=== PATIENT | female | born 1965 | race Caucasian/White ===

== ENCOUNTER 2016-10-24 18:24 | Emergency (ER) | payer SELFPAY ==
[~2016-10-24] VITALS: Ht 175.3 cm; Wt 90.0 kg
[2016-10-24 18:26] VITALS: BP 123/60; PULSE 106; RESP 24; TEMP 98.1; O2SAT 100
[2016-10-24 18:50] VITALS: BP 113/62; PULSE 101; RESP 16
[2016-10-24] MEDS ORDERED: SODIUM CHLORIDE 0.9% FLUSH 5 ML FLUSH IVF PRN (19:15)
--- NOTE | 2016-10-24 19:18 | PD ---
HPI Chief Complaint: Abdominal Pain Time Seen by Provider: 18:58 Travel History International Travel<30 days: No Contact w/Intl Traveler<30days: No Traveled to known affect area: No History of Present Illness HPI The patient is a 51-year-old female who presents to the emergency department for swelling, abdominal distention and pain, and shortness of breath. The patient has a history of "fatty liver", secondary to [place] according to her report. The patient does note a history of intermittent alcohol use, but denies any direct alcohol abuse. Patient states she was advised she would need a liver transplant in [place], [place], and subsequently moved to [place]. The patient states she was seen by another primary physician and field mechanic/site lead who told her she would not need a liver transplant. The patient does note her last couple weeks she's had increasing swelling to lower extremity, right greater then the left. She does have a history of previous DVT in the right lower extremity which was treated on Lovenox, however, is not currently anticoagulated. She also notes increasing abdominal distention and difficulty taking a deep breath secondary to abdominal distention. She also notes a history congestive heart failure. The patient states she does not currently have a primary physician. Symptoms are moderate, there are no alleviating factors, possibly exacerbated by history of liver disease. PFSH Past Medical History Narrative Medical Fatty liver, PTSD Anxiety: Yes Depression: Yes Hiatal Hernia: Yes Influenza Vaccination: No ?: Not Past Surgical History Narrative Surgical Gastric bypass Abdominal Surgery: Yes (HERNIA REPAIR) Oral Surgery: Yes Social History Alcohol Use: Yes (OCCASIONALLY) Tobacco Use: Yes Substance Use: No Allergies-Medications (Allergen,Severity, Reaction): Coded Allergies: No Known Allergies (Unverified , 10/24/16) Reported Meds & Prescriptions Reported Meds & Active Scripts Active No Active Prescriptions or Reported Medications Review of Systems Except as stated in HPI: all other systems reviewed are Neg General / Constitutional: No: Fever Cardiovascular: No: Chest Pain or Discomfort Respiratory: Positive: Shortness of Breath Gastrointestinal: Positive: Nausea, Abdominal Pain, No: Vomiting, Diarrhea Genitourinary: Positive: Incontinence (occasional incontinence) Musculoskeletal: Positive: Edema Skin: Positive Rash, Positive Itching Psychiatric: Positive: Other (history of PTSD) Physical Exam Narrative GENERAL: Awake, alert, 51-year-old female appears her stated age and is in no acute respiratory distress. SKIN: Mild jaundice. Telangiectasias noted over the chest wall. HEAD: Atraumatic. Normocephalic. EYES: Pupils equal and round. Mild icterus. ENT: No nasal bleeding or discharge. Mucous membranes pink and moist. NECK: Trachea midline. No JVD. CARDIOVASCULAR: Regular, tachycardic with a heart rate of 100. RESPIRATORY: No accessory muscle use. Diminished breath sounds in the bases. GASTROINTESTINAL: Abdomen distended with caput medusa. Well-healed midline surgical scar. Back: Scar noted over the mid right thoracic region that is circular in shape. MUSCULOSKELETAL: Lower extremity pitting edema right greater than left. NEUROLOGICAL: Awake and alert. No obvious cranial nerve deficits. Motor grossly within normal limits. Normal speech. PSYCHIATRIC: Appropriate mood and affect; insight and judgment normal. Data Data Last Documented VS Vital Signs Date Time Temp Pulse Resp B/P Pulse Ox O2 Delivery O2 Flow Rate FiO2 10/24/16 19:28 16 98 Room Air 10/24/16 18:50 101 113/62 10/24/16 18:26 98.1 Orders Complete Blood Count With Diff (10/24/16 19:09) Comprehensive Metabolic Panel (10/24/16 19:09) Lipase (10/24/16 19:09) Prothrombin Time / Inr (Pt) (10/24/16 19:09) Act Partial Throm Time (Ptt) (10/24/16 19:09) Urinalysis - C+S If Indicated (10/24/16 19:09) Iv Access Insert/Monitor (10/24/16 19:09) Ecg Monitoring (10/24/16 19:09) Oximetry (10/24/16 19:09) Sodium Chloride 0.9% Flush (Ns Flush) (10/24/16 19:15) Electrocardiogram (10/24/16 19:09) Chest, Single Ap (10/24/16 19:09) Us Leg Venous Doppler (10/24/16 ) Alcohol (Ethanol) (10/24/16 19:09) Ammonia (10/24/16 19:09) Us Abdomen Gallbladder (10/24/16 ) ^ Instruction (10/24/16 ) Labs Laboratory Tests Test 10/24/16 19:35 White Blood Count 11.9 TH/MM3 Red Blood Count 2.54 MIL/MM3 Hemoglobin 9.5 GM/DL Hematocrit 27.8 % Mean Corpuscular Volume 109.5 FL Mean Corpuscular Hemoglobin 37.6 PG Mean Corpuscular Hemoglobin 34.3 % Concent Red Cell Distribution Width 18.7 % Platelet Count 196 TH/MM3 Mean Platelet Volume 9.0 FL Neutrophils (%) (Auto) 69.8 % Lymphocytes (%) (Auto) 21.6 % Monocytes (%) (Auto) 7.4 % Eosinophils (%) (Auto) 0.7 % Basophils (%) (Auto) 0.5 % Neutrophils # (Auto) 8.3 TH/MM3 Lymphocytes # (Auto) 2.6 TH/MM3 Monocytes # (Auto) 0.9 TH/MM3 Eosinophils # (Auto) 0.1 TH/MM3 Basophils # (Auto) 0.1 TH/MM3 CBC Comment DIFF FINAL Differential Comment Prothrombin Time 14.0 SEC Prothromb Time International 1.3 RATIO Ratio Activated Partial 26.4 SEC Thromboplast Time Urine Color YELLOW Urine Turbidity HAZY Urine pH 5.0 Urine Specific [place] 1.010 Urine Protein NEG mg/dL Urine Glucose (UA) NEG mg/dL Urine Ketones NEG mg/dL Urine Occult Blood NEG Urine Nitrite NEG Urine Bilirubin NEG Urine Urobilinogen 2.0 MG/DL Urine Leukocyte Esterase NEG Urine RBC 1 /hpf Urine WBC 1 /hpf Urine Squamous Epithelial 1 /hpf Cells Urine Bacteria OCC /hpf Urine Mucus FEW /lpf Microscopic Urinalysis Comment CULT NOT INDICATED Sodium Level 137 MEQ/L Potassium Level 4.2 MEQ/L Chloride Level 104 MEQ/L Carbon Dioxide Level 23.9 MEQ/L Anion Gap 9 MEQ/L Blood Urea Nitrogen 6 MG/DL Creatinine 0.85 MG/DL Estimat Glomerular Filtration 71 ML/MIN Rate Random Glucose 84 MG/DL Calcium Level 7.5 MG/DL Total Bilirubin 2.9 MG/DL Aspartate Amino Transf 70 U/L (AST/SGOT) Alanine Aminotransferase 9 U/L (ALT/SGPT) Alkaline Phosphatase 191 U/L Ammonia 51 MCMOL/L Total Protein 6.7 GM/DL Albumin 2.2 GM/DL Lipase 90 U/L Ethyl Alcohol Level 193 MG/DL [facility] Medical Decision Making Medical Screen Exam Complete: Yes Emergency Medical Condition: Yes Medical Record Reviewed: Yes Interpretation(s) Chest x-ray reveals scarring left midlung. No infiltrate. Plates and screws along the right clavicle, right shoulder and right humerus. Laboratory Tests Test 3/8/17 19:35 White Blood Count 11.9 TH/MM3 Red Blood Count 2.54 MIL/MM3 Hemoglobin 9.5 GM/DL Hematocrit 27.8 % Mean Corpuscular Volume 109.5 FL Mean Corpuscular Hemoglobin 37.6 PG Mean Corpuscular Hemoglobin 34.3 % Concent Red Cell Distribution Width 18.7 % Platelet Count 196 TH/MM3 Mean Platelet Volume 9.0 FL Neutrophils (%) (Auto) 69.8 % Lymphocytes (%) (Auto) 21.6 % Monocytes (%) (Auto) 7.4 % Eosinophils (%) (Auto) 0.7 % Basophils (%) (Auto) 0.5 % Neutrophils # (Auto) 8.3 TH/MM3 Lymphocytes # (Auto) 2.6 TH/MM3 Monocytes # (Auto) 0.9 TH/MM3 Eosinophils # (Auto) 0.1 TH/MM3 Basophils # (Auto) 0.1 TH/MM3 CBC Comment DIFF FINAL Differential Comment Prothrombin Time 14.0 SEC Prothromb Time International 1.3 RATIO Ratio Activated Partial 26.4 SEC Thromboplast Time Urine Color YELLOW Urine Turbidity HAZY Urine pH 5.0 Urine Specific [place] 1.010 Urine Protein NEG mg/dL Urine Glucose (UA) NEG mg/dL Urine Ketones NEG mg/dL Urine Occult Blood NEG Urine Nitrite NEG Urine Bilirubin NEG Urine Urobilinogen 2.0 MG/DL Urine Leukocyte Esterase NEG Urine RBC 1 /hpf Urine WBC 1 /hpf Urine Squamous Epithelial 1 /hpf Cells Urine Bacteria OCC /hpf Urine Mucus FEW /lpf Microscopic Urinalysis Comment CULT NOT INDICATED Sodium Level 137 MEQ/L Potassium Level 4.2 MEQ/L Chloride Level 104 MEQ/L Carbon Dioxide Level 23.9 MEQ/L Anion Gap 9 MEQ/L Blood Urea Nitrogen 6 MG/DL Creatinine 0.85 MG/DL Estimat Glomerular Filtration 71 ML/MIN Rate Random Glucose 84 MG/DL Calcium Level 7.5 MG/DL Total Bilirubin 2.9 MG/DL Aspartate Amino Transf 70 U/L (AST/SGOT) Alanine Aminotransferase 9 U/L (ALT/SGPT) Alkaline Phosphatase 191 U/L Ammonia 51 MCMOL/L Total Protein 6.7 GM/DL Albumin 2.2 GM/DL Lipase 90 U/L Ethyl Alcohol Level 193 MG/DL EKG reveals normal sinus rhythm with a rate in 97. Nonspecific ST-T wave changes. Inverted T-wave noted in lead 3 with Q waves in lead 3. Last Impressions Chest X-Ray 10/24/[id number] Signed Impressions: Service Date/Time: Monday, October 24, 2016 19:19 - CONCLUSION: Scarring left midlung. No infiltrate. Perez Burrell MD Lower Extremity Ultrasound 10/24/16 0000 Signed Impressions: Service Date/Time: Monday, October 24, 2016 21:42 - CONCLUSION: No DVT right leg. Perez Burrell MD Gall Bladder Ultrasound 10/24/16 0000 Signed Impressions: Service Date/Time: Monday, October 24, 2016 21:25 - CONCLUSION: 1. Cirrhotic appearing liver with small amount of abdominal ascites. 2. Cholelithiasis. Perez Burrell MD Differential Diagnosis Differential diagnosis includes nonalcoholic steatohepatitis, alcohol hepatitis , cholecystitis, ascites, anasarca, hypoalbuminemia, pleural effusion, congestive heart failure. Narrative Course IV was established, labs were drawn and sent, and the patient was placed on cardiac telemetry monitoring and continuous pulse oximetry monitoring. EKG was ordered and interpreted. Chest x-ray was ordered. Ultrasound of the abdomen and right lower extremity were obtained. Alcohol level was elevated at 193. Albumin is low at 2.2. The patient is mildly anemic with a hemoglobin of 9.5. AST is much higher than ALT, may be secondary to alcohol hepatitis. Chest x- ray was negative, no significant pleural effusions. Alcohol was elevated at 193. Albumin was low, LFTs reveal a bili of 2.9. Chest x-rays clear. Ultrasound of the right lower extremity is negative. Ultrasound the abdomen reveals a small amount of abdominal ascites and cirrhosis with cholelithiasis. Patient has a history of liver disease and is advised to follow-up with a field mechanic/site lead. Diagnosis Primary Impression: Cirrhosis Qualified Code: K74.60 - Cirrhosis of liver with ascites, unspecified hepatic cirrhosis type Additional Impression: Hypoalbuminemia Referrals: Costa Higgins MD call for appointment Patient Instructions: General Instructions Additional Instructions: Please provide a patient a copy of her lab results and ultrasound results at discharge. No more alcohol use. Avoid Tylenol. Follow-up with a field mechanic/site lead in regards to your chronic liver disease. GEORGIE hose and/or Shravan wraps to lower extremities for edema. Scripts No Active Prescriptions or Reported Meds Disposition: 01 DISCHARGE HOME Condition: Stable Owen Gill MD Oct 24, 2016 19:18
[2016-10-24 19:28] VITALS: RESP 16; O2SAT 98
--- NOTE | 2016-10-24 19:30 | RADRPT ---
EXAM DATE/TIME: 10/24/2016 19:19 [facility] COMPARISON: No previous studies available for comparison. INDICATIONS : Short of breath, edema. MEDICAL HISTORY : Congestive heart failure. Hx of fatty liver. SURGICAL HISTORY : Gastric bypass. Hiatal hernia repair. ENCOUNTER: Initial ACUITY: 1 day PAIN SCORE: 7/10 LOCATION: Right anterior chest/abdomen FINDINGS: A single view of the chest demonstrates minimal scarring left midlung without evidence of mass, infil trate or effusion. The cardiomediastinal contours are unremarkable. Plates and screws along the rig ht clavicle, right shoulder and right humerus. CONCLUSION: Scarring left midlung. No infiltrate. Perez Burrell MD on October 24, 2016 at 19:27 Board Certified Radiologist. This report was verified electronically.
[2016-10-24 20:02] LABS: AUTOMATED NEUTROPHIL # 8.3 TH/MM3 (1.8-7.7); BASOPHIL # 0.1 TH/MM3 (0-0.2); BASOPHIL % 0.5 % (0.0-2.0); EOSINOPHIL # 0.1 TH/MM3 (0-0.4); EOSINOPHIL % 0.7 % (0.0-4.0); HEMATOCRIT 27.8 % (35.0-46.0); HEMO FLAGS DIFF FINAL; LYMPH % 21.6 % (9.0-44.0); LYMPHOCYTE # 2.6 TH/MM3 (1.0-4.8); MEAN CELL VOLUME 109.5 FL (80.0-100.0); MEAN CORPUSCULAR HEMOGLOBIN 37.6 PG (27.0-34.0); MEAN CORPUSCULAR HGB CONC 34.3 % (32.0-36.0); MONO % 7.4 % (0.0-8.0); NEUT % 69.8 % (16.0-70.0); PLATELET COUNT 196 TH/MM3 (150-450); RED BLOOD COUNT 2.54 MIL/MM3 (4.00-5.30); RED CELL DISTRIBUTION WIDTH 18.7 % (11.6-17.2); WHITE BLOOD COUNT 11.9 TH/MM3 (4.0-11.0)
[2016-10-24 20:03] LABS: BACTERIA, URINE OCC /hpf; BLOOD, URINE NEG (NEG); COMMENT (UR) CULT NOT INDICATED; CULTURE IF INDICATED CULT NOT INDICATED; GLUCOSE,URINE NEG (NEG); KETONE, URINE NEG (NEG); MUCUS URINE FEW /lpf (OCC); NITRITE,URINE NEG (NEG); SQUAMOUS EPITHELIAL CELL URINE 1 /hpf (0-5); URINE COLOR YELLOW (YELLW/STRAW)
[2016-10-24 20:16] LABS: APTT (PATIENT) 26.4 SEC (24.3-30.1); INTERNATIONAL NORMALIZED RATIO 1.3 RATIO
[2016-10-24 20:47] LABS: ANION GAP 9 MEQ/L (5-15)
[2016-10-24 20:50] LABS: ALKALINE PHOSPHATASE 191 U/L (45-117); ALT (GPT) 9 U/L (10-53); AST (GOT) 70 U/L (15-37); BICARBONATE 23.9 MEQ/L (21.0-32.0); BLOOD UREA NITROGEN 6 MG/DL (7-18); CHLORIDE 104 MEQ/L (98-107); GLOMERULAR FILTRATION RATE 71 ML/MIN (>89); POTASSIUM 4.2 MEQ/L (3.5-5.1); SODIUM (NA) 137 MEQ/L (136-145); TOTAL BILIRUBIN ADULT 2.9 MG/DL (0.2-1.0)
--- NOTE | 2016-10-24 22:27 | RADRPT ---
EXAM DATE/TIME: 10/24/2016 21:25 [facility] COMPARISON: No previous studies available for comparison. INDICATIONS : Right upper quadrant pain. Evaluate liver and ascites due to history of [place]. MEDICAL HISTORY : Hernia, hiatal. SURGICAL HISTORY : Hiatal hernia repair. Right arm surgery. ENCOUNTER: Initial ACUITY: 2 weeks PAIN SCORE: 7/10 LOCATION: Abdomen. MEASUREMENTS: LIVER: 20.9 cm length COMMON DUCT: 5 mm RIGHT KIDNEY: 10.5 x 5.2 x 4.4 cm FINDINGS: LIVER: Increase in echogenicity with nodularity. No focal lesion or ductal dilatation. Hepatopedal flow. Sma ll abdominal ascites. COMMON DUCT: No intraluminal mass or stone visualized. GALLBLADDER: Contains multiple stones, demonstrates no wall thickening or pericholecystic fluid. PANCREAS: The visualized portions are within normal limits. RIGHT KIDNEY: No evidence of hydronephrosis, stone, or mass. CONCLUSION: 1. Cirrhotic appearing liver with small amount of abdominal ascites. 2. Cholelithiasis. Perez Burrell MD on October 24, 2016 at 22:24 Board Certified Radiologist. This report was verified electronically.
--- NOTE | 2016-10-24 22:28 | RADRPT ---
EXAM DATE/TIME: 10/24/2016 21:42 [facility] COMPARISON: No previous studies available for comparison. INDICATIONS : Right leg pain and swelling. MEDICAL HISTORY : Hernia, hiatal. SURGICAL HISTORY : Hiatal hernia repair. Right arm surgery. ENCOUNTER: Initial ACUITY: 2 weeks PAIN SCORE: 7/10 LOCATION: Right leg. TECHNIQUE: Venous ultrasound of the leg was performed from the inguinal ligament to the proximal calf. Real-cherry e, color Doppler and spectral tracing, compression and augmentation techniques were used. FINDINGS: There is normal compressibility of the deep venous system from the inguinal region to the proximal ca lf. No echogenic clot is seen in the lumen of the common femoral, femoral, popliteal, and posterior tibial veins. There is a normal response of the venous system to proximal and distal augmentation an d respiration. CONCLUSION: No DVT right leg. Perez Burrell MD on October 24, 2016 at 22:26 Board Certified Radiologist. This report was verified electronically.
--- NOTE | 2016-10-25 10:10 | EKG ---
Date Performed: 10/24/2016 Time Performed: 21:15:35 PTAGE: 51 years EKG: Sinus rhythm NONSPECIFIC ST & T-WAVE ABNORMALITY BORDERLINE ECG NO PREVIOUS TRACING DOCTOR: Ben Neal Interpretating Date/Time 10/25/2016 10:08:20
== END 2016-10-25 00:38 | disposition home or self-care (01) ==
LOC: NEPE 18:24
DX: K74.60 Unspecified cirrhosis of liver (principal); R18.8 Other ascites; E88.09 Other disorders of plasma-protein metabolism, not elsewhere classified; D64.9 Anemia, unspecified; R94.31 Abnormal electrocardiogram [ECG] [EKG]; R10.9 Unspecified abdominal pain; R06.02 Shortness of breath; Z72.0 Tobacco use; Z86.718 Personal history of other venous thrombosis and embolism; Z86.79 Personal history of other diseases of the circulatory system; Z87.19 Personal history of other diseases of the digestive system; Z86.59 Personal history of other mental and behavioral disorders
CPT/HCPCS: 71010; 76705; 80053; 80307; 81001; 82140; 83690; 85025; 85610; 85730; 93005; 93971

== ENCOUNTER 2017-07-09 11:41 | Inpatient (IN) | payer MEDICARE, OTHER ==
[2017-07-09] VITALS (8 sets, daily range): BP systolic 102–121; BP diastolic 59–75; PULSE 75–90; RESP 16–18; TEMP 98.1–98.5; O2SAT 97–100
[~2017-07-09] VITALS: Ht 170.2 cm; Wt 75.6 kg
[2017-07-09] MEDS ORDERED: IOHEXOL 350 MG/ML 10 ML VIAL (for RAD DIAG) IVCONTRAST ONE (11:42)
[2017-07-09] MEDS ORDERED: SODIUM CHLORID 0.9% 500 ML INJ 500 ML IV ONE (12:00)
[2017-07-09] MEDS ORDERED: SODIUM CHLORIDE 0.9% FLUSH 5 ML FLUSH IV FLUSH PRN (12:00)
--- NOTE | 2017-07-09 12:09 | PD ---
HPI Chief Complaint: Altered Mental Status Time Seen by Provider: 11:56 Travel History International Travel<30 days: No Contact w/Intl Traveler<30days: No Traveled to known affect area: No History of Present Illness HPI 52-year-old female with history of alcoholic liver cirrhosis presents to the emergency department via [facility] from [facility] for evaluation of altered mental status. Apparently, she is having increased ammonia level with her liver cirrhosis. She also apparently is being treated for a urinary tract infection with meropenem him 500 mg every 8 that was just started. Patient is alert. She is oriented to person and place, but does not know the year. She does know the month and the president. She complains of "allover pain". Patient states that she has had intermittent fevers and chills. She denies any chest pain or shortness of breath. She reports abdominal pain. Chest reports nausea, but no vomiting. She states she has had diarrhea, but no constipation. Severity is moderate. No exacerbating or alleviating factors. PFSH Past Medical History Anxiety: Yes Depression: Yes Hiatal Hernia: Yes ?: Not Past Surgical History Abdominal Surgery: Yes (HERNIA REPAIR) Oral Surgery: Yes Social History Alcohol Use: Yes (OCCASIONALLY) Tobacco Use: Yes Substance Use: No Allergies-Medications (Allergen,Severity, Reaction): Coded Allergies: No Known Allergies (Unverified Adverse Reaction, Unknown, 07/09/17) Reported Meds & Prescriptions Reported Meds & Active Scripts Active Reported Oxycodone (Oxycodone HCl) 5 Mg Cap 5 Mg PO DAILY PRN Alprazolam 0.25 Mg Tab 0.25 Mg PO Q8H Lactulose Liq (Lactulose) 10 Gm/15 Ml Soln 45 Ml PO TID Pro-Stat Awc (Amino Acids-Protein Hydrolysat) 17 Gram-100 Kcal/30 Ml Liq Unknown Dose PO TID Gabapentin 100 Mg Cap 100 Mg PO TID Ferrous Sulfate 325 Mg (65 Mg Iron) Tablet 325 Mg PO TIDPC [Calcium Tablet] 600 Mg PO TD Acidophilus (Probiotic Product) 175 Mg Cap 1 Unit PO TID Xifaxan (Rifaximin) 550 Mg Tab 550 Mg PO Q12HR Vitamin C (Ascorbic Acid) 250 Mg Tab 500 Mg PO BID Spironolactone 100 Mg Tab 100 Mg PO BID Furosemide 40 Mg Tab 40 Mg PO BID Fluticasone Nasal [place] 50 Mcg/Act Naspr 50 Mcg EACH NARE BID 50 mcg/spray Famotidine 20 Mg Tab 20 Mg PO BID Vitamin B-Complex (B-Complex Vitamins) 1 Tab Unknown Dose PO DAILY Senna-Tabs (Sennosides) 8.6 Mg Tab 8.6 Mg PO DAILY Potassium Chloride ER (Potassium Chloride) 10 Meq Cap 10 Meq PO DAILY Effexor XR 24 HR (Venlafaxine HCl) 75 Mg Cap 75 Mg PO DAILY Review of Systems Except as stated in HPI: all other systems reviewed are Neg Physical Exam Narrative GENERAL: Well-nourished, well-developed female patient, He looks older than 52. She is afebrile. Patient is alert. She is oriented to person, place. She is unaware of the year, but knows the month and the president. SKIN: Focused skin assessment warm/dry. Patient has a stage 4 decubitus ulcer that with saturated gauze in place and foul odor. HEAD: Normocephalic. Atraumatic. ENT: Mucosa is dry. No erythema or exudates. No uvular edema. No uvular, palatal , or tonsillar deviation. Airway patent. Nasal turbinates appear normal without nasal blood, purulent drainage or septal hematoma. Bilateral tympanic membranes are clear without erythema or perforation. EYES: No scleral icterus. No injection or drainage. NECK: Supple, trachea midline. No JVD or lymphadenopathy. CARDIOVASCULAR: Regular rate and rhythm without murmurs, gallops, or rubs. Bilateral radial and pedal pulses are 2+. RESPIRATORY: Breath sounds equal bilaterally. No accessory muscle use. Lungs sounds are clear to auscultation. GASTROINTESTINAL: Abdomen is distended with moaning upon palpation throughout the abdomen. MUSCULOSKELETAL: No cyanosis, or edema. BACK: Nontender without obvious deformity. No CVA tenderness. Data Data Last Documented VS Vital Signs Date Time Temp Pulse Resp B/P (MAP) Pulse Ox O2 Delivery O2 Flow Rate FiO2 07/09/17 15:29 86 16 110/59 (76) Room Air 07/09/17 13:35 100 07/09/17 11:49 98.1 Orders Orders Electrocardiogram (07/09/17 11:58) Ammonia (07/09/17 11:58) Complete Blood Count With Diff (07/09/17 11:58) Comprehensive Metabolic Panel (07/09/17 11:58) Creatine Kinase (Cpk) (07/09/17 11:58) Prothrombin Time / Inr (Pt) (07/09/17 11:58) Act Partial Throm Time (Ptt) (07/09/17 11:58) Troponin I (07/09/17 11:58) Urinalysis - C+S If Indicated (07/09/17 11:58) Lactic Acid Sepsis Protocol (07/09/17 11:58) Blood Culture (07/09/17 11:58) Chest, Single Ap (07/09/17 11:58) Ct Brain W/O Iv Contrast(Rout) (07/09/17 11:58) Blood Glucose (07/09/17 11:58) Ecg Monitoring (07/09/17 11:58) Iv Access Insert/Monitor (07/09/17 11:58) Cath For Specimen (07/09/17 11:58) Oximetry (07/09/17 11:58) Sodium Chloride 0.9% Flush (Ns Flush) (07/09/17 12:00) Sodium Chlorid 0.9% 500 Ml Inj (Ns 500 M (07/09/17 12:00) Ct Abd/Pel W Iv Contrast(Rout) (07/09/17 ) Wound Culture And Gram Stain (07/09/17 12:14) Urine Culture (07/09/17 12:00) Iohexol 350 Inj (Omnipaque 350 Inj) (07/09/17 11:42) (Hub Use Only)Inp Phy Cons/Ref (07/09/17 ) Vancomycin Inj (Vancomycin Inj) (07/09/17 15:15) Piperacil-Tazo 3.375 Gm Premix (Zosyn 3. (07/09/17 15:15) Labs Laboratory Tests Test 07/09/17 12:00 White Blood Count 15.6 TH/MM3 Red Blood Count 3.38 MIL/MM3 Hemoglobin 11.1 GM/DL Hematocrit 33.3 % Mean Corpuscular Volume 98.7 FL Mean Corpuscular Hemoglobin 32.9 PG Mean Corpuscular Hemoglobin Concent 33.4 % Red Cell Distribution Width 15.6 % Platelet Count 125 TH/MM3 Mean Platelet Volume 8.0 FL Neutrophils (%) (Auto) 84.4 % Lymphocytes (%) (Auto) 10.8 % Monocytes (%) (Auto) 4.6 % Eosinophils (%) (Auto) 0.1 % Basophils (%) (Auto) 0.1 % Neutrophils # (Auto) 13.2 TH/MM3 Lymphocytes # (Auto) 1.7 TH/MM3 Monocytes # (Auto) 0.7 TH/MM3 Eosinophils # (Auto) 0.0 TH/MM3 Basophils # (Auto) 0.0 TH/MM3 CBC Comment AUTO DIFF Differential Comment AUTO DIFF CONFIRMED Prothrombin Time 14.4 SEC Prothromb Time International Ratio 1.3 RATIO Activated Partial Thromboplast Time 35.0 SEC Urine Color YELLOW Urine Turbidity CLEAR Urine pH 6.0 Urine Specific [place] 1.008 Urine Protein NEG mg/dL Urine Glucose (UA) NEG mg/dL Urine Ketones NEG mg/dL Urine Occult Blood NEG Urine Nitrite NEG Urine Bilirubin NEG Urine Urobilinogen LESS THAN 2.0 MG/DL Urine Leukocyte Esterase TRACE Urine RBC 1 /hpf Urine WBC 6 /hpf Urine Squamous Epithelial Cells 1 /hpf Urine Bacteria RARE /hpf Urine Mucus FEW /lpf Microscopic Urinalysis Comment CATH-CULTURE IND Blood Urea Nitrogen 14 MG/DL Creatinine 0.73 MG/DL Random Glucose 72 MG/DL Total Protein 7.5 GM/DL Albumin 1.6 GM/DL Calcium Level 8.1 MG/DL Alkaline Phosphatase 109 U/L Aspartate Amino Transf (AST/SGOT) 38 U/L Alanine Aminotransferase (ALT/SGPT) LESS THAN 6 U/L Total Bilirubin 1.7 MG/DL Sodium Level 130 MEQ/L Potassium Level 4.3 MEQ/L Chloride Level 99 MEQ/L Carbon Dioxide Level 23.8 MEQ/L Anion Gap 7 MEQ/L Estimat Glomerular Filtration Rate 84 ML/MIN Lactic Acid Level 1.1 mmol/L Ammonia 20 MCMOL/L Total Creatine Kinase 43 U/L Troponin I LESS THAN 0.02 NG/ML [facility] Medical Decision Making Medical Screen Exam Complete: Yes Emergency Medical Condition: Yes Medical Record Reviewed: No Interpretation(s) chest x-ray - CONCLUSION: No acute disease. CT abdomen/pelvis - CONCLUSION: Gallstones. Mildly cirrhotic liver with some surrounding fluid. Bilateral lower lobe atelectasis. CT brain - no acute disease Differential Diagnosis Hepatic encephalopathy versus UTI versus sepsis versus the left side abnormality versus dehydration versus pneumonia Narrative Course 52-year-old female presents to the emergency department from [facility] for evaluation of increased confusion with elevated ammonia level and is currently being treated for UTI. EKG, CBC, CMP, CK, troponin, ammonia level , lactic acid, PTT, PT/INR, UA, blood cultures 2 are ordered and pending. Chest x-ray, CT of the brain, CT abdomen/pelvis with IV contrast are ordered and pending. Patient is given normal saline 500 mL bolus. EKG shows SR, HR 80, no acute ST changes. CBC shows leukocytosis 15.6, hemoglobin 11.1, hematocrit 33.3, platelets 125. CMP shows hyponatremia of 130 , glucose 72, bilirubin 1.7. CK is 43. Troponin is less than 0.02. Ammonia is 20. Lactic acid is 1.1. PT is 14.4, INR 1.3, PTT 35.0. UA shows trace leukocyte esterase, 6 WBC, rare bacteria. Chest x-ray shows no acute disease. CT of the brain shows no acute disease. CT abdomen/pelvis shows gallstones. Mildly cirrhotic liver with some surrounding fluid. Bilateral lower lobe atelectasis. Patient is started on Vancomycin 1 gm IV, Zosyn 3.375 gm IV for UTI, decubitus ulcer. I reviewed sensitivity. The patient from nursing facility which shows the bacteria is sensitive to Zosyn. Dr. Dos Santos accepted admission. Diagnosis Primary Impression: Altered mental status Qualified Codes: R41.82 - Altered mental status, unspecified Additional Impressions: Decubitus ulcer, stage 4 with infection UTI (urinary tract infection) Qualified Codes: N30.00 - Acute cystitis without hematuria Cirrhosis Qualified Codes: K74.60 - Unspecified cirrhosis of liver Admitting Information Admitting Physician Requests: Tran Britt Jul 09, 2017 12:09
[2017-07-09 12:35] LABS: AUTOMATED NEUTROPHIL # 13.2 TH/MM3 (1.8-7.7); BASOPHIL % 0.1 % (0.0-2.0); EOSINOPHIL % 0.1 % (0.0-4.0); HEMATOCRIT 33.3 % (35.0-46.0); LYMPH % 10.8 % (9.0-44.0); LYMPHOCYTE # 1.7 TH/MM3 (1.0-4.8); MEAN CELL VOLUME 98.7 FL (80.0-100.0); MEAN CORPUSCULAR HEMOGLOBIN 32.9 PG (27.0-34.0); MEAN CORPUSCULAR HGB CONC 33.4 % (32.0-36.0); MONO % 4.6 % (0.0-8.0); NEUT % 84.4 % (16.0-70.0); PLATELET COUNT 125 TH/MM3 (150-450); RED BLOOD COUNT 3.38 MIL/MM3 (4.00-5.30); RED CELL DISTRIBUTION WIDTH 15.6 % (11.6-17.2); WHITE BLOOD COUNT 15.6 TH/MM3 (4.0-11.0)
[2017-07-09 12:38] LABS: HEMO FLAGS AUTO DIFF
[2017-07-09 12:41] LABS: BACTERIA, URINE RARE /hpf; BLOOD, URINE NEG (NEG); COMMENT (UR) CATH-CULTURE IND; CULTURE IF INDICATED CATH CULTURE IND; GLUCOSE,URINE NEG (NEG); KETONE, URINE NEG (NEG); MUCUS URINE FEW /lpf (OCC); NITRITE,URINE NEG (NEG); SQUAMOUS EPITHELIAL CELL URINE 1 /hpf (0-5); URINE COLOR YELLOW (YELLW/STRAW)
[2017-07-09] MEDS ORDERED: SENN8.6T36 PO (12:41)
[2017-07-09] MEDS ORDERED: POTA10CA PO (12:41)
[2017-07-09] MEDS ORDERED: VENL75XR PO (12:41)
[2017-07-09] MEDS ORDERED: FAMO20TA2 PO (12:41)
[2017-07-09] MEDS ORDERED: FLUT50SP EACH NARE (12:41)
[2017-07-09] MEDS ORDERED: SPIR100T PO (12:41)
[2017-07-09] MEDS ORDERED: B-COTAB41 PO (12:41)
[2017-07-09] MEDS ORDERED: FURO40TA PO (12:41)
[2017-07-09 12:45] LABS: INTERNATIONAL NORMALIZED RATIO 1.3 RATIO; PROTHROMBIN TIME - PATIENT 14.4 SEC (9.8-11.6)
[2017-07-09] MEDS ORDERED: OXYC1CAP PO (12:50)
[2017-07-09] MEDS ORDERED: CALCIUM TABLET PO (12:50)
[2017-07-09] MEDS ORDERED: [UNRECOGNIZED DRUG - CODE] PO (12:50)
[2017-07-09] MEDS ORDERED: VITA250T3 PO (12:50)
[2017-07-09] MEDS ORDERED: LACT10SO PO (12:50)
[2017-07-09] MEDS ORDERED: FERR325T18 PO (12:50)
[2017-07-09] MEDS ORDERED: XIFA550T4 PO (12:50)
[2017-07-09] MEDS ORDERED: ALPR0.25 PO (12:50)
[2017-07-09] MEDS ORDERED: PROB1CAP12 PO (12:50)
[2017-07-09] MEDS ORDERED: GABA100C4 PO (12:50)
--- NOTE | 2017-07-09 12:56 | RADRPT ---
EXAM DATE/TIME: 07/09/2017 11:11 [facility] COMPARISON: CHEST SINGLE AP, October 24, 2016, 19:19. INDICATIONS : Altered mental status, short of breath MEDICAL HISTORY : Congestive heart failure. fatty liver SURGICAL HISTORY : gastric bypass, hiatal hernia repair, arm and shoulder surgery ENCOUNTER: Initial ACUITY: 1 day PAIN SCORE: Non-responsive. LOCATION: Bilateral chest FINDINGS: A single portable supine view of the chest shows linear atelectasis versus scarring within the left b ase. Right lung is clear. No infiltrates or effusions. Heart is normal in size. Orthopedic hardware i nvolving the right clavicle and proximal right humerus. CONCLUSION: No acute disease. Howard Vigil Jr., MD on July 09, 2017 at 12:54 Board Certified Radiologist. This report was verified electronically.
[2017-07-09 13:04] LABS: ALKALINE PHOSPHATASE 109 U/L (45-117); ALT (GPT) LESS THAN 6 U/L (10-53); ANION GAP 7 MEQ/L (5-15); AST (GOT) 38 U/L (15-37); BICARBONATE 23.8 MEQ/L (21.0-32.0); BLOOD UREA NITROGEN 14 MG/DL (7-18); CHLORIDE 99 MEQ/L (98-107); GLOMERULAR FILTRATION RATE 84 ML/MIN (>89); POTASSIUM 4.3 MEQ/L (3.5-5.1); SODIUM (NA) 130 MEQ/L (136-145); TOTAL BILIRUBIN ADULT 1.7 MG/DL (0.2-1.0)
[2017-07-09 13:05] LABS: CREATINE KINASE 43 U/L (26-192)
[2017-07-09 13:14] LABS: SCAN/DIFF AUTO DIFF CONFIRMED
--- NOTE | 2017-07-09 14:07 | RADRPT ---
EXAM DATE/TIME: 07/09/2017 13:55 [facility] COMPARISON: No previous studies available for comparison. INDICATIONS : Altered mental status. RADIATION DOSE: 44.60 CTDIvol (mGy) MEDICAL HISTORY : Hernia, hiatal. Cirrhosis. Chronic obstructive pulmonary disease. SURGICAL HISTORY : hiatal hernia repair ENCOUNTER: Initial ACUITY: 1 day PAIN SCALE: 0/10 LOCATION: cranial TECHNIQUE: Multiple contiguous axial images were obtained of the head. Using automated exposure control and adj ustment of the mA and/or kV according to patient size, radiation dose was kept as low as reasonably a chievable to obtain optimal diagnostic quality images. DICOM format image data is available electro nically for review and comparison. FINDINGS: CEREBRUM: The ventricles are normal for age. No evidence of midline shift, mass lesion, hemorrhage or acute in farction. No extra-axial fluid collections are seen. POSTERIOR FOSSA: The cerebellum and brainstem are intact. The 4th ventricle is midline. The cerebellopontine angle i s unremarkable. EXTRACRANIAL: The visualized portion of the orbits is intact. SKULL: The calvaria is intact. No evidence of skull fracture. CONCLUSION: No acute disease. Howard Vigil Jr., MD on July 09, 2017 at 14:03 Board Certified Radiologist. This report was verified electronically.
--- NOTE | 2017-07-09 14:54 | RADRPT ---
EXAM DATE/TIME: 07/09/2017 14:03 [facility] COMPARISON: No previous studies available for comparison. INDICATIONS : Patient complains of abdominal pain. IV CONTRAST: 71 cc Omnipaque 350 (iohexol) IV ORAL CONTRAST: No oral contrast ingested. RADIATION DOSE: 8.94 CTDIvol (mGy) MEDICAL HISTORY : Hernia, hiatal. Chronic obstructive pulmonary disease. Cirrhosis. SURGICAL HISTORY : hiatal hernia repair ENCOUNTER: Initial ACUITY: 1 day PAIN SCALE: 9/10 LOCATION: abdomen TECHNIQUE: Volumetric scanning of the abdomen and pelvis was performed. Using automated exposure control and ad justment of the mA and/or kV according to patient size, radiation dose was kept as low as reasonably achievable to obtain optimal diagnostic quality images. DICOM format image data is available electro nically for review and comparison. FINDINGS: LOWER LUNGS: Bilateral lower lobe atelectasis. LIVER: Homogeneous density without lesion, with a mildly cirrhotic appearance. There is no dilation of the biliary tree. Numerous calcified gallstones. SPLEEN: homogeneous density without lesion, slightly enlarged. PANCREAS: Within normal limits. KIDNEYS: Normal in size and shape. There is no mass, stone or hydronephrosis. ADRENAL GLANDS: Within normal limits. VASCULAR: There is no aortic aneurysm. BOWEL/MESENTERY: The stomach, small bowel, and colon demonstrate no acute abnormality. There is no free intraperitone al air or fluid. ABDOMINAL WALL: Within normal limits. RETROPERITONEUM: There is no lymphadenopathy. BLADDER: No wall thickening or mass. REPRODUCTIVE: Within normal limits. INGUINAL: There is no lymphadenopathy or hernia. MUSCULOSKELETAL: Within normal limits for patient age. CONCLUSION: Gallstones. Mildly cirrhotic liver with some surrounding fluid. Bilateral lower lobe atelectasis. Neil Roblero MD on July 09, 2017 at 14:47 Board Certified Radiologist. This report was verified electronically.
[2017-07-09] MEDS ORDERED: PIPERACIL-TAZO 3.375 GM PREMIX 50 ML IV ONE (15:15)
[2017-07-09] MEDS ORDERED: VANCOMYCIN INJ 1,000 MG in SODIUM CHLOR 0.9% 250 ML INJ 250 ML IV ONE (15:15)
[2017-07-09] MEDS ORDERED: PROCHLORPERAZINE 25 MG SUPP RECTAL PRN (16:00)
[2017-07-09] MEDS ORDERED: SODIUM CHLORIDE 0.9% FLUSH 10 ML FLUSH IV FLUSH PRN (16:00)
[2017-07-09] MEDS ORDERED: VANCOMYCIN INJ 1,000 MG in SODIUM CHLOR 0.9% 250 ML INJ 250 ML IV SCH (16:00)
[2017-07-09] MEDS: ALPRAZolam 0.25 MG TAB PO SCH ×2 (16:00→23:43)
[2017-07-09] MEDS ORDERED: MAGNESIUM HYDROXIDE SUSP 30 ML CUP PO PRN (16:00)
[2017-07-09] MEDS ORDERED: SENNOSIDES 8.6 MG TAB PO PRN (16:00)
[2017-07-09] MEDS ORDERED: ACETAMINOPHEN 325 MG TAB PO PRN (16:00)
[2017-07-09] MEDS ORDERED: BISACODYL 10 MG SUPP RECTAL PRN (16:00)
[2017-07-09] MEDS ORDERED: ONDANSETRON HCL 4 MG/2 ML VIAL IVP PRN (16:00)
[2017-07-09] MEDS ORDERED: NALOXONE HCL 0.4 MG/ML AMP IV PUSH PRN (16:00)
[2017-07-09] MEDS ORDERED: LACTULOSE SYRUP 20 GM/30 ML CUP PO PRN (16:00)
[2017-07-09] MEDS: ENOXAPARIN SODIUM 40 MG/0.4 ML SYRINGE SQ SCH (16:00)
[2017-07-09] MEDS: PIPERACIL-TAZO 4.5 GM PREMIX 100 ML IV SCH ×2 (16:00→23:43)
[2017-07-09] MEDS ORDERED: Vancomycin Consult Pharmacy 1 EA OTHER SCH (16:00)
[2017-07-09] MEDS ORDERED: TEMAZEPAM 15 MG CAP PO PRN (16:00)
--- NOTE | 2017-07-09 16:50 | HHI.HP ---
HPI Service [facility] Primary Care Physician Bradley Corey MD Admission Diagnosis AMS; stage 4 decubitus ulcer with infection; UTI Diagnoses: Chief Complaint: Altered mental status, multiple decubitus ulcers stage IV, UTI Travel History International Travel<30 Days: No Contact w/Intl Traveler <30 Da: No Traveled to Known Affected Are: No History of Present Illness 52-year-old female with history of alcoholic liver cirrhosis, COPD presents to the emergency department via [facility] from [facility] for evaluation of altered mental status. Apparently, she is having increased ammonia level with her liver cirrhosis per reports. However ammonia is found to be normal here on arrival. She also apparently is being treated for a urinary tract infection with meropenem IV 500 mg every 8 that was just started. Patient is alert however anxious/agitated. She is oriented to person and place , but does not know the year. She does know the month and the president. She complains of "allover pain". Patient states that she has had intermittent fevers and chills. She denies any chest pain or shortness of breath. She reports abdominal pain. Reports nausea, but no vomiting. She states she has had diarrhea, but no constipation. Severity is moderate. No exacerbating or alleviating factors. Says she has COPD however she is not using at this time. She is satting well on room air. Review of Systems ROS Limitations: Clinical Condition, Psychotic, Poor Historian Except as stated in HPI: all other systems reviewed are Neg Past Family Social History Past Medical History Essentially for disease cirrhosis, encephalopathy, UTI, COPD Past Surgical History Bariatric surgery a younger age. Hernia repair Reported Medications Reported Meds & Active Scripts Active Reported Oxycodone (Oxycodone HCl) 5 Mg Cap 5 Mg PO DAILY PRN Alprazolam 0.25 Mg Tab 0.25 Mg PO Q8H Lactulose Liq (Lactulose) 10 Gm/15 Ml Soln 45 Ml PO TID Pro-Stat Awc (Amino Acids-Protein Hydrolysat) 17 Gram-100 Kcal/30 Ml Liq Unknown Dose PO TID Gabapentin 100 Mg Cap 100 Mg PO TID Ferrous Sulfate 325 Mg (65 Mg Iron) Tablet 325 Mg PO TIDPC [Calcium Tablet] 600 Mg PO TD Acidophilus (Probiotic Product) 175 Mg Cap 1 Unit PO TID Xifaxan (Rifaximin) 550 Mg Tab 550 Mg PO Q12HR Vitamin C (Ascorbic Acid) 250 Mg Tab 500 Mg PO BID Spironolactone 100 Mg Tab 100 Mg PO BID Furosemide 40 Mg Tab 40 Mg PO BID Fluticasone Nasal [place] 50 Mcg/Act Naspr 50 Mcg EACH NARE BID 50 mcg/spray Famotidine 20 Mg Tab 20 Mg PO BID Vitamin B-Complex (B-Complex Vitamins) 1 Tab Unknown Dose PO DAILY Senna-Tabs (Sennosides) 8.6 Mg Tab 8.6 Mg PO DAILY Potassium Chloride ER (Potassium Chloride) 10 Meq Cap 10 Meq PO DAILY Effexor XR 24 HR (Venlafaxine HCl) 75 Mg Cap 75 Mg PO DAILY Allergies: Coded Allergies: No Known Allergies (Unverified Allergy, Unknown, 07/09/17) Family History Father had colon cancer at age 52. Patient says she is following with the GI and had colonoscopies and is cancer free.. Social History History of heavy alcohol use but she doesn't specify, says she quit alcohol. Denies illicit drug use or alcohol use. Physical Exam Vital Signs Vital Signs Date Time Temp Pulse Resp B/P (MAP) Pulse Ox O2 Delivery O2 Flow Rate FiO2 07/09/17 16:43 99 21 07/09/17 15:29 86 16 110/59 (76) Room Air 07/09/17 13:35 81 16 102/60 (74) 100 Room Air 07/09/17 12:14 75 16 118/75 (89) 99 Room Air 07/09/17 11:49 98.1 90 18 118/75 (89) 100 Physical Exam GENERAL: This is a skinny 52-year-old female, appearing older than the stated age, well-nourished, well-developed patient, appears anxious with hallucinations at this time. SKIN: Stage IV decubitus ulcers. Cool and dry. HEAD: Atraumatic. Normocephalic. No temporal or scalp tenderness. EYES: Pupils equal round and reactive. Extraocular motions intact. No scleral icterus. No injection or drainage. ENT: Nose without bleeding, purulent drainage or septal hematoma. Throat without erythema, tonsillar hypertrophy or exudate. Uvula midline. Airway patent. NECK: Trachea midline. No JVD or lymphadenopathy. Supple, nontender, no meningeal signs. CARDIOVASCULAR: Regular rate and rhythm without murmurs, gallops, or rubs. RESPIRATORY: Clear to auscultation. Breath sounds equal bilaterally. No wheezes , rales, or rhonchi. GASTROINTESTINAL: Abdomen soft, non-tender, nondistended. No hepato-splenomegaly , or palpable masses. No guarding. MUSCULOSKELETAL: Extremities without clubbing, cyanosis, or edema. No joint tenderness, effusion, or edema noted. No calf tenderness. Negative Homans sign bilaterally. NEUROLOGICAL: Awake and alert. Has hallucinations at times and is agitated. Cranial nerves II through XII intact. Motor and sensory grossly within normal limits. Five out of 5 muscle strength in all muscle groups. Normal speech. Laboratory Laboratory Tests Test 07/09/17 12:00 White Blood Count 15.6 Red Blood Count 3.38 Hemoglobin 11.1 Hematocrit 33.3 Mean Corpuscular Volume 98.7 Mean Corpuscular Hemoglobin 32.9 Mean Corpuscular Hemoglobin Concent 33.4 Red Cell Distribution Width 15.6 Platelet Count 125 Mean Platelet Volume 8.0 Neutrophils (%) (Auto) 84.4 Lymphocytes (%) (Auto) 10.8 Monocytes (%) (Auto) 4.6 Eosinophils (%) (Auto) 0.1 Basophils (%) (Auto) 0.1 Neutrophils # (Auto) 13.2 Lymphocytes # (Auto) 1.7 Monocytes # (Auto) 0.7 Eosinophils # (Auto) 0.0 Basophils # (Auto) 0.0 CBC Comment AUTO DIFF Differential Comment AUTO DIFF CONFIRMED Prothrombin Time 14.4 Prothromb Time International Ratio 1.3 Activated Partial Thromboplast Time 35.0 Urine Color YELLOW Urine Turbidity CLEAR Urine pH 6.0 Urine Specific [place] 1.008 Urine Protein NEG Urine Glucose (UA) NEG Urine Ketones NEG Urine Occult Blood NEG Urine Nitrite NEG Urine Bilirubin NEG Urine Urobilinogen LESS THAN 2.0 Urine Leukocyte Esterase TRACE Urine RBC 1 Urine WBC 6 Urine Squamous Epithelial Cells 1 Urine Bacteria RARE Urine Mucus FEW Microscopic Urinalysis Comment CATH-CULTURE IND Blood Urea Nitrogen 14 Creatinine 0.73 Random Glucose 72 Total Protein 7.5 Albumin 1.6 Calcium Level 8.1 Alkaline Phosphatase 109 Aspartate Amino Transf (AST/SGOT) 38 Alanine Aminotransferase (ALT/SGPT) LESS THAN 6 Total Bilirubin 1.7 Sodium Level 130 Potassium Level 4.3 Chloride Level 99 Carbon Dioxide Level 23.8 Anion Gap 7 Estimat Glomerular Filtration Rate 84 Lactic Acid Level 1.1 Ammonia 20 Total Creatine Kinase 43 Troponin I LESS THAN 0.02 Date/Time Source Procedure Growth Status 07/09/17 12:05 Blood Peripheral Aerobic Blood Culture Pending Received 07/09/17 12:05 Blood Peripheral Anaerobic Blood Culture Pending Received 07/09/17 12:00 Urine Catheterized Urine Urine Culture Pending Received 07/09/17 12:32 Wound Buttock Gram Stain - Final Resulted 07/09/17 12:32 Wound Buttock Wound Culture Pending Resulted Result Diagram: 07/09/17 1200 07/09/17 1200 Imaging Last Impressions Head CT 07/09/17 1158 Signed Impressions: Service Date/Time: Sunday, July 09, 2017 13:55 - CONCLUSION: No acute disease. Howard Vigil Jr., MD Chest X-Ray 07/09/17 1158 Signed Impressions: Service Date/Time: Sunday, July 09, 2017 11:11 - CONCLUSION: No acute disease. Howard Vigil Jr., MD Abdomen/Pelvis CT 07/09/17 0000 Signed Impressions: Service Date/Time: Sunday, July 09, 2017 14:03 - CONCLUSION: Gallstones. Mildly cirrhotic liver with some surrounding fluid. Bilateral lower lobe atelectasis. MD Raquel Jha VTE Risk Assessment Caprini VTE Risk Assessment: Mod/High Risk (score >= 2) Caprini Risk Assessment Model Point Value = 1 Point Value = 2 Point Value = 3 Point Value = 5 Age 41-60 Minor surgery BMI > 25 kg/m2 Swollen legs Varicose veins or History of unexplained or recurrent spontaneous Oral contraceptives or hormone replacement Sepsis (< 1 month) Serious lung disease, including pneumonia (< 1 month) Abnormal pulmonary function Acute myocardial infarction Congestive heart failure (< 1 month) History of inflammatory bowel disease Medical patient at bed rest Age 61-74 Arthroscopic surgery Major open surgery (> 45 min) Laparoscopic surgery (> 45 min) Malignancy Confined to bed (> 72 hours) Immobilizing plaster cast Central venous access Age >= 75 History of VTE Family history of VTE Factor V Leiden Prothrombin [id number] Lupus anticoagulant Anticardiolipin antibodies Elevated serum homocysteine Heparin-induced thrombocytopenia Other congenital or acquired thrombophilia Stroke (< 1 month) Elective arthroplasty Hip, pelvis, or leg fracture Acute spinal cord injury (< 1 month) Prophylaxis Regimen Total Risk Factor Score Risk Level Prophylaxis Regimen 0-1 Low Early ambulation 2 Moderate Order ONE of the following: *Sequential Compression Device (SCD) *Heparin 5000 units SQ BID 3-4 Higher Order ONE of the following medications: *Heparin 5000 units SQ TID *Enoxaparin/Lovenox 40 mg SQ daily (WT < 150 kg, CrCl > 30 mL/min) *Enoxaparin/Lovenox 30 mg SQ daily (WT < 150 kg, CrCl > 10-29 mL/min) *Enoxaparin/Lovenox 30 mg SQ BID (WT < 150 kg, CrCl > 30 mL/min) AND/OR *Sequential Compression Device (SCD) 5 or more Highest Order ONE of the following medications: *Heparin 5000 units SQ TID (Preferred with Epidurals) *Enoxaparin/Lovenox 40 mg SQ daily (WT < 150 kg, CrCl > 30 mL/min) *Enoxaparin/Lovenox 30 mg SQ daily (WT < 150 kg, CrCl > 10-29 mL/min) *Enoxaparin/Lovenox 30 mg SQ BID (WT < 150 kg, CrCl > 30 mL/min) AND *Sequential Compression Device (SCD) Assessment and Plan Assessment and Plan 52-year-old female presents to the emergency department from [facility] for evaluation of increased confusion with elevated ammonia level and is currently being treated for UTI. EKG, CBC, CMP, CK, troponin, ammonia level , lactic acid, PTT, PT/INR, UA, blood cultures 2 are ordered and pending. Chest x-ray, CT of the brain, CT abdomen/pelvis with IV contrast reviewed without significant findings. Patient is given normal saline 500 mL bolus in the ED. Will hold IVF as patient is with liver cirrhosis. Hepatic encephalopathy Leukocytosis without signs of sepsis at this time. ESBL UTI treated with meropenem at [facility] Gallstones on CT abd Mild ascites Liver cirrhosis Hyponatremia Coagulopathy with INR 1.3, PTT 35.0 2/2 liver failure due to cirrhosis Elevated bilirubin Transaminitis Anxiety and depression. Psychosis at this time. Consult psychiatry COPD stable monitor him oxygen to keep saturation more than 92%. Restart home medications Restart home medications as appropriate EKG shows SR, HR 80, no acute ST changes. CBC shows leukocytosis 15.6 Hyponatremia with Na of 130 Ammonia is 20. Lactic acid is 1.1. Coagulopathy with INR 1.3, PTT 35.0. UA reviewed shows trace leukocyte esterase, 6 WBC, rare bacteria. Chest x-ray reviewed shows no acute disease. CT of the brain reviewed shows no acute disease. CT abdomen/pelvis shows gallstones. Mildly cirrhotic liver with some surrounding fluid. Bilateral lower lobe atelectasis. Blood cultures obtained Patient with decubitus ulcers, order wound cultures History started vancomycin and Zosyn IV antibiotics Consult infectious disease for further recommendations Monitor CBC, CMP Consult PT Consult case management for discharge plan DVT prophylaxis with SCD/teds, hold chemical prophylaxis at this time the patient with coagulopathy and risk of bleeding. Code Status Full code Discussed Condition With Patient, nurse, ER physician Megan Dos Santos MD Jul 09, 2017 16:50
[2017-07-09] MEDS ORDERED: LORazepam 2 MG/ML VIAL IV PUSH ONE (17:00)
[2017-07-09] MEDS ORDERED: HALOPERIDOL LACTATE 5 MG/ML AMP IM PRN (17:00)
[2017-07-09] MEDS ORDERED: LORazepam 2 MG/ML VIAL IV PUSH PRN (17:00)
[2017-07-09] MEDS ORDERED: HALOPERIDOL LACTATE 5 MG/ML AMP IV PUSH ONE (17:00)
[2017-07-09] MEDS: FUROSEMIDE 40 MG TAB PO SCH (17:37)
[2017-07-09] MEDS: GABAPENTIN 100 MG CAP PO SCH (17:37)
[2017-07-09] MEDS: FERROUS SULFATE 325 MG (65 MG ELEMENTAL IRON) TAB PO SCH (17:37)
[2017-07-09] MEDS: LACTULOSE SYRUP 20 GM/30 ML CUP PO SCH (17:37)
[2017-07-09] MEDS: SODIUM CHLOR 0.9% 1000 ML INJ 1,000 ML IV SCH (17:38)
[2017-07-09] MEDS: ASCORBIC ACID 500 MG TAB PO SCH (21:43)
[2017-07-09] MEDS: RIFAXIMIN 550 MG TAB PO SCH (21:43)
[2017-07-09] MEDS: FAMOTIDINE 20 MG TAB PO SCH (21:43)
[2017-07-09] MEDS: DOCUSATE SODIUM 50 MG/SENNA 8.6 MG TAB PO SCH (21:43)
[2017-07-09] MEDS: SODIUM CHLORIDE 0.9% FLUSH 10 ML FLUSH IV FLUSH SCH (21:44)
[2017-07-09] MEDS: LACTOBACILLUS ACIDOPHILUS TAB PO SCH (21:44)
[2017-07-09] MEDS: SPIRONOLACTONE 100 MG TAB PO SCH (21:44)
[2017-07-09] MEDS: FLUTICASONE PROPIONATE 50 MCG/ACT 16 GM NASAL SPRAY EACH NARE SCH (22:24)
[2017-07-10] MEDS: VANCOMYCIN 1,500 MG/NS 500 ML IV SCH ×6 (00:21→23:46)
[2017-07-10] MEDS: SODIUM CHLOR 0.9% 1000 ML INJ 1,000 ML IV SCH ×2 (02:00→21:19)
[2017-07-10 03:34] VITALS: BP 95/57; PULSE 92; RESP 18; TEMP 98.4; O2SAT 95
[2017-07-10 06:54] LABS: BASOPHIL % 0.3 % (0.0-2.0); EOSINOPHIL % 0.2 % (0.0-4.0); HEMATOCRIT 28.5 % (35.0-46.0); LYMPH % 19.5 % (9.0-44.0); LYMPHOCYTE # 2.1 TH/MM3 (1.0-4.8); MEAN CELL VOLUME 99.2 FL (80.0-100.0); MEAN CORPUSCULAR HEMOGLOBIN 33.5 PG (27.0-34.0); MEAN CORPUSCULAR HGB CONC 33.7 % (32.0-36.0); MONO % 7.3 % (0.0-8.0); NEUT % 72.7 % (16.0-70.0); PLATELET COUNT 97 TH/MM3 (150-450); RED BLOOD COUNT 2.87 MIL/MM3 (4.00-5.30); RED CELL DISTRIBUTION WIDTH 15.3 % (11.6-17.2)
[2017-07-10 07:14] LABS: HEMO FLAGS AUTO DIFF
[2017-07-10 07:24] LABS: ALKALINE PHOSPHATASE 93 U/L (45-117); ALT (GPT) 7 U/L (10-53); ANION GAP 11 MEQ/L (5-15); AST (GOT) 21 U/L (15-37); BICARBONATE 25.4 MEQ/L (21.0-32.0); BLOOD UREA NITROGEN 10 MG/DL (7-18); CHLORIDE 101 MEQ/L (98-107); GLOMERULAR FILTRATION RATE 105 ML/MIN (>89); POTASSIUM 3.4 MEQ/L (3.5-5.1); SODIUM (NA) 137 MEQ/L (136-145); TOTAL BILIRUBIN ADULT 1.7 MG/DL (0.2-1.0)
[2017-07-10 07:35] VITALS: BP 95/53; PULSE 88; RESP 18; TEMP 99; O2SAT 98
[2017-07-10] MEDS ORDERED: POTASSIUM CHLORIDE 20 MEQ CONTROLLED RELEASE TAB PO ONE (08:30)
[2017-07-10] MEDS: DOCUSATE SODIUM 50 MG/SENNA 8.6 MG TAB PO SCH ×2 (09:00→21:18)
[2017-07-10] MEDS: SPIRONOLACTONE 100 MG TAB PO SCH ×2 (09:00→21:18)
[2017-07-10] MEDS: FUROSEMIDE 40 MG TAB PO SCH ×2 (09:00→17:34)
[2017-07-10] MEDS ORDERED: SENNOSIDES 8.6 MG TAB PO SCH (09:00)
[2017-07-10] MEDS: LACTULOSE SYRUP 20 GM/30 ML CUP PO SCH ×3 (09:00→17:54)
[2017-07-10 09:21] LABS: PLATELET ESTIMATE SMEAR LOW (NORMAL); PLATELET MORPHOLOGY NORMAL (NORMAL); SCAN/DIFF AUTO DIFF CONFIRMED
[2017-07-10] MEDS: PIPERACIL-TAZO 4.5 GM PREMIX 100 ML IV SCH (10:07)
[2017-07-10] MEDS: ASCORBIC ACID 500 MG TAB PO SCH ×2 (10:12→21:18)
[2017-07-10] MEDS: GABAPENTIN 100 MG CAP PO SCH ×3 (10:12→17:54)
[2017-07-10] MEDS: LACTOBACILLUS ACIDOPHILUS TAB PO SCH ×2 (10:12→21:18)
[2017-07-10] MEDS: RIFAXIMIN 550 MG TAB PO SCH ×2 (10:12→21:18)
[2017-07-10] MEDS: FERROUS SULFATE 325 MG (65 MG ELEMENTAL IRON) TAB PO SCH ×3 (10:12→17:54)
[2017-07-10] MEDS: POTASSIUM CHLORIDE 10 MEQ CAP PO SCH (10:13)
[2017-07-10] MEDS: FAMOTIDINE 20 MG TAB PO SCH ×2 (10:13→21:18)
[2017-07-10] MEDS: ALPRAZolam 0.25 MG TAB PO SCH ×3 (10:14→23:47)
[2017-07-10] MEDS: SODIUM CHLORIDE 0.9% FLUSH 10 ML FLUSH IV FLUSH SCH ×2 (10:14→21:00)
[2017-07-10] MEDS: VENLAFAXINE HCL XR 75 MG CAP PO SCH (10:14)
[2017-07-10] MEDS: FLUTICASONE PROPIONATE 50 MCG/ACT 16 GM NASAL SPRAY EACH NARE SCH ×2 (10:36→21:19)
--- NOTE | 2017-07-10 10:37 | EKG ---
Date Performed: 07/09/2017 Time Performed: 12:28:37 PTAGE: 52 years EKG: Sinus rhythm NORMAL ECG PREVIOUS TRACING : 10/24/2016 21.15 DOCTOR: Neil Elmore Interpretating Date/Time 07/10/2017 10:36:01
[2017-07-10 11:54] VITALS: BP 98/51; PULSE 86; RESP 16; TEMP 98.8; O2SAT 100
--- NOTE | 2017-07-10 13:06 | PD.PSY.CON ---
Provisional Diagnosis Admission Date Jul 10, 2017 at 10:39 [place] I. Delirium due to underlie medical conditions [place] II. deferred History of Present Illness Service Psychiatry Consult Requested By Dr. Dos Santos Reason for Consult Delirium Primary Care Physician Bradley Corey MD [facility] The patient is a 52-year-old woman, domiciled at [facility], with history documented psychiatric history of depression, she is on Effexor 75 mg, medical history of alcoholic liver cirrhosis, COPD presents to the emergency department via med one from [facility] for evaluation of altered mental status. Apparently, she is having increased ammonia level with her liver cirrhosis per reports. However ammonia is found to be normal here on arrival. She also apparently is being treated for a urinary tract infection with meropenem IV 500 mg every 8 that was just started. Patient is alert however anxious/agitated. She is oriented to person and place , but does not know the year. She does know the month and the president. She complains of "allover pain". Patient states that she has had intermittent fevers and chills. She denies any chest pain or shortness of breath. She reports abdominal pain. Reports nausea, but no vomiting. She states she has had diarrhea, but no constipation. Severity is moderate. No exacerbating or alleviating factors. Says she has COPD however she is not using at this time. She is satting well on room air. Consulted to psychiatry due to psychosis and agitation. On psychiatric evaluation today the patient is distant, hypoactive, poorly cooperative, patient is disoriented and confused. She doesn't know the reason of her hospitalization. He says that she is here at home. She says that she is not very sure was going on. She knows her name, but is disoriented in time and place. Patient is a speech reticent, seems to be confused, internally preoccupied, Gallito deficit in attention, able to provide any meaningful information for the psychiatric assessment. I try to get collateral information from her daughter, Letha Schreiber, but she did not pick up operator the phone , also to the other telephone listed in the electronic medical record, Yaima Colvin, , but she claims that she doesn't know this person. Review of Systems Except as stated in HPI: all other systems reviewed are Neg Past Family Social History Coded Allergies: No Known Allergies (Unverified Allergy, Unknown, 07/09/17) Reported Medications Oxycodone (Oxycodone) 5 Mg Cap, 5 MG PO DAILY Y for PAIN, CAP 0 Refills 07/09/17 Alprazolam (Alprazolam) 0.25 Mg Tab, 0.25 MG PO Q8H, TAB 0 Refills 07/09/17 Lactulose Liq (Lactulose Liq) 10 Gm/15 Ml Soln, 45 ML PO TID, ML 0 Refills 07/09/17 Amino Acids-Protein Hydrolysat (Pro-Stat Awc) 17 Gram-100 Kcal/30 Ml Liq, PO TID 07/09/17 Gabapentin (Gabapentin) 100 Mg Cap, 100 MG PO TID, #90 CAP 0 Refills 07/09/17 Ferrous Sulfate (Ferrous Sulfate) 325 Mg (65 Mg Iron) Tablet, 325 MG PO TIDPC for Nutritional Supplement, #90 TAB 0 Refills 07/09/17 [Calcium Tablet] No Conflict Check, 600 MG PO TD 07/09/17 Probiotic Product (Acidophilus) 175 Mg Cap, 1 UNIT PO TID 07/09/17 Rifaximin (Xifaxan) 550 Mg Tab, 550 MG PO Q12HR for Hepatic encephalopathy, #60 TAB 0 Refills 07/09/17 Ascorbic Acid (Vitamin C) 250 Mg Tab, 500 MG PO BID for Nutritional Supplement, TAB 0 Refills 07/09/17 Spironolactone (Spironolactone) 100 Mg Tab, 100 MG PO BID, #30 TAB 0 Refills 07/09/17 Furosemide (Furosemide) 40 Mg Tab, 40 MG PO BID, #60 TAB 0 Refills 07/09/17 Fluticasone Nasal Barton (Fluticasone Nasal Barton) 50 Mcg/Act Naspr, 50 MCG EACH NARE BID for Allergy Management, #1 BOTTLE 0 Refills 50 mcg/spray 07/09/17 Famotidine (Famotidine) 20 Mg Tab, 20 MG PO BID, #60 TAB 0 Refills 07/09/17 B-Complex Vitamins (Vitamin B-Complex) 1 Tab, PO DAILY 07/09/17 Sennosides (Senna-Tabs) 8.6 Mg Tab, 8.6 MG PO DAILY for Constipation, #30 TAB 0 Refills 07/09/17 Potassium Chloride ER (Potassium Chloride ER) 10 Meq Cap, 10 MEQ PO DAILY for Electrolyte Replacement, #30 CAP 0 Refills 07/09/17 Venlafaxine ER 24 HR (Effexor XR 24 HR) 75 Mg Cap, 75 MG PO DAILY, #30 CAP 0 Refills 07/09/17 Current Medications Medications (Trade) Dose Ordered Sig/Rudy Route Start Time Stop Time Status Last Admin Sodium Chloride 1,000 ml @ 100 mls/hr Q10H IV 07/09/17 16:00 (NS Flush) 2 ml UNSCH PRN IV FLUSH 07/09/17 16:00 (NS Flush) 2 ml BID IV FLUSH 07/09/17 21:00 07/10/17 10:14 (Tylenol) 650 mg Q4H PRN PO 07/09/17 16:00 (Zofran Inj) 4 mg Q6H PRN IVP 07/09/17 16:00 (Compazine Supp) 25 mg Q12H PRN RECTAL 07/09/17 16:00 (Restoril) 15 mg HS PRN PO 07/09/17 16:00 (Lovenox Inj) 40 mg Q24H SQ 07/09/17 16:00 (Narcan Inj) 0.4 mg UNSCH PRN IV PUSH 07/09/17 16:00 (Meggan-Colace) 1 tab BID PO 07/09/17 21:00 07/10/17 09:00 (Milk Of Magnesia Liq) 30 ml Q12H PRN PO 07/09/17 16:00 (Senokot) 17.2 mg Q12H PRN PO 07/09/17 16:00 (Dulcolax Supp) 10 mg DAILY PRN RECTAL 07/09/17 16:00 (Lactulose Liq) 30 ml DAILY PRN PO 07/09/17 16:00 Pharmacy Profile Note 0 ml @ 0 mls/hr UNSCH OTHER 07/09/17 16:00 Piperacillin Sod/ Tazobactam Sod 100 ml @ 200 mls/hr Q8H IV 07/09/17 16:00 07/10/17 10:07 (Xanax) 0.25 mg Q8H PO 07/09/17 16:00 07/10/17 10:14 (Pepcid) 20 mg BID PO 07/09/17 21:00 07/10/17 10:13 (Ferrous Sulfate) 325 mg TIDPC PO 07/09/17 18:30 07/10/17 10:12 (Flonase Norberto Spr) 2 spray BID EACH NARE 07/09/17 21:00 07/10/17 10:36 (Lasix) 40 mg BID@0900,1800 PO 07/09/17 18:00 07/10/17 09:00 (Neurontin) 100 mg TID PO 07/09/17 18:00 07/10/17 10:12 (Lactulose Liq) 45 ml TID PO 07/09/17 18:00 07/10/17 09:00 (Roxicodone) 5 mg DAILY PRN PO 07/09/17 16:00 07/09/17 17:52 (KCl) 10 meq DAILY PO 07/10/17 09:00 07/10/17 10:13 (Xifaxan) 550 mg Q12HR PO 07/09/17 21:00 07/10/17 10:12 (Aldactone) 100 mg BID PO 07/09/17 21:00 07/09/17 21:44 (Effexor Xr) 75 mg DAILY PO 07/10/17 09:00 07/10/17 10:14 (Vitamin C) 500 mg BID PO 07/09/17 21:00 07/10/17 10:12 (Lactinex) 3 tab BID PO 07/09/17 21:00 07/10/17 10:12 Vancomycin HCl 1500 mg/Sodium Chloride 515 ml @ 257.5 mls/ hr Q12H IV 07/10/17 00:00 07/10/17 00:21 Miscellaneous Information SPECIFIC LAB TO BE MIRACLE... ONCE ONCE .XX 07/10/17 23:45 07/10/17 23:46 (Haldol Inj) 2 mg Q4H PRN IM 07/09/17 17:00 (Ativan Inj) 0.5 mg Q6H PRN IV PUSH 07/09/17 17:00 Physical Exam Vital Signs Vital Signs Date Time Temp Pulse Resp B/P (MAP) Pulse Ox O2 Delivery O2 Flow Rate FiO2 07/10/17 12:46 100 Room Air 07/10/17 11:54 98.8 86 16 98/51 (67) 07/09/17 22:30 21 I/O 07/10/17 07/10/17 07/11/17 08:00 16:00 00:00 Intake Total 480 ml Balance 480 ml Lab Results Test 07/10/17 06:13 White Blood Count 11.0 TH/MM3 Red Blood Count 2.87 MIL/MM3 Hemoglobin 9.6 GM/DL Hematocrit 28.5 % Mean Corpuscular Volume 99.2 FL Mean Corpuscular Hemoglobin 33.5 PG Mean Corpuscular Hemoglobin Concent 33.7 % Red Cell Distribution Width 15.3 % Platelet Count 97 TH/MM3 Mean Platelet Volume 8.1 FL Neutrophils (%) (Auto) 72.7 % Lymphocytes (%) (Auto) 19.5 % Monocytes (%) (Auto) 7.3 % Eosinophils (%) (Auto) 0.2 % Basophils (%) (Auto) 0.3 % Neutrophils # (Auto) 8.0 TH/MM3 Lymphocytes # (Auto) 2.1 TH/MM3 Monocytes # (Auto) 0.8 TH/MM3 Eosinophils # (Auto) 0.0 TH/MM3 Basophils # (Auto) 0.0 TH/MM3 CBC Comment AUTO DIFF Differential Comment AUTO DIFF CONFIRMED Platelet Estimate LOW Platelet Morphology Comment NORMAL Blood Urea Nitrogen 10 MG/DL Creatinine 0.60 MG/DL Random Glucose 66 MG/DL Total Protein 6.0 GM/DL Albumin 1.4 GM/DL Calcium Level 7.7 MG/DL Alkaline Phosphatase 93 U/L Aspartate Amino Transf (AST/SGOT) 21 U/L Alanine Aminotransferase (ALT/SGPT) 7 U/L Total Bilirubin 1.7 MG/DL Sodium Level 137 MEQ/L Potassium Level 3.4 MEQ/L Chloride Level 101 MEQ/L Carbon Dioxide Level 25.4 MEQ/L Anion Gap 11 MEQ/L Estimat Glomerular Filtration Rate 105 ML/MIN Date/Time Source Procedure Growth Status 07/09/17 12:05 Blood Peripheral Aerobic Blood Culture - Preliminary NO GROWTH IN 1 DAY Resulted 07/09/17 12:05 Blood Peripheral Anaerobic Blood Culture - Preliminary NO GROWTH IN 1 DAY Resulted 07/09/17 12:00 Urine Catheterized Urine Urine Culture - Preliminary NO GROWTH IN 24 HOURS. Resulted 07/09/17 12:32 Wound Buttock Gram Stain - Final Resulted 07/09/17 12:32 Wound Culture - Preliminary Gram Negative Eduard Resulted Mental Status Examination Appearance: Disheveled, Well dressed/well groomed Consciousness: Clouded Orientation: Person Motor Activity: Abnormal gait Speech: Hesitant, Slow Language: Adequate Fund of Knowledge: Inadequate Attention and Concentration: Inadequate Memory: Impaired Mood: Oppositional Affect: Irritable Thought Process & Associations: Loose associations Suicidal Ideation: No Suicidal Plan: No Suicidal Intention: No Homicidal Ideation: No Homicidal Plan: No Homicidal Intention: No Insight: Poor Judgment: Poor Assessment & Plan Problem List: (1) Delirium due to general medical condition ICD Codes: F05 - Delirium due to known physiological condition Assessment & Plan: On psychiatric evaluation the patient presents confused, disoriented, with marked blocking thought and marked poverty of speech. Patient does not provide any meaningful information for the psychiatric assessment at this moment. Her fluctuation of consciousness, attention deficit , confusion or just delirium related with underlying medical conditions, such as hyper ammonemia, hyponatremia, and others. I tried to get collateral information from family members and other people listed in the electronic medical record, I was not successful. My impression is that the patient improved medically she will return to her baseline mental status. Can start low -dose of antipsychotics, such as Abilify 2 mg twice a day or Seroquel 25 mg twice a day. QTC is 421. Avoid benzodiazepines, anticholinergics, narcotics as much as possible since these medications can impair cognition. We will follow-up. Assessment & Plan Estimated LOS: Kelton Barney MD Jul 10, 2017 13:06
[2017-07-10 15:00] VITALS: BP 106/57; PULSE 88; RESP 20; TEMP 99; O2SAT 98
--- NOTE | 2017-07-10 15:03 | HHI.PR ---
Subjective Remarks patient resting in bed about to be moved to [facility] floor She is lethargic not answering question Physical exam revealed tenderness in her abdomen Objective Vitals Vital Signs Date Time Temp Pulse Resp B/P (MAP) Pulse Ox O2 Delivery O2 Flow Rate FiO2 07/10/17 12:46 100 Room Air 07/10/17 11:54 98.8 86 16 98/51 (67) 100 07/10/17 07:35 99.0 88 18 95/53 (67) 98 07/10/17 03:34 98.4 92 18 95/57 (70) 95 07/09/17 22:30 Room Air 21 07/09/17 19:45 98.5 81 18 121/66 (84) 98 07/09/17 19:36 97 07/09/17 17:44 100 Room Air 07/09/17 17:38 98.3 87 18 113/61 (78) 100 07/09/17 17:15 07/09/17 16:43 99 21 07/09/17 15:29 86 16 110/59 (76) Room Air I/O 07/09/17 07/09/17 07/09/17 07/10/17 07/10/17 07/10/17 07:00 15:00 23:00 07:00 15:00 23:00 Intake Total 500 ml 300 ml 480 ml Balance 500 ml 300 ml 480 ml Intake Oral 480 ml IV Total 500 ml 300 ml # Voids 2 # Bowel Movements 2 Result Diagram: 07/10/1761207/10/17612 Objective Remarks GENERAL: This is a 62 years old female who is lethargic CARDIOVASCULAR: Regular rate and rhythm without murmurs, gallops, or rubs. RESPIRATORY: Fair air entry bilaterally. No wheezes, rales, or rhonchi. GASTROINTESTINAL: Abdomen soft," patient, nondistended. Normal active bowel sounds MUSCULOSKELETAL: Extremities without clubbing, cyanosis, or edema. NEURO: Lethargic. Moves all ext x4 A/P Assessment and Plan 52-year-old female presents to the emergency department from [facility] for evaluation of increased confusion with elevated ammonia level and is currently being treated for UTI. EKG, CBC, CMP, CK, troponin, ammonia level , lactic acid, PTT, PT/INR, UA, blood cultures 2 are ordered and pending. Chest x-ray, CT of the brain, CT abdomen/pelvis with IV contrast reviewed without significant findings. Patient is given normal saline 500 mL bolus in the ED. Will hold IVF as patient is with liver cirrhosis. Hepatic encephalopathy Leukocytosis without signs of sepsis at this time. ESBL UTI treated with meropenem at [facility] Gallstones on CT abd Mild ascites Liver cirrhosis Hyponatremia Coagulopathy with INR 1.3, PTT 35.0 2/2 liver failure due to cirrhosis Elevated bilirubin Transaminitis Anxiety and depression. Psychosis at this time. Consult psychiatry COPD stable monitor him oxygen to keep saturation more than 92%. Restart home medications Restart home medications as appropriate WBC trending down continue on antibiotic, awaiting ID consultation EKG shows SR, HR 80, no acute ST changes. CBC shows leukocytosis 15.6 Hyponatremia with Na of 130 Ammonia is 20. Lactic acid is 1.1. Coagulopathy with INR 1.3, PTT 35.0. UA reviewed shows trace leukocyte esterase, 6 WBC, rare bacteria. Chest x-ray reviewed shows no acute disease. CT of the brain reviewed shows no acute disease. CT abdomen/pelvis shows gallstones. Mildly cirrhotic liver with some surrounding fluid. Bilateral lower lobe atelectasis. Blood cultures obtained Patient with decubitus ulcers, order wound cultures History started vancomycin and Zosyn IV antibiotics Consult infectious disease for further recommendations Monitor CBC, CMP Consult PT Consult case management for discharge plan DVT prophylaxis with SCD/teds, hold chemical prophylaxis at this time the patient with coagulopathy and risk of bleeding. Denice Shirley MD Jul 10, 2017 15:03
--- NOTE | 2017-07-10 17:16 | PD.WCN.NOT ---
Wound Consult Description: Received consult for decub ulcers management from Doctor Dos Santos Communicated with: DARIUS irby and Doctor Dos Santos for orders Recommendation: 1.Please cleanse wound to sacrum with normal saline before applying rock thick coverage of Santyl ointment to wound bed and packing wound with 0.125% dakin's moistened gauze. Please apply Calazime barrier cream to periwound and cover wound with ABD pad secured with tape. Please apply skin prep before applying tape on skin. Change dressing daily. 2.Please order WAVE bed from [facility]. 3. Turn patient every 2 hours and PRN for comfort and for offloading of pressure from eugene prominences Additional Information: Patient seen on [address] [place] [address] for evaluation of wound management for decub ulcers. Patient was turned to R side with the assistance of Em irby and technical publications writer. Removed dressing in place to reveal stage 4 pressure injury. Wound margins are even and wound presents with round shape. Wound margins are not attached from 7 to 5 o'clock Wound measures 4.3cm x 5cm x ~2cm with slough. Undermining is present from 7 to 3 o'clock deepest at 12 o'clock measuring 2.5cm. Wound bed is noted with ~50% red granulated tissue, ~40% yellow loosely adherent slough and ~20% bone. Wound drainage is minimal and sero-sanguinous with foul odor. Periwound presents with erythema and heat.Cleansed wound with normal saline and applied saline moistened gauze packed in to wound bed. Applied skin prep to periwound before covering wound with bordered gauze. Per DARIUS Strickland, Doctor Will ordered wound culture. Culture was obtained after cleaning wound with normal saline. Patient was positioned off bottom to R side to offload pressure from eugene prominences.Wound care recommendations noted above. Jacquelin Seals [facility] Jul 10, 2017 17:16
[2017-07-10] MEDS: ENOXAPARIN SODIUM 40 MG/0.4 ML SYRINGE SQ SCH (17:17)
[2017-07-10] MEDS ORDERED: MISCELLANEOUS PHARMACY INFORMATION XX PRN (17:45)
[2017-07-10] MEDS ORDERED: ASP: Documented ESBL, MDR A baumannii or P. aeruginosa PRN (17:45)
--- NOTE | 2017-07-10 17:53 | PD.ID.CON ---
History of Present Illness Service ID Consult Requested By Dr Dos Santos Reason for Consult Infected decubitus Primary Care Physician Bradley Corey MD Diagnoses: History of Present Illness Pt is very confused andf unable to provide any meaningfull history Essentially oriented x 1 only history obtained from the chart 52 yo female resides in jail with h/o alcoholic liver cirrhosis, COPD presents to the emergency department from [facility] for evaluation of altered mental status. She reportedly has being treated for a urinary tract infection with meropenem IV 500 mg every 8 that was just started. On admission pt is afebrile, but with leukocytosis of 15 K , Lactic acid is normal She was found to have a large decubitus ulcer Urine looks fairly good Review of Systems ROS Limitations: Clinical Condition, Altered Mental Status Past Family Social History Allergies: Coded Allergies: No Known Allergies (Unverified Allergy, Unknown, 07/09/17) Past Medical History Essentially for disease cirrhosis, encephalopathy, UTI, COPD Past Surgical History Bariatric surgery a younger age. Hernia repair Active Ordered Medications Medications where reviewed in EMR Antibiotics Include: dyan whitaker Family History Father had colon cancer at age 52. Social History History of heavy alcohol use , quit. No illicit drug use No tobacco Physical Exam Vital Signs Vital Signs Date Time Temp Pulse Resp B/P (MAP) Pulse Ox O2 Delivery O2 Flow Rate FiO2 07/10/17 12:46 100 Room Air 07/10/17 11:54 98.8 86 16 98/51 (67) 100 07/10/17 07:35 99.0 88 18 95/53 (67) 98 07/10/17 03:34 98.4 92 18 95/57 (70) 95 07/09/17 22:30 Room Air 21 07/09/17 19:45 98.5 81 18 121/66 (84) 98 07/09/17 19:36 97 07/09/17 17:44 100 Room Air 07/09/17 17:38 98.3 87 18 113/61 (78) 100 Physical Exam CONSTITUTIONAL/GENERAL: This is an adequately nourished patient, in no apparent distress. TUBES/LINES/DRAINS: SKIN: No jaundice, rashes, Large undermined, necrotic stage IV decubitus ulcer with rough palpable bone about 10 cm diameter Skin temperature appropriate. Not diaphoretic. EYES: Pupils equal and round and reactive. Extraocular motions intact. No scleral icterus. No injection or drainage. Fundi not examined. ENT: Hearing grossly normal. Nose without bleeding or purulent drainage. Throat without visible erythema, exudates, masses, or lesions. NECK: Trachea midline. Supple, nontender. No palpable thyroid enlargement or nodularity. CARDIOVASCULAR: Regular rate and rhythm without murmurs, gallops, or rubs. No JVD. Peripheral pulses symmetric. RESPIRATORY/CHEST: Symmetric, unlabored respirations. Clear to auscultation. Breath sounds equal bilaterally. No wheezes, rales, or rhonchi. GASTROINTESTINAL: Abdomen soft, non-tender, nondistended. No hepato-splenomegaly , or palpable masses. No guarding. Bowel sounds present. GENITOURINARY: Without palpable bladder distension. Incontinent of urine MUSCULOSKELETAL: Extremities without clubbing, cyanosis, or edema. No joint tenderness or effusion noted. No calf tenderness. No mottling or clubbing. LYMPHATICS: No palpable cervical or supraclavicular adenopathy. NEUROLOGICAL: Awake and alert. Confused. Oriented x 1 only Follows commands. Clear speech . Moves all extremities. PSYCHIATRIC: calm cooperative Laboratory Laboratory Tests Test 07/10/17 06:13 White Blood Count 11.0 Red Blood Count 2.87 Hemoglobin 9.6 Hematocrit 28.5 Mean Corpuscular Volume 99.2 Mean Corpuscular Hemoglobin 33.5 Mean Corpuscular Hemoglobin Concent 33.7 Red Cell Distribution Width 15.3 Platelet Count 97 Mean Platelet Volume 8.1 Neutrophils (%) (Auto) 72.7 Lymphocytes (%) (Auto) 19.5 Monocytes (%) (Auto) 7.3 Eosinophils (%) (Auto) 0.2 Basophils (%) (Auto) 0.3 Neutrophils # (Auto) 8.0 Lymphocytes # (Auto) 2.1 Monocytes # (Auto) 0.8 Eosinophils # (Auto) 0.0 Basophils # (Auto) 0.0 CBC Comment AUTO DIFF Differential Comment AUTO DIFF CONFIRMED Platelet Estimate LOW Platelet Morphology Comment NORMAL Blood Urea Nitrogen 10 Creatinine 0.60 Random Glucose 66 Total Protein 6.0 Albumin 1.4 Calcium Level 7.7 Alkaline Phosphatase 93 Aspartate Amino Transf (AST/SGOT) 21 Alanine Aminotransferase (ALT/SGPT) 7 Total Bilirubin 1.7 Sodium Level 137 Potassium Level 3.4 Chloride Level 101 Carbon Dioxide Level 25.4 Anion Gap 11 Estimat Glomerular Filtration Rate 105 Date/Time Source Procedure Growth Status 07/09/17 12:05 Blood Peripheral Aerobic Blood Culture - Preliminary NO GROWTH IN 1 DAY Resulted 07/09/17 12:05 Blood Peripheral Anaerobic Blood Culture - Preliminary NO GROWTH IN 1 DAY Resulted 07/09/17 12:00 Urine Catheterized Urine Urine Culture - Preliminary NO GROWTH IN 24 HOURS. Resulted 07/10/17 16:00 Wound Buttock Gram Stain Pending Received 07/10/17 16:00 Wound Buttock Wound Culture Pending Received Result Diagram: 07/10/17 0613 07/10/17 0613 Imaging Last Impressions Head CT 07/09/17 1158 Signed Impressions: Service Date/Time: Sunday, July 09, 2017 13:55 - CONCLUSION: No acute disease. Howard Vigil Jr., MD Chest X-Ray 07/09/17 1158 Signed Impressions: Service Date/Time: Sunday, July 09, 2017 11:11 - CONCLUSION: No acute disease. Howard Vigil Jr., MD Abdomen/Pelvis CT 07/09/17 0000 Signed Impressions: Service Date/Time: Sunday, July 09, 2017 14:03 - CONCLUSION: Gallstones. Mildly cirrhotic liver with some surrounding fluid. Bilateral lower lobe atelectasis. Neil Roblero MD Assessment and Plan Assessment and Plan Infected stage IV decubitus ulcer Per report h/o recent ESBL Multiple med problems Recent UTI, ESBL , was on tx change zosyn to meropenem in the view of recent ESBL will follow wound and blood clx cont vanco for now will adjust abx per clx Leticia Will MD Jul 10, 2017 17:53
[2017-07-10 20:00] VITALS: BP 93/53; PULSE 90; PULSE 94; RESP 18; TEMP 98.4; O2SAT 100
[2017-07-10] MEDS ORDERED: SODIUM CHLORIDE 0.9% IRRIGATION PRN (20:15)
[2017-07-10] MEDS: MEROPENEM INJ 1,000 MG in SODIUM CHLORIDE 0.9% INJ 100 ML IV SCH (21:17)
[2017-07-10] MEDS ORDERED: PHARMACY ORDERED LAB ONE (23:45)
[2017-07-11] VITALS (10 sets, daily range): BP systolic 95–104; BP diastolic 54–59; PULSE 78–97; RESP 16–20; TEMP 97.4–98.8; O2SAT 96–100
[2017-07-11] MEDS: MEROPENEM INJ 1,000 MG in SODIUM CHLORIDE 0.9% INJ 100 ML IV SCH ×3 (03:50→20:34)
[2017-07-11] MEDS: COLLAGENASE OINT 30 GM TUBE TOPICAL SCH (08:39)
[2017-07-11] MEDS: FLUTICASONE PROPIONATE 50 MCG/ACT 16 GM NASAL SPRAY EACH NARE SCH ×2 (08:40→20:54)
[2017-07-11] MEDS: LACTULOSE SYRUP 20 GM/30 ML CUP PO SCH ×3 (08:40→17:01)
[2017-07-11] MEDS: ZINC OXIDE 20% OINT 30 GM TUBE TOPICAL SCH (08:40)
[2017-07-11] MEDS: FERROUS SULFATE 325 MG (65 MG ELEMENTAL IRON) TAB PO SCH ×3 (08:41→16:14)
[2017-07-11] MEDS: ASCORBIC ACID 500 MG TAB PO SCH ×2 (08:41→20:35)
[2017-07-11] MEDS: SPIRONOLACTONE 100 MG TAB PO SCH ×2 (08:41→20:35)
[2017-07-11] MEDS: RIFAXIMIN 550 MG TAB PO SCH ×2 (08:41→20:35)
[2017-07-11] MEDS: POTASSIUM CHLORIDE 10 MEQ CAP PO SCH (08:41)
[2017-07-11] MEDS: VENLAFAXINE HCL XR 75 MG CAP PO SCH (08:41)
[2017-07-11] MEDS: LACTOBACILLUS ACIDOPHILUS TAB PO SCH ×2 (08:41→20:35)
[2017-07-11] MEDS: ALPRAZolam 0.25 MG TAB PO SCH ×2 (08:41→16:14)
[2017-07-11] MEDS: GABAPENTIN 100 MG CAP PO SCH ×3 (08:41→17:02)
[2017-07-11] MEDS: FAMOTIDINE 20 MG TAB PO SCH ×2 (08:41→20:35)
[2017-07-11] MEDS: DOCUSATE SODIUM 50 MG/SENNA 8.6 MG TAB PO SCH ×2 (08:41→20:36)
[2017-07-11] MEDS: SODIUM CHLOR 0.9% 1000 ML INJ 1,000 ML IV SCH (08:42)
[2017-07-11] MEDS: SODIUM CHLORIDE 0.9% FLUSH 10 ML FLUSH IV FLUSH SCH ×2 (08:42→20:36)
[2017-07-11] MEDS: SODIUM HYPOCHLORITE 0.125% 500 ML BTL TOPICAL SCH (08:43)
[2017-07-11] MEDS: FUROSEMIDE 40 MG TAB PO SCH ×2 (11:25→17:00)
--- NOTE | 2017-07-11 11:31 | HHI.PYPN ---
Subjective Remarks Patient was seen today for psychiatric reevaluation, documentation reviewed, case discussed with nurse in charge. Patient was found calm, cooperative and pleasant. She is fully alert, able to cooperate with evaluation. Patient says that she feels okay, describes his mood as fine, she denies anhedonia, denies hopelessness, denies helplessness, she denies suicidal and homicidal ideation, she denies visual and auditory hallucinations. Patient is oriented in person, partially oriented in time and disoriented in place. No agitation, no aggressive behavior has been reported. She has been compliant with his medications, no significant side effects or complaints at this moment. Review of Systems Except as stated in HPI: all other systems reviewed are Neg Mental Status Examination Appearance: Appropriate Consciousness: Alert, Clouded Orientation: Person Motor Activity: Abnormal gait Speech: Hesitant, Slow Language: Adequate Fund of Knowledge: Inadequate Attention and Concentration: Inadequate Memory: Impaired Mood: Oppositional Affect: Irritable Thought Process & Associations: Loose associations Suicidal Ideation: No Suicidal Plan: No Suicidal Intention: No Homicidal Ideation: No Homicidal Plan: No Homicidal Intention: No Insight: Fair Judgment: Adequate Results Labs Test 07/10/17 23:40 Vancomycin Level Trough 35.0 MCG/ML Date/Time Source Procedure Growth Status 07/09/17 12:05 Blood Peripheral Aerobic Blood Culture - Preliminary NO GROWTH IN 2 DAYS Resulted 07/09/17 12:05 Blood Peripheral Anaerobic Blood Culture - Preliminary NO GROWTH IN 2 DAYS Resulted 07/09/17 12:00 Urine Catheterized Urine Urine Culture - Final NO GROWTH IN 48 HOURS. Complete 07/10/17 16:00 Wound Buttock Gram Stain - Final Resulted 07/10/17 16:00 Wound Buttock Wound Culture Pending Resulted Vitals/IOs Vital Signs Date Time Temp Pulse Resp B/P (MAP) Pulse Ox O2 Delivery O2 Flow Rate FiO2 07/11/17 09:04 96 21 07/11/17 08:00 98.8 88 16 103/55 (71) 07/11/17 00:00 Room Air Intake and Output 07/11/17 07/11/17 07/12/17 08:00 16:00 00:00 Intake Total 728 ml Balance 728 ml Assessment & Plan Problem List: (1) Delirium due to general medical condition ICD Codes: F05 - Delirium due to known physiological condition Assessment & Plan: Patient calm, cooperative, pleasantly confused. No agitation, no aggressive behavior reported. Continue current psychotropics. Assessment & Plan Estimated LOS: days Justification for Cont. Inpt. She does not meet criteria for involuntary psychiatric admission at this moment. Kelton Contreras MD Jul 11, 2017 11:31
--- NOTE | 2017-07-11 13:30 | HHI.PR ---
Subjective Remarks The patient said that she has been having some confusion. She said the pain was made worse by the uncomfortable bed. She said she has not been eating that much. Discussed with nursing. Objective Vitals Vital Signs Date Time Temp Pulse Resp B/P (MAP) Pulse Ox O2 Delivery O2 Flow Rate FiO2 07/11/17 12:00 97.7 85 16 95/55 (68) 99 07/11/17 09:04 96 21 07/11/17 09:00 97 Room Air 07/11/17 08:00 98.8 88 16 103/55 (71) 96 07/11/17 04:00 97.9 80 16 104/59 (74) 98 07/11/17 01:57 97 07/11/17 00:00 Room Air 07/11/17 00:00 97.4 78 18 103/56 (72) 100 07/10/17 21:20 Room Air 07/10/17 20:00 98.4 94 18 93/53 (66) 100 07/10/17 20:00 90 07/10/17 15:00 99.0 88 20 106/57 (73) 98 I/O 07/10/17 07/10/17 07/10/17 07/11/17 07/11/17 07/11/17 07:00 15:00 23:00 07:00 15:00 23:00 Intake Total 480 ml 728 ml Balance 480 ml 728 ml Intake Oral 480 ml 240 ml IV Total 488 ml # Voids 2 4 # Bowel Movements 2 0 Result Diagram: 07/10/17 0613 07/10/17 0613 Imaging Last Impressions Head CT 07/09/17 1158 Signed Impressions: Service Date/Time: Sunday, July 09, 2017 13:55 - CONCLUSION: No acute disease. Howard Vigil Jr., MD Chest X-Ray 07/09/17 1158 Signed Impressions: Service Date/Time: Sunday, July 09, 2017 11:11 - CONCLUSION: No acute disease. Howard Vigil Jr., MD Abdomen/Pelvis CT 07/09/17 0000 Signed Impressions: Service Date/Time: Sunday, July 09, 2017 14:03 - CONCLUSION: Gallstones. Mildly cirrhotic liver with some surrounding fluid. Bilateral lower lobe atelectasis. Neil Roblero MD Objective Remarks GENERAL: Resting comfortably. HEENT: NC, AT. CARDIOVASCULAR: Regular rate and rhythm without murmurs, gallops, or rubs. RESPIRATORY: Mild wheezing, crackles at the left base. GASTROINTESTINAL: Abdomen soft, nontender, nondistended. Normal active bowel sounds. MUSCULOSKELETAL: TR edema in the lower extremities. NEURO: Awake and alert. Moves all ext x4 PSYCH: Calm. Medications and IVs Current Medications Medications (Trade) Dose Ordered Sig/Rudy Route Start Time Stop Time Status Last Admin Sodium Chloride 1,000 ml @ 100 mls/hr Q10H IV 07/09/17 16:00 07/11/17 08:42 (NS Flush) 2 ml UNSCH PRN IV FLUSH 07/09/17 16:00 (NS Flush) 2 ml BID IV FLUSH 07/09/17 21:00 07/10/17 10:14 (Tylenol) 650 mg Q4H PRN PO 07/09/17 16:00 (Zofran Inj) 4 mg Q6H PRN IVP 07/09/17 16:00 (Compazine Supp) 25 mg Q12H PRN RECTAL 07/09/17 16:00 (Restoril) 15 mg HS PRN PO 07/09/17 16:00 (Lovenox Inj) 40 mg Q24H SQ 07/09/17 16:00 07/10/17 17:17 (Narcan Inj) 0.4 mg UNSCH PRN IV PUSH 07/09/17 16:00 (Meggan-Colace) 1 tab BID PO 07/09/17 21:00 07/11/17 08:41 (Milk Of Magnesia Liq) 30 ml Q12H PRN PO 07/09/17 16:00 (Senokot) 17.2 mg Q12H PRN PO 07/09/17 16:00 (Dulcolax Supp) 10 mg DAILY PRN RECTAL 07/09/17 16:00 (Lactulose Liq) 30 ml DAILY PRN PO 07/09/17 16:00 Pharmacy Profile Note 0 ml @ 0 mls/hr UNSCH OTHER 07/09/17 16:00 (Xanax) 0.25 mg Q8H PO 07/09/17 16:00 07/11/17 08:41 (Pepcid) 20 mg BID PO 07/09/17 21:00 07/11/17 08:41 (Ferrous Sulfate) 325 mg TIDPC PO 07/09/17 18:30 07/11/17 11:36 (Flonase Norberto Spr) 2 spray BID EACH NARE 07/09/17 21:00 07/11/17 08:40 (Lasix) 40 mg BID@0900,1800 PO 07/09/17 18:00 07/11/17 11:25 (Neurontin) 100 mg TID PO 07/09/17 18:00 07/11/17 11:36 (Lactulose Liq) 45 ml TID PO 07/09/17 18:00 07/11/17 11:26 (Roxicodone) 5 mg DAILY PRN PO 07/09/17 16:00 07/11/17 11:36 (KCl) 10 meq DAILY PO 07/10/17 09:00 07/11/17 08:41 (Xifaxan) 550 mg Q12HR PO 07/09/17 21:00 07/11/17 08:41 (Aldactone) 100 mg BID PO 07/09/17 21:00 07/11/17 08:41 (Effexor Xr) 75 mg DAILY PO 07/10/17 09:00 07/11/17 08:41 (Vitamin C) 500 mg BID PO 07/09/17 21:00 07/11/17 08:41 (Lactinex) 3 tab BID PO 07/09/17 21:00 07/11/17 08:41 (Haldol Inj) 2 mg Q4H PRN IM 07/09/17 17:00 (Ativan Inj) 0.5 mg Q6H PRN IV PUSH 07/09/17 17:00 07/10/17 21:20 (ASP Crit: Doc ESBL, MDR A baumannii or P aer) 1 UNSCH X1 PRN .XX 07/10/17 17:45 07/11/17 17:44 ([facility] [place] [facility]) 1 UNSCH X1 PRN XX 07/10/17 17:45 07/11/17 17:44 Meropenem 1000 mg/ Sodium Chloride 100 ml @ 200 mls/hr Q8H IV 07/10/17 20:00 07/11/17 11:36 (NS Irr Btl) 60 ml DAILY PRN IRRIGATION 11/22/17 20:15 (Santyl Oint) 1 applic DAILY TOPICAL 07/11/17 09:00 07/11/17 08:39 (Dakin'S 0.125% Soln) 50 ml DAILY TOPICAL 07/11/17 09:00 07/11/17 08:43 (Zinc Oxide 20% Oint) 1 applic DAILY TOPICAL 07/11/17 09:00 07/11/17 08:40 A/P Assessment and Plan Metabolic encephalopathy 52-year-old female presents to the emergency department from [facility] for evaluation of increased confusion with elevated ammonia level. Chest x-ray, CT of the brain, CT abdomen/pelvis with IV contrast reviewed and without significant findings. Ammonia is 20. EKG shows SR, HR 80, no acute ST changes. Psych consult appreciated. - neuro checks. - follow up with psychiatry. - continue lactulose. - antibiotics. - PT/ OT. - d/c sedating meds. Infected sacral decubitus ulcer ID consult appreciated. Had a recent ESBL UTI. - continue vancomycin and meropenem per ID. - follow culture data. Cirrhosis Has a history of liver cirrhosis from alcohol abuse. INR 1.3. She has hyponatremia. CT abdomen/pelvis shows gallstones; mildly cirrhotic liver with some surrounding fluid. - continue lactulose and rifaximin. - follow Is and Os. - d/c fluids. Continue diuretics. - ADAT. DVT prophylaxis with SCD/teds, hold chemical prophylaxis at this time the patient with coagulopathy and risk of bleeding. Salty Lewis DO Jul 11, 2017 13:30
[2017-07-11] MEDS: ENOXAPARIN SODIUM 40 MG/0.4 ML SYRINGE SQ SCH (16:15)
[2017-07-12] VITALS (9 sets, daily range): BP systolic 97–118; BP diastolic 55–68; PULSE 78–96; RESP 16–20; TEMP 97.3–98.9; O2SAT 97–100
[2017-07-12] MEDS: MEROPENEM INJ 1,000 MG in SODIUM CHLORIDE 0.9% INJ 100 ML IV SCH ×3 (04:20→21:47)
[2017-07-12 09:07] LABS: HEMATOCRIT 33.9 % (35.0-46.0); MEAN CELL VOLUME 98.6 FL (80.0-100.0); MEAN CORPUSCULAR HEMOGLOBIN 33.7 PG (27.0-34.0); MEAN CORPUSCULAR HGB CONC 34.2 % (32.0-36.0); PLATELET COUNT 129 TH/MM3 (150-450); RED BLOOD COUNT 3.44 MIL/MM3 (4.00-5.30); RED CELL DISTRIBUTION WIDTH 15.1 % (11.6-17.2); REVIEW FLAG FINAL; WHITE BLOOD COUNT 7.5 TH/MM3 (4.0-11.0)
[2017-07-12] MEDS: LACTOBACILLUS ACIDOPHILUS TAB PO SCH ×2 (09:11→21:47)
[2017-07-12] MEDS: FAMOTIDINE 20 MG TAB PO SCH ×2 (09:11→21:47)
[2017-07-12] MEDS: FERROUS SULFATE 325 MG (65 MG ELEMENTAL IRON) TAB PO SCH ×3 (09:11→19:31)
[2017-07-12] MEDS: RIFAXIMIN 550 MG TAB PO SCH ×2 (09:11→21:47)
[2017-07-12] MEDS: ALPRAZolam 0.25 MG TAB PO SCH ×2 (09:11)
[2017-07-12] MEDS: LACTULOSE SYRUP 20 GM/30 ML CUP PO SCH ×3 (09:11→19:30)
[2017-07-12] MEDS: POTASSIUM CHLORIDE 10 MEQ CAP PO SCH (09:11)
[2017-07-12] MEDS: VENLAFAXINE HCL XR 75 MG CAP PO SCH (09:11)
[2017-07-12] MEDS: SPIRONOLACTONE 100 MG TAB PO SCH ×2 (09:12→21:47)
[2017-07-12] MEDS: GABAPENTIN 100 MG CAP PO SCH ×3 (09:12→19:31)
[2017-07-12] MEDS: DOCUSATE SODIUM 50 MG/SENNA 8.6 MG TAB PO SCH ×2 (09:12→21:48)
[2017-07-12] MEDS: ASCORBIC ACID 500 MG TAB PO SCH ×2 (09:12→21:48)
[2017-07-12 09:17] LABS: INTERNATIONAL NORMALIZED RATIO 1.3 RATIO; PROTHROMBIN TIME - PATIENT 14.4 SEC (9.8-11.6)
[2017-07-12] MEDS: FUROSEMIDE 40 MG TAB PO SCH ×2 (09:18→19:30)
[2017-07-12] MEDS: COLLAGENASE OINT 30 GM TUBE TOPICAL SCH (09:19)
[2017-07-12] MEDS: FLUTICASONE PROPIONATE 50 MCG/ACT 16 GM NASAL SPRAY EACH NARE SCH ×2 (09:19→21:54)
[2017-07-12] MEDS: ZINC OXIDE 20% OINT 30 GM TUBE TOPICAL SCH (09:19)
[2017-07-12] MEDS: SODIUM CHLORIDE 0.9% FLUSH 10 ML FLUSH IV FLUSH SCH ×2 (09:19→21:48)
[2017-07-12] MEDS: SODIUM HYPOCHLORITE 0.125% 500 ML BTL TOPICAL SCH (09:20)
[2017-07-12 09:31] LABS: MAGNESIUM 1.5 MG/DL (1.5-2.5); POTASSIUM 3.1 MEQ/L (3.5-5.1)
[2017-07-12 09:34] LABS: INDIRECT BILIRUBIN 0.5 MG/DL (0.0-0.8); TOTAL BILIRUBIN ADULT 1.3 MG/DL (0.2-1.0)
[2017-07-12 09:41] LABS: CALCIUM-PROTEIN CORRECTED 7.3 MG/DL (8.5-10.1)
[2017-07-12] MEDS ORDERED: CALCIUM GLUCONATE INJ 2 GM in DEXTROSE 5% IN WATER 100ML INJ 100 ML IV ONE ×2 (10:00)
[2017-07-12] MEDS ORDERED: MAGNESIUM SULFATE 1 GM PREMIX 100 ML IV ONE (10:00)
[2017-07-12] MEDS ORDERED: POTASSIUM CHLORIDE 25 MEQ EFFERVESCENT TAB PO ONE ×2 (10:00→15:00)
--- NOTE | 2017-07-12 13:01 | HHI.PR ---
Subjective Remarks The patient stated that she felt odd. She said she has seen psychiatrists in the past for multiple issues including PTSD. She is not sure why she is in the hospital. Discussed with nursing. Objective Vitals Vital Signs Date Time Temp Pulse Resp B/P (MAP) Pulse Ox O2 Delivery O2 Flow Rate FiO2 07/12/17 12:14 97.3 86 18 97/58 (71) 100 07/12/17 10:01 97 21 07/12/17 08:09 97.5 78 19 101/55 (70) 99 07/12/17 05:03 98.9 78 20 110/58 (75) 100 07/12/17 00:41 98.2 96 20 113/68 (83) 98 07/11/17 21:29 97.4 94 20 101/54 (70) 99 07/11/17 20:35 Room Air 07/11/17 20:00 96 07/11/17 17:16 98 21 07/11/17 16:00 97.8 97 16 96/55 (69) 98 I/O 07/11/17 07/11/17 07/11/17 07/12/17 07/12/17 07/12/17 07:00 15:00 23:00 07:00 15:00 23:00 Intake Total 728 ml 1440 ml 360 ml Balance 728 ml 1440 ml 360 ml Intake Oral 240 ml 1440 ml 360 ml IV Total 488 ml # Voids 4 6 6 # Bowel Movements 0 1 1 Result Diagram: 07/12/17 0848 07/12/17 0848 Imaging Last Impressions Head CT 07/09/17 1158 Signed Impressions: Service Date/Time: Sunday, July 09, 2017 13:55 - CONCLUSION: No acute disease. Howard Vigil Jr., MD Chest X-Ray 07/09/17 1158 Signed Impressions: Service Date/Time: Sunday, July 09, 2017 11:11 - CONCLUSION: No acute disease. Howard Vigil Jr., MD Abdomen/Pelvis CT 07/09/17 0000 Signed Impressions: Service Date/Time: Sunday, July 09, 2017 14:03 - CONCLUSION: Gallstones. Mildly cirrhotic liver with some surrounding fluid. Bilateral lower lobe atelectasis. Neil Roblero MD Objective Remarks GENERAL: Resting comfortably. HEENT: NC, AT. CARDIOVASCULAR: Regular rate and rhythm without murmurs, gallops, or rubs. RESPIRATORY: Mild wheezing, crackles at the left base. GASTROINTESTINAL: Abdomen soft, nontender, nondistended. Normal active bowel sounds. MUSCULOSKELETAL: TR edema in the lower extremities. NEURO: Awake and alert. Moves all ext x4. Slow speech. PSYCH: Flat affect. Medications and IVs Current Medications Medications (Trade) Dose Ordered Sig/Rudy Route Start Time Stop Time Status Last Admin (NS Flush) 2 ml UNSCH PRN IV FLUSH 07/09/17 16:00 (NS Flush) 2 ml BID IV FLUSH 07/09/17 21:00 07/12/17 09:19 (Tylenol) 650 mg Q4H PRN PO 07/09/17 16:00 (Zofran Inj) 4 mg Q6H PRN IVP 07/09/17 16:00 (Compazine Supp) 25 mg Q12H PRN RECTAL 07/09/17 16:00 (Lovenox Inj) 40 mg Q24H SQ 07/09/17 16:00 07/11/17 16:15 (Narcan Inj) 0.4 mg UNSCH PRN IV PUSH 07/09/17 16:00 (Meggan-Colace) 1 tab BID PO 07/09/17 21:00 07/12/17 09:12 (Milk Of Magnesia Liq) 30 ml Q12H PRN PO 07/09/17 16:00 (Senokot) 17.2 mg Q12H PRN PO 07/09/17 16:00 (Dulcolax Supp) 10 mg DAILY PRN RECTAL 07/09/17 16:00 Pharmacy Profile Note 0 ml @ 0 mls/hr UNSCH OTHER 07/09/17 16:00 (Xanax) 0.25 mg Q8H PO 07/09/17 16:00 07/12/17 09:11 (Pepcid) 20 mg BID PO 07/09/17 21:00 07/12/17 09:11 (Ferrous Sulfate) 325 mg TIDPC PO 07/09/17 18:30 07/12/17 09:11 (Flonase Norberto Spr) 2 spray BID EACH NARE 07/09/17 21:00 07/12/17 09:19 (Lasix) 40 mg BID@0900,1800 PO 07/09/17 18:00 07/12/17 09:18 (Neurontin) 100 mg TID PO 07/09/17 18:00 07/12/17 09:12 (Lactulose Liq) 45 ml TID PO 07/09/17 18:00 07/12/17 09:11 (Roxicodone) 5 mg DAILY PRN PO 07/09/17 16:00 07/12/17 09:12 (KCl) 10 meq DAILY PO 07/10/17 09:00 07/12/17 09:11 (Xifaxan) 550 mg Q12HR PO 07/09/17 21:00 07/12/17 09:11 (Aldactone) 100 mg BID PO 07/09/17 21:00 07/12/17 09:12 (Effexor Xr) 75 mg DAILY PO 07/10/17 09:00 07/12/17 09:11 (Vitamin C) 500 mg BID PO 07/09/17 21:00 07/12/17 09:12 (Lactinex) 3 tab BID PO 07/09/17 21:00 07/12/17 09:11 (Haldol Inj) 2 mg Q4H PRN IM 07/09/17 17:00 Meropenem 1000 mg/ Sodium Chloride 100 ml @ 200 mls/hr Q8H IV 07/10/17 20:00 07/12/17 04:20 (NS Irr Btl) 60 ml DAILY PRN IRRIGATION 07/10/17 20:15 (Santyl Oint) 1 applic DAILY TOPICAL 07/11/17 09:00 07/12/17 09:19 (Dakin'S 0.125% Soln) 50 ml DAILY TOPICAL 07/11/17 09:00 07/12/17 09:20 (Zinc Oxide 20% Oint) 1 applic DAILY TOPICAL 07/11/17 09:00 07/12/17 09:19 Vancomycin HCl 1250 mg/Sodium Chloride 262.5 ml @ 250 mls/hr Q24H IV 07/12/17 14:00 Miscellaneous Information SPECIFIC LAB TO BE MIRACLE... ONCE ONCE .XX 07/15/17 13:45 07/15/17 13:46 A/P Assessment and Plan Metabolic encephalopathy 52-year-old female presents [facility] the emergency department [facility] for evaluation of increased confusion with elevated ammonia level. Chest x-ray, CT of the brain, CT abdomen/pelvis with IV contrast reviewed and without significant findings. Ammonia is 20. EKG shows SR, HR 80, no acute ST changes. Psych consult appreciated. - neuro checks. - follow up with psychiatry. - continue lactulose. - antibiotics. - PT/ OT/ ST. - try to avoid sedating meds. Infected sacral decubitus ulcer ID consult appreciated. Had a recent ESBL UTI. - continue vancomycin and meropenem per ID. - follow culture data. Cirrhosis Has a history of liver cirrhosis from alcohol abuse. INR 1.3. She has hyponatremia. CT abdomen/pelvis shows gallstones; mildly cirrhotic liver with some surrounding fluid. - continue lactulose and rifaximin. - follow Is and Os. - d/c fluids. Continue diuretics. - ADAT. DVT prophylaxis with SCD/teds, hold chemical prophylaxis at this time the patient with coagulopathy and risk of bleeding. Salty Lewis DO Jul 12, 2017 13:01
[2017-07-12] MEDS: VANCOMYCIN INJ 1,250 MG in SODIUM CHLOR 0.9% 250 ML INJ 250 ML IV SCH (16:00)
[2017-07-12] MEDS: ENOXAPARIN SODIUM 40 MG/0.4 ML SYRINGE SQ SCH (16:16)
[2017-07-13] VITALS (8 sets, daily range): BP systolic 104–122; BP diastolic 57–70; PULSE 74–104; RESP 14–18; TEMP 97.6–98.5; O2SAT 98–100
[2017-07-13] MEDS: MEROPENEM INJ 1,000 MG in SODIUM CHLORIDE 0.9% INJ 100 ML IV SCH (04:17)
[2017-07-13] MEDS: ALPRAZolam 0.25 MG TAB PO PRN ×2 (04:19→16:34)
[2017-07-13 08:36] LABS: BICARBONATE 29.7 MEQ/L (21.0-32.0); MAGNESIUM 1.7 MG/DL (1.5-2.5); POTASSIUM 3.6 MEQ/L (3.5-5.1)
[2017-07-13] MEDS: LACTOBACILLUS ACIDOPHILUS TAB PO SCH ×2 (09:40→20:52)
[2017-07-13] MEDS: DOCUSATE SODIUM 50 MG/SENNA 8.6 MG TAB PO SCH ×2 (09:40→20:52)
[2017-07-13] MEDS: ASCORBIC ACID 500 MG TAB PO SCH ×2 (09:40→20:52)
[2017-07-13] MEDS: LACTULOSE SYRUP 20 GM/30 ML CUP PO SCH ×3 (09:41→18:00)
[2017-07-13] MEDS: FERROUS SULFATE 325 MG (65 MG ELEMENTAL IRON) TAB PO SCH ×3 (09:41→18:07)
[2017-07-13] MEDS: POTASSIUM CHLORIDE 10 MEQ CAP PO SCH (09:41)
[2017-07-13] MEDS: FAMOTIDINE 20 MG TAB PO SCH ×2 (09:41→20:52)
[2017-07-13] MEDS: GABAPENTIN 100 MG CAP PO SCH ×3 (09:41→18:07)
[2017-07-13] MEDS: FLUTICASONE PROPIONATE 50 MCG/ACT 16 GM NASAL SPRAY EACH NARE SCH ×2 (09:42→21:00)
[2017-07-13] MEDS: COLLAGENASE OINT 30 GM TUBE TOPICAL SCH (09:42)
[2017-07-13] MEDS: SODIUM HYPOCHLORITE 0.125% 500 ML BTL TOPICAL SCH (09:42)
[2017-07-13] MEDS: SPIRONOLACTONE 100 MG TAB PO SCH ×2 (09:47→20:52)
[2017-07-13] MEDS: VENLAFAXINE HCL XR 75 MG CAP PO SCH (09:47)
[2017-07-13] MEDS: RIFAXIMIN 550 MG TAB PO SCH ×2 (09:47→20:52)
[2017-07-13] MEDS: SODIUM CHLORIDE 0.9% FLUSH 10 ML FLUSH IV FLUSH SCH ×2 (09:47→20:51)
[2017-07-13] MEDS: FUROSEMIDE 40 MG TAB PO SCH ×2 (09:47→18:14)
[2017-07-13] MEDS: ZINC OXIDE 20% OINT 30 GM TUBE TOPICAL SCH (09:49)
--- NOTE | 2017-07-13 11:25 | HHI.IDPN ---
Subjective Subjective Remarks pt is awake, conversant no fever clx positive, polimicrobial including MMSA and ESBL + E.coli Antibiotics vanc meropenem Allergies: Coded Allergies: No Known Allergies (Unverified Allergy, Unknown, 07/09/17) Objective . Vital Signs Date Time Temp Pulse Resp B/P (MAP) Pulse Ox O2 Delivery O2 Flow Rate FiO2 07/13/17 08:29 98.1 78 18 105/58 (74) 98 07/13/17 08:05 21 07/13/17 07:00 Room Air 07/13/17 04:00 98.5 80 14 104/59 (74) 100 07/13/17 00:00 Room Air 07/13/17 00:00 97.9 81 14 122/70 (87) 98 07/12/17 21:00 Room Air 07/12/17 20:00 93 07/12/17 20:00 97.5 93 16 118/64 (82) 100 07/12/17 19:03 100 07/12/17 16:00 97.7 80 18 105/59 (74) 100 07/12/17 12:14 97.3 86 18 97/58 (71) 100 . Laboratory Tests Test 07/12/17 08:48 White Blood Count 7.5 TH/MM3 Red Blood Count 3.44 MIL/MM3 Hemoglobin 11.6 GM/DL Hematocrit 33.9 % Mean Corpuscular Volume 98.6 FL Mean Corpuscular Hemoglobin 33.7 PG Mean Corpuscular Hemoglobin Concent 34.2 % Red Cell Distribution Width 15.1 % Platelet Count 129 TH/MM3 Mean Platelet Volume 8.1 FL Laboratory Tests Test 07/12/17 08:48 07/13/17 07:35 Blood Urea Nitrogen 5 MG/DL 3 MG/DL Creatinine 0.57 MG/DL 0.44 MG/DL Random Glucose 92 MG/DL 79 MG/DL Total Protein 7.1 GM/DL Albumin 1.6 GM/DL Calcium Level 7.3 MG/DL 7.7 MG/DL Magnesium Level 1.5 MG/DL 1.7 MG/DL Alkaline Phosphatase 117 U/L Aspartate Amino Transf (AST/SGOT) 31 U/L Alanine Aminotransferase (ALT/SGPT) 9 U/L Total Bilirubin 1.3 MG/DL Direct Bilirubin 0.8 MG/DL Sodium Level 133 MEQ/L 136 MEQ/L Potassium Level 3.1 MEQ/L 3.6 MEQ/L Chloride Level 97 MEQ/L 100 MEQ/L Carbon Dioxide Level 28.0 MEQ/L 29.7 MEQ/L Anion Gap 8 MEQ/L 6 MEQ/L Estimat Glomerular Filtration Rate 111 ML/MIN 150 ML/MIN Protein Corrected Calcium 7.3 MG/DL Indirect Bilirubin 0.5 MG/DL Microbiology Date/Time Source Procedure Growth Status 07/10/17 16:00 Wound Buttock Gram Stain - Final Complete 07/10/17 16:00 Wound Culture - Final Escherichia Coli Esbl Positive Proteus Mirabilis Complete Imaging Last Impressions Head CT 07/09/17 1158 Signed Impressions: Service Date/Time: Sunday, July 09, 2017 13:55 - CONCLUSION: No acute disease. Howard Vigil Jr., MD Chest X-Ray 07/09/17 1158 Signed Impressions: Service Date/Time: Sunday, July 09, 2017 11:11 - CONCLUSION: No acute disease. Howard Vigil Jr., MD Abdomen/Pelvis CT 07/09/17 0000 Signed Impressions: Service Date/Time: Sunday, July 09, 2017 14:03 - CONCLUSION: Gallstones. Mildly cirrhotic liver with some surrounding fluid. Bilateral lower lobe atelectasis. Neil Roblero MD Physical Exam CONSTITUTIONAL/GENERAL: This is an adequately nourished patient, in no apparent distress. TUBES/LINES/DRAINS: SKIN: No jaundice, rashes, CARDIOVASCULAR: Regular rate and rhythm without murmurs, gallops, or rubs. No JVD. Peripheral pulses symmetric. RESPIRATORY/CHEST: Symmetric, unlabored respirations. Clear to auscultation. Breath sounds equal bilaterally. No wheezes, rales, or rhonchi. GASTROINTESTINAL: Abdomen soft, non-tender, nondistended. No hepato-splenomegaly , or palpable masses. No guarding. Bowel sounds present. GENITOURINARY: Without palpable bladder distension. MUSCULOSKELETAL: Extremities without clubbing, cyanosis, or edema. No joint tenderness or effusion noted. No calf tenderness. No mottling or clubbing. NEUROLOGICAL: Awake and alert. Confused. Follows commands. Clear speech . Moves all extremities. PSYCHIATRIC: calm cooperative pleasant Assessment & Plan Remarks Infected stage IV decubitus ulcer Per report h/o recent ESBL Multiple med problems Recent UTI, ESBL , was on tx change meropenem to Ertapenem cont vanco for now Leticia Will MD Jul 13, 2017 11:25
[2017-07-13] MEDS ORDERED: MISCELLANEOUS PHARMACY INFORMATION XX PRN (11:30)
[2017-07-13] MEDS ORDERED: ASP: Documented ESBL, MDR A baumannii or P. aeruginosa PRN (11:30)
[2017-07-13] MEDS ORDERED: POTASSIUM CHLORIDE 25 MEQ EFFERVESCENT TAB PO ONE ×2 (12:45)
--- NOTE | 2017-07-13 13:11 | HHI.PR ---
Subjective Remarks The patient said that she was feeling emotional. She said she wanted to see her daughter and her son. She said that she would like her anxiety medication and more pain medications. No other acute complaints. Discussed with nursing. Objective Vitals Vital Signs Date Time Temp Pulse Resp B/P (MAP) Pulse Ox O2 Delivery O2 Flow Rate FiO2 07/13/17 12:12 97.9 104 18 111/63 (79) 100 07/13/17 08:29 98.1 78 18 105/58 (74) 98 07/13/17 08:05 21 07/13/17 07:00 Room Air 07/13/17 04:00 98.5 80 14 104/59 (74) 100 07/13/17 00:00 Room Air 07/13/17 00:00 97.9 81 14 122/70 (87) 98 07/12/17 21:00 Room Air 07/12/17 20:00 93 07/12/17 20:00 97.5 93 16 118/64 (82) 100 07/12/17 19:03 100 07/12/17 16:00 97.7 80 18 105/59 (74) 100 I/O 07/12/17 07/12/17 07/12/17 07/13/17 07/13/17 07/13/17 07:00 15:00 23:00 07:00 15:00 23:00 Intake Total 360 ml 220 ml 940 ml Balance 360 ml 220 ml 940 ml Intake Oral 360 ml IV Total 220 ml 940 ml # Voids 6 4 # Bowel Movements 1 3 Result Diagram: 07/12/17 0848 07/13/17 0735 Imaging Last Impressions Head CT 07/09/17 1158 Signed Impressions: Service Date/Time: Sunday, July 09, 2017 13:55 - CONCLUSION: No acute disease. Howard Vigil Jr., MD Chest X-Ray 07/09/17 1158 Signed Impressions: Service Date/Time: Sunday, July 09, 2017 11:11 - CONCLUSION: No acute disease. Howard Vigil Jr., MD Abdomen/Pelvis CT 07/09/17 0000 Signed Impressions: Service Date/Time: Sunday, July 09, 2017 14:03 - CONCLUSION: Gallstones. Mildly cirrhotic liver with some surrounding fluid. Bilateral lower lobe atelectasis. Neil Roblero MD Objective Remarks GENERAL: Resting comfortably. HEENT: NC, AT. CARDIOVASCULAR: Regular rate and rhythm without murmurs, gallops, or rubs. RESPIRATORY: Mild wheezing, crackles at the left base. GASTROINTESTINAL: Abdomen soft, nontender, nondistended. Normal active bowel sounds. MUSCULOSKELETAL: TR edema in the lower extremities. NEURO: Awake and alert. Moves all ext x4. Slow speech. PSYCH: Flat affect. Medications and IVs Current Medications Medications (Trade) Dose Ordered Sig/Rudy Route Start Time Stop Time Status Last Admin (NS Flush) 2 ml UNSCH PRN IV FLUSH 07/09/17 16:00 (NS Flush) 2 ml BID IV FLUSH 07/09/17 21:00 07/13/17 09:47 (Tylenol) 650 mg Q4H PRN PO 07/09/17 16:00 (Zofran Inj) 4 mg Q6H PRN IVP 07/09/17 16:00 (Compazine Supp) 25 mg Q12H PRN RECTAL 07/09/17 16:00 (Lovenox Inj) 40 mg Q24H SQ 07/09/17 16:00 07/12/17 16:16 (Narcan Inj) 0.4 mg UNSCH PRN IV PUSH 07/09/17 16:00 (Meggan-Colace) 1 tab BID PO 07/09/17 21:00 07/13/17 09:40 (Milk Of Magnesia Liq) 30 ml Q12H PRN PO 07/09/17 16:00 (Senokot) 17.2 mg Q12H PRN PO 07/09/17 16:00 (Dulcolax Supp) 10 mg DAILY PRN RECTAL 07/09/17 16:00 Pharmacy Profile Note 0 ml @ 0 mls/hr UNSCH OTHER 07/09/17 16:00 (Pepcid) 20 mg BID PO 07/09/17 21:00 07/13/17 09:41 (Ferrous Sulfate) 325 mg TIDPC PO 07/09/17 18:30 07/13/17 12:31 (Flonase Norberto Spr) 2 spray BID EACH NARE 07/09/17 21:00 07/13/17 09:42 (Lasix) 40 mg BID@0900,1800 PO 07/09/17 18:00 07/13/17 09:47 (Neurontin) 100 mg TID PO 07/09/17 18:00 07/13/17 12:31 (Lactulose Liq) 45 ml TID PO 07/09/17 18:00 07/13/17 12:31 (Roxicodone) 5 mg DAILY PRN PO 07/09/17 16:00 07/13/17 09:40 (KCl) 10 meq DAILY PO 07/10/17 09:00 07/13/17 09:41 (Xifaxan) 550 mg Q12HR PO 07/09/17 21:00 07/13/17 09:47 (Aldactone) 100 mg BID PO 07/09/17 21:00 07/13/17 09:47 (Effexor Xr) 75 mg DAILY PO 07/10/17 09:00 07/13/17 09:47 (Vitamin C) 500 mg BID PO 07/09/17 21:00 07/13/17 09:40 (Lactinex) 3 tab BID PO 07/09/17 21:00 07/13/17 09:40 (Haldol Inj) 2 mg Q4H PRN IM 07/09/17 17:00 (NS Irr Btl) 60 ml DAILY PRN IRRIGATION 07/10/17 20:15 (Santyl Oint) 1 applic DAILY TOPICAL 07/11/17 09:00 07/13/17 09:42 (Dakin'S 0.125% Soln) 50 ml DAILY TOPICAL 07/11/17 09:00 07/13/17 09:42 (Zinc Oxide 20% Oint) 1 applic DAILY TOPICAL 07/11/17 09:00 07/13/17 09:49 Vancomycin HCl 1250 mg/Sodium Chloride 262.5 ml @ 250 mls/hr Q24H IV 07/12/17 14:00 07/12/17 16:00 Miscellaneous Information SPECIFIC LAB TO BE MIRACLE... ONCE ONCE .XX 07/15/17 13:45 07/15/17 13:46 (Xanax) 0.25 mg Q8H PRN PO 07/12/17 16:00 07/13/17 04:19 (ASP Crit: Doc ESBL, MDR A baumannii or P aer) 1 UNSCH X1 PRN .XX 07/13/17 11:30 07/14/17 11:29 ([facility] [place] [facility]) 1 UNSCH X1 PRN XX 07/13/17 11:30 07/14/17 11:29 Ertapenem 1000 mg/ Sodium Chloride 100 ml @ 200 mls/hr Q24H IV 07/13/17 13:00 A/P Assessment and Plan Metabolic encephalopathy 52-year-old female presents to the emergency department from [facility] for evaluation of increased confusion with elevated ammonia level. Chest x-ray, CT of the brain, CT abdomen/pelvis with IV contrast reviewed and without significant findings. Ammonia is 20. EKG shows SR, HR 80, no acute ST changes. Psych consult appreciated. - neuro checks. - follow up with psychiatry. - continue lactulose. - antibiotics. - PT/ OT/ ST. - try to avoid sedating meds. Frequent reorientation. Infected sacral decubitus ulcer ID consult appreciated. Had a recent ESBL UTI. Wound culture growing proteus, Enterobacter species, staph aureus and ESBL E coli. - continue vancomycin and switch meropenem to ertapenem per ID. Cirrhosis Has a history of liver cirrhosis from alcohol abuse. INR 1.3. She has hyponatremia. CT abdomen/pelvis shows gallstones; mildly cirrhotic liver with some surrounding fluid. - continue lactulose and rifaximin. - follow Is and Os. - d/c fluids. Continue diuretics. - ADAT. DVT prophylaxis with SCD/teds, hold chemical prophylaxis at this time the patient with coagulopathy and risk of bleeding. Discharge Planning Awaiting ID clearance Salty Lewis DO Jul 13, 2017 13:11
[2017-07-13] MEDS: ERTAPENEM INJ 1,000 MG in SODIUM CHLORIDE 0.9% INJ 100 ML IV SCH (13:14)
[2017-07-13] MEDS: VANCOMYCIN INJ 1,250 MG in SODIUM CHLOR 0.9% 250 ML INJ 250 ML IV SCH (15:16)
[2017-07-13] MEDS: ENOXAPARIN SODIUM 40 MG/0.4 ML SYRINGE SQ SCH (16:33)
[2017-07-14] VITALS (9 sets, daily range): BP systolic 94–107; BP diastolic 54–59; PULSE 71–91; RESP 16–18; TEMP 97.4–98; O2SAT 98–100
[2017-07-14] MEDS: ALPRAZolam 0.25 MG TAB PO PRN ×3 (06:22→22:45)
[2017-07-14] MEDS: FERROUS SULFATE 325 MG (65 MG ELEMENTAL IRON) TAB PO SCH ×3 (08:49→17:48)
[2017-07-14] MEDS: FLUTICASONE PROPIONATE 50 MCG/ACT 16 GM NASAL SPRAY EACH NARE SCH ×2 (08:49→21:00)
[2017-07-14] MEDS: RIFAXIMIN 550 MG TAB PO SCH ×2 (08:49→22:32)
[2017-07-14] MEDS: POTASSIUM CHLORIDE 10 MEQ CAP PO SCH (08:50)
[2017-07-14] MEDS: DOCUSATE SODIUM 50 MG/SENNA 8.6 MG TAB PO SCH ×2 (08:50→21:00)
[2017-07-14] MEDS: SPIRONOLACTONE 100 MG TAB PO SCH ×2 (08:50→22:32)
[2017-07-14] MEDS: LACTULOSE SYRUP 20 GM/30 ML CUP PO SCH ×4 (08:50→22:33)
[2017-07-14] MEDS: VENLAFAXINE HCL XR 75 MG CAP PO SCH (08:50)
[2017-07-14] MEDS: ASCORBIC ACID 500 MG TAB PO SCH ×2 (08:50→22:33)
[2017-07-14] MEDS: FUROSEMIDE 40 MG TAB PO SCH ×2 (08:50→17:48)
[2017-07-14] MEDS: GABAPENTIN 100 MG CAP PO SCH ×3 (08:50→17:48)
[2017-07-14] MEDS: LACTOBACILLUS ACIDOPHILUS TAB PO SCH ×2 (08:50→22:32)
[2017-07-14] MEDS: FAMOTIDINE 20 MG TAB PO SCH ×2 (08:50→22:33)
[2017-07-14] MEDS: COLLAGENASE OINT 30 GM TUBE TOPICAL SCH (08:51)
[2017-07-14] MEDS: SODIUM CHLORIDE 0.9% FLUSH 10 ML FLUSH IV FLUSH SCH ×2 (08:51→22:34)
[2017-07-14] MEDS: SODIUM HYPOCHLORITE 0.125% 500 ML BTL TOPICAL SCH (08:51)
[2017-07-14] MEDS: ZINC OXIDE 20% OINT 30 GM TUBE TOPICAL SCH (08:52)
[2017-07-14 09:36] LABS: BICARBONATE 27.9 MEQ/L (21.0-32.0)
[2017-07-14 09:38] LABS: POTASSIUM 5.2 MEQ/L (3.5-5.1)
[2017-07-14] MEDS: ERTAPENEM INJ 1,000 MG in SODIUM CHLORIDE 0.9% INJ 100 ML IV SCH (12:35)
[2017-07-14] MEDS: VANCOMYCIN INJ 1,250 MG in SODIUM CHLOR 0.9% 250 ML INJ 250 ML IV SCH (13:29)
--- NOTE | 2017-07-14 15:24 | HHI.PR ---
Subjective Remarks The patient says that she was feeling better the past few days in the hospital than she did at where she came from. [facility] No other acute concerns. Discussed with nursing. Objective Vitals Vital Signs Date Time Temp Pulse Resp B/P (MAP) Pulse Ox O2 Delivery O2 Flow Rate FiO2 07/14/17 12:21 97.5 73 18 107/59 (75) 100 07/14/17 08:17 97.9 80 18 105/58 (74) 100 07/14/17 07:00 Room Air 07/14/17 04:00 97.4 83 16 100/55 (70) 100 07/14/17 00:00 97.6 89 18 107/54 (71) 98 07/13/17 20:00 97.6 87 16 112/57 (75) 100 07/13/17 20:00 74 07/13/17 19:45 Room Air 07/13/17 17:39 99 21 07/13/17 16:07 98.0 82 18 111/63 (79) 100 I/O 07/13/17 07/13/17 07/13/17 07/14/17 07/14/17 07/14/17 07:00 15:00 23:00 07:00 15:00 23:00 Intake Total 100 ml 1104 ml Balance 100 ml 1104 ml Intake Oral 480 ml IV Total 100 ml 624 ml # Voids 4 2 4 # Bowel Movements 3 3 3 Result Diagram: 07/12/17 0848 07/14/17 0812 Imaging Last Impressions Head CT 07/09/17 1158 Signed Impressions: Service Date/Time: Sunday, July 09, 2017 13:55 - CONCLUSION: No acute disease. Howard Vigil Jr., MD Chest X-Ray 07/09/17 1158 Signed Impressions: Service Date/Time: Sunday, July 09, 2017 11:11 - CONCLUSION: No acute disease. Howard Vigil Jr., MD Abdomen/Pelvis CT 07/09/17 0000 Signed Impressions: Service Date/Time: Sunday, July 09, 2017 14:03 - CONCLUSION: Gallstones. Mildly cirrhotic liver with some surrounding fluid. Bilateral lower lobe atelectasis. Neil Roblero MD Objective Remarks GENERAL: Resting comfortably. HEENT: NC, AT. CARDIOVASCULAR: Regular rate and rhythm without murmurs, gallops, or rubs. RESPIRATORY: Mild wheezing, crackles at the left base. GASTROINTESTINAL: Abdomen soft, nontender, nondistended. Normal active bowel sounds. MUSCULOSKELETAL: TR edema in the lower extremities. NEURO: Awake and alert. Moves all ext x4. Slow speech. PSYCH: Flat affect. Medications and IVs Current Medications Medications (Trade) Dose Ordered Sig/Rudy Route Start Time Stop Time Status Last Admin (NS Flush) 2 ml UNSCH PRN IV FLUSH 07/09/17 16:00 (NS Flush) 2 ml BID IV FLUSH 07/09/17 21:00 07/14/17 08:51 (Tylenol) 650 mg Q4H PRN PO 07/09/17 16:00 (Zofran Inj) 4 mg Q6H PRN IVP 07/09/17 16:00 (Compazine Supp) 25 mg Q12H PRN RECTAL 07/09/17 16:00 (Lovenox Inj) 40 mg Q24H SQ 07/09/17 16:00 07/13/17 16:33 (Narcan Inj) 0.4 mg UNSCH PRN IV PUSH 07/09/17 16:00 (Meggan-Colace) 1 tab BID PO 07/09/17 21:00 07/14/17 08:50 (Milk Of Magnesia Liq) 30 ml Q12H PRN PO 07/09/17 16:00 (Senokot) 17.2 mg Q12H PRN PO 07/09/17 16:00 (Dulcolax Supp) 10 mg DAILY PRN RECTAL 07/09/17 16:00 Pharmacy Profile Note 0 ml @ 0 mls/hr UNSCH OTHER 07/09/17 16:00 (Pepcid) 20 mg BID PO 07/09/17 21:00 07/14/17 08:50 (Ferrous Sulfate) 325 mg TIDPC PO 07/09/17 18:30 07/14/17 12:34 (Flonase Norberto Spr) 2 spray BID EACH NARE 07/09/17 21:00 07/13/17 21:00 (Lasix) 40 mg BID@0900,1800 PO 07/09/17 18:00 07/14/17 08:50 (Neurontin) 100 mg TID PO 07/09/17 18:00 07/14/17 12:34 (Lactulose Liq) 45 ml TID PO 07/09/17 18:00 07/14/17 08:50 (Xifaxan) 550 mg Q12HR PO 07/09/17 21:00 07/14/17 08:49 (Aldactone) 100 mg BID PO 07/09/17 21:00 07/14/17 08:50 (Effexor Xr) 75 mg DAILY PO 07/10/17 09:00 07/14/17 08:50 (Vitamin C) 500 mg BID PO 07/09/17 21:00 07/14/17 08:50 (Lactinex) 3 tab BID PO 07/09/17 21:00 07/14/17 08:50 (Haldol Inj) 2 mg Q4H PRN IM 07/09/17 17:00 (NS Irr Btl) 60 ml DAILY PRN IRRIGATION 07/10/17 20:15 (Santyl Oint) 1 applic DAILY TOPICAL 07/11/17 09:00 07/14/17 08:51 (Dakin'S 0.125% Soln) 50 ml DAILY TOPICAL 07/11/17 09:00 07/14/17 08:51 (Zinc Oxide 20% Oint) 1 applic DAILY TOPICAL 07/11/17 09:00 07/14/17 08:52 Vancomycin HCl 1250 mg/Sodium Chloride 262.5 ml @ 250 mls/hr Q24H IV 07/12/17 14:00 07/14/17 13:29 Miscellaneous Information SPECIFIC LAB TO BE MIRACLE... ONCE ONCE .XX 07/15/17 13:45 07/15/17 13:46 (Xanax) 0.25 mg Q8H PRN PO 07/12/17 16:00 07/14/17 14:46 Ertapenem 1000 mg/ Sodium Chloride 100 ml @ 200 mls/hr Q24H IV 07/13/17 13:00 07/14/17 12:35 (Roxicodone) 5 mg BID PRN PO 07/13/17 13:15 07/14/17 04:55 A/P Assessment and Plan Metabolic encephalopathy 52-year-old female presents to the emergency department from [facility] for evaluation of increased confusion with elevated ammonia level. Chest x-ray, CT of the brain, CT abdomen/pelvis with IV contrast reviewed and without significant findings. Ammonia is 20. EKG shows SR, HR 80, no acute ST changes. Psych consult appreciated. - neuro checks. - follow up with psychiatry. - continue lactulose. - antibiotics. - PT/ OT/ ST. - try to avoid sedating meds. Frequent reorientation. Infected sacral decubitus ulcer ID consult appreciated. Had a recent ESBL UTI. Wound culture growing proteus, Enterobacter species, staph aureus and ESBL E coli. - continue vancomycin and switch meropenem to ertapenem per ID. Cirrhosis Has a history of liver cirrhosis from alcohol abuse. INR 1.3. She has hyponatremia. CT abdomen/pelvis shows gallstones; mildly cirrhotic liver with some surrounding fluid. - continue lactulose and rifaximin. - follow Is and Os. - d/c fluids. Continue diuretics. - ADAT. Hyperkalemia Slight hemolysis noted. - repeat BMP. - hold PO KCl supplementation. Hypoglycemia Likely secondary to decreased by mouth intake. - Advance to regular diet with Ensure supplementation. - Start D5 normal saline. DVT prophylaxis with SCD/teds, hold chemical prophylaxis at this time the patient with coagulopathy and risk of bleeding. Discharge Planning Awaiting ID clearance Salty Lewis DO Jul 14, 2017 15:24
[2017-07-14] MEDS: ENOXAPARIN SODIUM 40 MG/0.4 ML SYRINGE SQ SCH (17:48)
[2017-07-14] MEDS: DEXT 5%-NACL 0.9% 1000 ML INJ 1,000 ML IV SCH (17:49)
[2017-07-14 20:55] LABS: BICARBONATE 26.2 MEQ/L (21.0-32.0); POTASSIUM 3.2 MEQ/L (3.5-5.1)
[2017-07-14 21:23] LABS: CALCIUM-PROTEIN CORRECTED 7.4 MG/DL (8.5-10.1)
[2017-07-14] MEDS ORDERED: CALCIUM CHLORIDE INJ 1 GM in SODIUM CHLORIDE 0.9% INJ 90 ML IV ONE (22:15)
[2017-07-15] VITALS (7 sets, daily range): BP systolic 97–114; BP diastolic 50–66; PULSE 71–101; RESP 16–20; TEMP 97.3–98.4; O2SAT 93–100
[2017-07-15 08:00] LABS: HEMATOCRIT 30.8 % (35.0-46.0); MEAN CORPUSCULAR HGB CONC 34.3 % (32.0-36.0); PLATELET COUNT 160 TH/MM3 (150-450); RED BLOOD COUNT 3.11 MIL/MM3 (4.00-5.30); RED CELL DISTRIBUTION WIDTH 15.3 % (11.6-17.2); REVIEW FLAG FINAL; WHITE BLOOD COUNT 6.6 TH/MM3 (4.0-11.0)
[2017-07-15 08:27] LABS: BICARBONATE 27.6 MEQ/L (21.0-32.0); MAGNESIUM 1.6 MG/DL (1.5-2.5); POTASSIUM 3.5 MEQ/L (3.5-5.1)
[2017-07-15] MEDS: FLUTICASONE PROPIONATE 50 MCG/ACT 16 GM NASAL SPRAY EACH NARE SCH ×2 (09:00→21:00)
[2017-07-15] MEDS: DOCUSATE SODIUM 50 MG/SENNA 8.6 MG TAB PO SCH ×2 (09:00→22:07)
[2017-07-15] MEDS: LACTOBACILLUS ACIDOPHILUS TAB PO SCH ×2 (10:23→22:07)
[2017-07-15] MEDS: FERROUS SULFATE 325 MG (65 MG ELEMENTAL IRON) TAB PO SCH ×3 (10:24→18:30)
[2017-07-15] MEDS: SODIUM CHLORIDE 0.9% FLUSH 10 ML FLUSH IV FLUSH SCH ×2 (10:24→21:00)
[2017-07-15] MEDS: FAMOTIDINE 20 MG TAB PO SCH ×2 (10:25→22:07)
[2017-07-15] MEDS: SPIRONOLACTONE 100 MG TAB PO SCH ×2 (10:25→22:07)
[2017-07-15] MEDS: VENLAFAXINE HCL XR 75 MG CAP PO SCH (10:25)
[2017-07-15] MEDS: RIFAXIMIN 550 MG TAB PO SCH ×2 (10:25→22:07)
[2017-07-15] MEDS: GABAPENTIN 100 MG CAP PO SCH ×3 (10:26→18:30)
[2017-07-15] MEDS: ASCORBIC ACID 500 MG TAB PO SCH ×2 (10:26→22:07)
[2017-07-15] MEDS: ZINC OXIDE 20% OINT 30 GM TUBE TOPICAL SCH (10:28)
[2017-07-15] MEDS: SODIUM HYPOCHLORITE 0.125% 500 ML BTL TOPICAL SCH (10:29)
[2017-07-15] MEDS: FUROSEMIDE 40 MG TAB PO SCH ×2 (11:02→18:00)
[2017-07-15] MEDS: DEXT 5%-NACL 0.9% 1000 ML INJ 1,000 ML IV SCH ×2 (11:02→18:10)
[2017-07-15] MEDS: LACTULOSE SYRUP 20 GM/30 ML CUP PO SCH ×2 (12:22→18:00)
[2017-07-15] MEDS: ERTAPENEM INJ 1,000 MG in SODIUM CHLORIDE 0.9% INJ 100 ML IV SCH (12:22)
--- NOTE | 2017-07-15 13:14 | HHI.PR ---
Subjective Remarks The pt wanted to know if her memory would go back to normal. She says she gets confused at times. She described increased pain in her right arm where the new IV was. She was eating lunch. Discussed with nursing at the bedside. Objective Vitals Vital Signs Date Time Temp Pulse Resp B/P (MAP) Pulse Ox O2 Delivery O2 Flow Rate FiO2 07/15/17 04:00 97.6 77 20 114/61 (78) 100 07/15/17 00:00 98.4 101 18 98/60 (73) 93 07/14/17 20:45 Room Air 07/14/17 20:12 91 07/14/17 20:00 97.9 86 16 102/59 (73) 100 07/14/17 16:07 98.0 82 17 101/59 (73) 100 07/14/17 15:00 82 I/O 07/14/17 07/14/17 07/14/17 07/15/17 07/15/17 07/15/17 07:00 15:00 23:00 07:00 15:00 23:00 Intake Total 362.5 ml 843 ml 1052 ml Balance 362.5 ml 843 ml 1052 ml Intake Oral 480 ml 120 ml IV Total 362.5 ml 363 ml 932 ml # Voids 4 2 1 # Bowel Movements 3 2 2 Result Diagram: 07/15/17 0745 07/15/17 0745 Imaging Last Impressions Head CT 07/09/17 1158 Signed Impressions: Service Date/Time: Sunday, July 09, 2017 13:55 - CONCLUSION: No acute disease. Howard Vigil Jr., MD Chest X-Ray 07/09/17 1158 Signed Impressions: Service Date/Time: Sunday, July 09, 2017 11:11 - CONCLUSION: No acute disease. Howard Vigil Jr., MD Abdomen/Pelvis CT 07/09/17 0000 Signed Impressions: Service Date/Time: Sunday, July 09, 2017 14:03 - CONCLUSION: Gallstones. Mildly cirrhotic liver with some surrounding fluid. Bilateral lower lobe atelectasis. Neil Roblero MD Objective Remarks GENERAL: Resting comfortably. HEENT: NC, AT. CARDIOVASCULAR: Regular rate and rhythm without murmurs, gallops, or rubs. RESPIRATORY: Mild wheezing, crackles at the left base. GASTROINTESTINAL: Abdomen soft, nontender, nondistended. Normal active bowel sounds. MUSCULOSKELETAL: TR edema in the lower extremities. NEURO: Awake and alert. Moves all ext x4. Slow speech. PSYCH: Calm. Medications and IVs Current Medications Medications (Trade) Dose Ordered Sig/Rudy Route Start Time Stop Time Status Last Admin (NS Flush) 2 ml UNSCH PRN IV FLUSH 07/09/17 16:00 (NS Flush) 2 ml BID IV FLUSH 07/09/17 21:00 07/15/17 10:24 (Tylenol) 650 mg Q4H PRN PO 07/09/17 16:00 (Zofran Inj) 4 mg Q6H PRN IVP 07/09/17 16:00 (Compazine Supp) 25 mg Q12H PRN RECTAL 07/09/17 16:00 (Lovenox Inj) 40 mg Q24H SQ 07/09/17 16:00 07/14/17 17:48 (Narcan Inj) 0.4 mg UNSCH PRN IV PUSH 07/09/17 16:00 (Meggan-Colace) 1 tab BID PO 07/09/17 21:00 07/14/17 08:50 (Milk Of Magnesia Liq) 30 ml Q12H PRN PO 07/09/17 16:00 (Senokot) 17.2 mg Q12H PRN PO 07/09/17 16:00 (Dulcolax Supp) 10 mg DAILY PRN RECTAL 07/09/17 16:00 Pharmacy Profile Note 0 ml @ 0 mls/hr UNSCH OTHER 07/09/17 16:00 (Pepcid) 20 mg BID PO 07/09/17 21:00 07/15/17 10:25 (Ferrous Sulfate) 325 mg TIDPC PO 07/09/17 18:30 07/15/17 12:21 (Flonase Norberto Spr) 2 spray BID EACH NARE 07/09/17 21:00 07/13/17 21:00 (Lasix) 40 mg BID@0900,1800 PO 07/09/17 18:00 07/15/17 11:02 (Neurontin) 100 mg TID PO 07/09/17 18:00 07/15/17 12:22 (Lactulose Liq) 45 ml TID PO 07/09/17 18:00 07/14/17 22:33 (Xifaxan) 550 mg Q12HR PO 07/09/17 21:00 07/15/17 10:25 (Aldactone) 100 mg BID PO 07/09/17 21:00 07/15/17 10:25 (Effexor Xr) 75 mg DAILY PO 07/10/17 09:00 07/15/17 10:25 (Vitamin C) 500 mg BID PO 07/09/17 21:00 07/15/17 10:26 (Lactinex) 3 tab BID PO 07/09/17 21:00 07/15/17 10:23 (Haldol Inj) 2 mg Q4H PRN IM 07/09/17 17:00 (NS Irr Btl) 60 ml DAILY PRN IRRIGATION 07/10/17 20:15 07/15/17 10:27 (Santyl Oint) 1 applic DAILY TOPICAL 07/11/17 09:00 07/14/17 08:51 (Dakin'S 0.125% Soln) 50 ml DAILY TOPICAL 07/11/17 09:00 07/15/17 10:29 (Zinc Oxide 20% Oint) 1 applic DAILY TOPICAL 07/11/17 09:00 07/15/17 10:28 Vancomycin HCl 1250 mg/Sodium Chloride 262.5 ml @ 250 mls/hr Q24H IV 07/12/17 14:00 07/14/17 13:29 Miscellaneous Information SPECIFIC LAB TO BE MIRACLE... ONCE ONCE .XX 07/15/17 13:45 07/15/17 13:46 (Xanax) 0.25 mg Q8H PRN PO 07/12/17 16:00 07/14/17 22:45 Ertapenem 1000 mg/ Sodium Chloride 100 ml @ 200 mls/hr Q24H IV 07/13/17 13:00 07/15/17 12:22 (Roxicodone) 5 mg BID PRN PO 07/13/17 13:15 07/15/17 05:49 Dextrose/Sodium Chloride 1,000 ml @ 75 mls/hr [id number] IV 07/14/17 15:30 07/15/17 18:09 07/15/17 11:02 (KCl) 10 meq DAILY PO 07/15/17 14:00 A/P Assessment and Plan Metabolic encephalopathy 52-year-old female presents to the emergency department from [facility] for evaluation of increased confusion with elevated ammonia level. Chest x-ray, CT of the brain, CT abdomen/pelvis with IV contrast reviewed and without significant findings. Ammonia is 20. EKG shows SR, HR 80, no acute ST changes. Psych consult appreciated. - neuro checks. - follow up with psychiatry. - continue lactulose. - antibiotics. - PT/ OT/ ST. - try to avoid sedating meds. Frequent reorientation. Infected sacral decubitus ulcer ID consult appreciated. Had a recent ESBL UTI. Wound culture growing proteus, Enterobacter species, staph aureus and ESBL E coli. - continue vancomycin and switch meropenem to ertapenem per ID. Cirrhosis Has a history of liver cirrhosis from alcohol abuse. INR 1.3. She has hyponatremia. CT abdomen/pelvis shows gallstones; mildly cirrhotic liver with some surrounding fluid. - continue lactulose and rifaximin. - follow Is and Os. - d/c fluids. Continue diuretics. - ADAT. Hypoglycemia Likely secondary to decreased by mouth intake. - Advance to regular diet with Ensure supplementation. - Start D5 normal saline. Glucose still low 07/15. Continue fluids. DVT prophylaxis with SCD/teds, hold chemical prophylaxis at this time the patient with coagulopathy and risk of bleeding. Discharge Planning Awaiting ID clearance, improvement in hypoglycemia Salty Lewis DO Jul 15, 2017 13:14
[2017-07-15] MEDS ORDERED: PHARMACY ORDERED LAB ONE (13:45)
[2017-07-15] MEDS: COLLAGENASE OINT 30 GM TUBE TOPICAL SCH (13:48)
[2017-07-15] MEDS: POTASSIUM CHLORIDE 10 MEQ CAP PO SCH (13:49)
--- NOTE | 2017-07-15 15:39 | HHI.PR ---
Addendum to Inpatient Note Additional Information pt seen around [address] Lewis full not to follow Leticia Will MD Jul 15, 2017 15:39
[2017-07-15] MEDS: ENOXAPARIN SODIUM 40 MG/0.4 ML SYRINGE SQ SCH (16:21)
[2017-07-15] MEDS: ALPRAZolam 0.25 MG TAB PO PRN (18:43)
[2017-07-15] MEDS: VANCOMYCIN INJ 750 MG in SODIUM CHLOR 0.9% 250 ML INJ 250 ML IV SCH (22:07)
--- NOTE | 2017-07-15 23:31 | HHI.IDPN ---
Subjective Subjective Remarks pt seen around 2 pm delayed entry pt is awake, conversant no fever clx positive, polimicrobial including MRSA and ESBL + E.coli Antibiotics vanco meropenem Allergies: Coded Allergies: No Known Allergies (Unverified Allergy, Unknown, 07/09/17) Objective . Vital Signs Date Time Temp Pulse Resp B/P (MAP) Pulse Ox O2 Delivery O2 Flow Rate FiO2 07/15/17 20:33 Room Air 07/15/17 20:00 98.4 92 16 97/50 (66) 100 07/15/17 16:00 98.1 80 18 102/65 (77) 99 07/15/17 12:00 97.5 71 18 112/54 (73) 99 07/15/17 08:30 Room Air 07/15/17 08:22 83 07/15/17 08:00 97.3 75 16 109/66 (80) 100 07/15/17 04:00 97.6 77 20 114/61 (78) 100 07/15/17 00:00 98.4 101 18 98/60 (73) 93 07/15/17 07/15/17 07/16/17 15:00 23:00 07:00 Intake Total 268 ml 480 ml Balance 268 ml 480 ml Intake Oral 480 ml IV Total 268 ml # Voids 2 . Laboratory Tests Test 07/15/17 07:45 White Blood Count 6.6 TH/MM3 Red Blood Count 3.11 MIL/MM3 Hemoglobin 10.6 GM/DL Hematocrit 30.8 % Mean Corpuscular Volume 99.0 FL Mean Corpuscular Hemoglobin 34.0 PG Mean Corpuscular Hemoglobin Concent 34.3 % Red Cell Distribution Width 15.3 % Platelet Count 160 TH/MM3 Mean Platelet Volume 7.8 FL Laboratory Tests Test 07/14/17 08:12 07/14/17 19:30 07/15/17 07:45 Blood Urea Nitrogen 4 MG/DL 4 MG/DL 4 MG/DL Creatinine 0.55 MG/DL 0.69 MG/DL 0.53 MG/DL Random Glucose 59 MG/DL 129 MG/DL 66 MG/DL Calcium Level 7.6 MG/DL 7.1 MG/DL 8.1 MG/DL Sodium Level 132 MEQ/L 132 MEQ/L 135 MEQ/L Potassium Level 5.2 MEQ/L 3.2 MEQ/L 3.5 MEQ/L Chloride Level 99 MEQ/L 98 MEQ/L 101 MEQ/L Carbon Dioxide Level 27.9 MEQ/L 26.2 MEQ/L 27.6 MEQ/L Anion Gap 5 MEQ/L 8 MEQ/L 6 MEQ/L Estimat Glomerular Filtration Rate 116 ML/MIN 89 ML/MIN 121 ML/MIN Total Protein 6.6 GM/DL Protein Corrected Calcium 7.4 MG/DL Magnesium Level 1.6 MG/DL Imaging Last Impressions Head CT 07/09/17 1158 Signed Impressions: Service Date/Time: Sunday, July 09, 2017 13:55 - CONCLUSION: No acute disease. Howard Vigil Jr., MD Chest X-Ray 07/09/17 1158 Signed Impressions: Service Date/Time: Sunday, July 09, 2017 11:11 - CONCLUSION: No acute disease. Howard Vigil Jr., MD Abdomen/Pelvis CT 07/09/17 0000 Signed Impressions: Service Date/Time: Sunday, July 09, 2017 14:03 - CONCLUSION: Gallstones. Mildly cirrhotic liver with some surrounding fluid. Bilateral lower lobe atelectasis. Neil Roblero MD Physical Exam CONSTITUTIONAL/GENERAL: This is an adequately nourished patient, in no apparent distress. TUBES/LINES/DRAINS: PICC in place LUE SKIN: No jaundice, rashes, CARDIOVASCULAR: Regular rate and rhythm without murmurs, gallops, or rubs. No JVD. Peripheral pulses symmetric. RESPIRATORY/CHEST: Symmetric, unlabored respirations. Clear to auscultation. Breath sounds equal bilaterally. No wheezes, rales, or rhonchi. GASTROINTESTINAL: Abdomen soft, non-tender, nondistended. No hepato-splenomegaly , or palpable masses. No guarding. Bowel sounds present. GENITOURINARY: Without palpable bladder distension. MUSCULOSKELETAL: Extremities without clubbing, cyanosis, or edema. No joint tenderness or effusion noted. No calf tenderness. No mottling or clubbing. NEUROLOGICAL: Awake and alert. Confused. Follows commands. Clear speech . Moves all extremities. PSYCHIATRIC: calm cooperative pleasant Assessment & Plan Remarks Infected stage IV decubitus ulcer - probable underlying osteo Per report h/o recent ESBL Multiple med problems Recent UTI, ESBL , was on tx cont Ertapenem x 4 weeks dc vanco Pt will need to be evaluated by plastic surgery, needs debridment, probably VAC t heal dw Dr Debbie Will,Leticia Montemayor MD Jul 15, 2017 23:31
[2017-07-16] VITALS (11 sets, daily range): BP systolic 105–115; BP diastolic 55–63; PULSE 64–114; RESP 18–20; TEMP 97–98.3; O2SAT 97–100
[2017-07-16] MEDS: ALPRAZolam 0.25 MG TAB PO PRN ×3 (04:30→21:59)
[2017-07-16] MEDS: DEXT 5%-NACL 0.9% 1000 ML INJ 1,000 ML IV SCH ×2 (05:31→19:18)
[2017-07-16] MEDS: DOCUSATE SODIUM 50 MG/SENNA 8.6 MG TAB PO SCH ×2 (08:38→21:58)
[2017-07-16] MEDS: POTASSIUM CHLORIDE 10 MEQ CAP PO SCH (08:38)
[2017-07-16] MEDS: FERROUS SULFATE 325 MG (65 MG ELEMENTAL IRON) TAB PO SCH ×3 (08:38→17:05)
[2017-07-16] MEDS: RIFAXIMIN 550 MG TAB PO SCH ×2 (08:38→21:59)
[2017-07-16] MEDS: LACTULOSE SYRUP 20 GM/30 ML CUP PO SCH ×4 (08:39→17:09)
[2017-07-16] MEDS: VENLAFAXINE HCL XR 75 MG CAP PO SCH (08:39)
[2017-07-16] MEDS: SPIRONOLACTONE 100 MG TAB PO SCH ×2 (08:39→21:59)
[2017-07-16] MEDS: ASCORBIC ACID 500 MG TAB PO SCH ×2 (08:39→21:59)
[2017-07-16] MEDS: GABAPENTIN 100 MG CAP PO SCH ×3 (08:39→17:05)
[2017-07-16] MEDS: LACTOBACILLUS ACIDOPHILUS TAB PO SCH ×2 (08:39→21:59)
[2017-07-16] MEDS: FUROSEMIDE 40 MG TAB PO SCH ×2 (08:39→17:05)
[2017-07-16] MEDS: ZINC OXIDE 20% OINT 30 GM TUBE TOPICAL SCH (08:40)
[2017-07-16] MEDS: SODIUM CHLORIDE 0.9% FLUSH 10 ML FLUSH IV FLUSH SCH ×2 (08:40→21:00)
[2017-07-16] MEDS: FAMOTIDINE 20 MG TAB PO SCH ×2 (08:40→21:59)
[2017-07-16] MEDS: COLLAGENASE OINT 30 GM TUBE TOPICAL SCH (08:40)
[2017-07-16] MEDS: FLUTICASONE PROPIONATE 50 MCG/ACT 16 GM NASAL SPRAY EACH NARE SCH ×2 (08:41→21:00)
[2017-07-16] MEDS: SODIUM HYPOCHLORITE 0.125% 500 ML BTL TOPICAL SCH (08:47)
[2017-07-16] MEDS: ERTAPENEM INJ 1,000 MG in SODIUM CHLORIDE 0.9% INJ 100 ML IV SCH (12:59)
[2017-07-16] MEDS: ENOXAPARIN SODIUM 40 MG/0.4 ML SYRINGE SQ SCH (17:04)
[2017-07-16 17:45] LABS: BICARBONATE 26.8 MEQ/L (21.0-32.0); MAGNESIUM 1.6 MG/DL (1.5-2.5)
[2017-07-16 17:53] LABS: POTASSIUM 4.5 MEQ/L (3.5-5.1)
[2017-07-16 18:48] LABS: CALCIUM-PROTEIN CORRECTED 7.3 MG/DL (8.5-10.1)
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
[2017-07-16 19:26] LABS: FERRITIN 514 NG/ML (8-252); TRANSFERRIN IRON PROFILE 65 MG/DL (200-360)
[2017-07-16] MEDS ORDERED: CALCIUM CHLORIDE INJ 2 GM in SODIUM CHLORIDE 0.9% INJ 100 ML IV ONE (20:00)
[2017-07-16] MEDS: VANCOMYCIN INJ 750 MG in SODIUM CHLOR 0.9% 250 ML INJ 250 ML IV SCH (21:59)
[2017-07-17] VITALS (7 sets, daily range): BP systolic 94–130; BP diastolic 54–75; PULSE 75–104; RESP 17–20; TEMP 97.1–98.1; O2SAT 90–99
[2017-07-17 07:46] LABS: HEMATOCRIT 30.4 % (35.0-46.0); MEAN CELL VOLUME 99.6 FL (80.0-100.0); MEAN CORPUSCULAR HEMOGLOBIN 34.4 PG (27.0-34.0); MEAN CORPUSCULAR HGB CONC 34.6 % (32.0-36.0); PLATELET COUNT 135 TH/MM3 (150-450); RED BLOOD COUNT 3.05 MIL/MM3 (4.00-5.30); RED CELL DISTRIBUTION WIDTH 15.7 % (11.6-17.2); REVIEW FLAG FINAL; WHITE BLOOD COUNT 7.3 TH/MM3 (4.0-11.0)
[2017-07-17 08:20] LABS: BICARBONATE 27.3 MEQ/L (21.0-32.0); MAGNESIUM 1.6 MG/DL (1.5-2.5); POTASSIUM 3.4 MEQ/L (3.5-5.1)
[2017-07-17] MEDS: SODIUM CHLORIDE 0.9% FLUSH 10 ML FLUSH IV FLUSH SCH ×2 (08:40→21:08)
[2017-07-17] MEDS: FLUTICASONE PROPIONATE 50 MCG/ACT 16 GM NASAL SPRAY EACH NARE SCH ×2 (08:40→21:00)
[2017-07-17] MEDS: LACTOBACILLUS ACIDOPHILUS TAB PO SCH ×2 (08:41→21:08)
[2017-07-17] MEDS: ASCORBIC ACID 500 MG TAB PO SCH ×2 (08:41→21:08)
[2017-07-17] MEDS: VENLAFAXINE HCL XR 75 MG CAP PO SCH (08:41)
[2017-07-17] MEDS: FUROSEMIDE 40 MG TAB PO SCH ×2 (08:41→17:30)
[2017-07-17] MEDS: FAMOTIDINE 20 MG TAB PO SCH ×2 (08:41→21:08)
[2017-07-17] MEDS: FERROUS SULFATE 325 MG (65 MG ELEMENTAL IRON) TAB PO SCH ×3 (08:41→17:30)
[2017-07-17] MEDS: DOCUSATE SODIUM 50 MG/SENNA 8.6 MG TAB PO SCH ×2 (08:41→21:08)
[2017-07-17] MEDS: RIFAXIMIN 550 MG TAB PO SCH ×2 (08:41→21:08)
[2017-07-17] MEDS: LACTULOSE SYRUP 20 GM/30 ML CUP PO SCH ×3 (08:42→17:30)
[2017-07-17] MEDS: SPIRONOLACTONE 100 MG TAB PO SCH ×2 (08:42→21:08)
[2017-07-17] MEDS: GABAPENTIN 100 MG CAP PO SCH ×3 (08:42→17:30)
[2017-07-17] MEDS: POTASSIUM CHLORIDE 10 MEQ CAP PO SCH (08:42)
[2017-07-17] MEDS ORDERED: POTASSIUM CHLORIDE 10 MEQ CONTROLLED RELEASE TAB PO ONE (11:00)
[2017-07-17] MEDS: SODIUM HYPOCHLORITE 0.125% 500 ML BTL TOPICAL SCH (11:01)
[2017-07-17] MEDS: COLLAGENASE OINT 30 GM TUBE TOPICAL SCH (11:01)
[2017-07-17] MEDS: ZINC OXIDE 20% OINT 30 GM TUBE TOPICAL SCH (11:01)
[2017-07-17] MEDS: ERTAPENEM INJ 1,000 MG in SODIUM CHLORIDE 0.9% INJ 100 ML IV SCH (12:04)
[2017-07-17] MEDS: D5-NS + KCL 20 MEQ INJ 1,000 ML IV SCH ×2 (12:04→21:09)
[2017-07-17] MEDS: ENOXAPARIN SODIUM 40 MG/0.4 ML SYRINGE SQ SCH (17:30)
[2017-07-17] MEDS: ALPRAZolam 0.25 MG TAB PO PRN (17:30)
--- NOTE | 2017-07-17 18:31 | HHI.PR ---
Subjective Remarks k low Patient seems more awake. c/o pain in sacral region afebrile BP low with sbp in the 90's systolic Objective Vitals Vital Signs Date Time Temp Pulse Resp B/P (MAP) Pulse Ox O2 Delivery O2 Flow Rate FiO2 07/17/17 16:05 98.1 89 18 94/54 (67) 97 07/17/17 13:32 Room Air 07/17/17 12:00 97.1 104 17 130/63 (85) 97 07/17/17 12:00 77 07/17/17 08:50 Room Air 07/17/17 08:00 85 07/17/17 08:00 97.4 79 18 121/75 (90) 99 07/17/17 04:00 97.3 80 20 115/71 (86) 99 07/17/17 00:00 98.0 75 20 120/67 (84) 99 07/16/17 23:49 78 07/16/17 20:16 Room Air 07/16/17 20:00 97.4 94 20 105/63 (77) 97 07/16/17 19:56 90 I/O 07/16/17 07/16/17 07/16/17 07/17/17 07/17/17 07/17/17 07:00 15:00 23:00 07:00 15:00 23:00 Intake Total 1149.7 ml 1556 ml 962.5 ml Balance 1149.7 ml 1556 ml 962.5 ml Intake Oral 120 ml 480 ml IV Total 1029.7 ml 1076 ml 962.5 ml # Voids 2 2 # Bowel Movements 2 1 Result Diagram: 07/17/1715 07/17/17 0615 Imaging Last Impressions Head CT 07/09/17 1158 Signed Impressions: Service Date/Time: Sunday, July 09, 2017 13:55 - CONCLUSION: No acute disease. Howard Vigil Jr., MD Chest X-Ray 07/09/17 1158 Signed Impressions: Service Date/Time: Sunday, July 09, 2017 11:11 - CONCLUSION: No acute disease. Howard Vigil Jr., MD Abdomen/Pelvis CT 07/09/17 0000 Signed Impressions: Service Date/Time: Sunday, July 09, 2017 14:03 - CONCLUSION: Gallstones. Mildly cirrhotic liver with some surrounding fluid. Bilateral lower lobe atelectasis. Neil Roblero MD Objective Remarks GENERAL: Resting comfortably. HEENT: NC, AT. CARDIOVASCULAR: Regular rate and rhythm without murmurs, gallops, or rubs. RESPIRATORY: Mild wheezing, crackles at the left base. GASTROINTESTINAL: Abdomen soft, nontender, nondistended. Normal active bowel sounds. MUSCULOSKELETAL: TR edema in the lower extremities. Significant left upper extremity edema. NEURO: Awake and alert. Moves all ext x4. Slow speech. PSYCH: Calm. Medications and IVs Current Medications Medications (Trade) Dose Ordered Sig/Rudy Route Start Time Stop Time Status Last Admin (NS Flush) 2 ml UNSCH PRN IV FLUSH 07/09/17 16:00 (NS Flush) 2 ml BID IV FLUSH 07/09/17 21:00 07/15/17 21:00 (Tylenol) 650 mg Q4H PRN PO 07/09/17 16:00 (Zofran Inj) 4 mg Q6H PRN IVP 07/09/17 16:00 (Compazine Supp) 25 mg Q12H PRN RECTAL 07/09/17 16:00 (Lovenox Inj) 40 mg Q24H SQ 07/09/17 16:00 07/17/17 17:30 (Narcan Inj) 0.4 mg UNSCH PRN IV PUSH 07/09/17 16:00 (Meggan-Colace) 1 tab BID PO 07/09/17 21:00 07/17/17 08:41 (Milk Of Magnesia Liq) 30 ml Q12H PRN PO 07/09/17 16:00 (Senokot) 17.2 mg Q12H PRN PO 07/09/17 16:00 (Dulcolax Supp) 10 mg DAILY PRN RECTAL 07/09/17 16:00 Pharmacy Profile Note 0 ml @ 0 mls/hr UNSCH OTHER 07/09/17 16:00 (Pepcid) 20 mg BID PO 07/09/17 21:00 07/17/17 08:41 (Ferrous Sulfate) 325 mg TIDPC PO 07/09/17 18:30 07/17/17 17:30 (Flonase Norberto Spr) 2 spray BID EACH NARE 07/09/17 21:00 07/16/17 21:00 (Lasix) 40 mg BID@0900,1800 PO 07/09/17 18:00 07/17/17 17:30 (Neurontin) 100 mg TID PO 07/09/17 18:00 07/17/17 17:30 (Lactulose Liq) 45 ml TID PO 07/09/17 18:00 07/14/17 22:33 (Xifaxan) 550 mg Q12HR PO 07/09/17 21:00 07/17/17 08:41 (Aldactone) 100 mg BID PO 07/09/17 21:00 07/17/17 08:42 (Effexor Xr) 75 mg DAILY PO 07/10/17 09:00 07/17/17 08:41 (Vitamin C) 500 mg BID PO 07/09/17 21:00 07/17/17 08:41 (Lactinex) 3 tab BID PO 07/09/17 21:00 07/17/17 08:41 (Haldol Inj) 2 mg Q4H PRN IM 07/09/17 17:00 07/16/17 12:58 (NS Irr Btl) 60 ml DAILY PRN IRRIGATION 07/10/17 20:15 07/15/17 10:27 (Santyl Oint) 1 applic DAILY TOPICAL 07/11/17 09:00 07/17/17 11:01 (Dakin'S 0.125% Soln) 50 ml DAILY TOPICAL 07/11/17 09:00 07/17/17 11:01 (Zinc Oxide 20% Oint) 1 applic DAILY TOPICAL 07/11/17 09:00 07/17/17 11:01 (Xanax) 0.25 mg Q8H PRN PO 07/12/17 16:00 07/17/17 17:30 Ertapenem 1000 mg/ Sodium Chloride 100 ml @ 200 mls/hr Q24H IV 07/13/17 13:00 07/17/17 12:04 (KCl) 10 meq DAILY PO 07/15/17 14:00 07/17/17 08:42 (Roxicodone) 5 mg TID PRN PO 07/15/17 13:15 07/17/17 17:30 Vancomycin HCl 750 mg/Sodium Chloride 257.5 ml @ 250 mls/hr Q24H IV 07/15/17 21:00 07/16/17 21:59 Miscellaneous Information SPECIFIC LAB TO BE ... ONCE ONCE .XX 07/18/17 20:45 07/18/17 20:46 Potassium Chloride/Dextrose/ Sod Cl 1,000 ml @ 100 mls/hr Q10H IV 07/17/17 11:45 07/17/17 12:04 A/P Assessment and Plan Metabolic encephalopathy 52-year-old female presents to the emergency department from [facility] for evaluation of increased confusion with elevated ammonia level. Chest x-ray, CT of the brain, CT abdomen/pelvis with IV contrast reviewed and without significant findings. Ammonia is 20. EKG shows SR, HR 80, no acute ST changes. Psych consult appreciated. - neuro checks. - follow up with psychiatry. - continue lactulose. - antibiotics. - PT/ OT/ ST. - try to avoid sedating meds. Frequent reorientation. 07/17 Patient awake today, more coherent and not exhibiting confusion. Encephalopathy improving. Infected sacral decubitus ulcer ID consult appreciated. Had a recent ESBL UTI. Wound culture growing proteus, Enterobacter species, staph aureus and ESBL E coli. - continue vancomycin and switch meropenem to ertapenem per ID. 07/17 Plastic surgery consulted as per ID recommendations. Wound needs debridement and possibly a wound vac to heal. Evaluation by plastic surgeru pending. Cirrhosis Has a history of liver cirrhosis from alcohol abuse. INR 1.3. She has hyponatremia. CT abdomen/pelvis shows gallstones; mildly cirrhotic liver with some surrounding fluid. - continue lactulose and rifaximin. - follow Is and Os. - d/c fluids. Continue diuretics. - ADAT. Hypoglycemia Likely secondary to decreased by mouth intake. - Advance to regular diet with Ensure supplementation. - Continue D5NS. Continue to monitor accuchecks. DVT prophylaxis with SCD/teds, hold chemical prophylaxis at this time the patient with coagulopathy and risk of bleeding. Wiliam Sebastian MD Jul 17, 2017 18:31
[2017-07-17] MEDS: VANCOMYCIN INJ 750 MG in SODIUM CHLOR 0.9% 250 ML INJ 250 ML IV SCH (21:08)
[2017-07-18] VITALS (9 sets, daily range): BP systolic 99–125; BP diastolic 51–75; PULSE 82–108; RESP 16–20; TEMP 97.8–98.7; O2SAT 94–100
[2017-07-18] MEDS: ALPRAZolam 0.25 MG TAB PO PRN (03:29)
[2017-07-18] MEDS: D5-NS + KCL 20 MEQ INJ 1,000 ML IV SCH ×3 (07:45→22:15)
[2017-07-18] MEDS: COLLAGENASE OINT 30 GM TUBE TOPICAL SCH (09:00)
[2017-07-18] MEDS: SODIUM HYPOCHLORITE 0.125% 500 ML BTL TOPICAL SCH (09:00)
[2017-07-18] MEDS: SODIUM CHLORIDE 0.9% FLUSH 10 ML FLUSH IV FLUSH SCH ×2 (09:00→22:17)
[2017-07-18] MEDS: FUROSEMIDE 40 MG TAB PO SCH ×3 (09:00→17:23)
[2017-07-18] MEDS: ZINC OXIDE 20% OINT 30 GM TUBE TOPICAL SCH (09:00)
[2017-07-18] MEDS: FLUTICASONE PROPIONATE 50 MCG/ACT 16 GM NASAL SPRAY EACH NARE SCH ×2 (09:14→21:00)
[2017-07-18] MEDS: GABAPENTIN 100 MG CAP PO SCH ×4 (09:15→17:24)
[2017-07-18] MEDS: ASCORBIC ACID 500 MG TAB PO SCH ×2 (09:15→22:17)
[2017-07-18] MEDS: FAMOTIDINE 20 MG TAB PO SCH ×2 (09:15→22:17)
[2017-07-18] MEDS: SPIRONOLACTONE 100 MG TAB PO SCH ×2 (09:15→22:17)
[2017-07-18] MEDS: POTASSIUM CHLORIDE 10 MEQ CAP PO SCH (09:15)
[2017-07-18] MEDS: FERROUS SULFATE 325 MG (65 MG ELEMENTAL IRON) TAB PO SCH ×4 (09:15→17:24)
[2017-07-18] MEDS: RIFAXIMIN 550 MG TAB PO SCH ×2 (09:15→22:17)
[2017-07-18] MEDS: VENLAFAXINE HCL XR 75 MG CAP PO SCH (09:15)
[2017-07-18] MEDS: DOCUSATE SODIUM 50 MG/SENNA 8.6 MG TAB PO SCH ×2 (09:16→22:17)
[2017-07-18] MEDS: LACTOBACILLUS ACIDOPHILUS TAB PO SCH ×2 (09:16→22:16)
[2017-07-18] MEDS: LACTULOSE SYRUP 20 GM/30 ML CUP PO SCH ×3 (09:16→17:18)
[2017-07-18] MEDS: ERTAPENEM INJ 1,000 MG in SODIUM CHLORIDE 0.9% INJ 100 ML IV SCH (13:04)
[2017-07-18] MEDS: ENOXAPARIN SODIUM 40 MG/0.4 ML SYRINGE SQ SCH ×2 (16:00→17:19)
[2017-07-18 19:08] LABS: BICARBONATE 26.2 MEQ/L (21.0-32.0); POTASSIUM 4.1 MEQ/L (3.5-5.1)
--- NOTE | 2017-07-18 19:21 | HHI.PR ---
Subjective Remarks patient more awake. Patient more lucid with intermittent confusion. Denies cp/sob Denies fevers/chills Objective Vitals Vital Signs Date Time Temp Pulse Resp B/P (MAP) Pulse Ox O2 Delivery O2 Flow Rate FiO2 07/18/17 18:12 86 07/18/17 16:00 98.1 82 18 119/69 (86) 98 07/18/17 15:27 90 07/18/17 12:00 98.1 94 18 115/61 (79) 100 07/18/17 11:02 94 07/18/17 09:05 Room Air 07/18/17 08:00 98.1 100 16 106/54 (71) 100 07/18/17 04:00 97.8 88 20 125/62 (83) 100 07/18/17 04:00 96 07/18/17 00:00 98.3 102 20 99/51 (67) 94 07/18/17 00:00 108 07/17/17 20:00 96 07/17/17 20:00 97.5 100 18 124/60 (81) 92 07/17/17 20:00 Room Air I/O 07/17/17 07/17/17 07/17/17 07/18/17 07/18/17 07/18/17 07:00 15:00 23:00 07:00 15:00 23:00 Intake Total 962.5 ml 1720 ml 240 ml 540 ml Output Total 4 ml Balance 962.5 ml 1720 ml 240 ml 536 ml Intake Oral 720 ml 240 ml 540 ml IV Total 962.5 ml 1000 ml Output Urine Total 4 ml # Voids 5 3 # Bowel Movements 0 2 Result Diagram: 07/17/17 0615 07/18/17 1805 Imaging Last Impressions Head CT 07/09/17 1158 Signed Impressions: Service Date/Time: Sunday, July 09, 2017 13:55 - CONCLUSION: No acute disease. Howard Vigil Jr., MD Chest X-Ray 07/09/17 1158 Signed Impressions: Service Date/Time: Sunday, July 09, 2017 11:11 - CONCLUSION: No acute disease. Howard Vigil Jr., MD Abdomen/Pelvis CT 07/09/17 0000 Signed Impressions: Service Date/Time: Sunday, July 09, 2017 14:03 - CONCLUSION: Gallstones. Mildly cirrhotic liver with some surrounding fluid. Bilateral lower lobe atelectasis. Neil Roblero MD Objective Remarks GENERAL: Resting comfortably. HEENT: NC, AT. CARDIOVASCULAR: Regular rate and rhythm without murmurs, gallops, or rubs. RESPIRATORY: Mild wheezing, crackles at the left base. GASTROINTESTINAL: Abdomen soft, nontender, nondistended. Normal active bowel sounds. MUSCULOSKELETAL: TR edema in the lower extremities. Significant left upper extremity edema. NEURO: Awake and alert. Moves all ext x4. Slow speech. PSYCH: Calm. Medications and IVs Current Medications Medications (Trade) Dose Ordered Sig/Rudy Route Start Time Stop Time Status Last Admin (NS Flush) 2 ml UNSCH PRN IV FLUSH 07/09/17 16:00 (NS Flush) 2 ml BID IV FLUSH 07/09/17 21:00 07/17/17 21:08 (Tylenol) 650 mg Q4H PRN PO 07/09/17 16:00 (Zofran Inj) 4 mg Q6H PRN IVP 07/09/17 16:00 (Compazine Supp) 25 mg Q12H PRN RECTAL 07/09/17 16:00 (Lovenox Inj) 40 mg Q24H SQ 07/09/17 16:00 07/17/17 17:30 (Narcan Inj) 0.4 mg UNSCH PRN IV PUSH 07/09/17 16:00 (Meggan-Colace) 1 tab BID PO 07/09/17 21:00 07/18/17 09:16 (Milk Of Magnesia Liq) 30 ml Q12H PRN PO 07/09/17 16:00 (Senokot) 17.2 mg Q12H PRN PO 07/09/17 16:00 (Dulcolax Supp) 10 mg DAILY PRN RECTAL 07/09/17 16:00 (Pepcid) 20 mg BID PO 07/09/17 21:00 07/18/17 09:15 (Ferrous Sulfate) 325 mg TIDPC PO 07/09/17 18:30 07/18/17 13:04 (Flonase Norberto Spr) 2 spray BID EACH NARE 07/09/17 21:00 07/18/17 09:14 (Lasix) 40 mg BID@0900,1800 PO 07/09/17 18:00 07/18/17 09:00 (Neurontin) 100 mg TID PO 07/09/17 18:00 07/18/17 13:04 (Lactulose Liq) 45 ml TID PO 07/09/17 18:00 07/18/17 13:04 (Xifaxan) 550 mg Q12HR PO 07/09/17 21:00 07/18/17 09:15 (Aldactone) 100 mg BID PO 07/09/17 21:00 07/18/17 09:15 (Effexor Xr) 75 mg DAILY PO 07/10/17 09:00 07/18/17 09:15 (Vitamin C) 500 mg BID PO 07/09/17 21:00 07/18/17 09:15 (Lactinex) 3 tab BID PO 07/09/17 21:00 07/18/17 09:16 (Haldol Inj) 2 mg Q4H PRN IM 07/09/17 17:00 07/16/17 12:58 (NS Irr Btl) 60 ml DAILY PRN IRRIGATION 07/10/17 20:15 07/15/17 10:27 (Santyl Oint) 1 applic DAILY TOPICAL 07/11/17 09:00 07/18/17 09:00 (Dakin'S 0.125% Soln) 50 ml DAILY TOPICAL 07/11/17 09:00 07/18/17 09:00 (Zinc Oxide 20% Oint) 1 applic DAILY TOPICAL 07/11/17 09:00 07/18/17 09:00 (Xanax) 0.25 mg Q8H PRN PO 07/12/17 16:00 07/18/17 03:29 Ertapenem 1000 mg/ Sodium Chloride 100 ml @ 200 mls/hr Q24H IV 07/13/17 13:00 07/18/17 13:04 (KCl) 10 meq DAILY PO 07/15/17 14:00 07/18/17 09:15 (Roxicodone) 5 mg TID PRN PO 07/15/17 13:15 07/18/17 09:34 Potassium Chloride/Dextrose/ Sod Cl 1,000 ml @ 100 mls/hr Q10H IV 07/17/17 11:45 07/18/17 17:20 A/P Assessment and Plan Metabolic encephalopathy 52-year-old female presents to the emergency department from [facility] for evaluation of increased confusion with elevated ammonia level. Chest x-ray, CT of the brain, CT abdomen/pelvis with IV contrast reviewed and without significant findings. Ammonia is 20. EKG shows SR, HR 80, no acute ST changes. Psych consult appreciated. - neuro checks. - follow up with psychiatry. - continue lactulose. - antibiotics. - PT/ OT/ ST. - try to avoid sedating meds. Frequent reorientation. 07/18 Patient awake today, more coherent and not exhibiting confusion. Encephalopathy improving. Infected sacral decubitus ulcer ID consult appreciated. Had a recent ESBL UTI. Wound culture growing proteus, Enterobacter species, staph aureus and ESBL E coli. - continue vancomycin and switch meropenem to ertapenem per ID. 07/18 Plastic surgery consulted as per ID recommendations. Wound needs debridement and possibly a wound vac to heal. Evaluation by plastic surgery pending. NO plastic surgery available for call today. Will reconsult when one available on the schedule. Cirrhosis Has a history of liver cirrhosis from alcohol abuse. INR 1.3. She has hyponatremia. CT abdomen/pelvis shows gallstones; mildly cirrhotic liver with some surrounding fluid. - continue lactulose and rifaximin. - follow Is and Os. - d/c fluids. Continue diuretics. - ADAT. Hypoglycemia Likely secondary to decreased by mouth intake. - Advance to regular diet with Ensure supplementation. - Continue D5NS. Continue to monitor accuchecks - patient still not eating well. DVT prophylaxis with SCD/teds, hold chemical prophylaxis at this time the patient with coagulopathy and risk of bleeding. Wiliam Sebastian MD Jul 18, 2017 19:21
[2017-07-18] MEDS: MULTIVITAMIN TAB PO SCH (19:30)
[2017-07-18] MEDS ORDERED: MEGESTROL ACETATE SUSP 400 MG/10 ML CUP PO ONE (19:30)
[2017-07-18] MEDS ORDERED: PHARMACY ORDERED LAB ONE (20:45)
[2017-07-19] VITALS (10 sets, daily range): BP systolic 104–123; BP diastolic 56–71; PULSE 76–90; RESP 18–20; TEMP 97.7–99.1; O2SAT 100
[2017-07-19] MEDS: ALPRAZolam 0.25 MG TAB PO PRN ×2 (04:16→16:57)
[2017-07-19] MEDS: LACTULOSE SYRUP 20 GM/30 ML CUP PO SCH ×3 (09:00→16:50)
[2017-07-19] MEDS: SODIUM CHLORIDE 0.9% FLUSH 10 ML FLUSH IV FLUSH SCH ×2 (09:00→21:00)
[2017-07-19] MEDS: GABAPENTIN 100 MG CAP PO SCH ×3 (09:21→16:48)
[2017-07-19] MEDS: RIFAXIMIN 550 MG TAB PO SCH ×2 (09:22→22:34)
[2017-07-19] MEDS: FAMOTIDINE 20 MG TAB PO SCH ×2 (09:22→22:35)
[2017-07-19] MEDS: FERROUS SULFATE 325 MG (65 MG ELEMENTAL IRON) TAB PO SCH ×3 (09:22→16:49)
[2017-07-19] MEDS: DOCUSATE SODIUM 50 MG/SENNA 8.6 MG TAB PO SCH ×2 (09:22→22:34)
[2017-07-19] MEDS: MEGESTROL ACETATE SUSP 400 MG/10 ML CUP PO SCH (09:22)
[2017-07-19] MEDS: LACTOBACILLUS ACIDOPHILUS TAB PO SCH ×2 (09:22→22:35)
[2017-07-19] MEDS: FUROSEMIDE 40 MG TAB PO SCH ×2 (09:22→16:49)
[2017-07-19] MEDS: ASCORBIC ACID 500 MG TAB PO SCH ×2 (09:22→22:34)
[2017-07-19] MEDS: POTASSIUM CHLORIDE 10 MEQ CAP PO SCH (09:23)
[2017-07-19] MEDS: SPIRONOLACTONE 100 MG TAB PO SCH ×2 (09:23→22:35)
[2017-07-19] MEDS: FLUTICASONE PROPIONATE 50 MCG/ACT 16 GM NASAL SPRAY EACH NARE SCH ×2 (09:23→22:36)
[2017-07-19] MEDS: MULTIVITAMIN TAB PO SCH (09:23)
[2017-07-19] MEDS: VENLAFAXINE HCL XR 75 MG CAP PO SCH (09:23)
[2017-07-19] MEDS: SODIUM HYPOCHLORITE 0.125% 500 ML BTL TOPICAL SCH (09:24)
[2017-07-19] MEDS: COLLAGENASE OINT 30 GM TUBE TOPICAL SCH (09:24)
[2017-07-19] MEDS: ZINC OXIDE 20% OINT 30 GM TUBE TOPICAL SCH (09:25)
[2017-07-19] MEDS: ERTAPENEM INJ 1,000 MG in SODIUM CHLORIDE 0.9% INJ 100 ML IV SCH (12:21)
[2017-07-19] MEDS: D5-NS + KCL 20 MEQ INJ 1,000 ML IV SCH (13:34)
--- NOTE | 2017-07-19 15:13 | HHI.PR ---
Subjective Remarks As per RN, the patient is having more frequent periods of confusion at psychosis than before. The patient denies any chest pain or shortness of breath. Looks calm and occasionally goes tangential when questioned. The patient is afebrile Objective Vitals Vital Signs Date Time Temp Pulse Resp B/P (MAP) Pulse Ox O2 Delivery O2 Flow Rate FiO2 07/19/17 13:21 77 07/19/17 12:07 99.1 81 18 123/68 (86) 100 07/19/17 09:01 77 07/19/17 08:03 98.1 84 18 111/56 (74) 100 07/19/17 07:26 Room Air 07/19/17 04:00 80 07/19/17 00:09 98.2 90 18 117/68 (84) 100 07/19/17 00:00 86 07/18/17 20:00 98.7 84 18 104/75 (85) 100 07/18/17 20:00 Room Air 07/18/17 18:12 86 07/18/17 16:00 98.1 82 18 119/69 (86) 98 07/18/17 15:27 90 I/O 07/18/17 07/18/17 07/18/17 07/19/17 07/19/17 07/19/17 07:00 15:00 23:00 07:00 15:00 23:00 Intake Total 240 ml 100 ml 1540 ml 1000 ml Output Total 4 ml Balance 240 ml 100 ml 1536 ml 1000 ml Intake Oral 240 ml 540 ml IV Total 100 ml 1000 ml 1000 ml Output Urine Total 4 ml # Voids 3 2 # Bowel Movements 0 2 4 Result Diagram: 07/17/17 0615 07/18/17 1805 Imaging Last Impressions Head CT 07/09/17 1158 Signed Impressions: Service Date/Time: Sunday, July 09, 2017 13:55 - CONCLUSION: No acute disease. Howard Vigil Jr., MD Chest X-Ray 07/09/17 1158 Signed Impressions: Service Date/Time: Sunday, July 09, 2017 11:11 - CONCLUSION: No acute disease. Howard Vigil Jr., MD Abdomen/Pelvis CT 07/09/17 0000 Signed Impressions: Service Date/Time: Sunday, July 09, 2017 14:03 - CONCLUSION: Gallstones. Mildly cirrhotic liver with some surrounding fluid. Bilateral lower lobe atelectasis. Neil Roblero MD Objective Remarks GENERAL: Resting comfortably. HEENT: NC, AT. CARDIOVASCULAR: Regular rate and rhythm without murmurs, gallops, or rubs. RESPIRATORY: Mild wheezing, crackles at the left base. GASTROINTESTINAL: Abdomen soft, nontender, nondistended. Normal active bowel sounds. MUSCULOSKELETAL: TR edema in the lower extremities. Significant left upper extremity edema. NEURO: Awake and alert. Moves all ext x4. Slow speech. PSYCH: Calm. Medications and IVs Current Medications Medications (Trade) Dose Ordered Sig/Rudy Route Start Time Stop Time Status Last Admin (NS Flush) 2 ml UNSCH PRN IV FLUSH 07/09/17 16:00 (NS Flush) 2 ml BID IV FLUSH 07/09/17 21:00 07/18/17 22:17 (Tylenol) 650 mg Q4H PRN PO 07/09/17 16:00 (Zofran Inj) 4 mg Q6H PRN IVP 07/09/17 16:00 (Compazine Supp) 25 mg Q12H PRN RECTAL 07/09/17 16:00 (Lovenox Inj) 40 mg Q24H SQ 07/09/17 16:00 07/17/17 17:30 (Narcan Inj) 0.4 mg UNSCH PRN IV PUSH 07/09/17 16:00 (Meggan-Colace) 1 tab BID PO 07/09/17 21:00 07/19/17 09:22 (Milk Of Magnesia Liq) 30 ml Q12H PRN PO 07/09/17 16:00 (Senokot) 17.2 mg Q12H PRN PO 07/09/17 16:00 (Dulcolax Supp) 10 mg DAILY PRN RECTAL 07/09/17 16:00 (Pepcid) 20 mg BID PO 07/09/17 21:00 07/19/17 09:22 (Ferrous Sulfate) 325 mg TIDPC PO 07/09/17 18:30 07/19/17 16:49 (Flonase Norberto Spr) 2 spray BID EACH NARE 07/09/17 21:00 07/19/17 09:23 (Lasix) 40 mg BID@0900,1800 PO 07/09/17 18:00 07/19/17 16:49 (Neurontin) 100 mg TID PO 07/09/17 18:00 07/19/17 16:48 (Lactulose Liq) 45 ml TID PO 07/09/17 18:00 07/18/17 13:04 (Xifaxan) 550 mg Q12HR PO 07/09/17 21:00 07/19/17 09:22 (Aldactone) 100 mg BID PO 07/09/17 21:00 07/19/17 09:23 (Effexor Xr) 75 mg DAILY PO 07/10/17 09:00 07/19/17 09:23 (Vitamin C) 500 mg BID PO 07/09/17 21:00 07/19/17 09:22 (Lactinex) 3 tab BID PO 07/09/17 21:00 07/19/17 09:22 (Haldol Inj) 2 mg Q4H PRN IM 07/09/17 17:00 07/16/17 12:58 (NS Irr Btl) 60 ml DAILY PRN IRRIGATION 07/10/17 20:15 07/15/17 10:27 (Santyl Oint) 1 applic DAILY TOPICAL 07/11/17 09:00 07/19/17 09:24 (Dakin'S 0.125% Soln) 50 ml DAILY TOPICAL 07/11/17 09:00 07/19/17 09:24 (Zinc Oxide 20% Oint) 1 applic DAILY TOPICAL 07/11/17 09:00 07/19/17 09:25 (Xanax) 0.25 mg Q8H PRN PO 07/12/17 16:00 07/19/17 16:57 Ertapenem 1000 mg/ Sodium Chloride 100 ml @ 200 mls/hr Q24H IV 07/13/17 13:00 07/19/17 12:21 (KCl) 10 meq DAILY PO 07/15/17 14:00 07/19/17 09:23 (Roxicodone) 5 mg TID PRN PO 07/15/17 13:15 07/19/17 16:57 Potassium Chloride/Dextrose/ Sod Cl 1,000 ml @ 100 mls/hr Q10H IV 07/17/17 11:45 07/19/17 13:34 (Theragran) 1 tab DAILY PO 07/18/17 19:30 07/19/17 09:23 (Megace Liq) 400 mg DAILY PO 07/19/17 09:00 07/19/17 09:22 A/P Problem List: (1) Hypoglycemia ICD Code: E16.2 - Hypoglycemia, unspecified Status: Resolved (2) Psychosis ICD Code: F29 - Unspecified psychosis not due to a substance or known physiological condition Status: Acute (3) Metabolic encephalopathy ICD Code: G93.41 - Metabolic encephalopathy Status: Acute (4) Decubitus ulcer, stage 4 with infection ICD Code: L89.94 - Pressure ulcer of unspecified site, stage 4; L08.9 - Local infection of the skin and subcutaneous tissue, unspecified Status: Acute (5) Cirrhosis ICD Code: K74.60 - Unspecified cirrhosis of liver Status: Chronic (6) Hypocalcemia ICD Code: E83.51 - Hypocalcemia Status: Resolved Assessment and Plan Metabolic encephalopathy 52-year-old female presents to the emergency department from [facility] for evaluation of increased confusion with elevated ammonia level. Chest x-ray, CT of the brain, CT abdomen/pelvis with IV contrast reviewed and without significant findings. Ammonia is 20. EKG shows SR, HR 80, no acute ST changes. Psych consult appreciated. - neuro checks. - follow up with psychiatry. - antibiotics. - PT/ OT/ ST. - try to avoid sedating meds. Frequent reorientation. 07/18 Patient awake today, more coherent and not exhibiting confusion. Encephalopathy improving. 07/19 As per RN patient having episodes of confusion. Will reconsult psychiatry. Infected sacral decubitus ulcer ID consult appreciated. Had a recent ESBL UTI. Wound culture growing proteus, Enterobacter species, staph aureus and ESBL E coli. - continue vancomycin and switch meropenem to ertapenem per ID. 07/18 Plastic surgery consulted as per ID recommendations. Wound needs debridement and possibly a wound vac to heal. Evaluation by plastic surgery pending. NO plastic surgery available for call today. Will reconsult when one available on the schedule. Cirrhosis Has a history of liver cirrhosis from alcohol abuse. INR 1.3. She has hyponatremia. CT abdomen/pelvis shows gallstones; mildly cirrhotic liver with some surrounding fluid. - continue lactulose and rifaximin. - follow Is and Os. - d/c fluids. Continue diuretics. - ADAT. Hypoglycemia Likely secondary to decreased by mouth intake. - Advance to regular diet with Ensure supplementation. - Continue D5NS. Continue to monitor accuchecks - patient still not eating well. 07/19 Patient still requiring D5NS, Will decrease rate of IV fluids to 90 ml/hr. will check Insulin, pro insulin, c peptide, beta hydroxybutyrate. I will also start the patient on Megace as an appetite stimulant. Hypocalcemia Likely due to poor oral intake. Status post replacement with a because of chloride and improvement of calcium levels. DVT prophylaxis with SCD/teds, hold chemical prophylaxis at this time the patient with coagulopathy and risk of bleeding. Discharge Planning Continue to monitor in the medical floor. Patient still requiring D5NS to maintain blood sugars, patient with psychosis, psychiatry reconsult pending. Problem Qualifiers (1) Psychosis: Qualified Codes: F29 - Unspecified psychosis not due to a substance or known physiological condition (2) Cirrhosis: Qualified Codes: K74.60 - Unspecified cirrhosis of liver Wiliam Sebastian MD Jul 19, 2017 15:13
[2017-07-19] MEDS: ENOXAPARIN SODIUM 40 MG/0.4 ML SYRINGE SQ SCH (16:00)
[2017-07-19 19:56] LABS: BETA-HYDROXYBUTYRATE 0.15 MMOL/L (0.00-0.39)
[2017-07-20] VITALS (7 sets, daily range): BP systolic 100–120; BP diastolic 58–72; PULSE 82–105; RESP 18–20; TEMP 98.2–98.7; O2SAT 100
[2017-07-20] MEDS: D5-NS + KCL 20 MEQ INJ 1,000 ML IV SCH ×2 (00:57→13:20)
--- NOTE | 2017-07-20 08:49 | RADRPT ---
EXAM DATE/TIME: 07/20/2017 08:03 [facility] COMPARISON: CT BRAIN W/O CONTRAST, July 09, 2017, 13:55. INDICATIONS : Confusion. MEDICAL HISTORY : Cirrhosis. SURGICAL HISTORY : Gastric bypass. Right shoulder replacement. ENCOUNTER: Subsequent ACUITY: 2 weeks PAIN SCORE: 0/10 LOCATION: cranial TECHNIQUE: Multiplanar, multisequence MRI of the brain was performed without contrast. FINDINGS: CEREBRUM: The ventricles are normal for age. No evidence of midline shift, mass lesion, hemorrhage or acute in farction. No extraaxial fluid collections are seen. The pituitary gland and suprasellar cistern are normal in configuration. WHITE MATTER: Scattered foci of bright T2 signal abnormalities are seen in the white matter. POSTERIOR FOSSA: The cerebellum and brainstem are intact. The 4th ventricle is midline. The cerebellopontine angle is unremarkable. The cerebellar tonsils are normal in position. DIFFUSION IMAGING: No focal areas of restricted diffusion are seen. No evidence of acute infarction. EXTRACRANIAL: The visualized portions of the orbits and paranasal sinuses are unremarkable. CONCLUSION: No acute intracranial abnormality. 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 Perez Burrell MD on July 20, 2017 at 8:45 Board Certified Radiologist. This report was verified electronically.
[2017-07-20] MEDS: SODIUM CHLORIDE 0.9% FLUSH 10 ML FLUSH IV FLUSH SCH ×2 (09:00→20:11)
[2017-07-20] MEDS: LACTULOSE SYRUP 20 GM/30 ML CUP PO SCH ×3 (09:54→18:13)
[2017-07-20] MEDS: GABAPENTIN 100 MG CAP PO SCH ×3 (09:55→18:13)
[2017-07-20] MEDS: RIFAXIMIN 550 MG TAB PO SCH ×2 (09:55→20:12)
[2017-07-20] MEDS: SPIRONOLACTONE 100 MG TAB PO SCH ×2 (09:55→20:12)
[2017-07-20] MEDS: VENLAFAXINE HCL XR 75 MG CAP PO SCH (09:55)
[2017-07-20] MEDS: FAMOTIDINE 20 MG TAB PO SCH ×2 (09:55→20:12)
[2017-07-20] MEDS: DOCUSATE SODIUM 50 MG/SENNA 8.6 MG TAB PO SCH ×2 (09:55→20:12)
[2017-07-20] MEDS: ASCORBIC ACID 500 MG TAB PO SCH ×2 (09:56→20:12)
[2017-07-20] MEDS: MULTIVITAMIN TAB PO SCH (09:56)
[2017-07-20] MEDS: FERROUS SULFATE 325 MG (65 MG ELEMENTAL IRON) TAB PO SCH ×3 (09:56→18:13)
[2017-07-20] MEDS: POTASSIUM CHLORIDE 10 MEQ CAP PO SCH (09:56)
[2017-07-20] MEDS: LACTOBACILLUS ACIDOPHILUS TAB PO SCH ×2 (09:57→20:11)
[2017-07-20] MEDS: FUROSEMIDE 40 MG TAB PO SCH ×2 (10:02→18:45)
[2017-07-20] MEDS: COLLAGENASE OINT 30 GM TUBE TOPICAL SCH (10:02)
[2017-07-20] MEDS: FLUTICASONE PROPIONATE 50 MCG/ACT 16 GM NASAL SPRAY EACH NARE SCH ×2 (10:03→20:11)
[2017-07-20] MEDS: ZINC OXIDE 20% OINT 30 GM TUBE TOPICAL SCH (10:04)
[2017-07-20] MEDS: SODIUM HYPOCHLORITE 0.125% 500 ML BTL TOPICAL SCH (10:07)
[2017-07-20] MEDS: MEGESTROL ACETATE SUSP 400 MG/10 ML CUP PO SCH (13:10)
[2017-07-20] MEDS: ERTAPENEM INJ 1,000 MG in SODIUM CHLORIDE 0.9% INJ 100 ML IV SCH (13:19)
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
--- NOTE | 2017-07-20 14:57 | MB ---
cc: SHERRI SANTO M.D. DATE OF CONSULTATION 07/20/17 The patient is being seen at the request of Uzair William. REASON FOR CONSULTATION Infected decubitus ulcer. HISTORY OF PRESENT ILLNESS The patient is a 52-year-old female with a history of alcoholic liver cirrhosis, COPD and altered mental status. The patient was admitted on 07/09 with those diagnoses. During the workup it was noted that the patient has a sacral decubitus ulcer which she has had the diagnosis of infected decubitus ulcer was made. The patient has been followed by wound care. A consultation is requested regarding evaluation and treatment of an infected decubitus ulcer. REVIEW OF SYSTEMS The patient's review of systems is unable to be done as she is a poor historian and is apparently diagnosed as being psychotic at this point. PAST MEDICAL HISTORY The past medical history is significant for cirrhosis encephalopathy, urinary tract infection, COPD. PAST SURGICAL HISTORY Bariatric surgery at a younger age and a hernia repair. MEDICATIONS Listed on the chart. ALLERGIES She has no known food or drug allergies. FAMILY HISTORY Significant for colon cancer in her father. SOCIAL HISTORY The patient has a history of heavy alcohol abuse. PHYSICAL EXAMINATION GENERAL: On examination she is lying comfortably in bed. She appears older than her stated age. HEAD: Examination of her head, neck, her extraocular muscles are intact. Pupils equal, round, reactive to light. LUNGS: Lungs are presently clear. HEART: Her heart is regular. EXTREMITIES: Examination of her extremities there is some evidence of bruising and ecchymosis but otherwise grossly normal. DIRECTED EXAMINATION: Examination of her sacral area reveals a sacral decubitus ulcer measuring 4.5 cm in greatest dimension. There is undermining on all areas but greater between 9 o'clock and 3 o'clock for approximately 2 cm. There is bone exposed and approximately 20% of slough. The base is granulating nicely. There is no evidence of any surrounding cellulitis at this time. LABORATORY DATA Her laboratory data her white count on the was 7.3, hemoglobin 10.5, hematocrit 30.4. A sacral ulcer was performed which grew out many organisms. IMPRESSION The patient has a sacral decubitus ulcer which is chronic. It is not infected at this time. There is certainly colonization present. PLAN Topical treatment should be sufficient. I would recommend at this point wound VAC with limited debridement intermittently as necessary by the wound care team. I would also go along with the recommendations of Jacquelin Seals, the wound care nurse presently. I do not anticipate the need for operative debridement, although it could be entertained at some point in order to rongeur and smooth out the bone but if the wound VAC is successful in reducing the size of the wound that would not be necessary. MD EMILY Vieyra/VERONICA /2:13 PM /2:41 PM
--- NOTE | 2017-07-20 15:15 | HHI.PR ---
Subjective Remarks Patient denies cp/sob. Denies fevers and chills. still confused with delusive thoughts calcium low as per RN confabulating Objective Vitals Vital Signs Date Time Temp Pulse Resp B/P (MAP) Pulse Ox O2 Delivery O2 Flow Rate FiO2 07/20/17 08:00 98.5 90 18 108/58 (75) 100 07/20/17 07:34 Room Air 21 07/20/17 04:00 98.3 89 18 100/58 (72) 100 07/20/17 04:00 84 07/20/17 00:00 98.7 82 20 106/60 (75) 100 07/20/17 00:00 86 07/19/17 20:00 97.9 87 20 104/56 (72) 100 07/19/17 20:00 76 07/19/17 19:00 100 Room Air 07/19/17 16:14 89 07/19/17 16:04 97.7 81 19 122/71 (88) 100 I/O 07/19/17 07/19/17 07/19/17 07/20/17 07/20/17 07/20/17 07:00 15:00 23:00 07:00 15:00 23:00 Intake Total 1000 ml 360 ml Balance 1000 ml 360 ml Intake Oral 360 ml IV Total 1000 ml # Voids 2 3 3 # Bowel Movements 4 0 1 Result Diagram: 07/17/17 0615 07/18/17 1805 Imaging Last Impressions Brain MRI 07/20/17 0000 Signed Impressions: Service Date/Time: Thursday, July 20, 2017 08:03 - CONCLUSION: No acute intracranial abnormality. Nonspecific white matter changes likely chronic ischemic small vessel vasculopathy. Perez Burrell MD Head CT 07/09/17 1158 Signed Impressions: Service Date/Time: Sunday, July 09, 2017 13:55 - CONCLUSION: No acute disease. Howard Vigil Jr., MD Chest X-Ray 07/09/17 1158 Signed Impressions: Service Date/Time: Sunday, July 09, 2017 11:11 - CONCLUSION: No acute disease. Howard Vigil Jr., MD Abdomen/Pelvis CT 07/09/17 0000 Signed Impressions: Service Date/Time: Sunday, July 09, 2017 14:03 - CONCLUSION: Gallstones. Mildly cirrhotic liver with some surrounding fluid. Bilateral lower lobe atelectasis. Neil Roblero MD Objective Remarks GENERAL: Resting comfortably. HEENT: NC, AT. CARDIOVASCULAR: Regular rate and rhythm without murmurs, gallops, or rubs. RESPIRATORY: Mild wheezing, crackles at the left base. GASTROINTESTINAL: Abdomen soft, nontender, nondistended. Normal active bowel sounds. MUSCULOSKELETAL: TR edema in the lower extremities. Significant left upper extremity edema. NEURO: Awake and alert. Moves all ext x4. Slow speech. PSYCH: Calm. Medications and IVs Current Medications Medications (Trade) Dose Ordered Sig/Rudy Route Start Time Stop Time Status Last Admin (NS Flush) 2 ml UNSCH PRN IV FLUSH 07/09/17 16:00 (NS Flush) 2 ml BID IV FLUSH 07/09/17 21:00 07/20/17 20:11 (Tylenol) 650 mg Q4H PRN PO 07/09/17 16:00 (Zofran Inj) 4 mg Q6H PRN IVP 07/09/17 16:00 (Compazine Supp) 25 mg Q12H PRN RECTAL 07/09/17 16:00 (Lovenox Inj) 40 mg Q24H SQ 07/09/17 16:00 07/20/17 18:45 (Narcan Inj) 0.4 mg UNSCH PRN IV PUSH 07/09/17 16:00 (Meggan-Colace) 1 tab BID PO 07/09/17 21:00 07/20/17 20:12 (Milk Of Magnesia Liq) 30 ml Q12H PRN PO 07/09/17 16:00 (Senokot) 17.2 mg Q12H PRN PO 07/09/17 16:00 (Dulcolax Supp) 10 mg DAILY PRN RECTAL 07/09/17 16:00 (Pepcid) 20 mg BID PO 07/09/17 21:00 07/20/17 20:12 (Ferrous Sulfate) 325 mg TIDPC PO 07/09/17 18:30 07/20/17 18:13 (Flonase Norberto Spr) 2 spray BID EACH NARE 07/09/17 21:00 07/20/17 20:11 (Lasix) 40 mg BID@0900,1800 PO 07/09/17 18:00 07/20/17 18:45 (Neurontin) 100 mg TID PO 07/09/17 18:00 07/20/17 18:13 (Lactulose Liq) 45 ml TID PO 07/09/17 18:00 07/20/17 18:13 (Xifaxan) 550 mg Q12HR PO 07/09/17 21:00 07/20/17 20:12 (Aldactone) 100 mg BID PO 07/09/17 21:00 07/20/17 20:12 (Effexor Xr) 75 mg DAILY PO 07/10/17 09:00 07/20/17 09:55 (Vitamin C) 500 mg BID PO 07/09/17 21:00 07/20/17 20:12 (Lactinex) 3 tab BID PO 07/09/17 21:00 07/20/17 20:11 (Haldol Inj) 2 mg Q4H PRN IM 07/09/17 17:00 07/16/17 12:58 (NS Irr Btl) 60 ml DAILY PRN IRRIGATION 07/10/17 20:15 07/15/17 10:27 (Santyl Oint) 1 applic DAILY TOPICAL 07/11/17 09:00 07/20/17 10:02 (Dakin'S 0.125% Soln) 50 ml DAILY TOPICAL 07/11/17 09:00 07/20/17 10:07 (Zinc Oxide 20% Oint) 1 applic DAILY TOPICAL 07/11/17 09:00 07/20/17 10:04 (Xanax) 0.25 mg Q8H PRN PO 07/12/17 16:00 07/20/17 18:54 Ertapenem 1000 mg/ Sodium Chloride 100 ml @ 200 mls/hr Q24H IV 07/13/17 13:00 07/20/17 13:19 (KCl) 10 meq DAILY PO 07/15/17 14:00 07/20/17 09:56 (Roxicodone) 5 mg TID PRN PO 07/15/17 13:15 07/21/17 00:13 Potassium Chloride/Dextrose/ Sod Cl 1,000 ml @ 50 mls/hr Q20H IV 07/17/17 11:45 07/20/17 13:20 (Theragran) 1 tab DAILY PO 07/18/17 19:30 07/20/17 09:56 (Megace Liq) 400 mg DAILY PO 07/19/17 09:00 07/20/17 13:10 Thiamine HCl 100 mg/Sodium Chloride 101 ml @ 101 mls/hr DAILY IV 07/21/17 09:00 A/P Problem List: (1) Hypoglycemia ICD Code: E16.2 - Hypoglycemia, unspecified Status: Resolved (2) Psychosis ICD Code: F29 - Unspecified psychosis not due to a substance or known physiological condition Status: Acute (3) Metabolic encephalopathy ICD Code: G93.41 - Metabolic encephalopathy Status: Acute (4) Decubitus ulcer, stage 4 with infection ICD Code: L89.94 - Pressure ulcer of unspecified site, stage 4; L08.9 - Local infection of the skin and subcutaneous tissue, unspecified Status: Acute (5) Cirrhosis ICD Code: K74.60 - Unspecified cirrhosis of liver Status: Chronic (6) Hypocalcemia ICD Code: E83.51 - Hypocalcemia Status: Resolved Assessment and Plan Metabolic encephalopathy Psychosis 52-year-old female presents to the emergency department from [facility] for evaluation of increased confusion with elevated ammonia level. Chest x-ray, CT of the brain, CT abdomen/pelvis with IV contrast reviewed and without significant findings. Ammonia is 20. EKG shows SR, HR 80, no acute ST changes. Psych consult appreciated. - neuro checks. - follow up with psychiatry. - antibiotics. - PT/ OT/ ST. - try to avoid sedating meds. Frequent reorientation. 07/18 Patient awake today, more coherent and not exhibiting confusion. Encephalopathy improving. 07/19 As per RN patient having episodes of confusion. Will reconsult psychiatry. 07/[address] Salazar - the patient will need inpatient psychiatry admission. Patient with psychosis and confabulation. Will check Thiamine level and start treatment with IB thiamine since patient has history of heavy alcohol use. ? Wernicke/korsakoff syndrome. MRI negative, TSH elevated - check free t4. RPR has been ordered and pending. Infected sacral decubitus ulcer ID consult appreciated. Had a recent ESBL UTI. Wound culture growing proteus, Enterobacter species, staph aureus and ESBL E coli. - continue vancomycin and switch meropenem to ertapenem per ID. 07/18 Plastic surgery consulted as per ID recommendations. Wound needs debridement and possibly a wound vac to heal. Evaluation by plastic surgery pending. NO plastic surgery available for call today. Will reconsult when one available on the schedule. 07/20 Plastic surgery consulted ----> as per plastic surgery wound vac and wound care should be enough. Cirrhosis Has a history of liver cirrhosis from alcohol abuse. INR 1.3. She has hyponatremia. CT abdomen/pelvis shows gallstones; mildly cirrhotic liver with some surrounding fluid. - continue lactulose and rifaximin. - follow Is and Os. - d/c fluids. Continue diuretics. - ADAT. Hypoglycemia Likely secondary to decreased by mouth intake. - Advance to regular diet with Ensure supplementation. - Continue D5NS. Continue to monitor accuchecks - patient still not eating well. 07/20 Patient still requiring D5NS. will check Insulin, pro insulin, c peptide, beta hydroxybutyrate ----> ordered and pending. Hypocalcemia Likely due to poor oral intake. Status post replacement with a because of chloride and improvement of calcium levels. 07/20 Replace with Calcium Chloride IV. Monitor Calcium levels and replace as needed. DVT prophylaxis with SCD/teds, hold chemical prophylaxis at this time the patient with coagulopathy and risk of bleeding. Discharge Planning Continue to monitor in the medical floor. Patient still requiring D5NS to maintain blood sugars, patient with psychosis, psychiatry reconsult pending. Problem Qualifiers (1) Psychosis: Qualified Codes: F29 - Unspecified psychosis not due to a substance or known physiological condition (2) Cirrhosis: Qualified Codes: K74.60 - Unspecified cirrhosis of liver Wiliam Sebastian MD Jul 20, 2017 15:15
[2017-07-20] MEDS ORDERED: THIAMINE INJ 100 MG in SODIUM CHLORIDE 0.9% INJ 100 ML IV ONE (17:00)
[2017-07-20] MEDS: ENOXAPARIN SODIUM 40 MG/0.4 ML SYRINGE SQ SCH ×2 (18:13→18:45)
[2017-07-20] MEDS: ALPRAZolam 0.25 MG TAB PO PRN (18:54)
[2017-07-20 19:00] LABS: HEMATOCRIT 30.6 % (35.0-46.0); MEAN CELL VOLUME 99.8 FL (80.0-100.0); MEAN CORPUSCULAR HEMOGLOBIN 33.7 PG (27.0-34.0); MEAN CORPUSCULAR HGB CONC 33.7 % (32.0-36.0); PLATELET COUNT 141 TH/MM3 (150-450); RED BLOOD COUNT 3.06 MIL/MM3 (4.00-5.30); RED CELL DISTRIBUTION WIDTH 15.4 % (11.6-17.2); REVIEW FLAG FINAL; WHITE BLOOD COUNT 10.1 TH/MM3 (4.0-11.0)
[2017-07-20 19:16] LABS: BICARBONATE 24.1 MEQ/L (21.0-32.0); FREE T4 1.44 NG/DL (0.76-1.46); MAGNESIUM 1.6 MG/DL (1.5-2.5)
[2017-07-20 19:38] LABS: CALCIUM-PROTEIN CORRECTED 7.4 MG/DL (8.5-10.1)
[2017-07-21] VITALS (9 sets, daily range): BP systolic 111–120; BP diastolic 56–73; PULSE 83–114; RESP 17–20; TEMP 97.8–98.4; O2SAT 96–100
[2017-07-21] MEDS ORDERED: CALCIUM CHLORIDE INJ 2 GM in SODIUM CHLORIDE 0.9% INJ 100 ML IV ONE (02:00)
[2017-07-21] MEDS: ALPRAZolam 0.25 MG TAB PO PRN ×2 (06:29→17:23)
[2017-07-21] MEDS: ZINC OXIDE 20% OINT 30 GM TUBE TOPICAL SCH (09:00)
[2017-07-21] MEDS: SODIUM CHLORIDE 0.9% FLUSH 10 ML FLUSH IV FLUSH SCH ×2 (09:00→22:09)
[2017-07-21] MEDS: SPIRONOLACTONE 100 MG TAB PO SCH ×2 (09:00→22:06)
[2017-07-21] MEDS: SODIUM HYPOCHLORITE 0.125% 500 ML BTL TOPICAL SCH (09:00)
[2017-07-21] MEDS: COLLAGENASE OINT 30 GM TUBE TOPICAL SCH (09:00)
[2017-07-21] MEDS: FLUTICASONE PROPIONATE 50 MCG/ACT 16 GM NASAL SPRAY EACH NARE SCH ×2 (09:00→22:09)
[2017-07-21] MEDS: D5-NS + KCL 20 MEQ INJ 1,000 ML IV SCH (09:33)
[2017-07-21] MEDS: THIAMINE INJ 100 MG in SODIUM CHLORIDE 0.9% INJ 100 ML IV SCH (09:36)
[2017-07-21] MEDS: MEGESTROL ACETATE SUSP 400 MG/10 ML CUP PO SCH (09:37)
[2017-07-21] MEDS: LACTULOSE SYRUP 20 GM/30 ML CUP PO SCH ×4 (09:37→17:25)
[2017-07-21] MEDS: RIFAXIMIN 550 MG TAB PO SCH ×2 (09:39→22:07)
[2017-07-21] MEDS: LACTOBACILLUS ACIDOPHILUS TAB PO SCH ×2 (09:39→22:06)
[2017-07-21] MEDS: MULTIVITAMIN TAB PO SCH (09:40)
[2017-07-21] MEDS: DOCUSATE SODIUM 50 MG/SENNA 8.6 MG TAB PO SCH ×2 (09:40→22:07)
[2017-07-21] MEDS: POTASSIUM CHLORIDE 10 MEQ CAP PO SCH (09:41)
[2017-07-21] MEDS: VENLAFAXINE HCL XR 75 MG CAP PO SCH (09:41)
[2017-07-21] MEDS: FUROSEMIDE 40 MG TAB PO SCH ×2 (09:42→17:23)
[2017-07-21] MEDS: FERROUS SULFATE 325 MG (65 MG ELEMENTAL IRON) TAB PO SCH ×3 (09:42→17:25)
[2017-07-21] MEDS: GABAPENTIN 100 MG CAP PO SCH ×3 (09:42→17:26)
[2017-07-21] MEDS: FAMOTIDINE 20 MG TAB PO SCH ×2 (09:42→22:06)
[2017-07-21] MEDS: ASCORBIC ACID 500 MG TAB PO SCH ×2 (09:42→22:06)
[2017-07-21] MEDS: ERTAPENEM INJ 1,000 MG in SODIUM CHLORIDE 0.9% INJ 100 ML IV SCH (12:44)
[2017-07-21] MEDS: ENOXAPARIN SODIUM 40 MG/0.4 ML SYRINGE SQ SCH (17:25)
--- NOTE | 2017-07-21 18:21 | HHI.PR ---
Subjective Remarks As per RN patient's mentation is slightly better. Patient denies cp/sob Objective Vitals Vital Signs Date Time Temp Pulse Resp B/P (MAP) Pulse Ox O2 Delivery O2 Flow Rate FiO2 07/21/17 09:55 Room Air 07/21/17 05:00 98.2 99 20 111/56 (74) 100 07/21/17 04:13 89 07/21/17 04:00 Room Air 07/21/17 00:04 93 07/21/17 00:00 Room Air 07/20/17 20:00 Room Air 07/20/17 20:00 98.2 100 20 112/63 (79) 100 07/20/17 19:59 89 I/O 07/20/17 07/20/17 07/20/17 07/21/17 07/21/17 07/21/17 07:00 15:00 23:00 07:00 15:00 23:00 Intake Total 360 ml 720 ml 200 ml Balance 360 ml 720 ml 200 ml Intake Oral 360 ml IV Total 720 ml 200 ml # Voids 3 0 2 # Bowel Movements 1 0 4 Result Diagram: 07/20/17 1836 07/20/17 1836 Imaging Last Impressions Brain MRI 07/20/17 0000 Signed Impressions: Service Date/Time: Thursday, July 20, 2017 08:03 - CONCLUSION: No acute intracranial abnormality. Nonspecific white matter changes likely chronic ischemic small vessel vasculopathy. Perez Burrell MD Head CT 07/09/17 1158 Signed Impressions: Service Date/Time: Sunday, July 09, 2017 13:55 - CONCLUSION: No acute disease. Howard Vigil Jr., MD Chest X-Ray 07/09/17 1158 Signed Impressions: Service Date/Time: Sunday, July 09, 2017 11:11 - CONCLUSION: No acute disease. Howard Vigil Jr., MD Abdomen/Pelvis CT 07/09/17 0000 Signed Impressions: Service Date/Time: Sunday, July 09, 2017 14:03 - CONCLUSION: Gallstones. Mildly cirrhotic liver with some surrounding fluid. Bilateral lower lobe atelectasis. Neil Roblero MD Objective Remarks GENERAL: Resting comfortably. HEENT: NC, AT. CARDIOVASCULAR: Regular rate and rhythm without murmurs, gallops, or rubs. RESPIRATORY: Mild wheezing, crackles at the left base. GASTROINTESTINAL: Abdomen soft, nontender, nondistended. Normal active bowel sounds. MUSCULOSKELETAL: TR edema in the lower extremities. Significant left upper extremity edema. NEURO: Awake and alert. Moves all ext x4. Slow speech. PSYCH: Patient with psychosis which seems to be slightly improved. Medications and IVs Current Medications Medications (Trade) Dose Ordered Sig/Rudy Route Start Time Stop Time Status Last Admin (NS Flush) 2 ml UNSCH PRN IV FLUSH 07/09/17 16:00 (NS Flush) 2 ml BID IV FLUSH 07/09/17 21:00 07/21/17 09:00 (Tylenol) 650 mg Q4H PRN PO 07/09/17 16:00 (Zofran Inj) 4 mg Q6H PRN IVP 07/09/17 16:00 (Compazine Supp) 25 mg Q12H PRN RECTAL 07/09/17 16:00 (Lovenox Inj) 40 mg Q24H SQ 07/09/17 16:00 07/21/17 17:25 (Narcan Inj) 0.4 mg UNSCH PRN IV PUSH 07/09/17 16:00 (Meggan-Colace) 1 tab BID PO 07/09/17 21:00 07/21/17 09:40 (Milk Of Magnesia Liq) 30 ml Q12H PRN PO 07/09/17 16:00 (Senokot) 17.2 mg Q12H PRN PO 07/09/17 16:00 (Dulcolax Supp) 10 mg DAILY PRN RECTAL 07/09/17 16:00 (Pepcid) 20 mg BID PO 07/09/17 21:00 07/21/17 09:42 (Ferrous Sulfate) 325 mg TIDPC PO 07/09/17 18:30 07/21/17 17:25 (Flonase Norberto Spr) 2 spray BID EACH NARE 07/09/17 21:00 07/21/17 09:00 (Lasix) 40 mg BID@0900,1800 PO 07/09/17 18:00 07/21/17 17:23 (Neurontin) 100 mg TID PO 07/09/17 18:00 07/21/17 17:26 (Lactulose Liq) 45 ml TID PO 07/09/17 18:00 07/21/17 17:25 (Xifaxan) 550 mg Q12HR PO 07/09/17 21:00 07/21/17 09:39 (Aldactone) 100 mg BID PO 07/09/17 21:00 07/21/17 09:00 (Effexor Xr) 75 mg DAILY PO 07/10/17 09:00 07/21/17 09:41 (Vitamin C) 500 mg BID PO 07/09/17 21:00 07/21/17 09:42 (Lactinex) 3 tab BID PO 07/09/17 21:00 07/21/17 09:39 (Haldol Inj) 2 mg Q4H PRN IM 07/09/17 17:00 07/16/17 12:58 (NS Irr Btl) 60 ml DAILY PRN IRRIGATION 07/10/17 20:15 07/15/17 10:27 (Santyl Oint) 1 applic DAILY TOPICAL 07/11/17 09:00 07/21/17 09:00 (Dakin'S 0.125% Soln) 50 ml DAILY TOPICAL 07/11/17 09:00 07/21/17 09:00 (Zinc Oxide 20% Oint) 1 applic DAILY TOPICAL 07/11/17 09:00 07/21/17 09:00 (Xanax) 0.25 mg Q8H PRN PO 07/12/17 16:00 07/21/17 17:23 Ertapenem 1000 mg/ Sodium Chloride 100 ml @ 200 mls/hr Q24H IV 07/13/17 13:00 07/21/17 12:44 (KCl) 10 meq DAILY PO 07/15/17 14:00 07/21/17 09:41 (Roxicodone) 5 mg TID PRN PO 07/15/17 13:15 07/21/17 17:24 (Theragran) 1 tab DAILY PO 07/18/17 19:30 07/21/17 09:40 (Megace Liq) 400 mg DAILY PO 07/19/17 09:00 07/21/17 09:37 Thiamine HCl 100 mg/Sodium Chloride 101 ml @ 101 mls/hr DAILY IV 07/21/17 09:00 07/21/17 09:36 A/P Problem List: (1) Hypoglycemia ICD Code: E16.2 - Hypoglycemia, unspecified Status: Resolved (2) Psychosis ICD Code: F29 - Unspecified psychosis not due to a substance or known physiological condition Status: Acute (3) Metabolic encephalopathy ICD Code: G93.41 - Metabolic encephalopathy Status: Acute (4) Decubitus ulcer, stage 4 with infection ICD Code: L89.94 - Pressure ulcer of unspecified site, stage 4; L08.9 - Local infection of the skin and subcutaneous tissue, unspecified Status: Acute (5) Cirrhosis ICD Code: K74.60 - Unspecified cirrhosis of liver Status: Chronic (6) Hypocalcemia ICD Code: E83.51 - Hypocalcemia Status: Resolved Assessment and Plan Metabolic encephalopathy Psychosis 52-year-old female presents to the emergency department from [facility] for evaluation of increased confusion with elevated ammonia level. Chest x-ray, CT of the brain, CT abdomen/pelvis with IV contrast reviewed and without significant findings. Ammonia is 20. EKG shows SR, HR 80, no acute ST changes. Psych consult appreciated. - neuro checks. - follow up with psychiatry. - antibiotics. - PT/ OT/ ST. - try to avoid sedating meds. Frequent reorientation. 07/18 Patient awake today, more coherent and not exhibiting confusion. Encephalopathy improving. 07/19 As per RN patient having episodes of confusion. Will reconsult psychiatry. 07/[address] Salazar - the patient will need inpatient psychiatry admission. Patient with psychosis and confabulation. Will check Thiamine level and start treatment with IB thiamine since patient has history of heavy alcohol use. ? Wernicke/korsakoff syndrome. MRI negative, TSH elevated - check free t4. RPR has been ordered and pending. 07/21 Continue IV thiamine. thiamine level pending. Infected sacral decubitus ulcer ID consult appreciated. Had a recent ESBL UTI. Wound culture growing proteus, Enterobacter species, staph aureus and ESBL E coli. - continue vancomycin and switch meropenem to ertapenem per ID. 07/18 Plastic surgery consulted as per ID recommendations. Wound needs debridement and possibly a wound vac to heal. Evaluation by plastic surgery pending. NO plastic surgery available for call today. Will reconsult when one available on the schedule. 07/20 Plastic surgery consulted ----> as per plastic surgery wound vac and wound care should be enough. Cirrhosis Has a history of liver cirrhosis from alcohol abuse. INR 1.3. She has hyponatremia. CT abdomen/pelvis shows gallstones; mildly cirrhotic liver with some surrounding fluid. - continue lactulose and rifaximin. - follow Is and Os. - d/c fluids. Continue diuretics. - ADAT. Hypoglycemia Likely secondary to decreased by mouth intake. - Advance to regular diet with Ensure supplementation. - Continue D5NS. Continue to monitor accuchecks - patient still not eating well. 07/20 Patient still requiring D5NS. will check Insulin, pro insulin, c peptide, beta hydroxybutyrate ----> ordered and pending. 07/21 Blood sugars stable. DC D5NS and monitor blood sugars. Hypocalcemia Likely due to poor oral intake. Status post replacement with a because of chloride and improvement of calcium levels. 07/20 Replace with Calcium Chloride IV. Monitor Calcium levels and replace as needed. DVT prophylaxis with SCD/teds, hold chemical prophylaxis at this time the patient with coagulopathy and risk of bleeding. Discharge Planning Continue to monitor in the medical floor. Patient will need inpatient psychiatry treatment. Problem Qualifiers (1) Psychosis: Qualified Codes: F29 - Unspecified psychosis not due to a substance or known physiological condition (2) Cirrhosis: Qualified Codes: K74.60 - Unspecified cirrhosis of liver Wiliam Sebastian MD Jul 21, 2017 18:21
[2017-07-22] VITALS (7 sets, daily range): BP systolic 100–113; BP diastolic 51–66; PULSE 82–111; RESP 17–21; TEMP 98–98.5; O2SAT 99–100
[2017-07-22] MEDS: ALPRAZolam 0.25 MG TAB PO PRN ×3 (02:45→19:58)
[2017-07-22] MEDS: FERROUS SULFATE 325 MG (65 MG ELEMENTAL IRON) TAB PO SCH ×3 (08:10→17:51)
[2017-07-22] MEDS: FAMOTIDINE 20 MG TAB PO SCH ×2 (08:10→19:58)
[2017-07-22] MEDS: MULTIVITAMIN TAB PO SCH (08:10)
[2017-07-22] MEDS: SPIRONOLACTONE 100 MG TAB PO SCH ×2 (08:10→19:59)
[2017-07-22] MEDS: ASCORBIC ACID 500 MG TAB PO SCH ×2 (08:10→19:58)
[2017-07-22] MEDS: RIFAXIMIN 550 MG TAB PO SCH ×2 (08:11→19:58)
[2017-07-22] MEDS: LACTOBACILLUS ACIDOPHILUS TAB PO SCH ×2 (08:11→19:58)
[2017-07-22] MEDS: GABAPENTIN 100 MG CAP PO SCH ×3 (08:11→17:51)
[2017-07-22] MEDS: VENLAFAXINE HCL XR 75 MG CAP PO SCH (08:11)
[2017-07-22] MEDS: MEGESTROL ACETATE SUSP 400 MG/10 ML CUP PO SCH (08:11)
[2017-07-22] MEDS: DOCUSATE SODIUM 50 MG/SENNA 8.6 MG TAB PO SCH ×2 (08:11→20:00)
[2017-07-22] MEDS: POTASSIUM CHLORIDE 10 MEQ CAP PO SCH (08:11)
[2017-07-22] MEDS: FLUTICASONE PROPIONATE 50 MCG/ACT 16 GM NASAL SPRAY EACH NARE SCH ×2 (08:12→19:59)
[2017-07-22] MEDS: SODIUM CHLORIDE 0.9% FLUSH 10 ML FLUSH IV FLUSH SCH ×2 (08:12→19:59)
[2017-07-22] MEDS: SODIUM HYPOCHLORITE 0.125% 500 ML BTL TOPICAL SCH (08:13)
[2017-07-22] MEDS: ZINC OXIDE 20% OINT 30 GM TUBE TOPICAL SCH (08:13)
[2017-07-22] MEDS: COLLAGENASE OINT 30 GM TUBE TOPICAL SCH (08:13)
[2017-07-22] MEDS: FUROSEMIDE 40 MG TAB PO SCH ×2 (08:38→17:51)
[2017-07-22] MEDS: THIAMINE INJ 100 MG in SODIUM CHLORIDE 0.9% INJ 100 ML IV SCH (08:39)
[2017-07-22 09:20] LABS: ALKALINE PHOSPHATASE 100 U/L (45-117); ALT (GPT) 8 U/L (10-53); ANION GAP 9 MEQ/L (5-15); AST (GOT) 24 U/L (15-37); BICARBONATE 25.8 MEQ/L (21.0-32.0); BLOOD UREA NITROGEN 5 MG/DL (7-18); CHLORIDE 98 MEQ/L (98-107); GLOMERULAR FILTRATION RATE 86 ML/MIN (>89); MAGNESIUM 1.7 MG/DL (1.5-2.5); POTASSIUM 3.8 MEQ/L (3.5-5.1); SODIUM (NA) 133 MEQ/L (136-145); TOTAL BILIRUBIN ADULT 0.9 MG/DL (0.2-1.0)
[2017-07-22 10:36] LABS: AUTOMATED NEUTROPHIL # 5.4 TH/MM3 (1.8-7.7); BASOPHIL # 0.1 TH/MM3 (0-0.2); BASOPHIL % 0.7 % (0.0-2.0); EOSINOPHIL # 0.1 TH/MM3 (0-0.4); EOSINOPHIL % 0.9 % (0.0-4.0); HEMATOCRIT 30.1 % (35.0-46.0); HEMO FLAGS DIFF FINAL; LYMPHOCYTE # 3.4 TH/MM3 (1.0-4.8); MEAN CELL VOLUME 99.1 FL (80.0-100.0); MEAN CORPUSCULAR HEMOGLOBIN 34.3 PG (27.0-34.0); MEAN CORPUSCULAR HGB CONC 34.6 % (32.0-36.0); MONO % 7.6 % (0.0-8.0); NEUT % 55.8 % (16.0-70.0); PLATELET COUNT 141 TH/MM3 (150-450); RED BLOOD COUNT 3.04 MIL/MM3 (4.00-5.30); RED CELL DISTRIBUTION WIDTH 15.3 % (11.6-17.2); WHITE BLOOD COUNT 9.8 TH/MM3 (4.0-11.0)
[2017-07-22] MEDS: LACTULOSE SYRUP 20 GM/30 ML CUP PO SCH ×2 (11:56→17:51)
[2017-07-22] MEDS: ERTAPENEM INJ 1,000 MG in SODIUM CHLORIDE 0.9% INJ 100 ML IV SCH (12:31)
--- NOTE | 2017-07-22 16:57 | HHI.PR ---
Subjective Remarks The patient denies any chest pain or shortness of breath. The patient states she feels great. Objective Vitals Vital Signs Date Time Temp Pulse Resp B/P (MAP) Pulse Ox O2 Delivery O2 Flow Rate FiO2 07/22/17 12:00 98.0 89 20 100/51 (67) 99 07/22/17 08:00 88 07/22/17 08:00 98.0 84 20 112/55 (74) 100 07/22/17 08:00 Room Air 07/22/17 04:00 82 07/22/17 04:00 98.2 88 17 108/58 (75) 99 07/22/17 00:00 Room Air 07/22/17 00:00 98.0 92 17 112/66 (81) 100 07/21/17 23:58 90 07/21/17 20:01 90 07/21/17 20:00 98.2 114 17 120/73 (89) 96 07/21/17 20:00 Room Air I/O 07/21/17 07/21/17 07/21/17 07/22/17 07/22/17 07/22/17 07:00 15:00 23:00 07:00 15:00 23:00 Intake Total 720 ml 680 ml 240 ml Output Total 125 ml Balance 720 ml 555 ml 240 ml Intake Oral 480 ml 240 ml IV Total 720 ml 200 ml Output Urine Total 125 ml # Voids 2 1 4 # Bowel Movements 4 1 Result Diagram: 07/22/17 1028 07/22/17 0823 Imaging Last Impressions Brain MRI 07/20/17 0000 Signed Impressions: Service Date/Time: Thursday, July 20, 2017 08:03 - CONCLUSION: No acute intracranial abnormality. Nonspecific white matter changes likely chronic ischemic small vessel vasculopathy. Perez Burrell MD Head CT 07/09/17 1158 Signed Impressions: Service Date/Time: Sunday, July 09, 2017 13:55 - CONCLUSION: No acute disease. Howard Vigil Jr., MD Chest X-Ray 07/09/17 1158 Signed Impressions: Service Date/Time: Sunday, July 09, 2017 11:11 - CONCLUSION: No acute disease. Howard Vigil Jr., MD Abdomen/Pelvis CT 07/09/17 0000 Signed Impressions: Service Date/Time: Sunday, July 09, 2017 14:03 - CONCLUSION: Gallstones. Mildly cirrhotic liver with some surrounding fluid. Bilateral lower lobe atelectasis. Neil Roblero MD Objective Remarks GENERAL: Resting comfortably. HEENT: NC, AT. CARDIOVASCULAR: Regular rate and rhythm without murmurs, gallops, or rubs. RESPIRATORY: Mild wheezing, crackles at the left base. GASTROINTESTINAL: Abdomen soft, nontender, nondistended. Normal active bowel sounds. MUSCULOSKELETAL: TR edema in the lower extremities. Significant left upper extremity edema. NEURO: Awake and alert. Moves all ext x4. Slow speech. PSYCH: Patient with psychosis which seems to be slightly improved. Medications and IVs Current Medications Medications (Trade) Dose Ordered Sig/Rudy Route Start Time Stop Time Status Last Admin (NS Flush) 2 ml UNSCH PRN IV FLUSH 07/09/17 16:00 (NS Flush) 2 ml BID IV FLUSH 07/09/17 21:00 07/22/17 08:12 (Tylenol) 650 mg Q4H PRN PO 07/09/17 16:00 (Zofran Inj) 4 mg Q6H PRN IVP 07/09/17 16:00 (Compazine Supp) 25 mg Q12H PRN RECTAL 07/09/17 16:00 (Lovenox Inj) 40 mg Q24H SQ 07/09/17 16:00 07/21/17 17:25 (Narcan Inj) 0.4 mg UNSCH PRN IV PUSH 07/09/17 16:00 (Meggan-Colace) 1 tab BID PO 07/09/17 21:00 07/22/17 08:11 (Milk Of Magnesia Liq) 30 ml Q12H PRN PO 07/09/17 16:00 (Senokot) 17.2 mg Q12H PRN PO 07/09/17 16:00 (Dulcolax Supp) 10 mg DAILY PRN RECTAL 07/09/17 16:00 (Pepcid) 20 mg BID PO 07/09/17 21:00 07/22/17 08:10 (Ferrous Sulfate) 325 mg TIDPC PO 07/09/17 18:30 07/22/17 11:56 (Flonase Norberto Spr) 2 spray BID EACH NARE 07/09/17 21:00 07/22/17 08:12 (Lasix) 40 mg BID@0900,1800 PO 07/09/17 18:00 07/22/17 08:38 (Neurontin) 100 mg TID PO 07/09/17 18:00 07/22/17 11:57 (Lactulose Liq) 45 ml TID PO 07/09/17 18:00 07/22/17 11:56 (Xifaxan) 550 mg Q12HR PO 07/09/17 21:00 07/22/17 08:11 (Aldactone) 100 mg BID PO 07/09/17 21:00 07/22/17 08:10 (Effexor Xr) 75 mg DAILY PO 07/10/17 09:00 07/22/17 08:11 (Vitamin C) 500 mg BID PO 07/09/17 21:00 07/22/17 08:10 (Lactinex) 3 tab BID PO 07/09/17 21:00 07/22/17 08:11 (Haldol Inj) 2 mg Q4H PRN IM 07/09/17 17:00 07/16/17 12:58 (NS Irr Btl) 60 ml DAILY PRN IRRIGATION 07/10/17 20:15 07/15/17 10:27 (Santyl Oint) 1 applic DAILY TOPICAL 07/11/17 09:00 07/22/17 08:13 (Dakin'S 0.125% Soln) 50 ml DAILY TOPICAL 07/11/17 09:00 07/22/17 08:13 (Zinc Oxide 20% Oint) 1 applic DAILY TOPICAL 07/11/17 09:00 07/22/17 08:13 (Xanax) 0.25 mg Q8H PRN PO 07/12/17 16:00 07/22/17 11:56 Ertapenem 1000 mg/ Sodium Chloride 100 ml @ 200 mls/hr Q24H IV 07/13/17 13:00 07/22/17 12:31 (KCl) 10 meq DAILY PO 07/15/17 14:00 07/22/17 08:11 (Roxicodone) 5 mg TID PRN PO 07/15/17 13:15 07/22/17 11:57 (Theragran) 1 tab DAILY PO 07/18/17 19:30 07/22/17 08:10 (Megace Liq) 400 mg DAILY PO 07/19/17 09:00 07/22/17 08:11 Thiamine HCl 100 mg/Sodium Chloride 101 ml @ 101 mls/hr DAILY IV 07/21/17 09:00 07/22/17 08:39 Urinary Catheter: No Vascular Central Line Catheter: No A/P Problem List: (1) Hypoglycemia ICD Code: E16.2 - Hypoglycemia, unspecified Status: Resolved (2) Psychosis ICD Code: F29 - Unspecified psychosis not due to a substance or known physiological condition Status: Acute (3) Metabolic encephalopathy ICD Code: G93.41 - Metabolic encephalopathy Status: Acute (4) Decubitus ulcer, stage 4 with infection ICD Code: L89.94 - Pressure ulcer of unspecified site, stage 4; L08.9 - Local infection of the skin and subcutaneous tissue, unspecified Status: Acute (5) Cirrhosis ICD Code: K74.60 - Unspecified cirrhosis of liver Status: Chronic (6) Hypocalcemia ICD Code: E83.51 - Hypocalcemia Status: Resolved Assessment and Plan Metabolic encephalopathy Psychosis 52-year-old female presents to the emergency department from [facility] for evaluation of increased confusion with elevated ammonia level. Chest x-ray, CT of the brain, CT abdomen/pelvis with IV contrast reviewed and without significant findings. Ammonia is 20. EKG shows SR, HR 80, no acute ST changes. Psych consult appreciated. - neuro checks. - follow up with psychiatry. - antibiotics. - PT/ OT/ ST. - try to avoid sedating meds. Frequent reorientation. 07/18 Patient awake today, more coherent and not exhibiting confusion. Encephalopathy improving. 07/19 As per RN patient having episodes of confusion. Will reconsult psychiatry. 07/[address] Salazar - the patient will need inpatient psychiatry admission. Patient with psychosis and confabulation. Will check Thiamine level and start treatment with IB thiamine since patient has history of heavy alcohol use. ? Wernicke/korsakoff syndrome. MRI negative, TSH elevated - check free t4. RPR has been ordered and pending. 07/22 Continue IV thiamine. thiamine level pending. The patient is still exhibiting psychotic and disorganized thought. Infected sacral decubitus ulcer ID consult appreciated. Had a recent ESBL UTI. Wound culture growing proteus, Enterobacter species, staph aureus and ESBL E coli. - continue vancomycin and switch meropenem to ertapenem per ID. 07/18 Plastic surgery consulted as per ID recommendations. Wound needs debridement and possibly a wound vac to heal. Evaluation by plastic surgery pending. NO plastic surgery available for call today. Will reconsult when one available on the schedule. 07/20 Plastic surgery consulted ----> as per plastic surgery wound vac and wound care should be enough. 07/22 we'll consult wound care for wound VAC placement. Cirrhosis Has a history of liver cirrhosis from alcohol abuse. INR 1.3. She has hyponatremia. CT abdomen/pelvis shows gallstones; mildly cirrhotic liver with some surrounding fluid. - continue lactulose and rifaximin. - follow Is and Os. - d/c fluids. Continue diuretics. - ADAT. Hypoglycemia Likely secondary to decreased by mouth intake. - Advance to regular diet with Ensure supplementation. The patient was placed on D5NS and Accu-Cheks monitored given that she was not eating well. Given persistent hypoglycemia then checked insulin, C-peptide and beta hydroxybutyrate. Continue to monitor blood sugars which have been stable off D5NS. Hypocalcemia Likely due to poor oral intake. Status post replacement with a because of chloride and improvement of calcium levels. 07/20 Replace with Calcium Chloride IV. Monitor Calcium levels and replace as needed. 07/22 hypocalcemia resolved. Continue to monitor calcium levels and replace as needed. DVT prophylaxis with SCD/teds, hold chemical prophylaxis at this time the patient with coagulopathy and risk of bleeding. Discharge Planning The patient could be discharged to medical psych unit after wound VAC placed. Problem Qualifiers (1) Psychosis: Qualified Codes: F29 - Unspecified psychosis not due to a substance or known physiological condition (2) Cirrhosis: Qualified Codes: K74.60 - Unspecified cirrhosis of liver Wiliam Sebastian MD Jul 22, 2017 16:57
[2017-07-23] VITALS (8 sets, daily range): BP systolic 96–108; BP diastolic 54–59; PULSE 89–116; RESP 19–22; TEMP 97.4–98.8; O2SAT 97–100
[2017-07-23] MEDS: ALPRAZolam 0.25 MG TAB PO PRN ×3 (04:19→20:48)
[2017-07-23] MEDS: MEGESTROL ACETATE SUSP 400 MG/10 ML CUP PO SCH (08:20)
[2017-07-23] MEDS: LACTULOSE SYRUP 20 GM/30 ML CUP PO SCH ×3 (08:21→17:00)
[2017-07-23] MEDS: RIFAXIMIN 550 MG TAB PO SCH ×2 (08:22→20:48)
[2017-07-23] MEDS: ASCORBIC ACID 500 MG TAB PO SCH ×2 (08:22→20:48)
[2017-07-23] MEDS: MULTIVITAMIN TAB PO SCH (08:22)
[2017-07-23] MEDS: SPIRONOLACTONE 100 MG TAB PO SCH ×2 (08:22→20:48)
[2017-07-23] MEDS: LACTOBACILLUS ACIDOPHILUS TAB PO SCH ×2 (08:22→20:47)
[2017-07-23] MEDS: FAMOTIDINE 20 MG TAB PO SCH ×2 (08:22→20:48)
[2017-07-23] MEDS: DOCUSATE SODIUM 50 MG/SENNA 8.6 MG TAB PO SCH ×2 (08:22→20:48)
[2017-07-23] MEDS: POTASSIUM CHLORIDE 10 MEQ CAP PO SCH (08:22)
[2017-07-23] MEDS: VENLAFAXINE HCL XR 75 MG CAP PO SCH (08:22)
[2017-07-23] MEDS: GABAPENTIN 100 MG CAP PO SCH ×3 (08:22→17:00)
[2017-07-23] MEDS: COLLAGENASE OINT 30 GM TUBE TOPICAL SCH (08:23)
[2017-07-23] MEDS: SODIUM HYPOCHLORITE 0.125% 500 ML BTL TOPICAL SCH (08:23)
[2017-07-23] MEDS: THIAMINE INJ 100 MG in SODIUM CHLORIDE 0.9% INJ 100 ML IV SCH (08:23)
[2017-07-23] MEDS: FUROSEMIDE 40 MG TAB PO SCH ×2 (08:23→17:00)
[2017-07-23] MEDS: SODIUM CHLORIDE 0.9% FLUSH 10 ML FLUSH IV FLUSH SCH ×2 (08:23→20:48)
[2017-07-23] MEDS: ZINC OXIDE 20% OINT 30 GM TUBE TOPICAL SCH (08:23)
[2017-07-23] MEDS: FLUTICASONE PROPIONATE 50 MCG/ACT 16 GM NASAL SPRAY EACH NARE SCH ×2 (08:23→20:48)
[2017-07-23] MEDS: FERROUS SULFATE 325 MG (65 MG ELEMENTAL IRON) TAB PO SCH ×3 (08:25→17:00)
--- NOTE | 2017-07-23 11:23 | HHI.PYPN ---
Subjective Remarks Patient was seen today for psychiatric reevaluation, case was discussed with Dr. William, chart was reviewed. On psychiatric evaluation today patient continues to be very disorganized, tangential, with frequently use of confabulatory ideas. Patient is oriented in person, partially oriented in place , disoriented in time. She is uncooperative are full cognitive assessment. She is visibly internally stimulated, paranoid, at times stating that there is short person in the room and there is nobody. She reports good mood, she denies depressive symptoms, she denies suicidal and homicidal ideation. Mental Status Examination Appearance: Appropriate Consciousness: Alert, Clouded Orientation: Person Motor Activity: Abnormal gait Speech: Hesitant, Slow Language: Adequate Fund of Knowledge: Inadequate Attention and Concentration: Inadequate Memory: Impaired Mood: Oppositional Affect: Irritable Thought Process & Associations: Loose associations, Disorganized Thought Content: Bizarre thinking, Delusional Hallucination Type: None Delusion Type: None, Paranoid Suicidal Ideation: No Suicidal Plan: No Suicidal Intention: No Homicidal Ideation: No Homicidal Plan: No Homicidal Intention: No Insight: Fair Judgment: Impulsive Results Labs Date/Time Source Procedure Growth Status 07/09/17 12:05 Blood Peripheral Aerobic Blood Culture - Final NO GROWTH IN 5 DAYS Complete 07/09/17 12:05 Blood Peripheral Anaerobic Blood Culture - Final NO GROWTH IN 5 DAYS Complete 07/09/17 12:00 Urine Catheterized Urine Urine Culture - Final NO GROWTH IN 48 HOURS. Complete 07/10/17 16:00 Wound Buttock Gram Stain - Final Complete 07/10/17 16:00 Wound Culture - Final Escherichia Coli Esbl Positive Proteus Mirabilis Complete Vitals/IOs Vital Signs Date Time Temp Pulse Resp B/P (MAP) Pulse Ox O2 Delivery O2 Flow Rate FiO2 07/23/17 08:00 98.3 98 20 108/59 (75) 100 07/23/17 04:00 Room Air 07/20/17 07:34 21 Intake and Output 07/23/17 07/23/17 07/24/17 08:00 16:00 00:00 Intake Total 0 ml Balance 0 ml Assessment & Plan Problem List: (1) Delirium due to general medical condition ICD Codes: F05 - Delirium due to known physiological condition (2) Unspecified psychosis ICD Codes: F29 - Unspecified psychosis not due to a substance or known physiological condition Assessment & Plan: Patient continues to be acutely psychotic, disorganized, paranoid, with active visual hallucinations. We'll start Risperdal 0.5 mg twice a day. Patient benefits of psychiatric admission for stabilization and safety. Assessment & Plan Estimated LOS: days Justification for Cont. Inpt. Patient benefits of psychiatric admission for stabilization and safety. Kelton Contreras MD Jul 23, 2017 11:22
[2017-07-23] MEDS: ERTAPENEM INJ 1,000 MG in SODIUM CHLORIDE 0.9% INJ 100 ML IV SCH (12:20)
--- NOTE | 2017-07-23 16:21 | PD.WCN.NOT ---
Wound Consult Description: Received consult from for hemovac placement. Communicated with: Suzi irby present with ghost writer. Recommendation: Additional Information: Wound assessment performed by ghost writer with assistance of Sacha CELESTIN, Suzi irby. wound presents 90% beefy red tissue with 10% yellow slough.wound edges even. wound measures 4.9cm x 6.0cm x 1.8cm. undermining noted from 7-2 o'clock with 2.8cm @ 1 o'clock.wound /periwound cleansed with normal saline pat dry skin prep applied to periwound.periwound draped to protect intact skin. black sponge applied to wound bed and undermining area sponge bridged to left anterior thigh.Wound Vac started @125mmhg continuos low suction with no leaks noted .Patient tolerated vac placement well. Neg Pressure Wound Therapy Wound Description Length: 4.9cm Width: 6 cm Depth: 1.8cm Underminin-2 o'clock 2.8cm @ 1 o'clock Periwound appearance: Other (Erythema noted to bilateral buttocks) Settings Intensity: Low Other Information: Bridged, Windowpaned, Mushroomed Foam type: Black Number of pieces: 1 ArnelJacquelin [facility] Jul 23, 2017 16:21
[2017-07-23] MEDS: ENOXAPARIN SODIUM 40 MG/0.4 ML SYRINGE SQ SCH (17:00)
--- NOTE | 2017-07-23 17:52 | HHI.IDPN ---
Subjective Subjective Remarks confused, awake no fever seen by Dr Gocnalves, recommneded wound care Antibiotics ertapenem Allergies: Coded Allergies: No Known Allergies (Unverified Allergy, Unknown, 07/09/17) Objective . Vital Signs Date Time Temp Pulse Resp B/P (MAP) Pulse Ox O2 Delivery O2 Flow Rate FiO2 07/23/17 12:00 97.4 116 20 105/55 (72) 98 07/23/17 08:00 91 07/23/17 08:00 Room Air 07/23/17 08:00 98.3 98 20 108/59 (75) 100 07/23/17 05:44 19 07/23/17 04:02 95 07/23/17 04:00 98.0 111 19 96/59 (71) 100 07/23/17 04:00 Room Air 07/23/17 00:00 Room Air 07/23/17 00:00 98.2 89 22 102/55 (71) 100 07/23/17 00:00 102 07/22/17 23:11 99 19 07/22/17 20:00 98.4 111 21 112/60 (77) 100 07/22/17 20:00 Room Air 07/23/17 07/23/17 07/24/17 15:00 23:00 07:00 # Voids 1 . Laboratory Tests Test 07/22/17 10:28 White Blood Count 9.8 TH/MM3 Red Blood Count 3.04 MIL/MM3 Hemoglobin 10.4 GM/DL Hematocrit 30.1 % Mean Corpuscular Volume 99.1 FL Mean Corpuscular Hemoglobin 34.3 PG Mean Corpuscular Hemoglobin Concent 34.6 % Red Cell Distribution Width 15.3 % Platelet Count 141 TH/MM3 Mean Platelet Volume 8.6 FL Neutrophils (%) (Auto) 55.8 % Lymphocytes (%) (Auto) 35.0 % Monocytes (%) (Auto) 7.6 % Eosinophils (%) (Auto) 0.9 % Basophils (%) (Auto) 0.7 % Neutrophils # (Auto) 5.4 TH/MM3 Lymphocytes # (Auto) 3.4 TH/MM3 Monocytes # (Auto) 0.7 TH/MM3 Eosinophils # (Auto) 0.1 TH/MM3 Basophils # (Auto) 0.1 TH/MM3 CBC Comment DIFF FINAL Differential Comment Laboratory Tests Test 07/22/17 08:23 Blood Urea Nitrogen 5 MG/DL Creatinine 0.71 MG/DL Random Glucose 69 MG/DL Total Protein 7.3 GM/DL Albumin 1.7 GM/DL Calcium Level 8.4 MG/DL Phosphorus Level 3.8 MG/DL Magnesium Level 1.7 MG/DL Alkaline Phosphatase 100 U/L Aspartate Amino Transf (AST/SGOT) 24 U/L Alanine Aminotransferase (ALT/SGPT) 8 U/L Total Bilirubin 0.9 MG/DL Sodium Level 133 MEQ/L Potassium Level 3.8 MEQ/L Chloride Level 98 MEQ/L Carbon Dioxide Level 25.8 MEQ/L Anion Gap 9 MEQ/L Estimat Glomerular Filtration Rate 86 ML/MIN Imaging Last Impressions Brain MRI 07/20/17 0000 Signed Impressions: Service Date/Time: Thursday, July 20, 2017 08:03 - CONCLUSION: No acute intracranial abnormality. Nonspecific white matter changes likely chronic ischemic small vessel vasculopathy. Perez Burrell MD Head CT 07/09/17 1158 Signed Impressions: Service Date/Time: Sunday, July 09, 2017 13:55 - CONCLUSION: No acute disease. Howard Vigil Jr., MD Chest X-Ray 07/09/17 1158 Signed Impressions: Service Date/Time: Sunday, July 09, 2017 11:11 - CONCLUSION: No acute disease. Howard Vigil Jr., MD Abdomen/Pelvis CT 07/09/17 0000 Signed Impressions: Service Date/Time: Sunday, July 09, 2017 14:03 - CONCLUSION: Gallstones. Mildly cirrhotic liver with some surrounding fluid. Bilateral lower lobe atelectasis. Neil Roblero MD Physical Exam CONSTITUTIONAL/GENERAL: This is an adequately nourished patient, in no apparent distress. TUBES/LINES/DRAINS: PICC in place LUE SKIN: No jaundice, rashes, Wound stage IV with rough bone in bed, appears clean, no odor, no necrotic tissue CARDIOVASCULAR: Regular rate and rhythm without murmurs, gallops, or rubs. No JVD. Peripheral pulses symmetric. RESPIRATORY/CHEST: Symmetric, unlabored respirations. Clear to auscultation. Breath sounds equal bilaterally. No wheezes, rales, or rhonchi. GASTROINTESTINAL: Abdomen soft, non-tender, nondistended. No hepato-splenomegaly , or palpable masses. No guarding. Bowel sounds present. GENITOURINARY: Without palpable bladder distension. MUSCULOSKELETAL: Extremities without clubbing, cyanosis, or edema. No joint tenderness or effusion noted. No calf tenderness. No mottling or clubbing. NEUROLOGICAL: Awake and alert. Confused. Follows commands. Clear speech . Moves all extremities. PSYCHIATRIC: calm cooperative pleasant Assessment & Plan Remarks Infected stage IV decubitus ulcer - probable underlying osteo Per report h/o recent ESBL Multiple med problems Recent UTI, ESBL , was on tx complete Ertapenem x 4 weeks Recommendations by plastic surgery appreciated Leticia Will MD Jul 23, 2017 17:52
--- NOTE | 2017-07-23 18:04 | HHI.PR ---
Subjective Remarks patient complain of some pain on decubitus sacral area. denies cp/sob. denies fevers/chills. still confabulating. Objective Vitals Vital Signs Date Time Temp Pulse Resp B/P (MAP) Pulse Ox O2 Delivery O2 Flow Rate FiO2 07/23/17 12:00 97.4 116 20 105/55 (72) 98 07/23/17 08:00 91 07/23/17 08:00 Room Air 07/23/17 08:00 98.3 98 20 108/59 (75) 100 07/23/17 05:44 19 07/23/17 04:02 95 07/23/17 04:00 98.0 111 19 96/59 (71) 100 07/23/17 04:00 Room Air 07/23/17 00:00 Room Air 07/23/17 00:00 98.2 89 22 102/55 (71) 100 07/23/17 00:00 102 07/22/17 23:11 99 19 07/22/17 20:00 98.4 111 21 112/60 (77) 100 07/22/17 20:00 Room Air I/O 07/22/17 07/22/17 07/22/17 07/23/17 07/23/17 07/23/17 06:59 14:59 22:59 06:59 14:59 22:59 Intake Total 240 ml 480 ml 0 ml Balance 240 ml 480 ml 0 ml Intake Oral 240 ml 480 ml 0 ml # Voids 4 3 4 1 # Bowel Movements 1 4 Result Diagram: 07/22/17 1028 07/22/17 0823 Imaging Last Impressions Brain MRI 07/20/17 0000 Signed Impressions: Service Date/Time: Thursday, July 20, 2017 08:03 - CONCLUSION: No acute intracranial abnormality. Nonspecific white matter changes likely chronic ischemic small vessel vasculopathy. Perez Burrell MD Head CT 07/09/17 1158 Signed Impressions: Service Date/Time: Sunday, July 09, 2017 13:55 - CONCLUSION: No acute disease. Howard Vigil Jr., MD Chest X-Ray 07/09/17 1158 Signed Impressions: Service Date/Time: Sunday, July 09, 2017 11:11 - CONCLUSION: No acute disease. Howard Vigil Jr., MD Abdomen/Pelvis CT 07/09/17 0000 Signed Impressions: Service Date/Time: Sunday, July 09, 2017 14:03 - CONCLUSION: Gallstones. Mildly cirrhotic liver with some surrounding fluid. Bilateral lower lobe atelectasis. Neil Roblero MD Objective Remarks GENERAL: Resting comfortably. HEENT: NC, AT. CARDIOVASCULAR: Regular rate and rhythm without murmurs, gallops, or rubs. RESPIRATORY: Mild wheezing, crackles at the left base. GASTROINTESTINAL: Abdomen soft, nontender, nondistended. Normal active bowel sounds. MUSCULOSKELETAL: TR edema in the lower extremities. Significant left upper extremity edema. NEURO: Awake and alert. Moves all ext x4. Slow speech. PSYCH: Patient with psychosis which seems to be slightly improved. Medications and IVs Current Medications Medications (Trade) Dose Ordered Sig/Rudy Route Start Time Stop Time Status Last Admin (NS Flush) 2 ml UNSCH PRN IV FLUSH 07/09/17 16:00 (NS Flush) 2 ml BID IV FLUSH 07/09/17 21:00 07/23/17 20:48 (Tylenol) 650 mg Q4H PRN PO 07/09/17 16:00 (Zofran Inj) 4 mg Q6H PRN IVP 07/09/17 16:00 (Compazine Supp) 25 mg Q12H PRN RECTAL 07/09/17 16:00 (Lovenox Inj) 40 mg Q24H SQ 07/09/17 16:00 07/23/17 17:00 (Narcan Inj) 0.4 mg UNSCH PRN IV PUSH 07/09/17 16:00 (Meggan-Colace) 1 tab BID PO 07/09/17 21:00 07/23/17 08:22 (Milk Of Magnesia Liq) 30 ml Q12H PRN PO 07/09/17 16:00 (Senokot) 17.2 mg Q12H PRN PO 07/09/17 16:00 (Dulcolax Supp) 10 mg DAILY PRN RECTAL 07/09/17 16:00 (Pepcid) 20 mg BID PO 07/09/17 21:00 07/23/17 20:48 (Ferrous Sulfate) 325 mg TIDPC PO 07/09/17 18:30 07/23/17 17:00 (Flonase Norberto Spr) 2 spray BID EACH NARE 07/09/17 21:00 07/23/17 20:48 (Lasix) 40 mg BID@0900,1800 PO 07/09/17 18:00 07/23/17 17:00 (Neurontin) 100 mg TID PO 07/09/17 18:00 07/23/17 17:00 (Lactulose Liq) 45 ml TID PO 07/09/17 18:00 07/23/17 17:00 (Xifaxan) 550 mg Q12HR PO 07/09/17 21:00 07/23/17 20:48 (Aldactone) 100 mg BID PO 07/09/17 21:00 07/23/17 20:48 (Effexor Xr) 75 mg DAILY PO 07/10/17 09:00 07/23/17 08:22 (Vitamin C) 500 mg BID PO 07/09/17 21:00 07/23/17 20:48 (Lactinex) 3 tab BID PO 07/09/17 21:00 07/23/17 20:47 (Haldol Inj) 2 mg Q4H PRN IM 07/09/17 17:00 07/16/17 12:58 (NS Irr Btl) 60 ml DAILY PRN IRRIGATION 07/10/17 20:15 07/15/17 10:27 (Santyl Oint) 1 applic DAILY TOPICAL 07/11/17 09:00 07/23/17 08:23 (Dakin'S 0.125% Soln) 50 ml DAILY TOPICAL 07/11/17 09:00 07/23/17 08:23 (Zinc Oxide 20% Oint) 1 applic DAILY TOPICAL 07/11/17 09:00 07/23/17 08:23 (Xanax) 0.25 mg Q8H PRN PO 07/12/17 16:00 07/23/17 20:48 Ertapenem 1000 mg/ Sodium Chloride 100 ml @ 200 mls/hr Q24H IV 07/13/17 13:00 07/23/17 12:20 (KCl) 10 meq DAILY PO 07/15/17 14:00 07/23/17 08:22 (Roxicodone) 5 mg TID PRN PO 07/15/17 13:15 07/23/17 20:48 (Theragran) 1 tab DAILY PO 07/18/17 19:30 07/23/17 08:22 (Megace Liq) 400 mg DAILY PO 07/19/17 09:00 07/23/17 08:20 (risperDAL) 0.5 mg BID PO 07/23/17 21:00 07/23/17 20:48 (Vitamin B1) 100 mg DAILY PO 07/24/17 09:00 A/P Problem List: (1) Hypoglycemia ICD Code: E16.2 - Hypoglycemia, unspecified Status: Resolved (2) Psychosis ICD Code: F29 - Unspecified psychosis not due to a substance or known physiological condition Status: Acute (3) Metabolic encephalopathy ICD Code: G93.41 - Metabolic encephalopathy Status: Acute (4) Decubitus ulcer, stage 4 with infection ICD Code: L89.94 - Pressure ulcer of unspecified site, stage 4; L08.9 - Local infection of the skin and subcutaneous tissue, unspecified Status: Acute (5) Cirrhosis ICD Code: K74.60 - Unspecified cirrhosis of liver Status: Chronic (6) Hypocalcemia ICD Code: E83.51 - Hypocalcemia Status: Resolved Assessment and Plan Metabolic encephalopathy Psychosis 52-year-old female presents to the emergency department from [facility] for evaluation of increased confusion with elevated ammonia level. Chest x-ray, CT of the brain, CT abdomen/pelvis with IV contrast reviewed and without significant findings. Ammonia is 20. EKG shows SR, HR 80, no acute ST changes. Psych consult appreciated. - neuro checks. - follow up with psychiatry. - antibiotics. - PT/ OT/ ST. - try to avoid sedating meds. Frequent reorientation. 07/18 Patient awake today, more coherent and not exhibiting confusion. Encephalopathy improving. 07/19 As per RN patient having episodes of confusion. Will reconsult psychiatry. 07/[address] Salazar - the patient will need inpatient psychiatry admission. Patient with psychosis and confabulation. Will check Thiamine level and start treatment with IB thiamine since patient has history of heavy alcohol use. ? Wernicke/korsakoff syndrome. MRI negative, TSH elevated - check free t4. RPR has been ordered and pending. 07/22 Continue IV thiamine. thiamine level pending. The patient is still exhibiting psychotic and disorganized thought. 07/23 DC IV thiamine - start oral. 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 Most likely damage is irreversible. appreciate Psych recommendations. started on Risperidal 0.5 mg po bid. Infected sacral decubitus ulcer ID consult appreciated. Had a recent ESBL UTI. Wound culture growing proteus, Enterobacter species, staph aureus and ESBL E coli. - continue vancomycin and switch meropenem to ertapenem per ID. 07/18 Plastic surgery consulted as per ID recommendations. Wound needs debridement and possibly a wound vac to heal. Evaluation by plastic surgery pending. NO plastic surgery available for call today. Will reconsult when one available on the schedule. 07/20 Plastic surgery consulted ----> as per plastic surgery wound vac and wound care should be enough. 07/22 we'll consult wound care for wound VAC placement. 07/23 sp wound vac placement. Started on Ertapenem x4 weeks as per ID. Cirrhosis Has a history of liver cirrhosis from alcohol abuse. INR 1.3. She has hyponatremia. CT abdomen/pelvis shows gallstones; mildly cirrhotic liver with some surrounding fluid. - continue lactulose and rifaximin. - follow Is and Os. - d/c fluids. Continue diuretics. - ADAT. Hypoglycemia Likely secondary to decreased by mouth intake. - Advance to regular diet with Ensure supplementation. The patient was placed on D5NS and Accu-Cheks monitored given that she was not eating well. Given persistent hypoglycemia then checked insulin, C-peptide and beta hydroxybutyrate. Continue to monitor blood sugars which have been stable off D5NS. Hypocalcemia Likely due to poor oral intake. Status post replacement with a because of chloride and improvement of calcium levels. 07/20 Replace with Calcium Chloride IV. Monitor Calcium levels and replace as needed. 07/22 hypocalcemia resolved. Continue to monitor calcium levels and replace as needed. DVT prophylaxis with SCD/teds, hold chemical prophylaxis at this time the patient with coagulopathy and risk of bleeding. Discharge Planning DC to medical psychiatry unit once bed available. Problem Qualifiers (1) Psychosis: Qualified Codes: F29 - Unspecified psychosis not due to a substance or known physiological condition (2) Cirrhosis: Qualified Codes: K74.60 - Unspecified cirrhosis of liver Wiliam Sebastian MD Jul 23, 2017 18:04
[2017-07-23] MEDS: risperiDONE 0.5 MG TAB PO SCH (20:48)
[2017-07-24] VITALS (8 sets, daily range): BP systolic 90–123; BP diastolic 45–62; PULSE 97–119; RESP 20–23; TEMP 97.9–98.6; O2SAT 100
[2017-07-24] MEDS: ALPRAZolam 0.25 MG TAB PO PRN ×2 (06:28→16:25)
[2017-07-24] MEDS: ZINC OXIDE 20% OINT 30 GM TUBE TOPICAL SCH (09:00)
[2017-07-24] MEDS: COLLAGENASE OINT 30 GM TUBE TOPICAL SCH (09:00)
[2017-07-24] MEDS ORDERED: THIAMINE HCL 100 MG TAB PO SCH (09:00)
[2017-07-24] MEDS: FLUTICASONE PROPIONATE 50 MCG/ACT 16 GM NASAL SPRAY EACH NARE SCH (09:00)
[2017-07-24] MEDS: SODIUM HYPOCHLORITE 0.125% 500 ML BTL TOPICAL SCH (09:00)
[2017-07-24] MEDS: SODIUM CHLORIDE 0.9% FLUSH 10 ML FLUSH IV FLUSH SCH (09:00)
[2017-07-24] MEDS: FUROSEMIDE 40 MG TAB PO SCH ×2 (09:00→17:07)
[2017-07-24 09:38] LABS: POTASSIUM 3.5 MEQ/L (3.5-5.1)
[2017-07-24] MEDS: FERROUS SULFATE 325 MG (65 MG ELEMENTAL IRON) TAB PO SCH ×3 (09:42→17:07)
[2017-07-24] MEDS: risperiDONE 0.5 MG TAB PO SCH (09:42)
[2017-07-24] MEDS: LACTOBACILLUS ACIDOPHILUS TAB PO SCH (09:42)
[2017-07-24] MEDS: LACTULOSE SYRUP 20 GM/30 ML CUP PO SCH ×3 (09:42→17:07)
[2017-07-24] MEDS: ASCORBIC ACID 500 MG TAB PO SCH (09:42)
[2017-07-24] MEDS: SPIRONOLACTONE 100 MG TAB PO SCH (09:42)
[2017-07-24] MEDS: RIFAXIMIN 550 MG TAB PO SCH (09:42)
[2017-07-24] MEDS: DOCUSATE SODIUM 50 MG/SENNA 8.6 MG TAB PO SCH (09:42)
[2017-07-24] MEDS: FAMOTIDINE 20 MG TAB PO SCH (09:43)
[2017-07-24] MEDS: MEGESTROL ACETATE SUSP 400 MG/10 ML CUP PO SCH (09:43)
[2017-07-24] MEDS: GABAPENTIN 100 MG CAP PO SCH ×3 (09:43→17:07)
[2017-07-24] MEDS: POTASSIUM CHLORIDE 10 MEQ CAP PO SCH (09:43)
[2017-07-24] MEDS: VENLAFAXINE HCL XR 75 MG CAP PO SCH (09:43)
[2017-07-24] MEDS: MULTIVITAMIN TAB PO SCH (09:43)
[2017-07-24] MEDS ORDERED: THERTAB15 PO (12:31)
[2017-07-24] MEDS ORDERED: THIA100 PO (12:31)
[2017-07-24] MEDS ORDERED: INVA1INJ IV (12:34)
--- NOTE | 2017-07-24 12:35 | HHI.DCPOC ---
Discharge Care Plan Diagnosis: (1) Metabolic encephalopathy (2) Unspecified psychosis (3) Hypoglycemia (4) Cirrhosis (5) Hypocalcemia (6) Decubitus ulcer, stage 4 with infection (7) UTI (urinary tract infection) (8) Hypoalbuminemia (9) Wernicke-Korsakoff psychosis Goals to Promote Your Health * To prevent worsening of your condition and complications * To maintain your health at the optimal level Directions to Meet Your Goals Take your medications as prescribed Follow your dietary instruction Follow activity as directed Keep your appointments as scheduled Take your immunizations and boosters as scheduled If your symptoms worsen call your PCP, if no PCP go to Urgent Care Center or Emergency Room Smoking is Dangerous to Your Health. Avoid second hand smoke Call the 24-hour hour crisis hotline for domestic abuse at Wiliam Sebastian MD Jul 24, 2017 12:35
[2017-07-24] MEDS: ERTAPENEM INJ 1,000 MG in SODIUM CHLORIDE 0.9% INJ 100 ML IV SCH (12:37)
--- NOTE | 2017-07-24 12:52 | HHI.DS ---
Discharge Summary Admission Date Jul 10, 2017 at 10:39 Discharge Date: Jul 24, 2017 Admitting Diagnosis AMS; stage 4 decubitus ulcer with infection; UTI (1) Hypoglycemia ICD Code: E16.2 - Hypoglycemia, unspecified Diagnosis: Principal Status: Resolved (2) Psychosis ICD Code: F29 - Unspecified psychosis not due to a substance or known physiological condition Diagnosis: Principal Status: Acute (3) Metabolic encephalopathy ICD Code: G93.41 - Metabolic encephalopathy Diagnosis: Principal Status: Resolved (4) Decubitus ulcer, stage 4 with infection ICD Code: L89.94 - Pressure ulcer of unspecified site, stage 4; L08.9 - Local infection of the skin and subcutaneous tissue, unspecified Diagnosis: Principal Status: Acute (5) Cirrhosis ICD Code: K74.60 - Unspecified cirrhosis of liver Diagnosis: Principal Status: Chronic (6) Hypocalcemia ICD Code: E83.51 - Hypocalcemia Diagnosis: Principal Status: Resolved Procedures none Brief History - From Admission 52-year-old female with history of alcoholic liver cirrhosis, COPD presents to the emergency department via med one from [facility] for evaluation of altered mental status. Apparently, she is having increased ammonia level with her liver cirrhosis per reports. However ammonia is found to be normal here on arrival. She also apparently is being treated for a urinary tract infection with meropenem IV 500 mg every 8 that was just started. Patient is alert however anxious/agitated. She is oriented to person and place , but does not know the year. She does know the month and the president. She complains of "allover pain". Patient states that she has had intermittent fevers and chills. She denies any chest pain or shortness of breath. She reports abdominal pain. Reports nausea, but no vomiting. She states she has had diarrhea, but no constipation. Severity is moderate. No exacerbating or alleviating factors. Says she has COPD however she is not using at this time. She is satting well on room air. CBC/BMP: 07/22/17 1028 07/24/17 0825 Significant Findings Laboratory Tests Test 07/22/17 08:23 07/22/17 10:28 07/24/17 08:25 Blood Urea Nitrogen 5 MG/DL (7-18) 6 MG/DL (7-18) Random Glucose 69 MG/DL (74-106) Albumin 1.7 GM/DL (3.4-5.0) Calcium Level 8.4 MG/DL (8.5-10.1) 7.6 MG/DL (8.5-10.1) Alanine Aminotransferase (ALT/SGPT) 8 U/L (10-53) Sodium Level 133 MEQ/L (136-145) Estimat Glomerular Filtration Rate 86 ML/MIN (>89) Red Blood Count 3.04 MIL/MM3 (4.00-5.30) Hemoglobin 10.4 GM/DL (11.6-15.3) Hematocrit 30.1 % (35.0-46.0) Mean Corpuscular Hemoglobin 34.3 PG (27.0-34.0) Platelet Count 141 TH/MM3 (150-450) Imaging Last Impressions Brain MRI 07/20/17 0000 Signed Impressions: Service Date/Time: Thursday, July 20, 2017 08:03 - CONCLUSION: No acute intracranial abnormality. Nonspecific white matter changes likely chronic ischemic small vessel vasculopathy. Perez Burrell MD Head CT 07/09/17 1158 Signed Impressions: Service Date/Time: Sunday, July 09, 2017 13:55 - CONCLUSION: No acute disease. Howard Vigil Jr., MD Chest X-Ray 07/09/17 1158 Signed Impressions: Service Date/Time: Sunday, July 09, 2017 11:11 - CONCLUSION: No acute disease. Howard Vigil Jr., MD Abdomen/Pelvis CT 07/09/17 0000 Signed Impressions: Service Date/Time: Sunday, July 09, 2017 14:03 - CONCLUSION: Gallstones. Mildly cirrhotic liver with some surrounding fluid. Bilateral lower lobe atelectasis. Neil Roblero MD PE at Discharge GENERAL: Resting comfortably. HEENT: NC, AT. CARDIOVASCULAR: Regular rate and rhythm without murmurs, gallops, or rubs. RESPIRATORY: Mild wheezing, crackles at the left base. GASTROINTESTINAL: Abdomen soft, nontender, nondistended. Normal active bowel sounds. MUSCULOSKELETAL: TR edema in the lower extremities. Significant left upper extremity edema. NEURO: Awake and alert. Moves all ext x4. Slow speech. PSYCH: Patient with psychosis which seems to be slightly improved. Pt update on day of discharge The patient is still confused. Is trying to get out of bed. states is trying to go home. Hospital Course 52-year-old female presents to the emergency department from [facility] for evaluation of increased confusion with elevated ammonia level. Chest x-ray, CT of the brain, CT abdomen/pelvis with IV contrast reviewed and without significant findings. Ammonia is 20. EKG shows SR, HR 80, no acute ST changes. Metabolic encephalopathy Psychosis hyperammonemia The patient was admitted to the medical floor. Neuro checks followed, psychiatry consulted initially. Dating medications were avoided. She noted to have episodes of confusion and also psychosis with confabulation. As a part of psychosis workup, CT of the head were obtained and negative, MRI of the brain show any acute abnormality. Thiamine levels were obtained and pending on day of discharge. RPR nonreactive. The patient was treated with high-dose IV thiamine which was switched to oral. Psychiatry was reconsulted and recommended inpatient psychiatric treatment. Psychosis likely secondary to the NICU course of psychosis due to alcohol abuse. Discussed the case at length with Dr. Contreras from psychiatry. Most likely damage to the brain is irreversible. The patient was started on Risperdal 2.5 mg by mouth twice a day. Infected Sacral decub ulcer stage IV ID consulted. Had a recent ESBL UTI. Wound culture growing proteus, Enterobacter species, staph aureus and ESBL E coli. Patient initially treated with IV vancomycin and IV meropenem. ID later switched antibiotics to ertapenem. Plastic surgery was consulted and the patient was evaluated by Dr. Goncalves who recommended wound VAC placement in the topical treatment should be enough to aid in the wound healing. Wound care was consulted for VAC placement which was placed on 07/23/17 and placed to low wall suction. As per ID recommendations the patient will need to get a total of 4 weeks of ertapenem IV.. Liver cirrhosis Has a history of liver cirrhosis from alcohol abuse. INR 1.3. CT abdomen/pelvis shows gallstones; mildly cirrhotic liver with some surrounding fluid. Lactulose , rifaximin and frusemide continued. Patient had hyponatremia on admission which is improving. Hypoglycemia A shunt had an episode of hypoglycemia with blood sugars into the high 50s on July 14. The patient was placed on D5NS as well as Accu-Cheks. This was thought to be secondary to decreased oral intake and also some intrinsic hepatic disease with liver cirrhosis that would be decreasing the glycogen stores. C-peptide, insulin level ordered however pending upon discharge. Beta hydroxybutyrate was obtained and normal. Sugars remained stable prior to discharge. Hypocalcemia Likely due to poor oral intake. Status post replacement with a because of chloride and improvement of calcium levels. Calcium levels monitored throughout hospital stay. DVT prophylaxis with SCD/teds, held chemical prophylaxis at this time the patient with coagulopathy and risk of bleeding. Pt Condition on Discharge: Stable Discharge Disposition: Disc to [facility] Discharge Time: > 30 minutes Discharge Instructions DIET: Follow Instructions for: As Tolerated, No Restrictions Speech Therapy-Diet Recommends: Soft Activities you can perform: See Additionl Instruction, Continue Bedrest Other Activity Instructions: OOB with assistance only - as per PT recommendations New Medications: Ertapenem Inj (Invanz Inj) 1 Gm Addvial 1 GM IV Q24H for Infection for 20 Days, INJECTION 0 Refills ADMINISTER IN 100ML NS Multivitamin with Folic Acid (Thera Tablet) 400 Mcg Tablet 1 TAB PO DAILY for Alcohol Detox, #31 TAB Thiamine HCl (Gnp Vitamin B-1) 100 Mg Tab 100 MG PO DAILY for Alcohol Detox, #31 TAB Continued Medications: Alprazolam (Alprazolam) 0.25 Mg Tab 0.25 MG PO Q8H, TAB 0 Refills Ascorbic Acid (Vitamin C) 250 Mg Tab 500 MG PO BID for Nutritional Supplement, TAB 0 Refills B-Complex Vitamins (Vitamin B-Complex) 1 Tab Unknown Dose PO DAILY Famotidine (Famotidine) 20 Mg Tab 20 MG PO BID, #60 TAB 0 Refills Ferrous Sulfate (Ferrous Sulfate) 325 Mg (65 Mg Iron) Tablet 325 MG PO TIDPC for Nutritional Supplement, #90 TAB 0 Refills Fluticasone Nasal Anderson (Fluticasone Nasal Anderson) 50 Mcg/Act Naspr 50 MCG EACH NARE BID for Allergy Management, #1 BOTTLE 0 Refills 50 mcg/spray Furosemide (Furosemide) 40 Mg Tab 40 MG PO BID, #60 TAB 0 Refills Gabapentin (Gabapentin) 100 Mg Cap 100 MG PO TID, #90 CAP 0 Refills Lactulose Liq (Lactulose Liq) 10 Gm/15 Ml Soln 45 ML PO TID, ML 0 Refills Oxycodone (Oxycodone) 5 Mg Cap 5 MG PO DAILY PRN for PAIN, CAP 0 Refills Potassium Chloride ER (Potassium Chloride ER) 10 Meq Cap 10 MEQ PO DAILY for Electrolyte Replacement, #30 CAP 0 Refills Probiotic Product (Acidophilus) 175 Mg Cap 1 UNIT PO TID Rifaximin (Xifaxan) 550 Mg Tab 550 MG PO Q12HR for Hepatic encephalopathy, #60 TAB 0 Refills Sennosides (Senna-Tabs) 8.6 Mg Tab 8.6 MG PO DAILY for Constipation, #30 TAB 0 Refills Spironolactone (Spironolactone) 100 Mg Tab 100 MG PO BID, #30 TAB 0 Refills Venlafaxine ER 24 HR (Effexor XR 24 HR) 75 Mg Cap 75 MG PO DAILY, #30 CAP 0 Refills [Calcium Tablet] () 600 MG PO TD Discontinued Medications: Amino Acids-Protein Hydrolysat (Pro-Stat Awc) 17 Gram-100 Kcal/30 Ml Liq Unknown Dose PO TID Wiliam Sebastian MD Jul 24, 2017 12:52
[2017-07-24] MEDS: ENOXAPARIN SODIUM 40 MG/0.4 ML SYRINGE SQ SCH (15:43)
[2017-07-24] MEDS ORDERED: SODIUM CHLORID 0.9% 500 ML INJ 500 ML IV ONE (16:45)
== END 2017-07-24 18:38 | DRG 70 ==
LOC: NEPE 11:41 → NEDA 15:57 → NEPFCDU 17:24 → OBSVTOIN 07-10 10:39 → N04A 07-10 13:59
PROVIDERS: ADMIT Hospitalist; ATTEND Hospitalist
DX: G93.41 Metabolic encephalopathy (principal); L89.154 Pressure ulcer of sacral region, stage 4; D68.4 Acquired coagulation factor deficiency; E87.1 Hypo-osmolality and hyponatremia; K70.31 Alcoholic cirrhosis of liver with ascites; N39.0 Urinary tract infection, site not specified; J98.11 Atelectasis; F10.159 Alcohol abuse with alcohol-induced psychotic disorder, unspecified; F23 Brief psychotic disorder; K80.20 Calculus of gallbladder without cholecystitis without obstruction; F32.9 Major depressive disorder, single episode, unspecified; F41.9 Anxiety disorder, unspecified; Z72.0 Tobacco use; R19.7 Diarrhea, unspecified; J44.9 Chronic obstructive pulmonary disease, unspecified; Z80.0 Family history of malignant neoplasm of digestive organs; Z16.12 Extended spectrum beta lactamase (ESBL) resistance; Z96.611 Presence of right artificial shoulder joint; Z98.84 Bariatric surgery status; E87.5 Hyperkalemia; E83.51 Hypocalcemia; E16.2 Hypoglycemia, unspecified; B96.20 Unspecified Escherichia coli [E. coli] as the cause of diseases classified elsewhere
CPT/HCPCS: 70450; 70551; 71010; 74177; 76937; 80048; 80053; 80076; 80202; 81001; 82010; 82140; 82330; 82550; 82607; 82728; 82948; 83525; 83540; 83550; 83605; 83735; 84100; 84155; 84425; 84439; 84443; 84484; 84681; 85025; 85027; 85610; 85730; 86403; 86592; 87040; 87070; 87077; 87086; 87147; 87186; 87205; 93005; 96361; 96365; G0378; G8987-GO; G8988-GO; J0610; J1335; J1630; J1650; J2060; J2185; J2543; J3370; J3411; J3475; J3480; J7030; J7040; J7042; J7050; P9612; Q9967

== ENCOUNTER 2017-07-24 11:52 | Inpatient (IN) | payer MEDICARE, OTHER ==
[~2017-07-24 11:52] MED LIST: ALPR0.25 PO; B-COTAB41 PO; CALCIUM TABLET PO; FAMO20TA2 PO; FERR325T18 PO; FLUT50SP EACH NARE; FURO40TA PO; GABA100C4 PO; LACT10SO PO; OXYC1CAP PO; POTA10CA PO; PROB1CAP12 PO; SENN8.6T36 PO; SPIR100T PO; VENL75XR PO; VITA250T3 PO; XIFA550T4 PO; [UNRECOGNIZED DRUG - CODE] PO
[2017-07-24] MEDS ORDERED: THERTAB15 PO (12:31)
[2017-07-24] MEDS ORDERED: THIA100 PO (12:31)
[2017-07-24] MEDS ORDERED: INVA1INJ IV (12:34)
[2017-07-24] MEDS ORDERED: ALPRAZolam 0.25 MG TAB PO SCH (20:45)
[2017-07-24] MEDS ORDERED: ERTAPENEM SODIUM 1 GM ADDVANTAGE VIAL IV SCH (20:45)
[2017-07-24] MEDS ORDERED: SODIUM CHLORIDE 0.9% FLUSH 10 ML FLUSH IV FLUSH PRN (20:45)
[2017-07-24] MEDS ORDERED: NALOXONE HCL 0.4 MG/ML AMP IV PUSH PRN (20:45)
[2017-07-24] MEDS: SODIUM CHLORIDE 0.9% FLUSH 10 ML FLUSH IV FLUSH SCH (21:00)
[2017-07-24] MEDS: FLUTICASONE PROPIONATE 50 MCG/ACT 16 GM NASAL SPRAY EACH NARE SCH (21:00)
[2017-07-24] MEDS: FUROSEMIDE 40 MG TAB PO SCH (21:00)
[2017-07-24] MEDS: FAMOTIDINE 20 MG TAB PO SCH (21:00)
[2017-07-24] MEDS: RIFAXIMIN 550 MG TAB PO SCH (23:19)
[2017-07-24] MEDS: SPIRONOLACTONE 100 MG TAB PO SCH (23:19)
[2017-07-25] MEDS: ERTAPENEM INJ 1,000 MG in SODIUM CHLORIDE 0.9% INJ 100 ML IV SCH ×2 (02:00→23:00)
[2017-07-25 06:19] VITALS: BP 120/61; PULSE 91; RESP 16; TEMP 97.9; O2SAT 100
[2017-07-25 08:19] LABS: AUTOMATED NEUTROPHIL # 4.2 TH/MM3 (1.8-7.7); BASOPHIL % 0.2 % (0.0-2.0); EOSINOPHIL # 0.1 TH/MM3 (0-0.4); EOSINOPHIL % 0.7 % (0.0-4.0); HEMATOCRIT 27.6 % (35.0-46.0); HEMO FLAGS DIFF FINAL; LYMPH % 36.1 % (9.0-44.0); LYMPHOCYTE # 2.9 TH/MM3 (1.0-4.8); MEAN CELL VOLUME 97.9 FL (80.0-100.0); MEAN CORPUSCULAR HEMOGLOBIN 34.3 PG (27.0-34.0); MONO % 10.6 % (0.0-8.0); NEUT % 52.4 % (16.0-70.0); PLATELET COUNT 130 TH/MM3 (150-450); RED BLOOD COUNT 2.82 MIL/MM3 (4.00-5.30); RED CELL DISTRIBUTION WIDTH 15.6 % (11.6-17.2); WHITE BLOOD COUNT 8.1 TH/MM3 (4.0-11.0)
[2017-07-25 08:41] LABS: BICARBONATE 26.6 MEQ/L (21.0-32.0); POTASSIUM 3.7 MEQ/L (3.5-5.1)
[2017-07-25] MEDS ORDERED: PALIPERIDONE ER 3 MG TAB PO SCH (09:00)
[2017-07-25] MEDS: LACTULOSE SYRUP 20 GM/30 ML CUP PO SCH ×3 (10:03→18:00)
[2017-07-25] MEDS: ENOXAPARIN SODIUM 40 MG/0.4 ML SYRINGE SQ SCH (10:04)
[2017-07-25] MEDS: THIAMINE HCL 100 MG TAB PO SCH (10:04)
[2017-07-25] MEDS: LACTOBACILLUS ACIDOPHILUS TAB PO SCH ×3 (10:04→18:00)
[2017-07-25] MEDS: MULTIVITAMIN TAB PO SCH (10:04)
[2017-07-25] MEDS: FERROUS SULFATE 325 MG (65 MG ELEMENTAL IRON) TAB PO SCH ×3 (10:04→18:25)
[2017-07-25] MEDS: GABAPENTIN 100 MG CAP PO SCH ×3 (10:04→18:00)
[2017-07-25] MEDS: FAMOTIDINE 20 MG TAB PO SCH ×2 (10:05→21:11)
[2017-07-25] MEDS: SODIUM CHLORIDE 0.9% FLUSH 10 ML FLUSH IV FLUSH SCH ×2 (10:05→21:00)
[2017-07-25] MEDS: FLUTICASONE PROPIONATE 50 MCG/ACT 16 GM NASAL SPRAY EACH NARE SCH ×2 (10:05→21:00)
[2017-07-25] MEDS: POTASSIUM CHLORIDE 10 MEQ CAP PO SCH (10:05)
[2017-07-25] MEDS: FUROSEMIDE 40 MG TAB PO SCH ×2 (10:05→21:12)
[2017-07-25] MEDS: VENLAFAXINE HCL XR 75 MG CAP PO SCH (10:05)
[2017-07-25] MEDS: SPIRONOLACTONE 100 MG TAB PO SCH ×2 (10:05→21:12)
[2017-07-25] MEDS: ASCORBIC ACID 500 MG TAB PO SCH ×2 (10:06→21:12)
[2017-07-25] MEDS: SENNOSIDES 8.6 MG TAB PO SCH (10:06)
[2017-07-25] MEDS: RIFAXIMIN 550 MG TAB PO SCH ×2 (10:06→21:11)
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
--- NOTE | 2017-07-25 13:37 | PD.PSY.CON ---
Provisional Diagnosis Admission Date Jul 24, 2017 at 18:53 [place] I. Unspecified psychosis History of Present Illness Service Psychiatry Consult Requested By Dr. Buenrostro Reason for Consult Psychosis Primary Care Physician Unknown HPI Patient is a 52-year-old woman, single with 2 children unemployed on disability that if it's, past psychiatric history of depression, denies previous psychiatric authorization, denies previous suicide attempt or self- injurious behavior, past medical history of alcohol cirrhosis, COPD, who was admitted to the medical floor on 07/09/17 for altered mental status as well as multiple decubitus ulcers stage IV, UTI which she was transferred to the [facility] and during her admission she was consulted for psychosis and agitation which she was noted to be disoriented, confused and delirium was suspected at that time. Patient had further psychiatric follow-up while on the medical floor and noted to be calm and cooperative but still confused. She was reconsulted on 07/23/17 and was noted at that time to be disorganized, tangential, confabulating, alert and oriented only to person as well as noted to be paranoid internally stimulated along with visual hallucinations she was subsequently transferred to the inpatient psychiatry unit for further evaluation and management. Was found lying in hospital bed attending to eat breakfast, noted to be pouring water into her coffee stated that that her grandmother used to but but her to take away the bitterness of the coffee. Patient was noted to throw the whole packet of butter along with his plastic in her into the coffee. She is alert and oriented only to person stated [place] Patient reports that her job was not sure. Patient reports prior to her hospitalization she was a day courthouse with his with her mother and brother last evening prior to her admission stating also that she had experienced seeing a blackout. Patient noted to be disorganized during interview, denying any auditory or visual hallucinations but did report visual hallucinations of shadows. Patient states that she also feels that there is someone chasing her. The patient is a 52-year-old woman, domiciled at [facility], with history documented psychiatric history of depression, she is on Effexor 75 mg, medical history of alcoholic liver cirrhosis, COPD presents to the emergency department via med one from [facility] for evaluation of altered mental status. Patient was medically stabilized, now admitted to psychiatry due to psychotic and disorganized behavior and speech. She was consulted to me for second opinion. On psychiatric evaluation the patient reports feeling okay, she reports good mood. However, patient becomes disorganized, very circumstantial and making a lot of confabulations. Patient started laughing inappropriately talking about people that are not even present in the room. She is oriented using person, disoriented in time and place. Past Family Social History Coded Allergies: No Known Allergies (Unverified Allergy, Unknown, 07/09/17) Active Scripts Ertapenem Inj (Invanz Inj) 1 Gm Addvial, 1 GM IV Q24H for Infection for 20 Days , INJECTION 0 Refills ADMINISTER IN 100ML NS Prov:Wiliam Sebastian MD 07/24/17 Multivitamin with Folic Acid (Thera Tablet) 400 Mcg Tablet, 1 TAB PO DAILY for Alcohol Detox, #31 TAB Prov:Wiliam Sebastian MD 07/24/17 Thiamine HCl (Gnp Vitamin B-1) 100 Mg Tab, 100 MG PO DAILY for Alcohol Detox, # 31 TAB Prov:Wiliam Sebastian MD 07/24/17 Reported Medications Oxycodone (Oxycodone) 5 Mg Cap, 5 MG PO DAILY Y for PAIN, CAP 0 Refills 07/09/17 Alprazolam (Alprazolam) 0.25 Mg Tab, 0.25 MG PO Q8H, TAB 0 Refills 07/09/17 Lactulose Liq (Lactulose Liq) 10 Gm/15 Ml Soln, 45 ML PO TID, ML 0 Refills 07/09/17 Gabapentin (Gabapentin) 100 Mg Cap, 100 MG PO TID, #90 CAP 0 Refills 07/09/17 Ferrous Sulfate (Ferrous Sulfate) 325 Mg (65 Mg Iron) Tablet, 325 MG PO TIDPC for Nutritional Supplement, #90 TAB 0 Refills 07/09/17 [Calcium Tablet] No Conflict Check, 600 MG PO TD 07/09/17 Probiotic Product (Acidophilus) 175 Mg Cap, 1 UNIT PO TID 07/09/17 Rifaximin (Xifaxan) 550 Mg Tab, 550 MG PO Q12HR for Hepatic encephalopathy, #60 TAB 0 Refills 07/09/17 Ascorbic Acid (Vitamin C) 250 Mg Tab, 500 MG PO BID for Nutritional Supplement, TAB 0 Refills 07/09/17 Spironolactone (Spironolactone) 100 Mg Tab, 100 MG PO BID, #30 TAB 0 Refills 07/09/17 Furosemide (Furosemide) 40 Mg Tab, 40 MG PO BID, #60 TAB 0 Refills 07/09/17 Fluticasone Nasal [place] (Fluticasone Nasal [place]) 50 Mcg/Act Naspr, 50 MCG EACH NARE BID for Allergy Management, #1 BOTTLE 0 Refills 50 mcg/spray 07/09/17 Famotidine (Famotidine) 20 Mg Tab, 20 MG PO BID, #60 TAB 0 Refills 07/09/17 B-Complex Vitamins (Vitamin B-Complex) 1 Tab, PO DAILY 07/09/17 Sennosides (Senna-Tabs) 8.6 Mg Tab, 8.6 MG PO DAILY for Constipation, #30 TAB 0 Refills 07/09/17 Potassium Chloride ER (Potassium Chloride ER) 10 Meq Cap, 10 MEQ PO DAILY for Electrolyte Replacement, #30 CAP 0 Refills 07/09/17 Venlafaxine ER 24 HR (Effexor XR 24 HR) 75 Mg Cap, 75 MG PO DAILY, #30 CAP 0 Refills 07/09/17 Discontinued Reported Medications Amino Acids-Protein Hydrolysat (Pro-Stat Awc) 17 Gram-100 Kcal/30 Ml Liq, PO TID 07/09/17 Current Medications Medications (Trade) Dose Ordered Sig/Rudy Route Start Time Stop Time Status Last Admin (NS Flush) 2 ml UNSCH PRN IV FLUSH 07/24/17 20:45 (NS Flush) 2 ml BID IV FLUSH 07/24/17 21:00 07/25/17 10:05 (Narcan Inj) 0.4 mg UNSCH PRN IV PUSH 07/24/17 20:45 (Lovenox Inj) 40 mg Q24H SQ 07/25/17 09:00 07/25/17 10:04 (Pepcid) 20 mg BID PO 07/24/17 21:00 07/25/17 10:05 (Ferrous Sulfate) 325 mg TIDPC PO 07/25/17 09:30 07/25/17 10:04 (Flonase Norberto Spr) 2 spray BID EACH NARE 07/24/17 21:00 07/25/17 10:05 (Lasix) 40 mg BID PO 07/24/17 21:00 07/25/17 10:05 (Neurontin) 100 mg TID PO 07/25/17 09:00 07/25/17 10:04 (Lactulose Liq) 45 ml TID PO 07/25/17 09:00 07/25/17 10:03 (Theragran) 1 tab DAILY PO 07/25/17 09:00 07/25/17 10:04 (Roxicodone) 5 mg DAILY PRN PO 07/24/17 20:45 07/25/17 12:08 (KCl) 10 meq DAILY PO 07/25/17 09:00 07/25/17 10:05 (Xifaxan) 550 mg Q12HR PO 07/24/17 21:00 07/25/17 10:06 (Senokot) 8.6 mg DAILY PO 07/25/17 09:00 07/25/17 10:06 (Aldactone) 100 mg BID PO 07/24/17 21:00 07/25/17 10:05 (Vitamin B1) 100 mg DAILY PO 07/25/17 09:00 07/25/17 10:04 (Effexor Xr) 75 mg DAILY PO 07/25/17 09:00 07/25/17 10:05 (Vitamin C) 500 mg BID PO 07/25/17 09:00 07/25/17 10:06 (Lactinex) 1 tab TID PO 07/25/17 09:00 07/25/17 10:04 (Xanax) 0.25 mg Q8H PRN PO 07/25/17 04:45 Ertapenem 1000 mg/ Sodium Chloride 100 ml @ 200 mls/hr Q24H IV 07/24/17 23:00 07/25/17 02:00 (Invega Er) 6 mg DAILY PO 07/26/17 09:00 Patient's Strengths (min. 2) Verbal and communicative Physical Exam Vital Signs Vital Signs Date Time Temp Pulse Resp B/P (MAP) Pulse Ox O2 Delivery O2 Flow Rate FiO2 07/25/17 06:19 97.9 91 16 120/61 (80) 100 I/O 07/25/17 07/25/17 07/26/17 08:00 16:00 00:00 Intake Total 240 ml Balance 240 ml Lab Results Test 07/25/17 08:00 White Blood Count 8.1 TH/MM3 Red Blood Count 2.82 MIL/MM3 Hemoglobin 9.7 GM/DL Hematocrit 27.6 % Mean Corpuscular Volume 97.9 FL Mean Corpuscular Hemoglobin 34.3 PG Mean Corpuscular Hemoglobin Concent 35.0 % Red Cell Distribution Width 15.6 % Platelet Count 130 TH/MM3 Mean Platelet Volume 8.3 FL Neutrophils (%) (Auto) 52.4 % Lymphocytes (%) (Auto) 36.1 % Monocytes (%) (Auto) 10.6 % Eosinophils (%) (Auto) 0.7 % Basophils (%) (Auto) 0.2 % Neutrophils # (Auto) 4.2 TH/MM3 Lymphocytes # (Auto) 2.9 TH/MM3 Monocytes # (Auto) 0.9 TH/MM3 Eosinophils # (Auto) 0.1 TH/MM3 Basophils # (Auto) 0.0 TH/MM3 CBC Comment DIFF FINAL Differential Comment Blood Urea Nitrogen 7 MG/DL Creatinine 0.68 MG/DL Random Glucose 83 MG/DL Calcium Level 7.5 MG/DL Sodium Level 134 MEQ/L Potassium Level 3.7 MEQ/L Chloride Level 100 MEQ/L Carbon Dioxide Level 26.6 MEQ/L Anion Gap 7 MEQ/L Estimat Glomerular Filtration Rate 91 ML/MIN Mental Status Examination Appearance: Appropriate Consciousness: Alert Orientation: Person Speech: Unremarkable Language: Adequate Fund of Knowledge: Inadequate Attention and Concentration: Inadequate Memory: Impaired Mood: Other Affect: Blunt Thought Process & Associations: Disorganized Thought Content: Hallucinations, Delusional Hallucination Type: Visual Delusion Type: Paranoid Suicidal Ideation: No Suicidal Plan: No Suicidal Intention: No Homicidal Ideation: No Homicidal Plan: No Homicidal Intention: No Insight: Poor Judgment: Poor Assessment & Plan Problem List: (1) Unspecified psychosis ICD Codes: F29 - Unspecified psychosis not due to a substance or known physiological condition Assessment & Plan: I have seen and examined this patient, reviewed the documentation, discuss the patient with Dr. Buenrostro, and I agree and concur with this assessment and plan. Assessment & Plan Estimated LOS: Kelton Barney MD Jul 25, 2017 13:37
[2017-07-25 18:34] VITALS: BP 105/57; PULSE 99; RESP 16; TEMP 97.4; O2SAT 99
[2017-07-25] MEDS: ALPRAZolam 0.25 MG TAB PO PRN (21:11)
[2017-07-26 06:04] VITALS: BP 133/63; PULSE 109; RESP 16; TEMP 98.9; O2SAT 95
[2017-07-26] MEDS: POTASSIUM CHLORIDE 10 MEQ CAP PO SCH (08:16)
[2017-07-26] MEDS: MULTIVITAMIN TAB PO SCH (08:16)
[2017-07-26] MEDS: FUROSEMIDE 40 MG TAB PO SCH ×2 (08:16→20:53)
[2017-07-26] MEDS: FERROUS SULFATE 325 MG (65 MG ELEMENTAL IRON) TAB PO SCH ×3 (08:16→17:00)
[2017-07-26] MEDS: ASCORBIC ACID 500 MG TAB PO SCH ×2 (08:17→20:53)
[2017-07-26] MEDS: SENNOSIDES 8.6 MG TAB PO SCH (08:18)
[2017-07-26] MEDS: SPIRONOLACTONE 100 MG TAB PO SCH ×2 (08:18→20:53)
[2017-07-26] MEDS: THIAMINE HCL 100 MG TAB PO SCH (08:18)
[2017-07-26] MEDS: GABAPENTIN 100 MG CAP PO SCH ×3 (08:18→17:00)
[2017-07-26] MEDS: LACTOBACILLUS ACIDOPHILUS TAB PO SCH ×3 (08:18→17:00)
[2017-07-26] MEDS: PALIPERIDONE ER 3 MG TAB PO SCH (08:19)
[2017-07-26] MEDS: RIFAXIMIN 550 MG TAB PO SCH ×2 (08:19→20:53)
[2017-07-26] MEDS: FLUTICASONE PROPIONATE 50 MCG/ACT 16 GM NASAL SPRAY EACH NARE SCH ×2 (08:20→20:53)
[2017-07-26] MEDS: LACTULOSE SYRUP 20 GM/30 ML CUP PO SCH ×3 (08:20→17:00)
[2017-07-26] MEDS: VENLAFAXINE HCL XR 75 MG CAP PO SCH (08:20)
[2017-07-26] MEDS: FAMOTIDINE 20 MG TAB PO SCH ×2 (08:22→20:53)
[2017-07-26] MEDS: ENOXAPARIN SODIUM 40 MG/0.4 ML SYRINGE SQ SCH (08:22)
[2017-07-26] MEDS: ALPRAZolam 0.25 MG TAB PO PRN ×2 (08:30→17:00)
[2017-07-26] MEDS: SODIUM CHLORIDE 0.9% FLUSH 10 ML FLUSH IV FLUSH SCH ×2 (09:00→20:54)
--- NOTE | 2017-07-26 11:22 | HHI.PYPN ---
Subjective Remarks Patient seen for follow-up, chart review. Patient was found lying in hospital bed attempted to set up to have breakfast. Patient states that she recently saw her children earlier today and based at this time that she is at her home. She states that her children have spoken to her. Patient also endorsing some delusions that there is witchcraft being done to her by a woman that she met at the [employer]. Patient continues to be noticed to be somewhat confused believing that her birthday was yesterday. Patient states that she is feeling sad and anxious being here in the hospital. Patient denies any visual visual or auditory hallucinations at time of interview. Patient alert and oriented only to person at this time. She states that she had been having auditory hallucinations of her grandfather telling her positive things about a month ago but not recently. Mental Status Examination Appearance: Appropriate Consciousness: Alert Orientation: Person Speech: Unremarkable Language: Adequate Fund of Knowledge: Inadequate Attention and Concentration: Inadequate Memory: Impaired Mood: Other ("sad and anxious") Affect: Blunt Thought Process & Associations: Loose associations, Disorganized Thought Content: Hallucinations, Delusional Hallucination Type: Auditory (of her children), Visual (of her children) Delusion Type: Bizarre (witchcraft against her), Paranoid Suicidal Ideation: No Suicidal Plan: No Suicidal Intention: No Homicidal Ideation: No Homicidal Plan: No Homicidal Intention: No Insight: Poor Judgment: Poor Results Vitals/IOs Vital Signs Date Time Temp Pulse Resp B/P (MAP) Pulse Ox O2 Delivery O2 Flow Rate FiO2 07/26/17 06:04 98.9 109 16 133/63 (86) 95 Intake and Output 07/26/17 07/26/17 07/27/17 08:00 16:00 00:00 Intake Total 480 ml 360 ml Output Total 1 ml Balance 479 ml 360 ml Assessment & Plan Problem List: (1) Unspecified psychosis ICD Codes: F29 - Unspecified psychosis not due to a substance or known physiological condition Assessment & Plan Patient continues to have visual hallucinations as well as auditory hallucinations of her children having been in her room as well as noted to have some bizarre delusions of someone doing witchcraft against her. Patient will start paliperidone 6 g by mouth daily for psychosis. Patient continued to continue recommendations as per primary medical team. Due to patient's fluctuation of orientation and cognition delirium continues to be a likely possibility due to her current medical issues. Collateral information pending. Discharge planning in progress Justification for Cont. Inpt. At risk for further decompensation if at lower level of care Perez Buenrostro MD Jul 26, 2017 11:22
--- NOTE | 2017-07-26 15:19 | PD.WCN.NOT ---
Wound Consult Description: Sacral Wound Communicated with: Socorro MCCOY 4th floor Additional Information: Patient seen today by typewriter assembly and parts inspector and Sacha MCCOY,[facility] for Wound Vac change.Patient was assisted with shower prior to Writers arrival sponge removed .Sacral wound presents beefy red tissue no necrosis noted.Wound edges even non- hyperkeratotic.Wound cleansed with normal saline pat dry skin prep to periwound drape applied to periwound bridge to left anterior hip.Sponge lightly packed in wound making contact with base.Vac applied at continuous low suction 125 MMHG with no leaks noted. Patient was pleasant with no complaint of discomfort. Next Wound Vac change to be performed Sunday 07/29 Neg Pressure Wound Therapy Wound Location Wound Location: Sacrum Wound Description Periwound appearance: Unremarkable Settings Suction: 125 mmHg, Continuous Intensity: Low Other Information: Bridged, Windowpaned, Mushroomed Foam type: Black Number of pieces: 1 Additonal Information Vac to be change Sunday 07/29 Jacquelin Seals [facility] Jul 26, 2017 15:19
[2017-07-26 18:37] VITALS: BP 110/57; PULSE 105; RESP 16; TEMP 99.2; O2SAT 99
[2017-07-26] MEDS: ERTAPENEM INJ 1,000 MG in SODIUM CHLORIDE 0.9% INJ 100 ML IV SCH (21:51)
[2017-07-27] MEDS: ALPRAZolam 0.25 MG TAB PO PRN ×2 (03:19→20:33)
[2017-07-27 06:25] VITALS: BP 105/52; PULSE 112; RESP 17; TEMP 98.3; O2SAT 98
[2017-07-27] MEDS: FLUTICASONE PROPIONATE 50 MCG/ACT 16 GM NASAL SPRAY EACH NARE SCH ×2 (09:00→20:30)
[2017-07-27] MEDS: SENNOSIDES 8.6 MG TAB PO SCH (09:00)
[2017-07-27] MEDS: SODIUM CHLORIDE 0.9% FLUSH 10 ML FLUSH IV FLUSH SCH ×2 (09:00→20:32)
--- NOTE | 2017-07-27 09:07 | HHI.PYPN ---
Subjective Remarks Patient seen for follow-up, chart review. His Protestant patient staff reported the patient is alert but also noted be confused and believes that she is in her home at times. Patient found sitting in hospital bed eating breakfast stated that she is feeling "strange, not myself". Patient states that she has "0 memory". Patient is alert and oriented only to person but not to time. Patient states that she is not sure how she slept last evening but then later during interview noted to be somewhat confused about events stating that she had someone bring in a wheelchair to her "to the [place] thing". Patient denies any perceptual disturbances recently. Review of Systems Except as stated in HPI: all other systems reviewed are Neg Mental Status Examination Appearance: Appropriate Consciousness: Alert Orientation: Person Speech: Unremarkable Language: Adequate Fund of Knowledge: Inadequate Attention and Concentration: Inadequate Memory: Impaired Mood: Other ("not myself") Affect: Blunt Thought Process & Associations: Loose associations, Disorganized Thought Content: Hallucinations, Delusional Hallucination Type: Auditory (denies today), Visual (denies today) Delusion Type: Bizarre (witchcraft against her), Paranoid Suicidal Ideation: No Suicidal Plan: No Suicidal Intention: No Homicidal Ideation: No Homicidal Plan: No Homicidal Intention: No Insight: Poor Judgment: Poor Results Vitals/IOs Vital Signs Date Time Temp Pulse Resp B/P (MAP) Pulse Ox O2 Delivery O2 Flow Rate FiO2 07/27/17 06:25 98.3 112 17 105/52 (69) 98 Intake and Output 07/27/17 07/27/17 07/27/17 07:59 15:59 23:59 Intake Total 240 ml Balance 240 ml Assessment & Plan Problem List: (1) Unspecified psychosis ICD Codes: F29 - Unspecified psychosis not due to a substance or known physiological condition Assessment & Plan Patient continues to have fluctuation of hallucinations and paranoia as patient was endorsing bee stings yesterday but denies today. Due to patient's history of prior psychiatric history, and current multiple medical illnesses, delirium continues to be considered a differential as well as a degree of neurocognitive deficits which will continue to be explored at this time. Continue current treatment regimen, continue recommendations as per primary medical team. Discharge planning in progress Justification for Cont. Inpt. At risk for further decompensation if at lower level of care Perez Buenrostro MD Jul 27, 2017 09:07
[2017-07-27] MEDS: LACTULOSE SYRUP 20 GM/30 ML CUP PO SCH ×3 (09:29→18:00)
[2017-07-27] MEDS: VENLAFAXINE HCL XR 75 MG CAP PO SCH (09:29)
[2017-07-27] MEDS: RIFAXIMIN 550 MG TAB PO SCH ×2 (09:29→20:32)
[2017-07-27] MEDS: GABAPENTIN 100 MG CAP PO SCH ×3 (09:29→18:00)
[2017-07-27] MEDS: FAMOTIDINE 20 MG TAB PO SCH ×2 (09:29→20:32)
[2017-07-27] MEDS: SPIRONOLACTONE 100 MG TAB PO SCH ×2 (09:29→20:32)
[2017-07-27] MEDS: LACTOBACILLUS ACIDOPHILUS TAB PO SCH ×3 (09:29→18:00)
[2017-07-27] MEDS: THIAMINE HCL 100 MG TAB PO SCH (09:29)
[2017-07-27] MEDS: ASCORBIC ACID 500 MG TAB PO SCH ×2 (09:30→20:32)
[2017-07-27] MEDS: PALIPERIDONE ER 3 MG TAB PO SCH (09:30)
[2017-07-27] MEDS: MULTIVITAMIN TAB PO SCH (09:30)
[2017-07-27] MEDS: FUROSEMIDE 40 MG TAB PO SCH ×2 (09:30→20:33)
[2017-07-27] MEDS: ENOXAPARIN SODIUM 40 MG/0.4 ML SYRINGE SQ SCH (09:31)
[2017-07-27] MEDS: POTASSIUM CHLORIDE 10 MEQ CAP PO SCH (09:31)
[2017-07-27] MEDS: FERROUS SULFATE 325 MG (65 MG ELEMENTAL IRON) TAB PO SCH ×3 (09:32→18:05)
[2017-07-27 20:00] VITALS: BP 106/58; PULSE 107; RESP 18; TEMP 98.8; O2SAT 97
[2017-07-27] MEDS: ERTAPENEM INJ 1,000 MG in SODIUM CHLORIDE 0.9% INJ 100 ML IV SCH (22:44)
[2017-07-28 05:43] VITALS: BP 98/70; PULSE 102; RESP 17; TEMP 99.1; O2SAT 92
[2017-07-28] MEDS: ALPRAZolam 0.25 MG TAB PO PRN ×2 (05:48→20:57)
--- NOTE | 2017-07-28 08:17 | HHI.PYPN ---
Subjective Remarks Patient seen for follow-up, chart reviewed. Discussion she staff reported the patient at times continue to be confused state stated that she is at home but pleasant and cooperative compliant with medications. Patient found lying in hospital bed, cooperative stated she is feeling "okay", reports that she does not sleep that well last night and she has pain in her left arm but noted to be with good range of motion no swelling or redness noted upon inspection. Patient states she is eating and drinking okay and her mood has been "back and forth". Patient denies having auditory or visual hallucinations at this time. Patient alert and oriented only to person and place but not date. Patient states that she would like to be able to wash her hair as well as to color her hair. Review of Systems Except as stated in HPI: all other systems reviewed are Neg Mental Status Examination Appearance: Appropriate Consciousness: Alert Orientation: Person Speech: Unremarkable Language: Adequate Fund of Knowledge: Inadequate Attention and Concentration: Inadequate Memory: Impaired Mood: Other ("back and forth") Affect: Blunt Thought Process & Associations: Loose associations Thought Content: Delusional Hallucination Type: Auditory (denies today), Visual (denies today) Delusion Type: Paranoid Suicidal Ideation: No Suicidal Plan: No Suicidal Intention: No Homicidal Ideation: No Homicidal Plan: No Homicidal Intention: No Insight: Poor Judgment: Poor Results Vitals/IOs Vital Signs Date Time Temp Pulse Resp B/P (MAP) Pulse Ox O2 Delivery O2 Flow Rate FiO2 07/28/17 05:43 99.1 102 17 98/70 (79) 92 Intake and Output 07/28/17 07/28/17 07/29/17 08:00 16:00 00:00 Intake Total 120 ml Balance 120 ml Assessment & Plan Problem List: (1) Unspecified psychosis ICD Codes: F29 - Unspecified psychosis not due to a substance or known physiological condition Assessment & Plan Patient currently with ongoing medical issues which she is being followed by medical team and has been noted to have fluctuation in orientation but denies any perceptual disturbances at this time. We'll continue current treatment. Will requests hospitalist to follow with patient for continue recommendations. Discharge planning in progress Justification for Cont. Inpt. At risk for further decompensation if at lower level of care Discharge Planning Patient to discharge back to residential facility once psychiatrically stable Perez Buenrostro MD Jul 28, 2017 08:17
[2017-07-28] MEDS: SODIUM CHLORIDE 0.9% FLUSH 10 ML FLUSH IV FLUSH SCH ×2 (09:00→20:48)
[2017-07-28] MEDS: LACTOBACILLUS ACIDOPHILUS TAB PO SCH ×3 (09:00→18:00)
[2017-07-28] MEDS: FUROSEMIDE 40 MG TAB PO SCH ×2 (09:00→20:47)
[2017-07-28] MEDS: ENOXAPARIN SODIUM 40 MG/0.4 ML SYRINGE SQ SCH (09:00)
[2017-07-28] MEDS: SENNOSIDES 8.6 MG TAB PO SCH (09:00)
[2017-07-28] MEDS: PALIPERIDONE ER 3 MG TAB PO SCH ×2 (09:00→10:19)
[2017-07-28 09:06] LABS: AUTOMATED NEUTROPHIL # 3.9 TH/MM3 (1.8-7.7); BASOPHIL % 0.4 % (0.0-2.0); EOSINOPHIL # 0.1 TH/MM3 (0-0.4); EOSINOPHIL % 1.2 % (0.0-4.0); HEMATOCRIT 27.8 % (35.0-46.0); HEMO FLAGS DIFF FINAL; LYMPH % 29.4 % (9.0-44.0); LYMPHOCYTE # 1.8 TH/MM3 (1.0-4.8); MEAN CELL VOLUME 99.7 FL (80.0-100.0); MEAN CORPUSCULAR HEMOGLOBIN 34.7 PG (27.0-34.0); MEAN CORPUSCULAR HGB CONC 34.8 % (32.0-36.0); MONO % 4.8 % (0.0-8.0); NEUT % 64.2 % (16.0-70.0); PLATELET COUNT 135 TH/MM3 (150-450); RED BLOOD COUNT 2.79 MIL/MM3 (4.00-5.30); RED CELL DISTRIBUTION WIDTH 16.3 % (11.6-17.2)
[2017-07-28 09:38] LABS: BICARBONATE 24.1 MEQ/L (21.0-32.0); POTASSIUM 3.4 MEQ/L (3.5-5.1)
[2017-07-28 09:42] LABS: INDIRECT BILIRUBIN 0.2 MG/DL (0.0-0.8); TOTAL BILIRUBIN ADULT 0.7 MG/DL (0.2-1.0)
[2017-07-28] MEDS: FLUTICASONE PROPIONATE 50 MCG/ACT 16 GM NASAL SPRAY EACH NARE SCH ×2 (10:17→20:47)
[2017-07-28] MEDS: POTASSIUM CHLORIDE 10 MEQ CAP PO SCH (10:19)
[2017-07-28] MEDS: SPIRONOLACTONE 100 MG TAB PO SCH ×2 (10:20→20:47)
[2017-07-28] MEDS: THIAMINE HCL 100 MG TAB PO SCH (10:20)
[2017-07-28] MEDS: LACTULOSE SYRUP 20 GM/30 ML CUP PO SCH ×3 (10:20→18:00)
[2017-07-28] MEDS: FERROUS SULFATE 325 MG (65 MG ELEMENTAL IRON) TAB PO SCH ×3 (10:30→18:15)
[2017-07-28] MEDS: GABAPENTIN 100 MG CAP PO SCH ×3 (10:30→18:00)
[2017-07-28] MEDS: RIFAXIMIN 550 MG TAB PO SCH ×2 (10:30→20:57)
[2017-07-28] MEDS: MULTIVITAMIN TAB PO SCH (10:30)
[2017-07-28] MEDS: VENLAFAXINE HCL XR 75 MG CAP PO SCH (10:30)
[2017-07-28] MEDS: ASCORBIC ACID 500 MG TAB PO SCH ×2 (10:31→20:47)
[2017-07-28] MEDS: FAMOTIDINE 20 MG TAB PO SCH ×2 (10:31→20:56)
[2017-07-28 18:47] VITALS: BP 98/70; PULSE 102; RESP 17; TEMP 99.1; O2SAT 92
--- NOTE | 2017-07-28 22:43 | PD.CONS ---
HPI Service [facility] Hospitalists Consult Requested By Primary Care Physician Unknown Diagnoses: History of Present Illness 62-year-old female with a history of alcoholic cirrhosis, hepatic encephalopathy , COPD, stage IV sacral decubitus ulcer with ESBL Escherichia coli, Proteus, Enterobacter, staph aureus on ertapenem, who is evaluated in inpatient medical psychiatry unit. Patient reports chronic back pain without recent worsening. Denies any chest pain or shortness of breath. She refuses to answer orientation questions. She endorses chronic generalized fatigue. Review of Systems Except as stated in HPI: all other systems reviewed are Neg Past Family Social History Allergies: Coded Allergies: No Known Allergies (Unverified Allergy, Unknown, 07/09/17) Past Medical History Liver cirrhosis Hepatic encephalopathy UTIs COPD Past Surgical History Bariatric surgery Hernia repair Active Ordered Medications Current Medications Medications (Trade) Dose Ordered Sig/Rudy Route Start Time Stop Time Status Last Admin (NS Flush) 2 ml UNSCH PRN IV FLUSH 07/24/17 20:45 (NS Flush) 2 ml BID IV FLUSH 07/24/17 21:00 07/28/17 20:48 (Narcan Inj) 0.4 mg UNSCH PRN IV PUSH 07/24/17 20:45 (Lovenox Inj) 40 mg Q24H SQ 07/25/17 09:00 07/28/17 09:00 (Pepcid) 20 mg BID PO 07/24/17 21:00 07/28/17 20:56 (Ferrous Sulfate) 325 mg TIDPC PO 07/25/17 09:30 07/28/17 18:15 (Flonase Norberto Spr) 2 spray BID EACH NARE 07/24/17 21:00 07/28/17 10:17 (Lasix) 40 mg BID PO 07/24/17 21:00 07/28/17 20:47 (Neurontin) 100 mg TID PO 07/25/17 09:00 07/28/17 18:00 (Lactulose Liq) 45 ml TID PO 07/25/17 09:00 07/28/17 18:00 (Theragran) 1 tab DAILY PO 07/25/17 09:00 07/28/17 10:30 (Roxicodone) 5 mg DAILY PRN PO 07/24/17 20:45 07/28/17 10:30 (KCl) 10 meq DAILY PO 07/25/17 09:00 07/28/17 10:19 (Xifaxan) 550 mg Q12HR PO 07/24/17 21:00 07/28/17 20:57 (Senokot) 8.6 mg DAILY PO 07/25/17 09:00 07/28/17 09:00 (Aldactone) 100 mg BID PO 07/24/17 21:00 07/28/17 20:47 (Vitamin B1) 100 mg DAILY PO 07/25/17 09:00 07/28/17 10:20 (Effexor Xr) 75 mg DAILY PO 07/25/17 09:00 07/28/17 10:30 (Vitamin C) 500 mg BID PO 07/25/17 09:00 07/28/17 20:47 (Lactinex) 1 tab TID PO 07/25/17 09:00 07/28/17 18:00 (Xanax) 0.25 mg Q8H PRN PO 07/25/17 04:45 07/28/17 20:57 Ertapenem 1000 mg/ Sodium Chloride 100 ml @ 200 mls/hr Q24H IV 07/24/17 23:00 07/27/17 22:44 (Invega Er) 6 mg DAILY PO 07/26/17 09:00 07/27/17 09:30 Family History Father with colon cancer at age 52. Social History History of heavy alcohol use. Patient says she has quit alcohol. Denies tobacco or illicit drug use. Physical Exam Vital Signs Vital Signs Date Time Temp Pulse Resp B/P (MAP) Pulse Ox O2 Delivery O2 Flow Rate FiO2 07/28/17 18:47 99.1 102 17 98/70 (79) 92 07/28/17 05:43 99.1 102 17 98/70 (79) 92 Physical Exam GENERAL: This is a well-nourished, well-developed patient, in no apparent distress. disoriented and confabulating. SKIN: No rashes, ecchymoses or lesions. Cool and dry. HEAD: Atraumatic. Normocephalic. No temporal or scalp tenderness. EYES: Pupils equal round and reactive. Extraocular motions intact. No scleral icterus. No injection or drainage. ENT: Nose without bleeding, purulent drainage or septal hematoma. Throat without erythema, tonsillar hypertrophy or exudate. Uvula midline. Airway patent. NECK: Trachea midline. No JVD or lymphadenopathy. Supple, nontender, no meningeal signs. CARDIOVASCULAR: Regular rate and rhythm without murmurs, gallops, or rubs. RESPIRATORY: Clear to auscultation. Breath sounds equal bilaterally. No wheezes , rales, or rhonchi. GASTROINTESTINAL: Abdomen soft, non-tender, nondistended. No hepato-splenomegaly , or palpable masses. No guarding. MUSCULOSKELETAL: Extremities without clubbing, cyanosis.No joint tenderness, effusion. No calf tenderness. Negative Homans sign bilaterally.trace peripheral edema. NEUROLOGICAL: Awake and alert. Cranial nerves II through XII intact. Motor and sensory grossly within normal limits. 4 out of 5 muscle strength in all muscle groups. Normal speech. Laboratory Laboratory Tests Test 07/28/17 08:50 White Blood Count 6.0 Red Blood Count 2.79 Hemoglobin 9.7 Hematocrit 27.8 Mean Corpuscular Volume 99.7 Mean Corpuscular Hemoglobin 34.7 Mean Corpuscular Hemoglobin Concent 34.8 Red Cell Distribution Width 16.3 Platelet Count 135 Mean Platelet Volume 8.2 Neutrophils (%) (Auto) 64.2 Lymphocytes (%) (Auto) 29.4 Monocytes (%) (Auto) 4.8 Eosinophils (%) (Auto) 1.2 Basophils (%) (Auto) 0.4 Neutrophils # (Auto) 3.9 Lymphocytes # (Auto) 1.8 Monocytes # (Auto) 0.3 Eosinophils # (Auto) 0.1 Basophils # (Auto) 0.0 CBC Comment DIFF FINAL Differential Comment Blood Urea Nitrogen 10 Creatinine 0.83 Random Glucose 147 Total Protein 6.7 Albumin 1.6 Calcium Level 7.5 Alkaline Phosphatase 114 Aspartate Amino Transf (AST/SGOT) 31 Alanine Aminotransferase (ALT/SGPT) 10 Total Bilirubin 0.7 Direct Bilirubin 0.5 Sodium Level 134 Potassium Level 3.4 Chloride Level 101 Carbon Dioxide Level 24.1 Anion Gap 9 Estimat Glomerular Filtration Rate 72 Magnesium Level 2.1 Indirect Bilirubin 0.2 Ammonia 66 25-Hydroxy Vitamin D Total 11.8 Result Diagram: 07/28/1750 07/28/1750 Assessment and Plan Assessment and Plan //Hepatic encephalopathy. //Alcoholic cirrhosis -Continue lactulose and rifaximin. Continue diuretics. //Sacral decubitus ulcer. -Continue ertapenem 4 weeks as per infectious disease. Continue wound VAC as per wound care. Apparently with good granulation tissue. Appreciate assistance. //Episodes of hypoglycemia. -On previous admission, patient had hyperglycemia, likely secondary to liver disease. Discussed with psychiatry nurse on 07/28. Patient will not need glucose checked unless she misses a meal, is NPO, or has nausea or vomiting, in which case she should have glucose checked on a regular basis.. //History of hypercalcemia This corrects to normal with albumin is taken into account. //Hypovitaminosis D. Low vitamin D. 11.8 Start replacement. Discussed Condition With patient, nurse. Willy Sparks MD Jul 28, 2017 22:43
[2017-07-28] MEDS: ERTAPENEM INJ 1,000 MG in SODIUM CHLORIDE 0.9% INJ 100 ML IV SCH (23:07)
[2017-07-29 06:02] VITALS: BP 101/53; PULSE 100; RESP 16; TEMP 98.6; O2SAT 96
[2017-07-29] MEDS: SPIRONOLACTONE 100 MG TAB PO SCH ×2 (09:00→20:51)
[2017-07-29] MEDS: FLUTICASONE PROPIONATE 50 MCG/ACT 16 GM NASAL SPRAY EACH NARE SCH ×2 (09:00→20:51)
[2017-07-29] MEDS: FUROSEMIDE 40 MG TAB PO SCH ×2 (09:00→21:00)
[2017-07-29] MEDS: SODIUM CHLORIDE 0.9% FLUSH 10 ML FLUSH IV FLUSH SCH ×2 (09:00→20:51)
[2017-07-29] MEDS: CHOLECALCIFEROL (VIT D3) 5000 UNIT CAP PO SCH (09:00)
[2017-07-29] MEDS: SENNOSIDES 8.6 MG TAB PO SCH (09:00)
[2017-07-29] MEDS ORDERED: POTASSIUM CHLORIDE 10 MEQ CONTROLLED RELEASE TAB PO ONE (09:00)
[2017-07-29] MEDS: FERROUS SULFATE 325 MG (65 MG ELEMENTAL IRON) TAB PO SCH ×3 (09:24→18:29)
[2017-07-29] MEDS: LACTOBACILLUS ACIDOPHILUS TAB PO SCH ×3 (09:24→18:00)
[2017-07-29] MEDS: ENOXAPARIN SODIUM 40 MG/0.4 ML SYRINGE SQ SCH (09:24)
[2017-07-29] MEDS: ASCORBIC ACID 500 MG TAB PO SCH ×2 (09:24→20:51)
[2017-07-29] MEDS: GABAPENTIN 100 MG CAP PO SCH ×3 (09:24→18:00)
[2017-07-29] MEDS: LACTULOSE SYRUP 20 GM/30 ML CUP PO SCH ×3 (09:25→18:00)
[2017-07-29] MEDS: ALPRAZolam 0.25 MG TAB PO PRN ×3 (09:25→20:51)
[2017-07-29] MEDS: MULTIVITAMIN TAB PO SCH (09:25)
[2017-07-29] MEDS: THIAMINE HCL 100 MG TAB PO SCH (09:25)
[2017-07-29] MEDS: VENLAFAXINE HCL XR 75 MG CAP PO SCH (09:25)
[2017-07-29] MEDS: FAMOTIDINE 20 MG TAB PO SCH ×2 (09:26→20:51)
[2017-07-29] MEDS: RIFAXIMIN 550 MG TAB PO SCH ×2 (09:26→20:51)
[2017-07-29] MEDS: PALIPERIDONE ER 3 MG TAB PO SCH (09:26)
[2017-07-29] MEDS: POTASSIUM CHLORIDE 10 MEQ CAP PO SCH (09:26)
--- NOTE | 2017-07-29 13:35 | HHI.PR ---
Subjective Remarks Patient says she is feeling all right today. Denies any chest. Shortness of breath. Denies any nausea or vomiting. Objective Vital Signs Date Time Temp Pulse Resp B/P (MAP) Pulse Ox O2 Delivery O2 Flow Rate FiO2 07/29/17 06:02 98.6 100 16 101/53 (69) 96 07/28/17 18:47 99.1 102 17 98/70 (79) 92 I/O 07/28/17 07/28/17 07/28/17 07/29/17 07/29/17 07/29/17 07:00 15:00 23:00 07:00 15:00 23:00 Intake Total 120 ml 720 ml 1680 ml 1680 ml 720 ml Balance 120 ml 720 ml 1680 ml 1680 ml 720 ml Intake Oral 120 ml 720 ml 1680 ml 1680 ml 720 ml # Voids 3 5 6 # Bowel Movements 4 Result Diagram: 07/28/17 0850 07/28/17 0850 Objective Remarks GENERAL: Patient sitting up in bed. Appears comfortable. SKIN: Warm and dry. HEAD: Normocephalic. EYES: No scleral icterus. No injection or drainage. NECK: Supple, trachea midline. No JVD or lymphadenopathy. CARDIOVASCULAR: Regular rate and rhythm without murmurs, gallops, or rubs. RESPIRATORY: Breath sounds equal bilaterally. No accessory muscle use. GASTROINTESTINAL: Abdomen soft, non-tender, nondistended. MUSCULOSKELETAL: No cyanosis, or edema. Sacral ulcer with wound VAC in place. Serosanguineous fluid. BACK: Nontender without obvious deformity. No CVA tenderness. A/P Assessment and Plan //Hepatic encephalopathy. //Alcoholic cirrhosis -Most recent ammonia level LXVI. Acceptable. -Continue lactulose and rifaximin. Continue diuretics. //Sacral decubitus ulcer. //With probable underlying osteomyelitis. -Continue ertapenem 4 weeks as per infectious disease. Continue wound VAC as per wound care. Apparently with good granulation tissue. Appreciate assistance. -Stop date for antibiotics August 07. //Episodes of hypoglycemia. -On previous admission, patient had hyperglycemia, likely secondary to liver disease. Discussed with psychiatry nurse on 07/28. Patient will not need glucose checked unless she misses a meal, is NPO, or has nausea or vomiting, in which case she should have glucose checked on a regular basis.. //History of hypercalcemia This corrects to normal with albumin is taken into account. //Hypovitaminosis D. Low vitamin D. 11.8 continue on replacement. Discharge Planning Patient continues with wound VAC, IV antibiotics with ertapenem to complete . We will continue to follow. Willy Sparks MD Jul 29, 2017 13:35
--- NOTE | 2017-07-29 17:05 | PD.WCN.NOT ---
Wound Consult Description: Sacrum Communicated with: Gumaro MCCOY 4th floor Recommendation: Hold Wound VAC due to loose stool and fungal rash to periwound. Apply half strength or 0.25% Dakin's solution to gauze loosely pack in wound cover with dry dressing BID x 2 days . Then reduce Dakin's solution to 0.125% strength..Apply Dakin's wet to dry BID.apply antifungal cream to periwound BID. Additional Information: Patient was seen today by health science writer and Sacha MCCOY,[facility]. Gumaro MCCOY 4th floor present .Wound Vac removed due to increase stool, and fungal rash to periwound .Black sponge had stool present. Orders in place to put Wound vac on hold apply wet to dry dressing. Jacquelin Seals [facility] Jul 29, 2017 17:05
[2017-07-29 18:00] VITALS: BP 115/58; PULSE 100; RESP 18; TEMP 98; O2SAT 100
--- NOTE | 2017-07-29 20:26 | HHI.PYPN ---
Subjective Remarks Patient seen for follow up; chart reviewed. Discussion with nursing staff reported that the patient continues to be pleasantly confused. Patient found lying on hospital bed, calm and cooperative. She states that she had seen some "babies yesterday" and states that they come to visit three times a week. She also states seeing someone she used to work with in the hallway. She also reports believing it is Yolanda. She is alert and oriented to person and place only. Patient also states that she was living at home prior to coming to the hospital. Review of Systems Except as stated in HPI: all other systems reviewed are Neg Mental Status Examination Appearance: Appropriate Consciousness: Alert Orientation: Person Speech: Unremarkable Language: Adequate Fund of Knowledge: Inadequate Attention and Concentration: Inadequate Memory: Impaired Mood: Other ("Ok") Affect: Appropriate Thought Process & Associations: Loose associations Thought Content: Delusional Hallucination Type: Visual (denies today) Delusion Type: None Suicidal Ideation: No Suicidal Plan: No Suicidal Intention: No Homicidal Ideation: No Homicidal Plan: No Homicidal Intention: No Insight: Poor Judgment: Poor Results Vitals/IOs Vital Signs Date Time Temp Pulse Resp B/P (MAP) Pulse Ox O2 Delivery O2 Flow Rate FiO2 07/29/17 18:00 98.0 100 18 115/58 (77) 100 Intake and Output 07/29/17 07/29/17 07/30/17 08:00 16:00 00:00 Intake Total 1320 ml 1080 ml 360 ml Output Total 5 ml Balance 1320 ml 1075 ml 360 ml Assessment & Plan Problem List: (1) Unspecified psychosis ICD Codes: F29 - Unspecified psychosis not due to a substance or known physiological condition Assessment & Plan Patient continues to have fluctuation of orientation and visual hallucinations despite having acceptable ammonia levels as per primary medical team. Patient with previous history of depression only with no prior history of psychosis nor psychiatric hospitalization. Given patient's multiple medical issues, patient likely with persistent hepatic encephalopathy which patient continues with fluctuations of orientation and perceptual disturbances most of which are visual hallucinations and no paranoid delusions. Will increase paliperidone to 9mg PO daily and observe if patient responds to increase in antipsychotic but patient has persisted with these symptoms despite treatment up to now. Patient' s hallucinations are not distressful to the patient nor are they influencing her to decisions or actions that compromise her well being at this time. Will discuss with medical team as patient's presentation is unlikely psychiatric and more related to encephalopathy secondary to medical causes. Discharge planning in progress. Justification for Cont. Inpt. At risk for decompensation if at lower level of care. Discharge Planning Patient to return back to SNF once medically stable. Perez Buenrostro MD Jul 29, 2017 20:26
[2017-07-29] MEDS: SODIUM HYPOCHLORITE 0.25% 500 ML BTL TOPICAL SCH (21:00)
[2017-07-29] MEDS: ERTAPENEM INJ 1,000 MG in SODIUM CHLORIDE 0.9% INJ 100 ML IV SCH (23:32)
[2017-07-30 06:07] VITALS: BP 107/54; PULSE 107; RESP 18; TEMP 98.6; O2SAT 99
[2017-07-30] MEDS: SENNOSIDES 8.6 MG TAB PO SCH (09:00)
[2017-07-30] MEDS ORDERED: PALIPERIDONE ER 3 MG TAB PO SCH (09:00)
[2017-07-30] MEDS: LACTULOSE SYRUP 20 GM/30 ML CUP PO SCH ×3 (10:03→17:31)
[2017-07-30] MEDS: SODIUM HYPOCHLORITE 0.25% 500 ML BTL TOPICAL SCH (10:03)
[2017-07-30] MEDS: FLUTICASONE PROPIONATE 50 MCG/ACT 16 GM NASAL SPRAY EACH NARE SCH (10:05)
[2017-07-30] MEDS: SODIUM CHLORIDE 0.9% FLUSH 10 ML FLUSH IV FLUSH SCH (10:05)
[2017-07-30] MEDS: FUROSEMIDE 40 MG TAB PO SCH (10:05)
[2017-07-30] MEDS: ENOXAPARIN SODIUM 40 MG/0.4 ML SYRINGE SQ SCH (10:05)
[2017-07-30] MEDS: POTASSIUM CHLORIDE 10 MEQ CAP PO SCH (10:06)
[2017-07-30] MEDS: SPIRONOLACTONE 100 MG TAB PO SCH (10:06)
[2017-07-30] MEDS: THIAMINE HCL 100 MG TAB PO SCH (10:06)
[2017-07-30] MEDS: MULTIVITAMIN TAB PO SCH (10:06)
[2017-07-30] MEDS: LACTOBACILLUS ACIDOPHILUS TAB PO SCH ×3 (10:06→17:31)
[2017-07-30] MEDS: CHOLECALCIFEROL (VIT D3) 5000 UNIT CAP PO SCH (10:06)
[2017-07-30] MEDS: RIFAXIMIN 550 MG TAB PO SCH (10:06)
[2017-07-30] MEDS: ASCORBIC ACID 500 MG TAB PO SCH (10:06)
[2017-07-30] MEDS: FERROUS SULFATE 325 MG (65 MG ELEMENTAL IRON) TAB PO SCH ×3 (10:07→18:15)
[2017-07-30] MEDS: GABAPENTIN 100 MG CAP PO SCH ×3 (10:07→17:31)
[2017-07-30] MEDS: FAMOTIDINE 20 MG TAB PO SCH (10:07)
[2017-07-30] MEDS: VENLAFAXINE HCL XR 75 MG CAP PO SCH (10:09)
--- NOTE | 2017-07-30 11:17 | HHI.PR ---
Subjective Remarks have been having diarrhea-non stop on lactulose ' no fever have not been vomitign for last couple fo days c/o wound vac poor historian thinks she was flown over by jet and had her wound vac placed Objective Vital Signs Date Time Temp Pulse Resp B/P (MAP) Pulse Ox O2 Delivery O2 Flow Rate FiO2 07/30/17 06:07 98.6 107 18 107/54 (71) 99 07/29/17 18:00 98.0 100 18 115/58 (77) 100 I/O 07/29/17 07/29/17 07/29/17 07/30/17 07/30/17 07/30/17 07:00 15:00 23:00 07:00 15:00 23:00 Intake Total 1680 ml 1440 ml 960 ml 240 ml 240 ml Output Total 5 ml Balance 1680 ml 1435 ml 960 ml 240 ml 240 ml Intake Oral 1680 ml 1440 ml 960 ml 240 ml 240 ml Output Urine Total 5 ml # Voids 6 2 3 # Bowel Movements 4 3 2 Result Diagram: 07/28/17 0850 07/28/17 0850 Objective Remarks has murmur systolic a tricuspid area - pt reports she was told previoulsy tactile fever confused lungs clear , though decreased effort abdomen soft and non tender bilaeral LE with mild edema- third spacing A/P Assessment and Plan diarrhea due to lactulose but also on antbioitics check for cdiff ertapenem heart murmur will check echo for endocarditisi still confused though pleasant Patsy Fernandez MD Jul 30, 2017 11:17
[2017-07-30 13:42] LABS: AUTOMATED NEUTROPHIL # 3.3 TH/MM3 (1.8-7.7); BASOPHIL % 0.3 % (0.0-2.0); EOSINOPHIL # 0.1 TH/MM3 (0-0.4); HEMO FLAGS DIFF FINAL; LYMPH % 31.6 % (9.0-44.0); LYMPHOCYTE # 1.9 TH/MM3 (1.0-4.8); MEAN CELL VOLUME 100.3 FL (80.0-100.0); MEAN CORPUSCULAR HEMOGLOBIN 34.4 PG (27.0-34.0); MEAN CORPUSCULAR HGB CONC 34.3 % (32.0-36.0); MONO % 9.3 % (0.0-8.0); NEUT % 56.8 % (16.0-70.0); PLATELET COUNT 148 TH/MM3 (150-450); RED BLOOD COUNT 2.49 MIL/MM3 (4.00-5.30); RED CELL DISTRIBUTION WIDTH 16.5 % (11.6-17.2); WHITE BLOOD COUNT 5.9 TH/MM3 (4.0-11.0)
[2017-07-30 13:56] LABS: BICARBONATE 22.2 MEQ/L (21.0-32.0)
[2017-07-30] MEDS ORDERED: PALI1TAB4 PO (14:06)
--- NOTE | 2017-07-30 14:17 | HHI.DS ---
Psychiatry Discharge Summary Inpatient Psychiatric care?: Yes Advance Directive: No Reason Not Provided: Due to Patient Condition Mental Health AdvanceDirective: No Health Care Proxy: No Admission Admission Date Jul 24, 2017 at 18:53 Admission Diagnosis: (1) Unspecified psychosis ICD Code: F29 - Unspecified psychosis not due to a substance or known physiological condition Brief History Patient is a 52-year-old woman, single with 2 children unemployed on disability that if it's, past psychiatric history of depression, denies previous psychiatric authorization, denies previous suicide attempt or self- injurious behavior, past medical history of alcohol cirrhosis, COPD, who was admitted to the medical floor on 07/09/17 for altered mental status as well as multiple decubitus ulcers stage IV, UTI which she was transferred to the [facility] a [facility] and during her admission she was consulted for psychosis and agitation which she was noted to be disoriented, confused and delirium was suspected at that time. Patient had further psychiatric follow-up while on the medical floor and noted to be calm and cooperative but still confused. She was reconsulted on 07/23/17 and was noted at that time to be disorganized, tangential, confabulating, alert and oriented only to person as well as noted to be paranoid internally stimulated along with visual hallucinations she was subsequently transferred to the inpatient psychiatry unit for further evaluation and management. Was found lying in hospital bed attending to eat breakfast, noted to be pouring water into her coffee stated that that her grandmother used to but but her to take away the bitterness of the coffee. Patient was noted to throw the whole packet of butter along with his plastic in her into the coffee. She is alert and oriented only to person stated that [place] Patient reports that her job was not sure. Patient reports prior to her hospitalization she was a day courthouse with his with her mother and brother last evening prior to her admission stating also that she had experienced seeing a blackout. Patient noted to be disorganized during interview, denying any auditory or visual hallucinations but did report visual hallucinations of shadows. Patient states that she also feels that there is someone chasing her. The patient is a 52-year-old woman, domiciled at [facility], with history documented psychiatric history of depression, she is on Effexor 75 mg, medical history of alcoholic liver cirrhosis, COPD presents to the emergency department via [facility] from [facility] for evaluation of altered mental status. Patient was medically stabilized, now admitted to psychiatry due to psychotic and disorganized behavior and speech. She was consulted to me for second opinion. On psychiatric evaluation the patient reports feeling okay, she reports good mood. However, patient becomes disorganized, very circumstantial and making a lot of confabulations. Patient started laughing inappropriately talking about people that are not even present in the room. She is oriented using person, disoriented in time and place. Tobacco Use In Past 30 Days: Cognitive Impairment Alcohol Use: Never Hospital Course Patient is a 52-year-old woman, single with 2 children unemployed on disability that if it's, past psychiatric history of depression, denies previous psychiatric authorization, denies previous suicide attempt or self- injurious behavior, past medical history of alcohol cirrhosis, COPD, who was admitted to the medical floor on 07/09/17 for altered mental status as well as multiple decubitus ulcers stage IV, UTI which she was transferred to the hospital from a [facility] facility and during her admission she was consulted for psychosis and agitation which she was noted to be disoriented, confused and delirium was suspected at that time which patient was admitted to the medical/psychiatry unit for further evaluation and management. Patient was started on paliperidone 3mg PO daily and titrated up to 9mg PO daily as patient has hepatic cirrhosis. Patient noted to have cessation of paranoia and visual hallucinations but continued with confusion and disorientation throughout admission. Patient continued to have fluctuation of orientation despite having acceptable ammonia levels as per primary medical team. Patient with previous history of depression only with no prior history of psychosis nor psychiatric hospitalization. Given patient's multiple medical issues, patient likely with persistent hepatic encephalopathy which patient continues with fluctuations of orientation and perceptual disturbances most of which are visual hallucinations at times and no paranoid delusions. Patient's hallucinations are not distressful to the patient nor are they influencing her to decisions or actions that compromise her well being at this time. Patient tolerated treatment well and was continued to be followed by primary medical team. Patient no longer met criteria for psychiatric admission and was transferred to the medical service for continued medical management. Results Blood Pressure 107 / 54 Vital Signs Date Time Temp Pulse Resp B/P (MAP) Pulse Ox O2 Delivery O2 Flow Rate FiO2 07/30/17 06:07 98.6 107 18 107/54 (71) 99 Laboratory Tests Test 07/28/17 08:50 07/30/17 13:10 Red Blood Count 2.79 MIL/MM3 (4.00-5.30) 2.49 MIL/MM3 (4.00-5.30) Hemoglobin 9.7 GM/DL (11.6-15.3) 8.6 GM/DL (11.6-15.3) Hematocrit 27.8 % (35.0-46.0) 25.0 % (35.0-46.0) Mean Corpuscular Hemoglobin 34.7 PG (27.0-34.0) 34.4 PG (27.0-34.0) Platelet Count 135 TH/MM3 (150-450) 148 TH/MM3 (150-450) Random Glucose 147 MG/DL (74-106) Albumin 1.6 GM/DL (3.4-5.0) Calcium Level 7.5 MG/DL (8.5-10.1) 7.5 MG/DL (8.5-10.1) Direct Bilirubin 0.5 MG/DL (0.0-0.2) Sodium Level 134 MEQ/L (136-145) Potassium Level 3.4 MEQ/L (3.5-5.1) Estimat Glomerular Filtration Rate 72 ML/MIN (>89) Ammonia 66 MCMOL/L (11-32) 25-Hydroxy Vitamin D Total 11.8 ng/ML (30-100) Mean Corpuscular Volume 100.3 FL (80.0-100.0) Monocytes (%) (Auto) 9.3 % (0.0-8.0) Blood Urea Nitrogen 6 MG/DL (7-18) Chloride Level 108 MEQ/L (98-107) Summary of Procedures None Pending results at discharge: No Medications # of Antipsychotic meds at D/C: 1 Approp Antipsych med options 1 - Minimum of three failed multiple trials of monotherapy. 2 - Documented plan to taper to monotherapy due to previous use of multiple meds OR cross-taper in progress at D/C. 3 - Documentation of augmentation of Clozapine. 4 - Justification other than those listed in allowable values 1-3, document here : Discharge Discharge Date: Jul 30, 2017 Discharge Diagnosis: (1) Unspecified psychosis ICD Code: F29 - Unspecified psychosis not due to a substance or known physiological condition Pt Condition on Discharge: Stable Discharge Disposition: Discharge Home Discharge Instructions Diet Instructions: Liver Disease Diet Activities you can perform: Weight Bearing as Saurabh Discharge Time > 30 minutes Mental Status Examination Appearance: Appropriate Consciousness: Alert Orientation: Person Speech: Unremarkable Language: Adequate Fund of Knowledge: Inadequate Attention and Concentration: Inadequate Memory: Impaired Mood: Other ("Ok") Affect: Appropriate Thought Process & Associations: Loose associations Thought Content: Appropriate (but confused at times) Hallucination Type: Visual (denies today) Delusion Type: None Suicidal Ideation: No Suicidal Plan: No Suicidal Intention: No Homicidal Ideation: No Homicidal Plan: No Homicidal Intention: No Insight: Poor Judgment: Impulsive Discharge/Advance Care Plan Health Problems: (1) Unspecified psychosis Goals to promote your health * To prevent worsening of your condition and complications * To maintain your health at the optimal level Directions to meet your goals Take your medications as prescribed Follow your dietary instruction Follow activity as directed Keep your appointments as scheduled Take your immunizations and boosters as scheduled If your symptoms worsen call your PCP, if no PCP go to Urgent Care Center or Emergency Room For 24/ questions related to your inpatient stay or results of tests pending at discharge, please contact Dr. Perez Buenrostro at Smoking is Dangerous to Your Health. Avoid second hand smoking Perez Buenrostro MD Jul 30, 2017 14:17
[2017-07-30] MEDS: ALPRAZolam 0.25 MG TAB PO PRN (16:20)
[2017-07-30 17:58] VITALS: BP 101/56; PULSE 95; RESP 18; TEMP 98.2; O2SAT 95
[2017-07-30 19:33] LABS: C. DIFF EPI 027 PRESUMPTIVE NEGATIVE (NEGATIVE)
[2017-07-30] MEDS ORDERED: SODIUM HYPOCHLORITE 0.125% 500 ML BTL TOPICAL SCH (21:00)
[2017-07-31] MEDS ORDERED: PALIPERIDONE ER 9 MG TAB PO SCH (09:00)
[2017-07-31] MEDS ORDERED: SODIUM HYPOCHLORITE 0.125% 500 ML BTL TOPICAL SCH (21:00)
== END 2017-07-30 18:30 | disposition short-term general hospital (02) | DRG 885 ==
LOC: H4EA 18:53
PROVIDERS: ADMIT Student in an Organized Health Care Education/Training Program; ATTEND Student in an Organized Health Care Education/Training Program
DX: F29 Unspecified psychosis not due to a substance or known physiological condition (principal); L89.154 Pressure ulcer of sacral region, stage 4; K70.30 Alcoholic cirrhosis of liver without ascites; K72.90 Hepatic failure, unspecified without coma; M86.9 Osteomyelitis, unspecified; J44.9 Chronic obstructive pulmonary disease, unspecified; E16.2 Hypoglycemia, unspecified; E55.9 Vitamin D deficiency, unspecified; R19.7 Diarrhea, unspecified
CPT/HCPCS: 80048; 80076; 82140; 82306; 82948; 83735; 85025; 87493; J1335; J1650

== ENCOUNTER 2017-07-30 14:32 | Inpatient (IN) | payer MEDICARE, OTHER ==
[~2017-07-30] VITALS: Ht 175.3 cm; Wt 77.0 kg
[~2017-07-30 14:32] MED LIST changes: +INVA1INJ IV; +PALI1TAB4 PO; +THERTAB15 PO; +THIA100 PO; -[UNRECOGNIZED DRUG - CODE] PO
[2017-07-30] MEDS ORDERED: ERTAPENEM SODIUM 1 GM ADDVANTAGE VIAL IV SCH (15:15)
--- NOTE | 2017-07-30 15:17 | HHI.HP ---
[facility] Service [facility] Primary Care Physician Bradley Corey MD Admission Diagnosis Diagnoses: Travel History International Travel<30 Days: No Contact w/Intl Traveler <30 Da: No Traveled to Known Affected Are: No History of Present Illness Patient is seen in med psych unit. Patient was admitted under medical service from July 10, 2017 to July. She was then transferred to psychiatry on July 24, 2017. Today, patient is discharged from the psychiatry service as there are no acute psychiatry ongoing issues. Patient was being managed for alcoholic liver cirrhosis and COPD. She resides at the [facility]. She was sent for elevated ammonia levels per report but her initial ammonia level on arrival was within normal limits. She was being treated with Invanz 500 mg IV every 8 hours for ESBL UTI at the detention. Per discharge summary from medical service previously, patient was to receive a total of 20 days of Invanz. Unsure when it was started. Per ID notes on July 23, 2017, patient was to have Invanz a total of 4 weeks. Stop date is August 07, 2017. Stop date August 07, 2017 per notes She has been having diarrhea since admission. She was of course also be receiving lactulose for the management of her liver cirrhosis. Patient was also having episodes of hypoglycemia while in hospital. This was thought to be secondary to her liver disease. She is not a diabetic. She does have poor oral intake. Patient has large sacral decubiti requiring wound VAC management. She was seen by Dr. Goncalves. Recommended wound VAC management with intermittent limited debridement as deemed by wound care team. No Further operative measurements. Today, patient is seen in her room in [facility]. She is pleasantly confused. She is able to answer certain questions She states she has been having diarrhea nonstop. She is having rectal bag. Denies fever. However she felt warm to touch. She states she has not been vomiting for past couple of days. poor historian thinks she was flown over by jet and had her wound vac placed Review of Systems ROS Limitations: Poor Historian Except as stated in HPI: all other systems reviewed are Neg Past Family Social History Past Medical History Liver cirrhosis Hepatic encephalopathy History of UTIs. with ESBL UTI Which was being managed with IV Invanz while at [facility]. Antibiotics course to be completed on July. COPD Past Surgical History Bariatric surgery Hernia repair Allergies: Coded Allergies: No Known Allergies (Unverified Allergy, Unknown, 07/09/17) Family History Unknown. Social History snf patient. per EMR: Formerly a heavy drinker. Physical Exam Physical Exam GENERAL: This is a middle-aged lady, looks much older than her age. Chronically ill. Mostly bedbound. Obese body habitus. Has pain every time she moves on her bed. SKIN: No rashes, ecchymoses or lesions. Cool and dry. Warm to touch. HEAD: Atraumatic. Normocephalic. No temporal or scalp tenderness. EYES: No scleral icterus. No injection or drainage. ENT: Nose without bleeding, purulent drainage or septal hematoma.. Airway patent. NECK: Trachea midline. No JVD Supple, nontender, no meningeal signs. CARDIOVASCULAR: Regular rate and rhythm without murmurs, gallops, or rubs. RESPIRATORY: Bilaterally decreased air entry. Poor inspiratory effort. GASTROINTESTINAL: Abdomen soft, non-tender, nondistended. No guarding. MUSCULOSKELETAL: Extremities without clubbing, cyanosis. Bilateral lower extremity edema. Obese body habitus. Habitus.. No calf tenderness. NEUROLOGICAL: Awake, pleasantly confused.Motor and sensory grossly within normNormal speech. Laboratory Labs reviewed Caprini VTE Risk Assessment Caprini VTE Risk Assessment: Mod/High Risk (score >= 2) Caprini Risk Assessment Model Point Value = 1 Point Value = 2 Point Value = 3 Point Value = 5 Age 41-60 Minor surgery BMI > 25 kg/m2 Swollen legs Varicose veins or History of unexplained or recurrent spontaneous Oral contraceptives or hormone replacement Sepsis (< 1 month) Serious lung disease, including pneumonia (< 1 month) Abnormal pulmonary function Acute myocardial infarction Congestive heart failure (< 1 month) History of inflammatory bowel disease Medical patient at bed rest Age 61-74 Arthroscopic surgery Major open surgery (> 45 min) Laparoscopic surgery (> 45 min) Malignancy Confined to bed (> 72 hours) Immobilizing plaster cast Central venous access Age >= 75 History of VTE Family history of VTE Factor V Leiden Prothrombin [id number] Lupus anticoagulant Anticardiolipin antibodies Elevated serum homocysteine Heparin-induced thrombocytopenia Other congenital or acquired thrombophilia Stroke (< 1 month) Elective arthroplasty Hip, pelvis, or leg fracture Acute spinal cord injury (< 1 month) Prophylaxis Regimen Total Risk Factor Score Risk Level Prophylaxis Regimen 0-1 Low Early ambulation 2 Moderate Order ONE of the following: *Sequential Compression Device (SCD) *Heparin 5000 units SQ BID 3-4 Higher Order ONE of the following medications: *Heparin 5000 units SQ TID *Enoxaparin/Lovenox 40 mg SQ daily (WT < 150 kg, CrCl > 30 mL/min) *Enoxaparin/Lovenox 30 mg SQ daily (WT < 150 kg, CrCl > 10-29 mL/min) *Enoxaparin/Lovenox 30 mg SQ BID (WT < 150 kg, CrCl > 30 mL/min) AND/OR *Sequential Compression Device (SCD) 5 or more Highest Order ONE of the following medications: *Heparin 5000 units SQ TID (Preferred with Epidurals) *Enoxaparin/Lovenox 40 mg SQ daily (WT < 150 kg, CrCl > 30 mL/min) *Enoxaparin/Lovenox 30 mg SQ daily (WT < 150 kg, CrCl > 10-29 mL/min) *Enoxaparin/Lovenox 30 mg SQ BID (WT < 150 kg, CrCl > 30 mL/min) AND *Sequential Compression Device (SCD) Assessment and Plan Assessment and Plan Impression: Diarrhea while on antibiotics. Part also was being treated for hepatic encephalopathy with lactulose. We'll need to rule out C. difficile. Hypokalemia secondary to diarrhea History of UTI on Invanz which was started prior to hospital admission at the detention. Completion of antibiotics August 07, 2017 per note. Sacral decubiti being managed by wound VAC and wound care team Presence of heart murmur during physical exam. Patient is poor historian. States she was told she had a murmur previously as well. We'll obtain an echocardiogram. Mental confusion. Likely this is chronic as patient has chronic alcoholism history. Comorbid conditions: Liver cirrhosis Hepatic encephalopathy History of UTIs. with ESBL UTI Which was being managed with IV Invanz while at [facility]. Antibiotics course to be completed on July. COPD Plan: Patient was cleared by psychiatry team this morning. As patient is still having ongoing diarrhea, with hypokalemia, we would accept her back to medical service with the treatment of this. Check for C. difficile. Continue wound care per wound care team with debridement. We'll need to start patient on Flagyl if C. difficile is positive tonight. At present, would continue Invanz for treatment of ESBL UTI per previous notes. However would consult infectious disease for the final evaluation and planned prior to hospital discharge. Replace potassium. Regarding hypoglycemic episodes, patient does not need to have fingersticks checked unless she is symptomatic. She is not a diabetic. Encourage by mouth feeding. Resume rest of her home meds. DVT prophylaxis with Lovenox. Physical therapy consult for discharge planning. Case management consult for discharge planning. . Discussed Condition With patient, psychiatry nurse Physician Certification 2 Midnight Certification Type: Admission for Inpatient Services Order for Inpatient Services The services are ordered in accordance with Medicare regulations or non- Medicare payer requirements, as applicable. In the case of services not specified as inpatient-only, they are appropriately provided as inpatient services in accordance with the 2-midnight benchmark. Estimated LOS (days): 2 days is the estimated time the patient will need to remain in the hospital, assuming treatment plan goals are met and no additional complications. Post-Hospital Plan: SNF Patsy Fernandez MD Jul 30, 2017 15:17
[2017-07-30] MEDS: GABAPENTIN 100 MG CAP PO SCH (18:00)
[2017-07-30] MEDS ORDERED: LACTOBACILLUS ACIDOPHILUS TAB PO SCH (18:00)
[2017-07-30] MEDS: LACTULOSE SYRUP 20 GM/30 ML CUP PO SCH (18:00)
[2017-07-30] MEDS: FERROUS SULFATE 325 MG (65 MG ELEMENTAL IRON) TAB PO SCH (18:30)
[2017-07-30 20:00] VITALS: BP 101/50; PULSE 107; RESP 18; TEMP 98.6; O2SAT 100
[2017-07-30] MEDS: FLUTICASONE PROPIONATE 50 MCG/ACT 16 GM NASAL SPRAY EACH NARE SCH (21:00)
[2017-07-30] MEDS: FAMOTIDINE 20 MG TAB PO SCH (21:39)
[2017-07-30] MEDS: FUROSEMIDE 40 MG TAB PO SCH (21:39)
[2017-07-30] MEDS: RIFAXIMIN 550 MG TAB PO SCH (22:46)
[2017-07-30] MEDS: SPIRONOLACTONE 100 MG TAB PO SCH (22:46)
[2017-07-30] MEDS: ASCORBIC ACID 500 MG TAB PO SCH (22:46)
[2017-07-30] MEDS: metroNIDAZOLE 500 MG TAB PO SCH (22:46)
[2017-07-31] VITALS: BP 98/57; PULSE 107; RESP 18; TEMP 98.7; O2SAT 100
[2017-07-31] MEDS: ERTAPENEM 1,000 MG/NS 100 ML IV SCH ×2 (00:17)
[2017-07-31 04:00] VITALS: BP 100/55; PULSE 103; RESP 18; TEMP 98.3; O2SAT 100
[2017-07-31] MEDS: metroNIDAZOLE 500 MG TAB PO SCH ×3 (06:48→22:05)
[2017-07-31 08:05] VITALS: BP 109/57; PULSE 104; RESP 18; TEMP 98.1; O2SAT 100
[2017-07-31] MEDS: VENLAFAXINE HCL XR 75 MG CAP PO SCH (09:00)
[2017-07-31] MEDS ORDERED: PALIPERIDONE ER 9 MG TAB PO SCH (09:00)
--- NOTE | 2017-07-31 09:21 | HHI.PR ---
Subjective Remarks Follow up C difficile, confusion. Patient still having diarrhea. Denies chest pain, dyspnea, nausea, vomiting. Objective Vitals Vital Signs Date Time Temp Pulse Resp B/P (MAP) Pulse Ox O2 Delivery O2 Flow Rate FiO2 07/31/17 08:05 98.1 104 18 109/57 (74) 100 07/31/17 07:54 Room Air 07/31/17 04:00 98.3 103 18 100/55 (70) 100 07/31/17 04:00 Room Air 07/31/17 00:00 98.7 107 18 98/57 (71) 100 07/31/17 00:00 Room Air 07/30/17 20:00 98.6 107 18 101/50 (67) 100 07/30/17 20:00 Room Air I/O 07/30/17 07/30/17 07/30/17 07/31/17 07/31/17 07/31/17 07:00 15:00 23:00 07:00 15:00 23:00 Intake Total 100 ml Balance 100 ml Intake IV Total 100 ml Objective Remarks General: No acute distress. Appears older than stated age. Heart: Regular rate and rhythm. 1-2/6 murmur. Lungs: Clear to auscultation bilaterally. No wheezes, rales, or rhonchi. Breathing is nonlabored. Abdomen: Soft, nontender, nondistended. Extremities: No lower extremity edema. Psych: Alert, confused. States that the year is 2026. She is oriented to month and city. She asks "what time is check-out". Procedures None Urinary Catheter: No Vascular Central Line Catheter: No A/P Assessment and Plan 1. C. difficile diarrhea: Continue Flagyl. 2. UTI with ESBL: Continue Invanz. Infectious disease consultation requested. Per previous records, antibiotic stop date is 08/07/17. 3. Heart murmur: Echocardiogram ordered. 4. Cirrhosis of the liver, hepatic encephalopathy: Monitor serum ammonia level, LFTs. Continue Xifaxan, spironolactone 5. COPD: Supplemental oxygen. Nebulizers. 6. Hypokalemia: Supplement potassium. 7. Sacral decubitus ulcers: Continue wound VAC. Wound care consult. 8. DVT prophylaxis: GEORGIE Shields. Peter Marshall MD Jul 31, 2017 09:21
[2017-07-31] MEDS: FLUTICASONE PROPIONATE 50 MCG/ACT 16 GM NASAL SPRAY EACH NARE SCH ×2 (10:08→22:05)
[2017-07-31] MEDS: LACTULOSE SYRUP 20 GM/30 ML CUP PO SCH ×3 (10:09→17:43)
[2017-07-31] MEDS: LACTOBACILLUS ACIDOPHILUS TAB PO SCH ×2 (10:09→22:07)
[2017-07-31] MEDS: SPIRONOLACTONE 100 MG TAB PO SCH ×2 (10:10→22:05)
[2017-07-31] MEDS: POTASSIUM CHLORIDE 10 MEQ CAP PO SCH (10:10)
[2017-07-31] MEDS: GABAPENTIN 100 MG CAP PO SCH ×3 (10:10→17:43)
[2017-07-31] MEDS: FERROUS SULFATE 325 MG (65 MG ELEMENTAL IRON) TAB PO SCH ×3 (10:10→17:43)
[2017-07-31] MEDS: RIFAXIMIN 550 MG TAB PO SCH ×2 (10:11→22:05)
[2017-07-31] MEDS: FUROSEMIDE 40 MG TAB PO SCH ×2 (10:11→22:06)
[2017-07-31] MEDS: MULTIVITAMIN TAB PO SCH (10:11)
[2017-07-31] MEDS: THIAMINE HCL 100 MG TAB PO SCH (10:11)
[2017-07-31] MEDS: FAMOTIDINE 20 MG TAB PO SCH ×2 (10:11→22:06)
[2017-07-31] MEDS: ASCORBIC ACID 500 MG TAB PO SCH ×2 (10:11→22:06)
[2017-07-31 12:05] VITALS: BP 101/59; PULSE 110; RESP 18; TEMP 98.3; O2SAT 100
--- NOTE | 2017-07-31 12:50 | PD.ID.CON ---
History of Present Illness Service ID Consult Requested By Dr Fernandez Reason for Consult ESBL+ UTI, C.diff Primary Care Physician Bradley Corey MD Diagnoses: Past Family Social History Allergies: Coded Allergies: No Known Allergies (Unverified Allergy, Unknown, 07/09/17) Past Medical History Liver cirrhosis Hepatic encephalopathy History of UTIs. with ESBL UTI Which was being managed with IV Invanz while at [facility]. Antibiotics course to be completed on July. COPD Past Surgical History Bariatric surgery Hernia repair Active Ordered Medications Medications where reviewed in EMR Antibiotics Include: Ertapenem Family History Unknown. Social History jail patient. per EMR: Formerly a heavy drinker. Physical Exam Vital Signs Vital Signs Date Time Temp Pulse Resp B/P (MAP) Pulse Ox O2 Delivery O2 Flow Rate FiO2 07/31/17 12:05 98.3 110 18 101/59 (73) 100 07/31/17 11:38 18 07/31/17 08:05 98.1 104 18 109/57 (74) 100 07/31/17 07:54 Room Air 07/31/17 04:00 98.3 103 18 100/55 (70) 100 07/31/17 04:00 Room Air 07/31/17 00:00 98.7 107 18 98/57 (71) 100 07/31/17 00:00 Room Air 07/30/17 20:00 98.6 107 18 101/50 (67) 100 07/30/17 20:00 Room Air Physical Exam Leticia Will MD Jul 31, 2017 12:50
[2017-07-31 13:58] LABS: AUTOMATED NEUTROPHIL # 2.9 TH/MM3 (1.8-7.7); BASOPHIL % 0.1 % (0.0-2.0); EOSINOPHIL # 0.1 TH/MM3 (0-0.4); EOSINOPHIL % 1.6 % (0.0-4.0); HEMO FLAGS DIFF FINAL; LYMPHOCYTE # 1.8 TH/MM3 (1.0-4.8); MEAN CELL VOLUME 99.4 FL (80.0-100.0); MEAN CORPUSCULAR HEMOGLOBIN 34.6 PG (27.0-34.0); MEAN CORPUSCULAR HGB CONC 34.9 % (32.0-36.0); MONO % 10.2 % (0.0-8.0); NEUT % 55.1 % (16.0-70.0); PLATELET COUNT 155 TH/MM3 (150-450); RED BLOOD COUNT 2.72 MIL/MM3 (4.00-5.30); RED CELL DISTRIBUTION WIDTH 16.6 % (11.6-17.2); WHITE BLOOD COUNT 5.3 TH/MM3 (4.0-11.0)
[2017-07-31 14:33] LABS: POTASSIUM 4.2 MEQ/L (3.5-5.1)
--- NOTE | 2017-07-31 15:49 | PD.ID.CON ---
History of Present Illness Service ID Consult Requested By Dr Fernandez Reason for Consult ESBL + wound infx, C.diff Primary Care Physician Bradley Corey MD Diagnoses: History of Present Illness Pt known to me from last month admission 52 yo female resides in residential with h/o alcoholic liver cirrhosis, COPD presents to the emergency department from [facility] for evaluation of altered mental status. She reportedly has being treated for a urinary tract infection with meropenem IV 500 mg every 8 that was just started. On admission pt is afebrile, but with leukocytosis of 15 K , Lactic acid is normal She was found to have a large decubitus ulcer which was infected with polimicrobial shad including ESBL: producing organism SHe was treated with abx her MS change resolved and she was discharged to complete 4 weeks of abx This time pt was admitted with diarrhea, which she describes "contant " and she has it for at least several weeks Her C.diff test came back positive Review of Systems Except as stated in HPI: all other systems reviewed are Neg Past Family Social History Allergies: Coded Allergies: No Known Allergies (Unverified Allergy, Unknown, 07/09/17) Past Medical History Essentially for disease cirrhosis, encephalopathy, UTI, COPD Past Surgical History Bariatric surgery a younger age. Hernia repair Active Ordered Medications Medications where reviewed in EMR Antibiotics Include: ertapenem Family History Father had colon cancer at age 52. Social History History of heavy alcohol use , quit. No illicit drug use No tobacco Physical Exam Vital Signs Vital Signs Date Time Temp Pulse Resp B/P (MAP) Pulse Ox O2 Delivery O2 Flow Rate FiO2 07/31/17 12:05 98.3 110 18 101/59 (73) 100 07/31/17 11:38 18 07/31/17 08:05 98.1 104 18 109/57 (74) 100 07/31/17 07:54 Room Air 07/31/17 04:00 98.3 103 18 100/55 (70) 100 07/31/17 04:00 Room Air 07/31/17 00:00 98.7 107 18 98/57 (71) 100 07/31/17 00:00 Room Air 07/30/17 20:00 98.6 107 18 101/50 (67) 100 07/30/17 20:00 Room Air Physical Exam CONSTITUTIONAL/GENERAL: This is an adequately nourished patient, in no apparent distress. TUBES/LINES/DRAINS: SKIN: No jaundice, rashes, stage IV decubitus appeares clean and much smaller ten the last time I saw it Skin temperature appropriate. Not diaphoretic. EYES: Pupils equal and round and reactive. Extraocular motions intact. No scleral icterus. No injection or drainage. Fundi not examined. ENT: Hearing grossly normal. Nose without bleeding or purulent drainage. Throat without visible erythema, exudates, masses, or lesions. NECK: Trachea midline. Supple, nontender. N CARDIOVASCULAR: Regular rate and rhythm without murmurs, gallops, or rubs. No JVD. Peripheral pulses symmetric. RESPIRATORY/CHEST: Symmetric, unlabored respirations. Clear to auscultation. Breath sounds equal bilaterally. No wheezes, rales, or rhonchi. GASTROINTESTINAL: Abdomen soft, non-tender, mildly distended. No hepato- splenomegaly, or palpable masses. No guarding. Bowel sounds present. fecal collection bag in place with large amount of liquid stool GENITOURINARY: Without palpable bladder distension. MUSCULOSKELETAL: Extremities without clubbing, cyanosis, or edema. No joint tenderness or effusion noted. No calf tenderness. No mottling or clubbing. LYMPHATICS: No palpable cervical or supraclavicular adenopathy. NEUROLOGICAL: Awake and alert. Non focal; oriented x 3 Follows commands. Clear speech . Moves all extremities. PSYCHIATRIC: calm cooperative Laboratory Laboratory Tests Test 07/31/17 13:10 White Blood Count 5.3 Red Blood Count 2.72 Hemoglobin 9.4 Hematocrit 27.0 Mean Corpuscular Volume 99.4 Mean Corpuscular Hemoglobin 34.6 Mean Corpuscular Hemoglobin Concent 34.9 Red Cell Distribution Width 16.6 Platelet Count 155 Mean Platelet Volume 8.4 Neutrophils (%) (Auto) 55.1 Lymphocytes (%) (Auto) 33.0 Monocytes (%) (Auto) 10.2 Eosinophils (%) (Auto) 1.6 Basophils (%) (Auto) 0.1 Neutrophils # (Auto) 2.9 Lymphocytes # (Auto) 1.8 Monocytes # (Auto) 0.5 Eosinophils # (Auto) 0.1 Basophils # (Auto) 0.0 CBC Comment DIFF FINAL Differential Comment Blood Urea Nitrogen 10 Creatinine 0.60 Random Glucose 78 Calcium Level 7.6 Sodium Level 136 Potassium Level 4.2 Chloride Level 106 Carbon Dioxide Level 23.0 Anion Gap 7 Estimat Glomerular Filtration Rate 105 Result Diagram: 07/31/17 1310 07/31/17 1310 Assessment and Plan Assessment and Plan Infected stage IV decubitus ulcer C.diff - add flagyl - paln to complete Ertapenem for now as previously indicated, hoowever will abort treatment if persistent/worsening c.diff dissease Leticia Will MD Jul 31, 2017 15:49
[2017-07-31] MEDS: ALPRAZolam 0.25 MG TAB PO PRN (15:59)
[2017-07-31] MEDS ORDERED: metroNIDAZOLE 500 MG TAB PO SCH (16:00)
[2017-07-31 16:05] VITALS: BP 103/59; PULSE 119; RESP 18; TEMP 98.6; O2SAT 100
[2017-07-31 20:49] VITALS: BP 100/53; PULSE 110; RESP 16; TEMP 98.5; O2SAT 95
[2017-08-01] MEDS: ALPRAZolam 0.25 MG TAB PO PRN ×2 (00:08→09:04)
[2017-08-01] MEDS: ERTAPENEM 1,000 MG/NS 100 ML IV SCH ×4 (00:09→23:58)
[2017-08-01 00:53] VITALS: BP 105/52; PULSE 130; RESP 18; TEMP 97.4; O2SAT 97
[2017-08-01 04:59] VITALS: BP 106/52; PULSE 129; RESP 18; TEMP 98.2; O2SAT 97
[2017-08-01] MEDS: metroNIDAZOLE 500 MG TAB PO SCH ×3 (06:01→21:01)
[2017-08-01 08:05] VITALS: BP 106/54; PULSE 106; RESP 18; TEMP 99.1; O2SAT 99
[2017-08-01 08:24] LABS: AUTOMATED NEUTROPHIL # 3.1 TH/MM3 (1.8-7.7); BASOPHIL % 0.4 % (0.0-2.0); EOSINOPHIL # 0.1 TH/MM3 (0-0.4); EOSINOPHIL % 1.4 % (0.0-4.0); HEMATOCRIT 25.4 % (35.0-46.0); HEMO FLAGS DIFF FINAL; LYMPH % 32.1 % (9.0-44.0); LYMPHOCYTE # 1.9 TH/MM3 (1.0-4.8); MEAN CELL VOLUME 99.7 FL (80.0-100.0); MEAN CORPUSCULAR HEMOGLOBIN 33.9 PG (27.0-34.0); MONO % 12.2 % (0.0-8.0); NEUT % 53.9 % (16.0-70.0); PLATELET COUNT 161 TH/MM3 (150-450); RED BLOOD COUNT 2.55 MIL/MM3 (4.00-5.30); RED CELL DISTRIBUTION WIDTH 16.6 % (11.6-17.2); WHITE BLOOD COUNT 5.8 TH/MM3 (4.0-11.0)
[2017-08-01] MEDS: FLUTICASONE PROPIONATE 50 MCG/ACT 16 GM NASAL SPRAY EACH NARE SCH ×2 (08:49→20:53)
[2017-08-01] MEDS: SPIRONOLACTONE 100 MG TAB PO SCH ×2 (08:51→20:54)
[2017-08-01] MEDS: FERROUS SULFATE 325 MG (65 MG ELEMENTAL IRON) TAB PO SCH ×3 (08:51→16:34)
[2017-08-01] MEDS: MULTIVITAMIN TAB PO SCH (08:51)
[2017-08-01] MEDS: LACTOBACILLUS ACIDOPHILUS TAB PO SCH ×2 (08:51→20:54)
[2017-08-01] MEDS: ASCORBIC ACID 500 MG TAB PO SCH ×2 (08:51→20:55)
[2017-08-01] MEDS: THIAMINE HCL 100 MG TAB PO SCH (08:51)
[2017-08-01] MEDS: RIFAXIMIN 550 MG TAB PO SCH ×2 (08:51→20:54)
[2017-08-01] MEDS: POTASSIUM CHLORIDE 10 MEQ CAP PO SCH (08:52)
[2017-08-01] MEDS: PALIPERIDONE ER 3 MG TAB PO SCH (08:52)
[2017-08-01] MEDS: GABAPENTIN 100 MG CAP PO SCH ×3 (08:52→16:34)
[2017-08-01] MEDS: FAMOTIDINE 20 MG TAB PO SCH ×2 (08:52→20:54)
[2017-08-01] MEDS: FUROSEMIDE 40 MG TAB PO SCH ×2 (08:52→20:54)
[2017-08-01] MEDS: LACTULOSE SYRUP 20 GM/30 ML CUP PO SCH ×3 (08:52→16:34)
[2017-08-01 08:56] LABS: BICARBONATE 21.6 MEQ/L (21.0-32.0); CALCIUM-PROTEIN CORRECTED 8.1 MG/DL (8.5-10.1); POTASSIUM 4.3 MEQ/L (3.5-5.1); TOTAL BILIRUBIN ADULT 0.6 MG/DL (0.2-1.0)
--- NOTE | 2017-08-01 09:00 | HHI.PR ---
Subjective Remarks Follow-up C. difficile. Patient remains quite confused. Still having significant diarrhea, although the patient states that she is "very constipated ". Objective Vitals Vital Signs Date Time Temp Pulse Resp B/P (MAP) Pulse Ox O2 Delivery O2 Flow Rate FiO2 08/01/17 08:05 99.1 106 18 106/54 (71) 99 08/01/17 07:41 Room Air 08/01/17 04:59 98.2 129 18 106/52 (70) 97 08/01/17 04:00 Room Air 08/01/17 00:53 97.4 130 18 105/52 (69) 97 08/01/17 00:00 Room Air 07/31/17 20:49 98.5 110 16 100/53 (69) 95 07/31/17 20:00 Room Air 07/31/17 16:05 98.6 119 18 103/59 (74) 100 07/31/17 12:05 98.3 110 18 101/59 (73) 100 07/31/17 11:38 18 I/O 07/31/17 07/31/17 07/31/17 08/01/17 08/01/17 08/01/17 07:00 15:00 23:00 07:00 15:00 23:00 Intake Total 100 ml 840 ml 100 ml Balance 100 ml 840 ml 100 ml Intake Oral 840 ml IV Total 100 ml 100 ml # Voids 7 2 Result Diagram: 08/01/17 0755 07/31/17 1310 Objective Remarks General: No acute distress. Appears older than stated age. Heart: Regular rate and rhythm. 1-2/6 murmur. Lungs: Clear to auscultation bilaterally. No wheezes, rales, or rhonchi. Breathing is nonlabored. Abdomen: Soft, nontender, nondistended. Extremities: No lower extremity edema. Psych: Alert, confused. Procedures None Urinary Catheter: No Vascular Central Line Catheter: No A/P Assessment and Plan 1. C. difficile diarrhea: Continue Flagyl. 2. UTI with ESBL: Continue Invanz. Appreciate infectious disease recommendations. Per previous records, antibiotic stop date is 08/07/17. 3. Heart murmur: Echocardiogram ordered. 4. Cirrhosis of the liver, hepatic encephalopathy: Monitor serum ammonia level, LFTs. Continue Xifaxan, spironolactone 5. COPD: Supplemental oxygen. Nebulizers. 6. Hypokalemia: Continue potassium supplementation. Labs are pending today. 7. Sacral decubitus ulcers: Continue wound VAC. Wound care consult. 8. DVT prophylaxis: GEORGIE Shields. Peter Marshall MD Aug 01, 2017 09:00
[2017-08-01] MEDS: VENLAFAXINE HCL XR 75 MG CAP PO SCH (09:04)
[2017-08-01 12:12] VITALS: BP 106/58; PULSE 116; RESP 18; TEMP 98.5; O2SAT 99
[2017-08-01 16:05] VITALS: BP 98/56; PULSE 112; RESP 19; TEMP 98.4; O2SAT 97
[2017-08-01 20:00] VITALS: BP 118/64; PULSE 112; RESP 20; TEMP 98.9; O2SAT 96
[2017-08-02] VITALS: BP 100/51; PULSE 115; RESP 21; TEMP 99.4; O2SAT 97
[2017-08-02] MEDS: ALPRAZolam 0.25 MG TAB PO PRN ×2 (00:04→21:57)
[2017-08-02 04:00] VITALS: BP 99/52; PULSE 107; RESP 20; TEMP 99.3; O2SAT 97
[2017-08-02] MEDS: metroNIDAZOLE 500 MG TAB PO SCH ×3 (06:11→21:57)
[2017-08-02] MEDS: RIFAXIMIN 550 MG TAB PO SCH ×2 (08:16→21:57)
[2017-08-02] MEDS: MULTIVITAMIN TAB PO SCH (08:16)
[2017-08-02] MEDS: GABAPENTIN 100 MG CAP PO SCH ×3 (08:16→16:21)
[2017-08-02] MEDS: FUROSEMIDE 40 MG TAB PO SCH ×2 (08:16→21:57)
[2017-08-02] MEDS: FLUTICASONE PROPIONATE 50 MCG/ACT 16 GM NASAL SPRAY EACH NARE SCH ×2 (08:16→21:00)
[2017-08-02] MEDS: FAMOTIDINE 20 MG TAB PO SCH ×2 (08:17→21:57)
[2017-08-02] MEDS: THIAMINE HCL 100 MG TAB PO SCH (08:17)
[2017-08-02] MEDS: VENLAFAXINE HCL XR 75 MG CAP PO SCH (08:17)
[2017-08-02] MEDS: ASCORBIC ACID 500 MG TAB PO SCH ×2 (08:17→21:57)
[2017-08-02] MEDS: FERROUS SULFATE 325 MG (65 MG ELEMENTAL IRON) TAB PO SCH ×3 (08:17→16:21)
[2017-08-02] MEDS: POTASSIUM CHLORIDE 10 MEQ CAP PO SCH (08:17)
[2017-08-02] MEDS: SPIRONOLACTONE 100 MG TAB PO SCH ×2 (08:17→21:57)
[2017-08-02] MEDS: PALIPERIDONE ER 3 MG TAB PO SCH (08:18)
[2017-08-02] MEDS: LACTOBACILLUS ACIDOPHILUS TAB PO SCH ×2 (08:18→21:57)
[2017-08-02] MEDS: LACTULOSE SYRUP 20 GM/30 ML CUP PO SCH ×3 (08:18→16:21)
[2017-08-02 08:32] VITALS: BP 119/65; PULSE 107; RESP 16; TEMP 98.1; O2SAT 99
[2017-08-02 12:00] VITALS: BP 104/57; PULSE 102; RESP 16; TEMP 98.4; O2SAT 100
--- NOTE | 2017-08-02 13:25 | HHI.PR ---
Subjective Remarks Follow-up C. difficile diarrhea. Patient remains confused. She states that she does feel better today. Still having diarrhea. Objective Vitals Vital Signs Date Time Temp Pulse Resp B/P (MAP) Pulse Ox O2 Delivery O2 Flow Rate FiO2 08/02/17 12:00 98.4 102 16 104/57 (73) 100 08/02/17 08:32 98.1 107 16 119/65 (83) 99 08/02/17 07:32 Room Air 08/02/17 04:00 99.3 107 20 99/52 (68) 97 08/02/17 00:00 99.4 115 21 100/51 (67) 97 08/01/17 20:15 Room Air 08/01/17 20:00 98.9 112 20 118/64 (82) 96 08/01/17 16:05 98.4 112 19 98/56 (70) 97 I/O 08/01/17 08/01/17 08/01/17 08/02/17 08/02/17 08/02/17 07:00 15:00 23:00 07:00 15:00 23:00 Intake Total 100 ml 600 ml 320 ml 100 ml Balance 100 ml 600 ml 320 ml 100 ml Intake Oral 600 ml 320 ml IV Total 100 ml 100 ml # Voids 2 5 4 # Bowel Movements 1 Result Diagram: 08/01/17 0755 08/01/17 0755 Objective Remarks General: No acute distress. Appears older than stated age. Heart: Regular rate and rhythm. 1-2/6 murmur. Lungs: Clear to auscultation bilaterally. No wheezes, rales, or rhonchi. Breathing is nonlabored. Abdomen: Soft, nontender, nondistended. Extremities: No lower extremity edema. Psych: Alert, confused. Procedures None Urinary Catheter: No Vascular Central Line Catheter: No A/P Assessment and Plan 1. C. difficile diarrhea: Continue Flagyl. 2. UTI with ESBL: Appreciate infectious disease recommendations. Continue Invanz ; stop date is 08/07/17. 3. Heart murmur: Echocardiogram ordered. 4. Cirrhosis of the liver, hepatic encephalopathy: Monitor serum ammonia level, LFTs. Continue Xifaxan, spironolactone 5. COPD: Supplemental oxygen. Nebulizers. 6. Hypokalemia: Continue potassium supplementation. 7. Sacral decubitus ulcers: Continue wound VAC. Wound care consult. 8. DVT prophylaxis: GEORGIE Shields. Peter Marshall MD Aug 02, 2017 13:25
[2017-08-02 16:00] VITALS: BP 96/54; PULSE 106; RESP 18; TEMP 98.1; O2SAT 99
[2017-08-02 20:00] VITALS: BP 136/72; PULSE 88; RESP 21; TEMP 98.3; O2SAT 94
[2017-08-02] MEDS: ERTAPENEM 1,000 MG/NS 100 ML IV SCH ×2 (23:29)
[2017-08-03] VITALS: BP 107/57; PULSE 107; RESP 18; TEMP 98.7; O2SAT 99
[2017-08-03 04:00] VITALS: BP 100/55; PULSE 107; RESP 19; TEMP 98.8; O2SAT 96
[2017-08-03] MEDS: metroNIDAZOLE 500 MG TAB PO SCH ×3 (06:05→22:32)
[2017-08-03] MEDS: ALPRAZolam 0.25 MG TAB PO PRN ×3 (06:05→22:32)
[2017-08-03 08:00] VITALS: BP 97/56; PULSE 102; RESP 20; TEMP 98.2; O2SAT 99
[2017-08-03] MEDS: FLUTICASONE PROPIONATE 50 MCG/ACT 16 GM NASAL SPRAY EACH NARE SCH ×2 (09:00→20:35)
[2017-08-03] MEDS: FUROSEMIDE 40 MG TAB PO SCH ×2 (09:00→20:35)
[2017-08-03] MEDS: SPIRONOLACTONE 100 MG TAB PO SCH ×2 (09:00→20:34)
[2017-08-03] MEDS: GABAPENTIN 100 MG CAP PO SCH ×3 (09:58→18:33)
[2017-08-03] MEDS: ASCORBIC ACID 500 MG TAB PO SCH ×2 (09:58→20:35)
[2017-08-03] MEDS: THIAMINE HCL 100 MG TAB PO SCH (09:58)
[2017-08-03] MEDS: POTASSIUM CHLORIDE 10 MEQ CAP PO SCH (09:58)
[2017-08-03] MEDS: FAMOTIDINE 20 MG TAB PO SCH ×2 (09:58→20:35)
[2017-08-03] MEDS: MULTIVITAMIN TAB PO SCH (09:58)
[2017-08-03] MEDS: LACTOBACILLUS ACIDOPHILUS TAB PO SCH ×2 (09:59→20:34)
[2017-08-03] MEDS: FERROUS SULFATE 325 MG (65 MG ELEMENTAL IRON) TAB PO SCH ×3 (09:59→18:33)
[2017-08-03] MEDS: PALIPERIDONE ER 3 MG TAB PO SCH (09:59)
[2017-08-03] MEDS: RIFAXIMIN 550 MG TAB PO SCH ×2 (10:00→20:35)
[2017-08-03] MEDS: LACTULOSE SYRUP 20 GM/30 ML CUP PO SCH ×3 (10:01→18:33)
[2017-08-03 12:00] VITALS: BP 96/54; PULSE 116; RESP 20; TEMP 98.4; O2SAT 98
[2017-08-03] MEDS: VENLAFAXINE HCL XR 75 MG CAP PO SCH (12:37)
--- NOTE | 2017-08-03 15:27 | HHI.PR ---
Subjective Remarks Follow-up C. difficile and UTI. Patient without bowel movement today. No UTI symptoms. Concerned she doesn't have a wound VAC. Discussed with RN Objective Vitals Vital Signs Date Time Temp Pulse Resp B/P (MAP) Pulse Ox O2 Delivery O2 Flow Rate FiO2 08/03/17 12:00 98.4 116 20 96/54 (68) 98 08/03/17 11:22 18 08/03/17 08:00 98.2 102 20 97/56 (70) 99 08/03/17 07:00 Room Air 08/03/17 04:00 98.8 107 19 100/55 (70) 96 08/03/17 00:00 98.7 107 18 107/57 (74) 99 08/02/17 20:15 Room Air 08/02/17 20:00 98.3 88 21 136/72 (93) 94 08/02/17 16:00 98.1 106 18 96/54 (68) 99 I/O 08/02/17 08/02/17 08/02/17 08/03/17 08/03/17 08/03/17 07:00 15:00 23:00 07:00 15:00 23:00 Intake Total 320 ml 100 ml 600 ml 585 ml Balance 320 ml 100 ml 600 ml 585 ml Intake Oral 320 ml 600 ml 480 ml IV Total 100 ml 105 ml # Voids 4 3 5 # Bowel Movements 1 3 4 Result Diagram: 08/01/17 0755 08/01/17 0755 Objective Remarks General: No acute distress. Appears older than stated age. Heart: Regular rate and rhythm. 1-2/6 murmur. Lungs: Clear to auscultation bilaterally. No wheezes, rales, or rhonchi. Breathing is nonlabored. Abdomen: Soft, nontender, nondistended. Back: Stage IV sacral decubitus Extremities: No lower extremity edema. Psych: Alert and awake Procedures None A/P Problem List: (1) Metabolic encephalopathy ICD Code: G93.41 - Metabolic encephalopathy Status: Resolved Assessment and Plan 1. C. difficile diarrhea: Improving Continue Flagyl. 2. UTI with ESBL: Appreciate infectious disease recommendations. Continue Invanz ; stop date is 08/07/17. 3. Heart murmur: Echocardiogram pending 4. Cirrhosis of the liver, hepatic encephalopathy: Improved Continue Xifaxan, spironolactone 5. COPD: Supplemental oxygen. Nebulizers. Stable 6. Hypokalemia: Continue potassium supplementation. 7. Sacral decubitus ulcers: Continue wound VAC. Wound care consult. 8. DVT prophylaxis: GEORGIE Shields. Discharge Planning Possible discharge in 1-2 days pending ID clearance Sohail Hidalgo MD Aug 03, 2017 15:27
[2017-08-03] MEDS ORDERED: METR-1 PO (15:34)
[2017-08-03] MEDS ORDERED: OXYC1CAP PO (15:34)
[2017-08-03] MEDS ORDERED: ALPR.25 PO (15:34)
--- NOTE | 2017-08-03 15:35 | HHI.DCPOC ---
Discharge Care Plan Diagnosis: (1) Metabolic encephalopathy Your Health Problems Are: Difficulty with ADL Exercise Tolerance Goals to Promote Your Health * To prevent worsening of your condition and complications * To maintain your health at the optimal level Directions to Meet Your Goals Take your medications as prescribed Follow your dietary instruction Follow activity as directed Keep your appointments as scheduled Take your immunizations and boosters as scheduled If your symptoms worsen call your PCP, if no PCP go to Urgent Care Center or Emergency Room Smoking is Dangerous to Your Health. Avoid second hand smoke Call the 24-hour hour crisis hotline for domestic abuse at Sohail Hidalgo MD Aug 03, 2017 15:35
[2017-08-03 16:00] VITALS: BP 101/57; PULSE 116; RESP 20; TEMP 98.9; O2SAT 98
--- NOTE | 2017-08-03 16:15 | HHI.PR ---
Addendum to Inpatient Note Additional Information Pt cont to have diarrhea On flagyl po OK to dc on Flagyl po x 14 days if improving ow will need to be switched to oral vancomycin Leticia Will MD Aug 03, 2017 16:15
[2017-08-03 20:00] VITALS: BP 108/74; PULSE 121; RESP 20; TEMP 98.2; O2SAT 99
[2017-08-03] MEDS: HEPARIN SODIUM - SQ 10,000 UNITS/ML VIAL SQ SCH (20:35)
[2017-08-03] MEDS: ERTAPENEM 1,000 MG/NS 100 ML IV SCH ×2 (22:33)
[2017-08-04] VITALS (7 sets, daily range): BP systolic 92–114; BP diastolic 50–58; PULSE 99–126; RESP 17–20; TEMP 98.2–99.9; O2SAT 94–100
[2017-08-04] MEDS: metroNIDAZOLE 500 MG TAB PO SCH ×3 (05:52→21:00)
[2017-08-04] MEDS: FLUTICASONE PROPIONATE 50 MCG/ACT 16 GM NASAL SPRAY EACH NARE SCH ×2 (08:00→21:00)
[2017-08-04] MEDS: PALIPERIDONE ER 3 MG TAB PO SCH (08:00)
[2017-08-04] MEDS: LACTULOSE SYRUP 20 GM/30 ML CUP PO SCH ×3 (08:01→17:56)
[2017-08-04] MEDS: MULTIVITAMIN TAB PO SCH (08:01)
[2017-08-04] MEDS: POTASSIUM CHLORIDE 10 MEQ CAP PO SCH (08:01)
[2017-08-04] MEDS: GABAPENTIN 100 MG CAP PO SCH ×3 (08:02→17:56)
[2017-08-04] MEDS: VENLAFAXINE HCL XR 75 MG CAP PO SCH (08:02)
[2017-08-04] MEDS: FUROSEMIDE 40 MG TAB PO SCH ×2 (08:02→21:00)
[2017-08-04] MEDS: LACTOBACILLUS ACIDOPHILUS TAB PO SCH ×2 (08:02→21:00)
[2017-08-04] MEDS: RIFAXIMIN 550 MG TAB PO SCH ×2 (08:02→21:00)
[2017-08-04] MEDS: THIAMINE HCL 100 MG TAB PO SCH (08:02)
[2017-08-04] MEDS: FAMOTIDINE 20 MG TAB PO SCH ×2 (08:02→21:00)
[2017-08-04] MEDS: SPIRONOLACTONE 100 MG TAB PO SCH ×2 (08:02→21:00)
[2017-08-04] MEDS: ASCORBIC ACID 500 MG TAB PO SCH ×2 (08:02→21:00)
[2017-08-04] MEDS: HEPARIN SODIUM - SQ 10,000 UNITS/ML VIAL SQ SCH ×2 (08:03→21:01)
[2017-08-04] MEDS: FERROUS SULFATE 325 MG (65 MG ELEMENTAL IRON) TAB PO SCH ×3 (08:20→17:56)
[2017-08-04] MEDS: ALPRAZolam 0.25 MG TAB PO PRN ×2 (08:20→16:26)
[2017-08-04 09:55] LABS: BICARBONATE 19.6 MEQ/L (21.0-32.0); MAGNESIUM 2.1 MG/DL (1.5-2.5); POTASSIUM 3.7 MEQ/L (3.5-5.1)
[2017-08-04 09:59] LABS: AUTOMATED NEUTROPHIL # 4.7 TH/MM3 (1.8-7.7); BASOPHIL % 0.3 % (0.0-2.0); EOSINOPHIL # 0.1 TH/MM3 (0-0.4); EOSINOPHIL % 1.3 % (0.0-4.0); HEMATOCRIT 26.8 % (35.0-46.0); HEMO FLAGS DIFF FINAL; LYMPH % 25.6 % (9.0-44.0); LYMPHOCYTE # 1.9 TH/MM3 (1.0-4.8); MEAN CELL VOLUME 100.2 FL (80.0-100.0); MEAN CORPUSCULAR HEMOGLOBIN 33.9 PG (27.0-34.0); MEAN CORPUSCULAR HGB CONC 33.8 % (32.0-36.0); MONO % 9.4 % (0.0-8.0); NEUT % 63.4 % (16.0-70.0); PLATELET COUNT 187 TH/MM3 (150-450); RED BLOOD COUNT 2.68 MIL/MM3 (4.00-5.30); RED CELL DISTRIBUTION WIDTH 16.6 % (11.6-17.2); WHITE BLOOD COUNT 7.4 TH/MM3 (4.0-11.0)
--- NOTE | 2017-08-04 14:02 | HHI.PR ---
Subjective Remarks Follow-up C. difficile, UTI and anxiety. Only one semi-formed stool yesterday none today. States she is very anxious denies cp, SOB and palpitations. Hayden RN Objective Vitals Vital Signs Date Time Temp Pulse Resp B/P (MAP) Pulse Ox O2 Delivery O2 Flow Rate FiO2 08/04/17 08:24 Room Air 08/04/17 08:00 98.9 120 20 106/50 (68) 94 08/04/17 04:00 99.9 125 20 106/57 (73) 96 08/04/17 04:00 Room Air 08/04/17 00:00 Room Air 08/04/17 00:00 98.8 115 20 114/58 (76) 100 08/03/17 20:00 Room Air 08/03/17 20:00 98.2 121 20 108/74 (85) 99 08/03/17 16:00 98.9 116 20 101/57 (72) 98 I/O 08/03/17 08/03/17 08/03/17 08/04/17 08/04/17 08/04/17 07:00 15:00 23:00 07:00 15:00 23:00 Intake Total 585 ml 360 ml 900 ml Balance 585 ml 360 ml 900 ml Intake Oral 480 ml 360 ml 800 ml IV Total 105 ml 100 ml # Voids 5 1 # Bowel Movements 4 1 3 Result Diagram: 08/04/17 0900 08/04/17 0900 Objective Remarks General: No acute distress. Appears older than stated age. Heart: Regular rhythm. Tachycardic. 2/6 murmur. Lungs: Clear to auscultation bilaterally. No wheezes, rales, or rhonchi. Breathing is nonlabored. Abdomen: Soft, nontender, nondistended. Back: Stage IV sacral decubitus Extremities: No lower extremity edema. Psych: Alert and awake Procedures None A/P Problem List: (1) Metabolic encephalopathy ICD Code: G93.41 - Metabolic encephalopathy Status: Resolved Assessment and Plan 1. C. difficile diarrhea: Resolved diarrhea. Continue Flagyl. 2. UTI with ESBL: Appreciate infectious disease recommendations. Continue Invanz ; stop date is 08/07/17. 3. Heart murmur: Echocardiogram pending 4. Cirrhosis of the liver, hepatic encephalopathy: Table Continue Xifaxan, spironolactone 5. COPD: Supplemental oxygen. Nebulizers. Stable 6. Hypokalemia: Continue potassium supplementation. 7. Sacral decubitus ulcers: Continue wound VAC. Wound care consult. 8. Sinus tachycardia secondary to anxiety. Continue Effexor and Xanax. Telemetry monitoring. DVT prophylaxis: GEORGIE Shields. Subcutaneous heparin Discharge Planning Discharge to rehabilitation pending ID clearance Sohail Hidalgo MD Aug 04, 2017 14:02
[2017-08-04] MEDS ORDERED: SODIUM CHLORIDE 0.9% FLUSH 10 ML FLUSH IVF PRN ×2 (23:15)
[2017-08-04] MEDS: ERTAPENEM 1,000 MG/NS 100 ML IV SCH ×2 (23:55)
[2017-08-05] VITALS: BP 103/54; PULSE 101; RESP 19; TEMP 98.1; O2SAT 100
[2017-08-05 00:01] VITALS: PULSE 110
[2017-08-05] MEDS: ALPRAZolam 0.25 MG TAB PO PRN ×2 (01:51→17:15)
[2017-08-05 04:00] VITALS: BP 98/59; PULSE 97; RESP 19; TEMP 97.7; O2SAT 98
[2017-08-05] MEDS: metroNIDAZOLE 500 MG TAB PO SCH ×2 (06:18→12:03)
[2017-08-05 08:00] VITALS: BP 97/55; PULSE 90; PULSE 96; RESP 16; TEMP 98.6; O2SAT 97
[2017-08-05] MEDS ORDERED: SODIUM CHLORIDE 0.9% FLUSH 10 ML FLUSH IVF SCH (09:00)
[2017-08-05] MEDS: FLUTICASONE PROPIONATE 50 MCG/ACT 16 GM NASAL SPRAY EACH NARE SCH (09:46)
[2017-08-05] MEDS: RIFAXIMIN 550 MG TAB PO SCH (09:47)
[2017-08-05] MEDS: FAMOTIDINE 20 MG TAB PO SCH (09:47)
[2017-08-05] MEDS: LACTULOSE SYRUP 20 GM/30 ML CUP PO SCH ×3 (09:47→16:16)
[2017-08-05] MEDS: POTASSIUM CHLORIDE 10 MEQ CAP PO SCH (09:47)
[2017-08-05] MEDS: FERROUS SULFATE 325 MG (65 MG ELEMENTAL IRON) TAB PO SCH ×3 (09:47→16:16)
[2017-08-05] MEDS: LACTOBACILLUS ACIDOPHILUS TAB PO SCH (09:48)
[2017-08-05] MEDS: FUROSEMIDE 40 MG TAB PO SCH (09:48)
[2017-08-05] MEDS: MULTIVITAMIN TAB PO SCH (09:48)
[2017-08-05] MEDS: PALIPERIDONE ER 3 MG TAB PO SCH (09:48)
[2017-08-05] MEDS: THIAMINE HCL 100 MG TAB PO SCH (09:48)
[2017-08-05] MEDS: GABAPENTIN 100 MG CAP PO SCH ×3 (09:48→16:16)
[2017-08-05] MEDS: VENLAFAXINE HCL XR 75 MG CAP PO SCH (09:48)
[2017-08-05] MEDS: SPIRONOLACTONE 100 MG TAB PO SCH (09:48)
[2017-08-05] MEDS: ASCORBIC ACID 500 MG TAB PO SCH (09:48)
[2017-08-05] MEDS: HEPARIN SODIUM - SQ 10,000 UNITS/ML VIAL SQ SCH (09:49)
[2017-08-05 12:00] VITALS: BP 106/53; PULSE 109; RESP 16; TEMP 97.6; O2SAT 100
--- NOTE | 2017-08-05 14:56 | PD.WCN.NOT ---
Wound Consult Description: Coccyx wound follow up Communicated with: Dr.Abando ALCANTARA, Suzi RN 4 utica Recommendation: Continue orders as placed on 07/29 Follow up with out patient wound care. Additional Information: Patient was seen on 07/29 for Wound Vac replacement.Orders obtained to hold wound vac due to fungal infection of periwound and perineal area.[employer] Service Worker assessed wound today 08/05 periwound/perineal area still noted to be reddened with fungal rash .Antifungal cream applied to reddened areas . Wound cleansed with normal saline pat dry . Oil emulsion gauze applied to bone in wound bed.Maxsorb lightly packed in wound covered with dry dressing secured with tape.Wound measures 5.0cm x 4.8cm x 2.2cm.Patient tolerated wound care well. Sacha Hay [facility] Aug 05, 2017 14:56
--- NOTE | 2017-08-05 15:11 | HHI.IDPN ---
Subjective Subjective Remarks doing better still frequent BMs, more solid afebrile Antibiotics ertapenem flagyl Allergies: Coded Allergies: No Known Allergies (Unverified Allergy, Unknown, 07/09/17) Objective . Vital Signs Date Time Temp Pulse Resp B/P (MAP) Pulse Ox O2 Delivery O2 Flow Rate FiO2 08/05/17 12:00 97.6 109 16 106/53 (70) 100 08/05/17 08:00 98.6 96 16 97/55 (69) 97 08/05/17 04:00 97.7 97 19 98/59 (72) 98 08/05/17 00:01 110 08/05/17 00:00 98.1 101 19 103/54 (70) 100 08/04/17 21:00 118 08/04/17 21:00 Room Air 08/04/17 20:00 98.2 107 17 104/58 (73) 97 08/04/17 16:00 98.6 99 20 92/54 (67) 96 08/04/17 16:00 122 . Laboratory Tests Test 08/04/17 09:00 White Blood Count 7.4 TH/MM3 Red Blood Count 2.68 MIL/MM3 Hemoglobin 9.1 GM/DL Hematocrit 26.8 % Mean Corpuscular Volume 100.2 FL Mean Corpuscular Hemoglobin 33.9 PG Mean Corpuscular Hemoglobin Concent 33.8 % Red Cell Distribution Width 16.6 % Platelet Count 187 TH/MM3 Mean Platelet Volume 7.9 FL Neutrophils (%) (Auto) 63.4 % Lymphocytes (%) (Auto) 25.6 % Monocytes (%) (Auto) 9.4 % Eosinophils (%) (Auto) 1.3 % Basophils (%) (Auto) 0.3 % Neutrophils # (Auto) 4.7 TH/MM3 Lymphocytes # (Auto) 1.9 TH/MM3 Monocytes # (Auto) 0.7 TH/MM3 Eosinophils # (Auto) 0.1 TH/MM3 Basophils # (Auto) 0.0 TH/MM3 CBC Comment DIFF FINAL Differential Comment Laboratory Tests Test 08/04/17 09:00 Blood Urea Nitrogen 8 MG/DL Creatinine 0.56 MG/DL Random Glucose 115 MG/DL Calcium Level 7.5 MG/DL Magnesium Level 2.1 MG/DL Sodium Level 135 MEQ/L Potassium Level 3.7 MEQ/L Chloride Level 105 MEQ/L Carbon Dioxide Level 19.6 MEQ/L Anion Gap 10 MEQ/L Estimat Glomerular Filtration Rate 114 ML/MIN Physical Exam CONSTITUTIONAL/GENERAL: This is an adequately nourished patient, in no apparent distress. TUBES/LINES/DRAINS: CARDIOVASCULAR: Regular rate and rhythm without murmurs, gallops, or rubs. No JVD. Peripheral pulses symmetric. RESPIRATORY/CHEST: Symmetric, unlabored respirations. Clear to auscultation. Breath sounds equal bilaterally. No wheezes, rales, or rhonchi. GASTROINTESTINAL: Abdomen soft, non-tender, mildly distended. No hepato- splenomegaly, or palpable masses. No guarding. Bowel sounds present. MUSCULOSKELETAL: Extremities without clubbing, cyanosis, or edema. NEUROLOGICAL: Awake and alert. Non focal; oriented x 3 Follows commands. Clear speech . Moves all extremities. PSYCHIATRIC: calm cooperative Assessment & Plan Remarks Infected stage IV decubitus ulcer C.diff, not much improvement on flagyl - change flagyl to vanco po x 14 days -dc Ertapenem OK to dc pt if diarrhea improving Leticia Will MD Aug 05, 2017 15:10
[2017-08-05] MEDS ORDERED: VANC500I3 PO (15:41)
--- NOTE | 2017-08-05 15:47 | HHI.DS ---
Discharge Summary Admission Date Jul 30, 2017 at 19:19 Discharge Date: Aug 05, 2017 Admitting Diagnosis (1) Metabolic encephalopathy ICD Code: G93.41 - Metabolic encephalopathy Diagnosis: Principal Status: Resolved Procedures None Brief History - From Admission Patient is seen in med psych unit. Patient was admitted under medical service from July 10, 2017 to July. She was then transferred to psychiatry on July 24, 2017. Today, patient is discharged from the psychiatry service as there are no acute psychiatry ongoing issues. Patient was being managed for alcoholic liver cirrhosis and COPD. She resides at the [facility]. She was sent for elevated ammonia levels per report but her initial ammonia level on arrival was within normal limits. She was being treated with Invanz 500 mg IV every 8 hours for ESBL UTI at the shelter. Per discharge summary from medical service previously, patient was to receive a total of 20 days of Invanz. Unsure when it was started. Per ID notes on July 23, 2017, patient was to have Invanz a total of 4 weeks. Stop date is August 07, 2017. Stop date August 07, 2017 per notes She has been having diarrhea since admission. She was of course also be receiving lactulose for the management of her liver cirrhosis. Patient was also having episodes of hypoglycemia while in hospital. This was thought to be secondary to her liver disease. She is not a diabetic. She does have poor oral intake. Patient has large sacral decubiti requiring wound VAC management. She was seen by Dr. Goncalves. Recommended wound VAC management with intermittent limited debridement as deemed by wound care team. No Further operative measurements. Today, patient is seen in her room in [facility]. She is pleasantly confused. She is able to answer certain questions She states she has been having diarrhea nonstop. She is having rectal bag. Denies fever. However she felt warm to touch. She states she has not been vomiting for past couple of days. poor historian thinks she was flown over by jet and had her wound vac placed CBC/BMP: 08/04/17 0900 08/04/17 0900 Significant Findings Laboratory Tests Test 08/04/17 09:00 Red Blood Count 2.68 MIL/MM3 (4.00-5.30) Hemoglobin 9.1 GM/DL (11.6-15.3) Hematocrit 26.8 % (35.0-46.0) Mean Corpuscular Volume 100.2 FL (80.0-100.0) Monocytes (%) (Auto) 9.4 % (0.0-8.0) Random Glucose 115 MG/DL (74-106) Calcium Level 7.5 MG/DL (8.5-10.1) Sodium Level 135 MEQ/L (136-145) Carbon Dioxide Level 19.6 MEQ/L (21.0-32.0) PE at Discharge General: No acute distress. Appears older than stated age. Heart: Regular rhythm. Improving tachycardia currently in the low 10s Lungs: Clear to auscultation bilaterally. No wheezes, rales, or rhonchi. Breathing is nonlabored. Abdomen: Soft, nontender, nondistended. Back: Stage IV sacral decubitus Extremities: No lower extremity edema. Psych: Alert and awake Hospital Course 1. C. difficile diarrhea: Resolving diarrhea. Infectious disease has recommended to switch to by mouth vancomycin 2. UTI with ESBL: Status post Invanz 3. Heart murmur: Echocardiogram outpatient 4. Cirrhosis of the liver, hepatic encephalopathy: Stable Continue Xifaxan, spironolactone 5. COPD: Supplemental oxygen. Nebulizers. Stable 6. Hypokalemia: Continue potassium supplementation. 7. Sacral decubitus ulcers: Continue wound care. Wound care team consulted. 8. Sinus tachycardia secondary to anxiety. Continue Effexor and Xanax. Telemetry monitoring. DVT prophylaxis: GEORGIE Shields. Subcutaneous heparin Pt Condition on Discharge: Stable Discharge Disposition: Discharge to SNF Discharge Time: > 30 minutes Discharge Instructions DIET: Follow Instructions for: Heart Healthy Diet Activities you can perform: Regular-No Restrictions Activities to Avoid: Driving Follow up Referrals: PCP Follow-up - 1 Week New Medications: Alprazolam (Xanax) 0.25 Mg Tab 0.25 MG PO Q8H PRN for ANXIETY, #10 TAB Vancomycin Inj (Vancomycin Inj) 500 Mg Inj 125 MG PO Q6H for Infection, #48 INJECTION Continued Medications: Ascorbic Acid (Vitamin C) 250 Mg Tab 500 MG PO BID for Nutritional Supplement, TAB 0 Refills B-Complex Vitamins (Vitamin B-Complex) 1 Tab Unknown Dose PO DAILY Famotidine (Famotidine) 20 Mg Tab 20 MG PO BID, #60 TAB 0 Refills Ferrous Sulfate (Ferrous Sulfate) 325 Mg (65 Mg Iron) Tablet 325 MG PO TIDPC for Nutritional Supplement, #90 TAB 0 Refills Fluticasone Nasal Bracey (Fluticasone Nasal Bracey) 50 Mcg/Act Naspr 50 MCG EACH NARE BID for Allergy Management, #1 BOTTLE 0 Refills 50 mcg/spray Furosemide (Furosemide) 40 Mg Tab 40 MG PO BID, #60 TAB 0 Refills Gabapentin (Gabapentin) 100 Mg Cap 100 MG PO TID, #90 CAP 0 Refills Lactulose Liq (Lactulose Liq) 10 Gm/15 Ml Soln 45 ML PO TID, ML 0 Refills Multivitamin with Folic Acid (Thera Tablet) 400 Mcg Tablet 1 TAB PO DAILY for Alcohol Detox, #31 TAB Oxycodone (Oxycodone) 5 Mg Cap 5 MG PO DAILY PRN for PAIN, #3 CAP 0 Refills (This prescription has been renewed ) Paliperidone ER (Paliperidone ER) 9 Mg Tab 9 MG PO DAILY for Schizophrenia, #30 TAB 0 Refills Potassium Chloride ER (Potassium Chloride ER) 10 Meq Cap 10 MEQ PO DAILY for Electrolyte Replacement, #30 CAP 0 Refills Probiotic Product (Acidophilus) 175 Mg Cap 1 UNIT PO TID Rifaximin (Xifaxan) 550 Mg Tab 550 MG PO Q12HR for Hepatic encephalopathy, #60 TAB 0 Refills Spironolactone (Spironolactone) 100 Mg Tab 100 MG PO BID, #30 TAB 0 Refills Thiamine HCl (Gnp Vitamin B-1) 100 Mg Tab 100 MG PO DAILY for Alcohol Detox, #31 TAB Venlafaxine ER 24 HR (Effexor XR 24 HR) 75 Mg Cap 75 MG PO DAILY, #30 CAP 0 Refills Discontinued Medications: Sennosides (Senna-Tabs) 8.6 Mg Tab 8.6 MG PO DAILY for Constipation, #30 TAB 0 Refills Sohail Hidalgo MD Aug 05, 2017 15:47
[2017-08-05 16:00] VITALS: BP 111/59; PULSE 107; RESP 17; TEMP 98.1; O2SAT 100
[2017-08-05] MEDS ORDERED: VANCOMYCIN 500 MG VIAL (FOR ORAL USE ONLY) PO SCH (16:00)
--- NOTE | 2017-08-06 16:57 | PQ ---
Physician Query Response Document PATIENT: ALICIA GRAFF : 1965 ADMIT DATE: 07/30/2017 7:19 PM DISCH DATE: RESPONDING PROVIDER #: Shailesh QUERY TEXT: Conflicting Documentation Clarification A single mention or documentation of multiple diagnoses for the same clinical presentation appears in the record. Please clarify the diagnosis/diagnoses. Please also document if the condition is: -- Confirmed and current -- Confirmed, treated and resolved -- Ruled out -- Other, please specify Thank You !! The patient's Clinical Indicators include: Your progress notes dated 08/03, 08/04 and the discharge summary list the principal diagnosis as: (1) Metabolic encephalopathy ICD Code: G93.41 - Metabolic encephalopathy Diagnosis: Principal The H Cirrhosis of the liver, hepatic encephalopathy: Query created by: Julia Lizama on 08/06/2017 3:47 PM RESPONSE TEXT: Both conditions existed Metabolic and hepatic encephalopathy Electronically signed by: Sohail Hidalgo MD 08/06/2017 4:53 PM
== END 2017-08-05 17:16 | DRG 371 ==
LOC: N04A 19:19
PROVIDERS: ADMIT Internal Medicine; ATTEND Internal Medicine
DX: A04.72 Enterocolitis due to Clostridium difficile, not specified as recurrent (principal); L89.154 Pressure ulcer of sacral region, stage 4; G93.41 Metabolic encephalopathy; K70.30 Alcoholic cirrhosis of liver without ascites; K72.90 Hepatic failure, unspecified without coma; N39.0 Urinary tract infection, site not specified; E16.2 Hypoglycemia, unspecified; Z16.12 Extended spectrum beta lactamase (ESBL) resistance; J44.9 Chronic obstructive pulmonary disease, unspecified; L08.9 Local infection of the skin and subcutaneous tissue, unspecified; R01.1 Cardiac murmur, unspecified; E87.6 Hypokalemia; F10.21 Alcohol dependence, in remission; F41.9 Anxiety disorder, unspecified; R00.0 Tachycardia, unspecified; Z98.84 Bariatric surgery status
CPT/HCPCS: 80048; 80053; 82140; 83735; 85025; J1335; J1644